=== PATIENT | female | born 1940 | race Caucasian/White ===

== ENCOUNTER → 2022-08-03 | Outpatient (CLI) | payer MEDICARE ==
[2022-08-03 18:12] LABS: HCT 35.2 % (37.2-46.3); HGB 10.8 g/dL (12.0-15.0); MCH 31.5 pg (27.0-32.0); MCHC 30.7 g/dL (32.0-37.0); MCV 102.6 fL (80.0-97.0); Mean Platelet Volume 12.7 fL (9.5-12.2); NRBC Per 100 WBC 0 /100 WBCS (0.0-0.0); Platelet Count 200 X 10*3/uL (140-440); RBC 3.43 X 10*6/uL (4.10-5.20); RDW 14.4 % (11.5-14.5)
== END | disposition home or self-care (01) ==
LOC: LABWHC1 12:29
PROVIDERS: ATTEND Family Medicine
DX: I25.10 Atherosclerotic heart disease of native coronary artery without angina pectoris (principal); N17.9 Acute kidney failure, unspecified
CPT/HCPCS: 36415; 83970; 85027

== ENCOUNTER 2022-12-07 01:06 | Inpatient (IN) | payer MEDICARE ==
--- NOTE | 2022-12-07 01:30 | ED ---
General Adult HPI - General Chief complaint: Shortness of Breath Stated complaint: SOB Time Seen by Provider: 12/07/22 01:10 Source: patient, EMS, RN notes reviewed, old records reviewed Mode of arrival: EMS Limitations: no limitations - History of Present Illness Initial comments: 82-year-old female presenting for evaluation of cough and dyspnea. Patient states she's had a cough for several days but this evening she became more dyspneic. She denies chest pain. Denies fever. Denies lower extremity pain or swelling. Denies history of asthma or COPD but states she does have an inhaler at home. Patient states she had a similar episode several months ago which was related to pneumonia and did require hospitalization and BiPAP - Related Data Allergies Allergy/AdvReac Type Severity Reaction Status Date / Time cephalexin [From Keflex] AdvReac Rash/Hives Verified 12/07/22 01:17 Penicillins AdvReac Rash/Hives Verified 12/07/22 01:17 Sulfa (Sulfonamide AdvReac Itching Verified 12/07/22 01:17 Antibiotics) Review of Systems ROS Statement: Those systems with pertinent positive or pertinent negative responses have been documented in the HPI. ROS Other: All systems not noted in ROS Statement are negative. 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 Absent: tenderness, meningismus Respiratory exam: Present: rhonchi, other (Bronchospastic cough). Absent: respiratory distress Cardiovascular Exam: Present: regular rate, normal rhythm, other GI/Abdominal exam: Present: soft. Absent: distended, tenderness, guarding Extremities exam: Present: normal inspection, normal capillary refill. Absent: pedal edema, calf tenderness Neurological exam: Present: alert, oriented X3, CN II-XII intact. Absent: motor sensory deficit Psychiatric exam: Present: normal affect, normal mood Skin exam: Present: warm, dry, intact Course Vital Signs 12/07/22 12/07/22 12/07/22 01:07 01:13 01:19 Temperature 98.1 F Pulse Rate 90 90 Respiratory 18 22 Rate Blood Pressure 146/94 O2 Sat by Pulse 98 98 Oximetry 12/07/22 12/07/22 12/07/22 01:20 01:30 01:50 Temperature Pulse Rate 90 100 83 Respiratory 11 L 18 20 Rate Blood Pressure 146/94 O2 Sat by Pulse 98 97 97 Oximetry 12/07/22 12/07/22 12/07/22 02:15 02:20 02:30 Temperature Pulse Rate 78 77 75 Respiratory 18 18 22 Rate Blood Pressure 146/94 O2 Sat by Pulse 97 97 97 Oximetry 12/07/22 12/07/22 12/07/22 02:40 02:50 03:00 Temperature Pulse Rate 75 74 77 Respiratory 10 L 20 Rate Blood Pressure 130/72 O2 Sat by Pulse 97 96 97 Oximetry 12/07/22 04:00 Temperature Pulse Rate 75 Respiratory 18 Rate Blood Pressure 138/96 O2 Sat by Pulse 97 Oximetry Medical Decision Making - Medical Decision Making Was pt. sent in by a medical professional or institution (, PA, SHOTG[employer] SHELL ASSEMBLY MACHINE ADJUSTER, urgent care, hospital, or half-way...) When possible be specific @ -No Did you speak to anyone other than the patient for history (EMS, parent, family, police, friend...)? What history was obtained from this source @ -No Did you review nursing and triage notes (agree or disagree)? Why? @ -I reviewed and agree with nursing and triage notes Were old charts reviewed (outside hosp., previous admission, EMS record, old EKG, old radiological studies, urgent care reports/EKG's, half-way records)? Report findings @ -No old charts were reviewed Differential Diagnosis (chest pain, altered mental status, abdominal pain women, abdominal pain men, vaginal bleeding, weakness, fever, dyspnea, syncope, headache, dizziness, GI bleed, back pain, seizure, CVA, palpatations, mental health, musculoskeletal)? @ Differential Dyspnea: Coronary syndrome, arrhythmia, tamponade, asthma, COPD, pulmonary embolism, pneumonia, pneumothorax, pulmonary effusion, anaphylaxis, diabetic ketoacidosis, flailed chest, pulmonary contusion, diaphragmatic rupture, anemia, neuromuscular, this is not meant to be an all-inclusive list. EKG interpreted by me (3pts min.). @ Sinus rhythm, left axis deviation rate of 84, RI interval 157, QRS duration 111, QTC [address] segment elevation X-rays interpreted by me (1pt min.). @ -None done CT interpreted by me (1pt min.). @ -None done U/S interpreted by me (1pt. min.). @ -None done What testing was considered but not performed or refused? (CT, X-rays, U/S, labs)? Why? @ -None What meds were considered but not given or refused? Why? @ -None Did you discuss the management of the patient with other professionals (professionals i.e. , PA, [employer] SHELL ASSEMBLY MACHINE ADJUSTER, lab, RT, psych nurse, high school social studies teacher, wood boat builder supervisor, teacher, supervisor dog license officer, residential case manager)? Give summary @ -[Dr. Archuleta Was smoking cessation discussed for >3mins.? @ -No Was critical care preformed (if so, how long)? @ -No Were there social determinants of health that impacted care today? How? (Homelessness, low income, unemployed, alcoholism, drug addiction, transportation, low edu. Level, literacy, decrease access to med. care, nursing home, rehab)? @ -No Was there de-escalation of care discussed even if they declined (Discuss DNR or withdrawal of care, Hospice)? DNR status @ -No What co-morbidities impacted this encounter? (DM, HTN, Smoking, COPD, CAD, Cancer, CVA, ARF, Chemo, Hep., AIDS, mental health diagnosis, sleep apnea, morbid obesity)? @ -CHF, CAD Was patient admitted / discharged? Hospital course, mention meds given and route, prescriptions, significant lab abnormalities, going to OR and other pertinent info. @ 82-year-old female with cough and dyspnea, symptoms have progressed over several days but significantly worsened tonight. She does not have a formal diagnosis of asthma or COPD but has had some mild lower respiratory issues in the past. She has a bronchospastic cough and bilateral rhonchi. No peripheral edema. Patient's workup reveals chest x-ray which is negative for large focal pneumonia, does show some basilar atelectasis. She has a normal CBC. She has an elevated d-dimer of 0.86. She states that she had previously been admitted and there was request for VQ scan however the patient had an infection at the [facility] and was not able to undergo this test. She states that they have had her on our requests for suspected pulmonary embolism at that time. She is unable to undergo CT angiography for history of kidney disease. She has a negative troponin, negative BMP. She will be treated as acute bronchospasm with steroids, albuterol and oral antibiotics and VQ scan will be ordered for the morning. Undiagnosed new problem with uncertain prognosis? @ -No Drug Therapy requiring intensive monitoring for toxicity (Heparin, Nitro, Insulin, Cardizem)? @ -No Were any procedures done? @ -No Diagnosis/symptom? @ Dyspnea, bronchospasm Acute, or Chronic, or Acute on Chronic? @ Acute Uncomplicated (without systemic symptoms) or Complicated (systemic symptoms)? @ -Complicated Side effects of treatment? @ -No Exacerbation, Progression, or Severe Exacerbation? @ -No Poses a threat to life or bodily function? How? (Chest pain, USA, CT, pneumonia, PE, COPD, DKA, ARF, appy, cholecystitis, CVA, Diverticulitis, Homicidal, Suicidal, threat to staff... and all critical care pts) @ Moderate risk, , bronchospasm, dyspnea and hypoxia - Lab Data Result diagrams: 12/07/22 01:26 12/07/22 01:26 Lab Results 12/07/22 12/07/22 12/07/22 Range/Units 01: 01: 01:26 WBC 10.0 (3.8-10.6) k/uL RBC 4.45 (3.80-5.40) m/uL Hgb 13.6 (11.4-16.0) gm/dL Hct 41.2 (34.0-46.0) % MCV 92.6 (80.0-100.0) fL MCH 30.4 (25.0-35.0) pg MCHC 32.9 (31.0-37.0) g/dL RDW 13.9 (11.5-15.5) % Plt Count 327 (150-450) k/uL MPV 8.2 Neutrophils % 62 % Lymphocytes % 21 % Monocytes % 8 % Eosinophils % 4 % Basophils % 1 % Neutrophils # 6.2 (1.3-7.7) k/uL Lymphocytes # 2.1 (1.0-4.8) k/uL Monocytes # 0.8 (0-1.0) k/uL Eosinophils # 0.4 (0-0.7) k/uL Basophils # 0.1 (0-0.2) k/uL PT 9.4 (9.0-12.0) sec INR 0.9 (<1.2) APTT 23.1 (22.0-30.0) sec D-Dimer 0.86 H (<0.60) mg/L FEU Sodium 139 (137-145) mmol/L Potassium 4.2 (3.5-5.1) mmol/L Chloride 110 H (98-107) mmol/L Carbon Dioxide 16 L (22-30) mmol/L Anion Gap 13 mmol/L BUN 28 H (7-17) mg/dL Creatinine 1.31 H (0.52-1.04) mg/dL Est GFR (CKD-EPI)AfAm 44 (>60 ml/min/1.73 sqM) Est GFR (CKD-EPI)NonAf 38 (>60 ml/min/1.73 sqM) Glucose 127 H (74-99) mg/dL Plasma Lactic Acid [place] (0.7-2.0) mmol/L Calcium 8.9 (8.4-10.2) mg/dL Magnesium 1.9 (1.6-2.3) mg/dL Total Bilirubin 0.4 (0.2-1.3) mg/dL AST 21 (14-36) U/L ALT 14 (4-34) U/L Alkaline Phosphatase 117 (38-126) U/L Troponin I (0.000-0.034) ng/mL NT-Pro-B Natriuret Pep pg/mL Total Protein 7.8 (6.3-8.2) g/dL Albumin 4.2 (3.5-5.0) g/dL Influenza Type A (PCR) (Not Detectd) Influenza Type B (PCR) (Not Detectd) RSV (PCR) (Not Detectd) SARS-CoV-2 (PCR) (Not Detectd) 12/07/22 12/07/22 12/07/22 Range/Units 01:26 01:26 01:26 WBC (3.8-10.6) k/uL RBC (3.80-5.40) m/uL Hgb (11.4-16.0) gm/dL Hct (34.0-46.0) % MCV (80.0-100.0) fL MCH (25.0-35.0) pg MCHC (31.0-37.0) g/dL RDW (11.5-15.5) % Plt Count (150-450) k/uL MPV Neutrophils % % Lymphocytes % % Monocytes % % Eosinophils % % Basophils % % Neutrophils # (1.3-7.7) k/uL Lymphocytes # (1.0-4.8) k/uL Monocytes # (0-1.0) k/uL Eosinophils # (0-0.7) k/uL Basophils # (0-0.2) k/uL PT (9.0-12.0) sec INR (<1.2) APTT (22.0-30.0) sec D-Dimer (<0.60) mg/L FEU Sodium (137-145) mmol/L Potassium (3.5-5.1) mmol/L Chloride (98-107) mmol/L Carbon Dioxide (22-30) mmol/L Anion Gap mmol/L BUN (7-17) mg/dL Creatinine (0.52-1.04) mg/dL Est GFR (CKD-EPI)AfAm (>60 ml/min/1.73 sqM) Est GFR (CKD-EPI)NonAf (>60 ml/min/1.73 sqM) Glucose (74-99) mg/dL Plasma Lactic Acid [place] 1.3 (0.7-2.0) mmol/L Calcium (8.4-10.2) mg/dL Magnesium (1.6-2.3) mg/dL Total Bilirubin (0.2-1.3) mg/dL AST (14-36) U/L ALT (4-34) U/L Alkaline Phosphatase (38-126) U/L Troponin I <0.012 (0.000-0.034) ng/mL NT-Pro-B Natriuret Pep 562 pg/mL Total Protein (6.3-8.2) g/dL Albumin (3.5-5.0) g/dL Influenza Type A (PCR) (Not Detectd) Influenza Type B (PCR) (Not Detectd) RSV (PCR) (Not Detectd) SARS-CoV-2 (PCR) (Not Detectd) 12/07/22 Range/Units 01:36 WBC (3.8-10.6) k/uL RBC (3.80-5.40) m/uL Hgb (11.4-16.0) gm/dL Hct (34.0-46.0) % MCV (80.0-100.0) fL MCH (25.0-35.0) pg MCHC (31.0-37.0) g/dL RDW (11.5-15.5) % Plt Count (150-450) k/uL MPV Neutrophils % % Lymphocytes % % Monocytes % % Eosinophils % % Basophils % % Neutrophils # (1.3-7.7) k/uL Lymphocytes # (1.0-4.8) k/uL Monocytes # (0-1.0) k/uL Eosinophils # (0-0.7) k/uL Basophils # (0-0.2) k/uL PT (9.0-12.0) sec INR (<1.2) APTT (22.0-30.0) sec D-Dimer (<0.60) mg/L FEU Sodium (137-145) mmol/L Potassium (3.5-5.1) mmol/L Chloride (98-107) mmol/L Carbon Dioxide (22-30) mmol/L Anion Gap mmol/L BUN (7-17) mg/dL Creatinine (0.52-1.04) mg/dL Est GFR (CKD-EPI)AfAm (>60 ml/min/1.73 sqM) Est GFR (CKD-EPI)NonAf (>60 ml/min/1.73 sqM) Glucose (74-99) mg/dL Plasma Lactic Acid [place] (0.7-2.0) mmol/L Calcium (8.4-10.2) mg/dL Magnesium (1.6-2.3) mg/dL Total Bilirubin (0.2-1.3) mg/dL AST (14-36) U/L ALT (4-34) U/L Alkaline Phosphatase (38-126) U/L Troponin I (0.000-0.034) ng/mL NT-Pro-B Natriuret Pep pg/mL Total Protein (6.3-8.2) g/dL Albumin (3.5-5.0) g/dL Influenza Type A (PCR) Not Detected (Not Detectd) Influenza Type B (PCR) Not Detected (Not Detectd) RSV (PCR) Not Detected (Not Detectd) SARS-CoV-2 (PCR) Not Detected (Not Detectd) Disposition Clinical Impression: Positive D dimer, Bronchospasm, Dyspnea Disposition: ADMITTED IP TO THIS [facility] Condition: Stable Is patient prescribed a controlled substance at d/c from ED?: No Referrals: Grover Escalante MD [Primary Care Provider] - 1-2 days Time of Disposition: 04:09
[2022-12-07 01:35] LABS: Basophils # (A) 0.1 k/uL (0-0.2); Basophils % (A) 1 %; Eosinophils # (A) 0.4 k/uL (0-0.7); Eosinophils % (A) 4 %; HCT 41.2 % (34.0-46.0); HGB 13.6 gm/dL (11.4-16.0); Lymphocytes # (A) 2.1 k/uL (1.0-4.8); Lymphocytes % (A) 21 %; MCH 30.4 pg (25.0-35.0); MCHC 32.9 g/dL (31.0-37.0); MCV 92.6 fL (80.0-100.0); Mean Platelet Volume 8.2; Monocytes # (A) 0.8 k/uL (0-1.0); Monocytes % (A) 8 %; Neutrophils # (A) 6.2 k/uL (1.3-7.7); Neutrophils % (A) 62 %; Platelet Count 327 k/uL (150-450); RBC 4.45 m/uL (3.80-5.40); RDW 13.9 % (11.5-15.5)
[2022-12-07 02:05] LABS: Albumin 4.2 g/dL (3.5-5.0); Calcium 8.9 mg/dL (8.4-10.2); Magnesium 1.9 mg/dL (1.6-2.3); Potassium 4.2 mmol/L (3.5-5.1); Total Bilirubin 0.4 mg/dL (0.2-1.3); Total Protein 7.8 g/dL (6.3-8.2)
[2022-12-07 02:12] LABS: INR 0.9 (<1.2); Partial Thromboplastin Time 23.1 sec (22.0-30.0); Prothrombin Time 9.4 sec (9.0-12.0)
[2022-12-07] MEDS ORDERED: SODIUM CHLORIDE 0.9% 500 ML 500 ML IV ONE (02:41)
--- NOTE | 2022-12-07 03:07 | XR ---
EXAM: XR Chest, 2 Views CLINICAL HISTORY: ITS.REASON XR Reason: difficulty breathing TECHNIQUE: Frontal and lateral views of the chest. COMPARISON: None FINDINGS: Hardware: None. Lungs/pleura: Bibasilar atelectasis. No focal consolidation. No pleural effusion or pneumothorax. Heart/mediastinum: Enlargement of the cardiac silhouette. Large gas- filled hiatal hernia. Soft tissues: Unremarkable. Bones: No acute fracture. Exaggerated thoracic kyphosis. Upper abdomen: Normal. IMPRESSION: 1. No acute disease identified. Basilar atelectasis. 2. Large gas-filled hiatal hernia.
[2022-12-07] MEDS ORDERED: ALBUTEROL NEBULIZED 2.5 MG/3 ML INHALATION STA (03:43)
[2022-12-07] MEDS ORDERED: predniSONE 20 MG TAB PO STA (03:43)
[2022-12-07] MEDS ORDERED: AZITHROMYCIN 500 MG TAB PO STA (04:03)
[2022-12-07] MEDS ORDERED: ALBUTEROL NEBULIZED 2.5 MG/3 ML INHALATION PRN (04:03)
[2022-12-07] MEDS ORDERED: NALOXONE 0.4 MG/ML 1 ML VIAL IV PRN (04:04)
[2022-12-07] MEDS: SODIUM CHLORIDE 0.9% 1,000 ML IV SCH ×3 (04:23→22:49)
--- NOTE | 2022-12-07 05:24 | P.HPIM ---
History of Present Illness H&P Date: 12/07/22 The patient is an 82-year-old female with a PMH of chronic kidney disease, COPD, and CHF who presents to the emergency room with complaints of cough and shortness of breath. The patient reports that her symptoms started earlier today and quickly progressed. She denied experiencing chest discomfort, nausea, vomiting, dizziness, or diaphoresis. The patient reports that she experienced a bout of influenza pneumonia in June, at which time she was also presumed to have a PE and was started on a course of anticoagulants. The course was subsequently discontinued. The patient denies experiencing lower extremity swelling or pain. In the emergency room, chest x-ray revealed bibasilar atelectasis as well as a large gas-filled hiatal hernia. EKG revealed sinus rhythm with left axis deviation at 84 bpm with poor R-wave progression. Laboratory evaluation is remarkable for d-dimer 0.86, BUN 28, creatinine 1.31 (similar to baseline), troponin less than 0.012, and proBNP 562. ED documentation reviewed and case discussed with ED provider. Review of systems: Pertinent positives and negatives as discussed in HPI, a complete review of systems was performed and all other systems are negative. Physical examination: Vital signs reviewed General: non toxic, no distress, appears at stated age, overweight Derm: no unusual rashes/lesions, warm Head: atraumatic, normocephalic, symmetric Eyes: EOMI, no lid lag, anicteric sclera, pupils equal round reactive to light ENT: Nose and ears atraumatic Neck: No cervical lymphadenopathy, trachea midline, supple Mouth: no lip lesion, mucus membranes moist Cardiovascular: S1S2 reg, no murmur, positive dorsalis pedis pulse bilateral, no edema Lungs: CTA bilateral, no rhonchi, no rales, no accessory muscle use Abdominal: soft, nontender to palpation, no guarding Ext: muscle strength 5 out of 5 in all 4 extremities grossly, no gross muscle atrophy, no contractures, Neuro: CN II-XI grossly intact, no gross focal neuro deficits Psych: Alert, oriented, appropriate affect Assessment: Cough and shortness of breath, community-acquired pneumonia versus PE in setting of borderline d-dimer Imaging: chest x-ray revealed bibasilar atelectasis as well as a large gas-filled hiatal hernia. EKG revealed sinus rhythm with left axis deviation at 84 bpm with poor R-wave progression. Data Review: Laboratory evaluation is remarkable for d-dimer 0.86, BUN 28, creatinine 1.31 (similar to baseline), troponin less than 0.012, and proBNP 562. 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, enlarged thyroid History of Any Multi-Drug Resistant Organisms: None Reported Smoking Status: Never smoker Medications and Allergies Allergies Allergy/AdvReac Type Severity Reaction Status Date / Time cephalexin [From Keflex] AdvReac Rash/Hives Verified 12/07/22 01:17 Penicillins AdvReac Rash/Hives Verified 12/07/22 01:17 Sulfa (Sulfonamide AdvReac Itching Verified 12/07/22 01:17 Antibiotics) Physical Exam Vitals: Vital Signs Temp Pulse Resp BP Pulse Ox 12/07/22 04:33 97 12/07/22 04:30 77 8 L 138/96 96 12/07/22 04:28 75 12/07/22 04:20 74 20 138/96 97 12/07/22 04:10 74 22 138/96 97 12/07/22 04:00 74 20 129/79 96 12/07/22 03:00 77 130/72 97 12/07/22 02:50 74 20 96 12/07/22 02:40 75 10 L 97 12/07/22 02:30 75 22 97 12/07/22 02:20 77 18 146/94 97 12/07/22 02:15 78 18 97 12/07/22 01:50 83 20 97 12/07/22 01:30 100 18 97 12/07/22 01:20 90 11 L 146/94 98 12/07/22 01:19 22 12/07/22 01:13 90 98 12/07/22 01:07 98.1 F 90 18 146/94 98 Intake and Output 12/06/22 12/06/22 12/07/22 14:59 22:59 06:59 Other: Weight 72.575 kg Results CBC & Chem 7: 12/07/22 01:26 12/07/22 01:26 Labs: Abnormal Lab Results - Last 24 Hours (Table) 12/07/22 12/07/22 Range/Units 01:26 01:26 D-Dimer 0.86 H (<0.60) mg/L FEU Chloride 110 H (98-107) mmol/L Carbon Dioxide 16 L (22-30) mmol/L BUN 28 H (7-17) mg/dL Creatinine 1.31 H (0.52-1.04) mg/dL Glucose 127 H (74-99) mg/dL
[2022-12-07] MEDS: IPRATROPIUM-ALBUTEROL 3 ML NEB INHALATION SCH ×4 (08:34→20:32)
[2022-12-07] MEDS: HEPARIN SODIUM,PORCINE/PF 5,000 UNIT/0.5 ML SYRINGE SQ SCH ×3 (08:44→23:24)
--- NOTE | 2022-12-07 12:46 | NM ---
EXAMINATION TYPE: NM pul vent and perfuse DATE OF EXAM: 12/07/2022 CLINICAL INDICATION: Female, 82 years old with shortness of breath, history of jatin; Comparison: Radiograph same day TECHNIQUE: Utilizing inhalation of 68.4 mCi Tc 99m DTPA aerosol and intravenous injection of 4.8 mCi of Tc 99m MAA, ventilation and perfusion images are acquired post injection in multiple projections. FINDINGS: Normal radiotracer distribution is noted in the lungs. There is no evidence of mismatched defects. IMPRESSION: Very low probability for pulmonary embolus. Correlate as to how much of the patient's large hiatal he rnia could be contributing to her shortness of breath.
--- NOTE | 2022-12-07 18:31 | P.PN ---
Subjective Progress Note Date: 12/07/22 Hospital course: Patient is a very pleasant 82-year-old female with a past medical history of CKD stage II, COPD, hypertension, hyperlipidemia, hypothyroidism, and CHF. Patient presented to the emergency department with a chief complaint of shortness of breath.patient underwent full evaluation in the emergency department. CBC unremarkable. Coagulation profile normal findings. D-dimer slightly elevated at 0.86 but normal with age adjustment. BMP revealing hyperchloremia with ch loride of 110 and hypocarbia with bicarbonate 16 along with slightly elevated renal function and a BUN was 28, creatinine 1.31, and GFR of 38 with baseline creatinine of 1.5. Troponin less than 0.012. ProBNP 562. Pro-calcitonin 0.04. Influenza A, influenza B, RSV, and Covid PCR negative.Chest x-ray negative for acute cardiopulmonary process revealing large gas-filled hiatal hernia. patient admitted under our services and consult was placed to general surgery. Physical exam: Vital signs reviewed and stable. General: Nontoxic, no distress and appears stated age. Derm: Skin warm and dry, normal coloration for ethnicity. Head: Atraumatic, normocephalic and symmetric. Eyes: EOMs intact, no lid lag, and anicteric sclera Mouth: no lip lesions, mucus membranes moist Cardiovascular: regular rate and rhythm with normal S1S2, no murmur, positive posterior tibial pulses bilaterally, and cap refill < 2 seconds. Lungs: Respirations even, regular, and unlabored on room air. Lungs slightly diminished otherwise no rhonchi, no rales, no wheezing, and no accessory muscle usage. Abdominal: soft, nontender to palpation, no guarding, no appreciable organomegaly Ext: ROM intact. No gross muscle atrophy, no edema, no contractures Neuro: Speech clear, face symmetrical and CN II-XII grossly intact with no noted focal neuro deficits Psych: Alert and oriented to person, place, time, and situation. Appropriate and pleasant affect. Assessment and Plan of Care: Shortness of breath secondary to large hiatal hernia chronic kidney disease stage II COPD Hypothyroidism hypertension Hyperlipidemia -CBC unremarkable. Coagulation profile normal findings. D-dimer slightly elevated at 0.86 but normal with age adjustment. BMP revealing hyperchloremia with chloride of 110 and hypocarbia with bicarbonate 16 along with slightly elevated renal function and a BUN was 28, creatinine 1.31, and GFR of 38 with baseline creatinine of 1.5. Troponin less than 0.012. ProBNP 562. Pro- calcitonin 0.04. Influenza A, influenza B, RSV, and Covid PCR negative. -Chest x-ray negative for acute cardiopulmonary process revealing large gas- filled hiatal hernia. -Consult placed to general surgery. Discussed plan of care with general surgeon stating patient will require surgical intervention for hernia repair. -Symptomatic care and pain management. -Continue gentle IV fluid hydration with 0.9% normal saline at 75 mL's per hour. -Home medications reviewed and reordered. Patient to continue amlodipine 5 mg daily, atorvastatin 20 mg daily, ferrous sulfate 325 mg daily, levothyroxine 50 g daily metoprolol 50 mg twice daily, and valsartan 320 mg daily. CODE STATUS: FULL CODE DVT prophylaxis: Heparin Discussed with: Patient, RN and General Surgeon Anticipated discharge date: Clinical Course to determine Anticipated discharge place: Home Patient was seen independently by Nurse Pracitioner. This document was prepared using [employer] dictation software. Please allow for errors in wash test checker, while rare they do occur. Pepe Mercado NP rendered care for this patient independently, reviewed the findings and plan as documented in the note above. I did not physically speak with or examine the patient on this date. Objective - Vital Signs Vital signs: Vital Signs Temp 98.4 F 12/07/22 07:17 Pulse 78 12/07/22 07:17 Resp 16 12/07/22 07:17 BP 134/83 12/07/22 07:17 Pulse Ox 96 12/07/22 08:34 FiO2 Intake & Output 12/06/22 12/07/22 12/07/22 18:59 06:59 18:59 Intake Total 200 Balance 200 Weight 72.575 kg Intake: Oral 200 Other: # Voids 1 - Labs CBC & Chem 7: 12/09/22 05:00 12/09/22 05:00 Labs: Abnormal Lab Results - Last 24 Hours (Table) 12/07/22 12/07/22 Range/Units 01:26 01:26 D-Dimer 0.86 H (<0.60) mg/L FEU Chloride 110 H (98-107) mmol/L Carbon Dioxide 16 L (22-30) mmol/L BUN 28 H (7-17) mg/dL Creatinine 1.31 H (0.52-1.04) mg/dL Glucose 127 H (74-99) mg/dL
[2022-12-07] MEDS: METOPROLOL SUCCINATE (ER) 50 MG TAB.ER.24H PO SCH (19:53)
[2022-12-07] MEDS: ATORVASTATIN 20 MG TAB PO SCH (19:53)
[2022-12-08] MEDS: LEVOTHYROXINE 50 MCG TAB PO SCH (05:32)
[2022-12-08] MEDS: PANTOPRAZOLE 40 MG TABLET PO SCH (05:33)
[2022-12-08] MEDS: FERROUS SULFATE 325 MG TAB PO SCH (08:03)
[2022-12-08] MEDS: HEPARIN SODIUM,PORCINE/PF 5,000 UNIT/0.5 ML SYRINGE SQ SCH ×2 (08:03→16:05)
[2022-12-08] MEDS: METOPROLOL SUCCINATE (ER) 50 MG TAB.ER.24H PO SCH ×2 (08:03→21:39)
[2022-12-08] MEDS: VALSARTAN 160 MG TAB PO SCH (08:03)
[2022-12-08] MEDS: allopurinoL 300 MG TAB PO SCH (08:03)
[2022-12-08] MEDS: amLODIPine 5 MG TAB PO SCH (08:03)
[2022-12-08] MEDS: IPRATROPIUM-ALBUTEROL 3 ML NEB INHALATION SCH ×4 (08:07→20:39)
--- NOTE | 2022-12-08 10:02 | P.GSCN ---
History of Present Illness Consult date: 12/08/22 Reason for Consult: Large paraesophageal hernia with intrathoracic stomach History of present illness: This 80-year-old female who is admitted to the hospital with complaints of(dyspnea shortness of breath. GERD and dysphagia. Patient states that she had long-term acid reflux. Her recent chest x-ray shows a large paraesophageal hiatal hernia with prosthetic 50% of her stomach in her chest. Past Medical History Past Medical History: Cancer, Heart Failure, Myocardial Infarction ([place]), Renal Disease Additional Past Medical History / Comment(s): Basil cell cancer, enlarged thyroid Last Myocardial Infarction Date:: unknown History of Any Multi-Drug Resistant Organisms: None Reported Smoking Status: Never smoker Medications and Allergies Home Medications Medication Instructions Recorded Confirmed Type Amlodipine Besylate/Valsartan 1 tab PO DAILY 12/07/22 12/07/22 History [Amlodipine-Valsartan 5-320 mg] Ferrous Sulfate [Feosol] 325 mg PO DAILY 12/07/22 12/07/22 History Levothyroxine Sodium [Synthroid] 50 mcg PO TUTHFRSA 12/07/22 12/07/22 History Metoprolol Succinate (ER) [Toprol 50 mg PO BID 12/07/22 12/07/22 History Xl] Omeprazole [PriLOSEC] 40 mg PO DAILY 12/07/22 12/07/22 History Simvastatin [Zocor] 40 mg PO HS 12/07/22 12/07/22 History allopurinoL [Zyloprim] 150 mg PO DAILY 12/07/22 12/07/22 History Allergies Allergy/AdvReac Type Severity Reaction Status Date / Time cephalexin [From Keflex] AdvReac Rash/Hives Verified 12/07/22 07:01 Penicillins AdvReac Rash/Hives Verified 12/07/22 07:01 Sulfa (Sulfonamide AdvReac Itching/[place] Verified 12/07/22 07:01 Antibiotics) h Surgical - Exam Vital Signs Temp Pulse Resp BP Pulse Ox 98.1 F 90 18 146/94 98 12/07/22 01:07 12/07/22 01:07 12/07/22 01:07 12/07/22 01:07 12/07/22 01:07 - General well developed, well nourished, no distress - Eyes PERRL - ENT normal pinna - Neck no masses - Respiratory normal expansion - Cardiovascular Rhythm: regular - Abdomen Abdomen: soft, non tender Results - Labs 12/07/22 01:26 12/07/22 01:26 Assessment and Plan Assessment: Large paraesophageal hiatal hernia. History of chronic GERD with some mild dysphagia. Shortness of breath. Due to the large hiatal hernia patient should have this repaired. The patient will be medically optimized. She will undergo EGD prior to repair of her hiatal hernia.
[2022-12-08] MEDS: ACETAMINOPHEN TAB 325 MG TAB PO PRN (16:07)
--- NOTE | 2022-12-08 17:54 | P.PN ---
Subjective Progress Note Date: 12/08/22 Hospital course: Patient is a very pleasant 82-year-old female with a past medical history of CKD stage II, COPD, hypertension, hyperlipidemia, hypothyroidism, and CHF. Patient presented to the emergency department with a chief complaint of shortness of breath.patient underwent full evaluation in the emergency department. CBC unremarkable. Coagulation profile normal findings. D-dimer slightly elevated at 0.86 but normal with age adjustment. BMP revealing hyperchloremia with ch loride of 110 and hypocarbia with bicarbonate 16 along with slightly elevated renal function and a BUN was 28, creatinine 1.31, and GFR of 38 with baseline creatinine of 1.5. Troponin less than 0.012. ProBNP 562. Pro-calcitonin 0.04. Influenza A, influenza B, RSV, and Covid PCR negative.Chest x-ray negative for acute cardiopulmonary process revealing large gas-filled hiatal hernia. patient admitted under our services and consult was placed to general surgery. Physical exam: Vital signs reviewed and stable. General: Nontoxic, no distress and appears stated age. Derm: Skin warm and dry, normal coloration for ethnicity. Head: Atraumatic, normocephalic and symmetric. Eyes: EOMs intact, no lid lag, and anicteric sclera Mouth: no lip lesions, mucus membranes moist Cardiovascular: regular rate and rhythm with normal S1S2, no murmur, positive posterior tibial pulses bilaterally, and cap refill < 2 seconds. Lungs: Respirations even, regular, and unlabored on room air. Lungs slightly diminished otherwise no rhonchi, no rales, no wheezing, and no accessory muscle usage. Abdominal: soft, nontender to palpation, no guarding, no appreciable organomegaly Ext: ROM intact. No gross muscle atrophy, no edema, no contractures Neuro: Speech clear, face symmetrical and CN II-XII grossly intact with no noted focal neuro deficits Psych: Alert and oriented to person, place, time, and situation. Appropriate and pleasant affect. Assessment and Plan of Care: Shortness of breath secondary to large hiatal hernia Large paraesophageal hernia with intrathoracic stomach Chronic kidney disease stage II COPD Hypothyroidism hypertension Hyperlipidemia -Gen. surgery following, Discussed plan of care with general surgeon. Dr. Murphy stating patient will require surgical intervention for this hernia repair. -Symptomatic care and pain management. -Continue gentle IV fluid hydration with 0.9% normal saline at 75 mL's per hour. -Home medications reviewed and reordered. Patient to continue amlodipine 5 mg daily, atorvastatin 20 mg daily, ferrous sulfate 325 mg daily, levothyroxine 50 g daily metoprolol 50 mg twice daily, and valsartan 320 mg daily. Elevated d-dimer -D-dimer was slightly elevated at 0.86 but normal with age adjustment. -Patient did undergo a VQ scan which showed very low probability for pulmonary emboli and concerning as to how much of patient's large hiatal hernia could be contributing to her shortness of breath CODE STATUS: FULL CODE DVT prophylaxis: Heparin Discussed with: Patient, RN and General Surgeon Anticipated discharge date: Clinical Course to determine Anticipated discharge place: Home Patient was seen independently by Nurse Pracitioner. This document was prepared using [employer] dictation software. Please allow for errors in office professional, while rare they do occur. I reviewed the documentation as provided by the RICHARD above, who is the original author of this note. I agree with the documented assessment and plan, with the following changes: none Objective - Vital Signs Vital signs: Vital Signs Temp 97.7 F 12/08/22 07:45 Pulse 92 12/08/22 08:18 Resp 18 12/08/22 07:45 BP 152/75 12/08/22 07:45 Pulse Ox 96 12/08/22 08:10 FiO2 Intake & Output 12/07/22 12/08/22 12/08/22 18:59 06:59 18:59 Intake Total 600 Balance 600 Intake: Intake, IV Titration 600 Amount Sodium Chloride 0.9% 1, 600 000 ml @ 75 mls/hr IV . [id number] [facility] Rx#:[id number] Other: # Voids 2 1 - Labs CBC & Chem 7: 12/20/22 04:21 12/20/22 04:21
[2022-12-08] MEDS: ATORVASTATIN 20 MG TAB PO SCH (21:39)
[2022-12-09] MEDS: SODIUM CHLORIDE 0.9% 1,000 ML IV SCH ×2 (00:41→00:44)
[2022-12-09] MEDS: HEPARIN SODIUM,PORCINE/PF 5,000 UNIT/0.5 ML SYRINGE SQ SCH ×3 (00:41→16:09)
[2022-12-09] MEDS: LEVOTHYROXINE 50 MCG TAB PO SCH (06:39)
[2022-12-09] MEDS: PANTOPRAZOLE 40 MG TABLET PO SCH (06:39)
[2022-12-09] MEDS: FERROUS SULFATE 325 MG TAB PO SCH (07:56)
[2022-12-09] MEDS: allopurinoL 300 MG TAB PO SCH (07:56)
[2022-12-09] MEDS: METOPROLOL SUCCINATE (ER) 50 MG TAB.ER.24H PO SCH ×2 (07:56→20:10)
[2022-12-09] MEDS: amLODIPine 5 MG TAB PO SCH (07:56)
[2022-12-09] MEDS: VALSARTAN 160 MG TAB PO SCH (07:56)
[2022-12-09] MEDS: IPRATROPIUM-ALBUTEROL 3 ML NEB INHALATION SCH ×4 (07:58→20:27)
[2022-12-09 09:21] LABS: African American GFR (CKD) 50.3 (60.0-200.0); Albumin 3.5 g/dL (3.8-4.9); Albumin/Globulin Ratio 1.32 (1.60-3.17); Anion Gap 9.6 mmol/L (10.00-18.00); BUN/Creat Ratio 17.78 Ratio (12.00-20.00); Blood Urea Nitrogen 20.8 mg/dL (9.0-27.0); Calcium 9.3 mg/dL (8.7-10.3); Carbon Dioxide 18.8 mmol/L (20.0-27.5); Globulin 2.7 g/dL (1.6-3.3); Magnesium 1.8 mg/dL (1.5-2.4); Non-African American GFR(CKD) 43.4 (60.0-200.0); Potassium 4.3 mmol/L (3.5-5.5); Total Bilirubin 0.3 mg/dL (0.30-1.20); Total Protein 6.2 g/dL (6.2-8.2)
--- NOTE | 2022-12-09 10:41 | P.PN ---
Progress Note - Text Progress Note Date: 12/09/22 Patient reports that she is anxious and hypertensive morning. She has had some shortness of breath. On exam vital signs are stable. Abdomen soft. I discussed the patient and her daughter on the telephone. She has a very large hiatal hernia. We will plan for elective repair when she is stable and has medical clearance. We discussed that this occurring on Saturday or Saturday of next week.
[2022-12-09 11:20] LABS: HCT 33.5 % (37.2-46.3); HGB 10.8 g/dL (12.0-15.0); MCH 29.9 pg (27.0-32.0); MCHC 32.2 g/dL (32.0-37.0); MCV 92.8 fL (80.0-97.0); Mean Platelet Volume 11.7 fL (9.5-12.2); NRBC Per 100 WBC 0 /100 WBCS (0.0-0.0); Platelet Count 262 X 10*3/uL (140-440); RBC 3.61 X 10*6/uL (4.10-5.20); RDW 14.3 % (11.5-14.5); WBC 9.05 X 10*3/uL (4.50-10.00)
[2022-12-09] MEDS: ACETAMINOPHEN TAB 325 MG TAB PO PRN (13:16)
--- NOTE | 2022-12-09 17:59 | P.PN ---
Subjective Progress Note Date: 12/09/22 Hospital course: Patient is a very pleasant 82-year-old female with a past medical history of CKD stage II, COPD, hypertension, hyperlipidemia, hypothyroidism, and CHF. Patient presented to the emergency department with a chief complaint of shortness of breath.patient underwent full evaluation in the emergency department. CBC unremarkable. Coagulation profile normal findings. D-dimer slightly elevated at 0.86 but normal with age adjustment. BMP revealing hyperchloremia with ch loride of 110 and hypocarbia with bicarbonate 16 along with slightly elevated renal function and a BUN was 28, creatinine 1.31, and GFR of 38 with baseline creatinine of 1.5. Troponin less than 0.012. ProBNP 562. Pro-calcitonin 0.04. Influenza A, influenza B, RSV, and Covid PCR negative.Chest x-ray negative for acute cardiopulmonary process revealing large gas-filled hiatal hernia. patient admitted under our services and consult was placed to general surgery. Physical exam: Patient seen and fully evaluated at bedside this morning. Patient anxious regarding her discussion with general surgeon and need to undergo surgery. Patient also slightly hypertensive this morning likely secondary to anxiety. Patient being given her daily medications with valsartan 320 mg daily and metoprolol 50 mg twice daily, discussed plan with general surgeon, patient is medically optimized for surgery. General surgeon and states will plan for elective hernia repair 12/11/22 or 12/12/22. Vital signs reviewed and stable. General: Nontoxic, no distress and appears stated age. Derm: Skin warm and dry, normal coloration for ethnicity. Head: Atraumatic, normocephalic and symmetric. Eyes: EOMs intact, no lid lag, and anicteric sclera Mouth: no lip lesions, mucus membranes moist Cardiovascular: regular rate and rhythm with normal S1S2, no murmur, positive posterior tibial pulses bilaterally, and cap refill < 2 seconds. Lungs: Respirations even, regular, and unlabored on room air. Lungs slightly diminished otherwise no rhonchi, no rales, no wheezing, and no accessory muscle usage. Abdominal: soft, nontender to palpation, no guarding, no appreciable organomegaly Ext: ROM intact. No gross muscle atrophy, no edema, no contractures Neuro: Speech clear, face symmetrical and CN II-XII grossly intact with no noted focal neuro deficits Psych: Alert and oriented to person, place, time, and situation. Appropriate and pleasant affect. Assessment and Plan of Care: Shortness of breath secondary to large paraesophageal hernia with intrathoracic stomach Chronic kidney disease stage II Normocytic anemia COPD Hypothyroidism hypertension Hyperlipidemia -Gen. surgery following, Discussed plan of care with general surgeon. Dr. Murphy stating patient will require surgical intervention for this hernia repair and states will plan for elective hernia repair 12/11/22 or 12/12/22.. -Symptomatic care and pain management. -Morning labs reviewed and stable. CBC revealing normocytic anemia with hem oglobin of 10.8. BMP revealing hyperchloremia with chloride of 111 and slight improvement of hypocarbia with bicarb increasing to 18.8 with an anion gap of 9.60. IV Fluids discontinued at this time. -Patient to continue amlodipine 5 mg daily, atorvastatin 20 mg daily, ferrous sulfate 325 mg daily, levothyroxine 50 g daily metoprolol 50 mg twice daily, and valsartan 320 mg daily. -Order placed for repeat CBC tomorrow morning to follow up on hemoglobin secondary to drop from 13.6 down to 10.8 this morning. Elevated d-dimer, VQ negative for d-dimer -D-dimer was slightly elevated at 0.86 but normal with age adjustment. -Patient did undergo a VQ scan which showed very low probability for pulmonary emboli and concerning as to how much of patient's large hiatal hernia could be contributing to her shortness of breath CODE STATUS: FULL CODE DVT prophylaxis: Heparin Discussed with: Patient, RN and General Surgeon Anticipated discharge date: Clinical Course to determine Anticipated discharge place: Home Patient was seen independently by Nurse Pracitioner. This document was prepared using [employer] dictation software. Please allow for errors in export sales manager, while rare they do occur. Pepe Mercado NP rendered care for this patient independently, reviewed the findings and plan as documented in the note above. I did not physically speak with or examine the patient on this date. Objective - Vital Signs Vital signs: Vital Signs Temp 98.2 F 12/09/22 07:16 Pulse 92 12/09/22 08:13 Resp 16 12/09/22 07:16 BP 170/89 12/09/22 07:16 Pulse Ox 96 12/09/22 08:01 FiO2 Intake & Output 12/08/22 12/09/22 12/09/22 18:59 06:59 18:59 Intake Total 1080 920 Balance 1080 920 Intake: Oral 1080 920 Other: # Voids 3 1 - Labs CBC & Chem 7: 12/09/22 05:00 12/09/22 05:00
[2022-12-09] MEDS: ATORVASTATIN 20 MG TAB PO SCH (20:10)
[2022-12-10] MEDS: HEPARIN SODIUM,PORCINE/PF 5,000 UNIT/0.5 ML SYRINGE SQ SCH ×4 (00:03→23:53)
[2022-12-10] MEDS: ACETAMINOPHEN TAB 325 MG TAB PO PRN ×2 (06:17→21:35)
[2022-12-10] MEDS: PANTOPRAZOLE 40 MG TABLET PO SCH (06:18)
[2022-12-10] MEDS: FERROUS SULFATE 325 MG TAB PO SCH (07:36)
[2022-12-10] MEDS: allopurinoL 300 MG TAB PO SCH (07:36)
[2022-12-10] MEDS: METOPROLOL SUCCINATE (ER) 50 MG TAB.ER.24H PO SCH ×2 (07:37→21:35)
[2022-12-10] MEDS: VALSARTAN 160 MG TAB PO SCH (07:37)
[2022-12-10] MEDS: amLODIPine 5 MG TAB PO SCH (07:37)
[2022-12-10] MEDS: IPRATROPIUM-ALBUTEROL 3 ML NEB INHALATION SCH ×4 (09:22→22:08)
--- NOTE | 2022-12-10 09:45 | P.PN ---
Progress Note - Text Progress Note Date: 12/10/22 Patient still has some complaints of dyspnea related to anxiety. She feels she is hyperventilating. On exam vital signs are stable. Abdomen soft. Large paraesophageal hiatal hernia with approximately 50% stomach in the intrathoracic position. Patient will undergo EGD on Saturday. With tentative plan for surgery on Saturday.
--- NOTE | 2022-12-10 10:29 | P.PN ---
Progress Note - Text Progress Note Date: 12/10/22 Nursing staff relayed that no cardiac clearance is required. Consult cancelled.
--- NOTE | 2022-12-10 18:43 | P.PN ---
Subjective Progress Note Date: 12/10/22 Hospital course: Patient is a very pleasant 82-year-old female with a past medical history of CKD stage II, COPD, hypertension, hyperlipidemia, hypothyroidism, and CHF. Patient presented to the emergency department with a chief complaint of shortness of breath.patient underwent full evaluation in the emergency department. CBC unremarkable. Coagulation profile normal findings. D-dimer slightly elevated at 0.86 but normal with age adjustment. BMP revealing hyperchloremia with ch loride of 110 and hypocarbia with bicarbonate 16 along with slightly elevated renal function and a BUN was 28, creatinine 1.31, and GFR of 38 with baseline creatinine of 1.5. Troponin less than 0.012. ProBNP 562. Pro-calcitonin 0.04. Influenza A, influenza B, RSV, and Covid PCR negative.Chest x-ray negative for acute cardiopulmonary process revealing large gas-filled hiatal hernia. Patient admitted under our services and consult was placed to general surgery. Physical exam: Patient seen and fully evaluated at bedside this morning. Patient reports continued anxiety regarding her need to undergo surgery. Patient denies having any other complaints. She reports she is breathing well at rest but continues to be very short of breath with exertion. Vital signs reviewed and stable. General: Nontoxic, no distress and appears stated age. Derm: Skin warm and dry, normal coloration for ethnicity. Head: Atraumatic, normocephalic and symmetric. Eyes: EOMs intact, no lid lag, and anicteric sclera Mouth: no lip lesions, mucus membranes moist Cardiovascular: regular rate and rhythm with normal S1S2, no murmur, positive posterior tibial pulses bilaterally, and cap refill < 2 seconds. Lungs: Respirations even, regular, and unlabored on room air. Lungs slightly diminished otherwise no rhonchi, no rales, no wheezing, and no accessory muscle usage. Abdominal: soft, nontender to palpation, no guarding, no appreciable organomegaly Ext: ROM intact. No gross muscle atrophy, no edema, no contractures Neuro: Speech clear, face symmetrical and CN II-XII grossly intact with no noted focal neuro deficits Psych: Alert and oriented to person, place, time, and situation. Appropriate and pleasant affect. Assessment and Plan of Care: Shortness of breath secondary to large paraesophageal hernia with intrathoracic stomach Chronic kidney disease stage II Normocytic anemia COPD Hypothyroidism hypertension Hyperlipidemia -Gen. surgery following, Discussed plan of care with general surgeon. Dr. Murphy stating patient will require surgical intervention for this hernia repair and states will plan for endoscopy on 12/11/22 and elective hernia repair on 12/12/22.. -Symptomatic care and pain management. -Order placed for repeat CBC, CMP, and mag to be completed tomorrow prior to endoscopy. -Patient to continue amlodipine 5 mg daily, atorvastatin 20 mg daily, ferrous sulfate 325 mg daily, levothyroxine 50 g daily metoprolol 50 mg twice daily, and valsartan 320 mg daily. Elevated d-dimer, VQ negative for d-dimer -D-dimer was slightly elevated at 0.86 but normal with age adjustment. -Patient did undergo a VQ scan which showed very low probability for pulmonary emboli and concerning as to how much of patient's large hiatal hernia could be contributing to her shortness of breath CODE STATUS: FULL CODE DVT prophylaxis: Heparin Discussed with: Patient, RN and General Surgeon Anticipated discharge date: Clinical Course to determine Anticipated discharge place: Home Patient was seen independently by Nurse Pracitioner. This document was prepared using [employer] dictation software. Please allow for errors in perennial house manager, while rare they do occur. Pepe Mercado NP rendered care for this patient independently, reviewed the findings and plan as documented in the note above. I did not physically speak with or examine the patient on this date. Objective - Vital Signs Vital signs: Vital Signs Temp 97.6 F 12/10/22 07:03 Pulse 78 12/10/22 07:03 Resp 18 12/10/22 07:03 BP 167/92 12/10/22 07:03 Pulse Ox 97 12/10/22 07:03 FiO2 Intake & Output 12/09/22 12/10/22 12/10/22 18:59 06:59 18:59 Intake Total 1080 240 Output Total 3 Balance 1077 240 Intake: Oral 1080 240 Output: Stool 3 Other: # Voids 1 - Labs CBC & Chem 7: 12/09/22 05:00 12/09/22 05:00 Labs: Abnormal Lab Results - Last 24 Hours (Table) 12/09/22 12/09/22 Range/Units 05:00 05:00 RBC 3.61 L (4.10-5.20) X 10*6/uL Hgb 10.8 L (12.0-15.0) g/dL Hct 33.5 L (37.2-46.3) % Chloride 111 H (96-109) mmol/L Carbon Dioxide 18.8 L (20.0-27.5) mmol/L Anion Gap 9.60 L (10.00-18.00) mmol/L Est GFR (CKD-EPI)AfAm 50.3 L (60.0-200.0) Est GFR (CKD-EPI)NonAf 43.4 L (60.0-200.0) Albumin 3.5 L (3.8-4.9) g/dL Albumin/Globulin Ratio 1.32 L (1.60-3.17) g/dL
[2022-12-10] MEDS: ATORVASTATIN 20 MG TAB PO SCH (21:35)
[2022-12-11] MEDS: PANTOPRAZOLE 40 MG TABLET PO SCH (05:01)
[2022-12-11] MEDS: LEVOTHYROXINE 50 MCG TAB PO SCH (05:04)
[2022-12-11] MEDS: ACETAMINOPHEN TAB 325 MG TAB PO PRN ×3 (05:04→21:10)
[2022-12-11] MEDS: IPRATROPIUM-ALBUTEROL 3 ML NEB INHALATION SCH ×4 (08:50→19:31)
--- NOTE | 2022-12-11 08:53 | P.PN ---
Subjective Progress Note Date: 12/11/22 Hospital course: Patient is a very pleasant 82-year-old female with a past medical history of CKD stage II, COPD, hypertension, hyperlipidemia, hypothyroidism, and CHF. Patient presented to the emergency department with a chief complaint of shortness of breath.patient underwent full evaluation in the emergency department. CBC unremarkable. Coagulation profile normal findings. D-dimer slightly elevated at 0.86 but normal with age adjustment. BMP revealing hyperchloremia with chloride of 110 and hypocarbia with bicarbonate 16 along with slightly elevated renal function and a BUN was 28, creatinine 1.31, and GFR of 38 with baseline creatinine of 1.5. Troponin less than 0.012. ProBNP 562. Pro-calcitonin 0.04. Influenza A, influenza B, RSV, and Covid PCR negative.Chest x-ray negative for acute cardiopulmonary process revealing large gas-filled hiatal hernia. Patient admitted under our services and consult was placed to general surgery. Physical exam: Patient seen and fully evaluated at bedside this morning. Discussed Presurgical risk calculator findings with patient in detail. All questions answered at this time. Patient plans to undergo endoscopy later today and scheduled paraesophageal hernia repair tomorrow. Vital signs reviewed and stable. General: Nontoxic, no distress and appears stated age. Derm: Skin warm and dry, normal coloration for ethnicity. Head: Atraumatic, normocephalic and symmetric. Eyes: EOMs intact, no lid lag, and anicteric sclera Mouth: no lip lesions, mucus membranes moist Cardiovascular: regular rate and rhythm with normal S1S2, no murmur, positive posterior tibial pulses bilaterally, and cap refill < 2 seconds. Lungs: Respirations even, regular, and unlabored on room air. Lungs slightly diminished otherwise no rhonchi, no rales, no wheezing, and no accessory muscle usage. Abdominal: soft, nontender to palpation, no guarding, no appreciable organo megaly Ext: ROM intact. No gross muscle atrophy, no edema, no contractures Neuro: Speech clear, face symmetrical and CN II-XII grossly intact with no noted focal neuro deficits Psych: Alert and oriented to person, place, time, and situation. Appropriate and pleasant affect. Assessment and Plan of Care: Presurgical clearance for paraesophageal hernia repair -METS score is > 4 as patient reports she is able to perform her activities of daily living and ambulate the distance of 1-2 blocks without difficulties prior to recent condition in which she is currently preparing to undergo surgical repair. -NSQIP score completed with surgical risk calculator. Secondary to patient's age and her underlying comorbidities, she is at an above average risk of serious complication at 7.8% when compared to average risk of serious complications being 4.9% for same procedure. Patient is also at an above average risk of cardiac complications at 1.1% when compared to average risk of 0.3%.. Lastly patient also is at an above average risk of at 0.8% when compared to average risk of being 0.2% for same procedure. -As stated above, undergoing paraesophageal hernia repair places her at an above average risk for serious complications, cardiac complications, and due to her age and underlying comorbidities. However. from a medical standpoint there are no absolute contraindications for patient to undergo this planned paraesophageal hernia repair and no further testing recommended that would change the course of perioperative management.. Shortness of breath secondary to large paraesophageal hernia with intrathoracic stomach Chronic kidney disease stage II Normocytic anemia COPD Hypothyroidism Hypertension Hyperlipidemia -Gen. surgery following, Discussed plan of care with general surgeon. Dr. Murphy and Gen. surgery PA, patient to undergo endoscopy later today and elective hernia repair tomorrow.. -Symptomatic care and pain management. -Morning labs reviewed and stable. CBC and BMP were unremarkable. AST elevated slightly at 40. -Patient to continue amlodipine 5 mg daily, atorvastatin 20 mg daily, ferrous sulfate 325 mg daily, levothyroxine 50 g daily metoprolol 50 mg twice daily, and valsartan 320 mg daily. Elevated d-dimer, VQ negative for d-dimer -D-dimer was slightly elevated at 0.86 but normal with age adjustment. -Patient did undergo a VQ scan which showed very low probability for pulmonary emboli and concerning as to how much of patient's large hiatal hernia could be contributing to her shortness of breath CODE STATUS: FULL CODE DVT prophylaxis: Heparin Discussed with: Patient, RN, general surgery PA and General Surgeon Anticipated discharge date: Clinical Course to determine Anticipated discharge place: Home Patient was seen independently by Nurse Pracitioner. This document was prepared using [employer] dictation software. Please allow for errors in bracelet and brooch maker, while rare they do occur. I reviewed the documentation as provided by the RICHARD above, who is the original author of this note. I agree with the documented assessment and plan, with the following changes: none Objective - Vital Signs Vital signs: Vital Signs Temp 97.9 F 12/11/22 07:32 Pulse 79 12/11/22 07:32 Resp 18 12/11/22 07:32 BP 121/75 12/11/22 07:32 Pulse Ox 97 12/11/22 07:32 FiO2 Intake & Output 12/10/22 12/11/22 12/11/22 18:59 06:59 18:59 Other: # Voids 3 3 - Labs CBC & Chem 7: 12/11/22 05:36 12/11/22 05:36
[2022-12-11] MEDS: FERROUS SULFATE 325 MG TAB PO SCH (10:00)
[2022-12-11] MEDS: amLODIPine 5 MG TAB PO SCH (10:00)
[2022-12-11] MEDS: allopurinoL 300 MG TAB PO SCH (10:00)
[2022-12-11] MEDS: METOPROLOL SUCCINATE (ER) 50 MG TAB.ER.24H PO SCH ×2 (10:00→21:10)
[2022-12-11] MEDS: HEPARIN SODIUM,PORCINE/PF 5,000 UNIT/0.5 ML SYRINGE SQ SCH ×4 (10:01→23:46)
[2022-12-11] MEDS: VALSARTAN 160 MG TAB PO SCH (10:05)
[2022-12-11 10:48] LABS: HCT 36.4 % (37.2-46.3); HGB 12.1 g/dL (12.0-15.0); MCH 30.4 pg (27.0-32.0); MCHC 33.2 g/dL (32.0-37.0); MCV 91.5 fL (80.0-97.0); Mean Platelet Volume 11.5 fL (9.5-12.2); NRBC Per 100 WBC 0 /100 WBCS (0.0-0.0); Platelet Count 262 X 10*3/uL (140-440); RBC 3.98 X 10*6/uL (4.10-5.20); RDW 14.4 % (11.5-14.5); WBC 8.34 X 10*3/uL (4.50-10.00)
[2022-12-11] MEDS ORDERED: PROPOFOL 10 MG/ML 20 ML VIAL IV ONE (11:02)
[2022-12-11] MEDS ORDERED: LIDOCAINE 2% INJ 20 MG/ML (2 ML VIAL) ONE (11:02)
[2022-12-11] MEDS ORDERED: SODIUM CHLORIDE 0.9% 1,000 ML IV ONE (11:08)
--- NOTE | 2022-12-11 11:18 | P.OP ---
Date of Procedure: 12/11/22 Preoperative Diagnosis: paraesophageal hiatal hernia Postoperative Diagnosis: paraesophageal hiatal hernia Procedure(s) Performed: EGD Anesthesia: MAC Surgeon: Carlo Murphy Pathology: other (antrum) Condition: stable Disposition: PACU Description of Procedure: the patient's placed on the endoscopy table in the lateral position. She received IV sedation. The gastroscope placed oropharynx passed in the esophagus and stomach. The patient had a large paraesophageal hernia. The GE junction was appeared to be a 33 cm. Scope was advanced into the stomach and through the pylorus. The first second portion duodenum appeared normal. Scope was then brought back and a random antral biopsy was performed. The scope was retroflexed the hiatal hernia. Visualized. Approximate 50% stomach appeared to be in the chest. Scope withdrawn. The GE junction was at 33 cm per the distal esophagus. Normal. The proximal esophagus appeared normal. Scope withdrawn for patient.
[2022-12-11 11:20] LABS: Magnesium 1.9 mg/dL (1.5-2.4)
[2022-12-11 11:39] LABS: African American GFR (CKD) 48.7 (60.0-200.0); Albumin 3.9 g/dL (3.8-4.9); Albumin/Globulin Ratio 1.34 (1.60-3.17); Blood Urea Nitrogen 22.8 mg/dL (9.0-27.0); Calcium 9.7 mg/dL (8.7-10.3); Globulin 2.9 g/dL (1.6-3.3); Non-African American GFR(CKD) 42.1 (60.0-200.0); Potassium 4.2 mmol/L (3.5-5.5); Total Bilirubin 0.5 mg/dL (0.30-1.20); Total Protein 6.8 g/dL (6.2-8.2)
[2022-12-11] MEDS: ATORVASTATIN 20 MG TAB PO SCH (21:09)
[2022-12-12] MEDS: PANTOPRAZOLE 40 MG TABLET PO SCH (06:15)
[2022-12-12] MEDS: IPRATROPIUM-ALBUTEROL 3 ML NEB INHALATION SCH ×4 (09:38→20:42)
[2022-12-12] MEDS: METOPROLOL SUCCINATE (ER) 50 MG TAB.ER.24H PO SCH ×2 (09:54→22:49)
[2022-12-12] MEDS: HEPARIN SODIUM,PORCINE/PF 5,000 UNIT/0.5 ML SYRINGE SQ SCH ×3 (09:57→22:49)
[2022-12-12] MEDS ORDERED: IV FLUID CONTINUATION 1,000 ML IV ONE (13:33)
[2022-12-12] MEDS ORDERED: DEXAMETHASONE SOD PHOSPHATE 4 MG/ML 1 ML VIAL IVP ONE (13:40)
[2022-12-12] MEDS ORDERED: ONDANSETRON 4 MG/2 ML VIAL ONE (13:40)
[2022-12-12] MEDS ORDERED: ONDANSETRON 4 MG/2 ML VIAL IVP ONE (13:40)
[2022-12-12] MEDS ORDERED: MIDAZOLAM 2 MG/2 ML VIAL IVP ONE (13:47)
[2022-12-12] MEDS ORDERED: fentaNYL (PF) 50 MCG/ML 2 ML AMP IVP ONE (13:47)
[2022-12-12] MEDS ORDERED: MIDAZOLAM 2 MG/2 ML VIAL ONE (14:12)
[2022-12-12] MEDS ORDERED: PHENYLEPHRINE-0.9% NACL SYG 1,000 MCG/10 ML SYRINGE ONE (14:12)
[2022-12-12] MEDS ORDERED: PROPOFOL 10 MG/ML 20 ML VIAL IV ONE (14:12)
[2022-12-12] MEDS ORDERED: SODIUM CHLORIDE 0.9% (PF) 10 ML VIAL ONE (14:12)
[2022-12-12] MEDS ORDERED: LIDOCAINE 2% INJ 20 MG/ML (2 ML VIAL) ONE (14:12)
[2022-12-12] MEDS ORDERED: ROCURONIUM 10 MG/ML (5 ML VIAL) IV ONE (14:12)
[2022-12-12] MEDS ORDERED: fentaNYL (PF) 50 MCG/ML 2 ML AMP ONE (14:12)
[2022-12-12] MEDS ORDERED: SUCCINYLCHOLINE CHLORIDE 200 MG/10 ML VIAL IV ONE (14:12)
[2022-12-12] MEDS ORDERED: ROPIVACAINE 5 MG/ML 30 ML VIAL ONE (14:12)
[2022-12-12] MEDS ORDERED: ceFAZolin 1,000 MG VIAL ONE (14:12)
[2022-12-12] MEDS ORDERED: GLYCOPYRROLATE 0.2 MG/ML 2 ML VIAL ONE (14:12)
[2022-12-12] MEDS ORDERED: NEOSTIGMINE 1 MG/ML 10 ML VIAL ONE (14:12)
[2022-12-12] MEDS ORDERED: SODIUM CHLORIDE 0.9% 100 ML BAG ONE (14:12)
[2022-12-12] MEDS ORDERED: BUPIVACAINE (PF) 0.25% 30 ML VIAL SQ ONE ×2 (14:22→14:44)
--- NOTE | 2022-12-12 14:37 | P.ANPRN ---
Procedure Note - Anesthesia - Nerve Block Performed Bilateral Erector Spinae Single Time Out Performed: Yes ([id number]) Date of Procedure: 12/12/22 Procedure Start Time: 13:47 Procedure Stop Time: 13:52 Location of Patient: PreOp Indication: Acute Post-Operative Pain, Requested by Surgeon Specifically requested for management of pain by DrLety: Carlo Murphy Sedation Type: Sedate with meaningful contact maintained Preparation: Sterile Prep Position: Sitting Catheter: None Needle Types: Pajunk Needle Gauge: 21 Ultrasound used to visualize needle placement: Yes Ultrasound used to observe medication spread: Yes Injectate: 0.5% Ropivacaine (see comment for volume) (15cc + 10cc nacl pf each side) Blood Aspirated: No Pain Paresthesia on Injection Noted: No Resistance on Injection: Normal Image Stored and Saved: Yes Events: Uneventful and Well Tolerated
[2022-12-12] MEDS ORDERED: SODIUM CHLORIDE 0.9% 50 ML with ceFAZolin 2,000 MG IV ONE ×2 (14:48)
[2022-12-12] MEDS ORDERED: ONDANSETRON 4 MG/2 ML VIAL IVP PRN (15:28)
--- NOTE | 2022-12-12 15:28 | P.OP ---
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 With mesh Anesthesia: ANDREAS Surgeon: Carlo Murphy Estimated Blood Loss (ml): 5 Pathology: none sent Condition: stable Disposition: PACU Description of Procedure: The patient was placed on the operating table in the supine position. She received general anesthesia. She was then placed in dorsal lithotomy position. Her abdomen was prepped and draped in the usual sterile fashion. The skin incision sites were anesthetized with 1% local Xylocaine. The skin was incised in the left periumbilical area with an 11 scalpel. Using a 5 mm blade was trocar under direct visitation the peritoneal cavity was entered. And then insufflated. After adequate insufflation the laparoscope was placed back into the peritoneal cavity. Next a 5 mm trocar was placed in the right epigastric and then the right lateral position. Another 5 mm trochars placed in the left lateral position. Another 5 mm trocar placed in the left epigastric position. And the original left periumbilical trocar was exchanged for a 10 mm trocar. The left lateral lobe liver was retracted. The patient had a large paraesophageal hiatal hernia. Using the Harmonic scissors the crural defect was dissected in the Harmonic scissors were used to dissect the hiatal hernia sac. The fundus of the stomach was completely mobilized by using the Harmonic scissors to divide short gastric vessels. The stomach was reduced into the peritoneal cavity. The crura was dissected with the Harmonic scissors. And then the crural repair was performed using 2-0 Ethibond suture. The Valdez bio A mesh was then placed over top of the repair and secured with 2-0 Ethibond suture. . The stomach and esophagus were inspected there is no ty injury to the stomach or esophagus. The abdomen was irrigated there is no bleeding seen. The trochars are withdrawn. Skin was closed interrupted 3-0 Monocryl suture. Dermabond was applied. Patient tolerated procedure well and was sent to recovery in stable condition.
[2022-12-12] MEDS ORDERED: LACTATED RINGERS 1,000 ML IV ONE (15:38)
[2022-12-12] MEDS ORDERED: HYDROmorphone 0.5 MG/0.5 ML SYRINGE IVP ONE ×2 (16:13→16:39)
--- NOTE | 2022-12-12 17:24 | P.PN ---
Subjective Progress Note Date: 12/12/22 Patient seen and examined at bedside. Patient denies chest pain, shortness breath, nausea, vomiting, fever or chills. Patient is scheduled for surgery later today. Objective - Vital Signs Vital signs: Vital Signs Temp 97.2 F L 12/12/22 15:46 Pulse 78 12/12/22 17:03 Resp 16 12/12/22 17:03 BP 155/70 12/12/22 17:03 Pulse Ox 97 12/12/22 17:03 FiO2 21 12/11/22 08:52 Intake & Output 12/11/22 12/12/22 12/12/22 18:59 06:59 18:59 Intake Total 200 1050 Output Total 5 Balance 200 1045 Weight 72.72 kg Intake: IV 200 1050 Output: Estimated Blood Loss 5 Other: Voiding Method Toilet Toilet Toilet # Voids 6 2 # Bowel Movements 1 - Exam General: [non toxic], [no distress], [appears at stated age] Derm: [warm], [dry] Head: [atraumatic], [normocephalic], [symmetric] Eyes: [EOMI], [no lid lag], [anicteric sclera] Mouth: [no lip lesion], [mucus membranes moist] Cardiovascular: [S1S2 reg], [no murmur], [positive posterior tibial pulse bilateral], Lungs: [CTA bilateral], [no rhonchi, no rales] , [no accessory muscle use] Abdominal: [soft], [ nontender to palpation], [no guarding], [no appreciable organomegaly] Ext: [no gross muscle atrophy], [no edema], [no contractures] Neuro: [ CN II-XI grossly intact], [no focal neuro deficits] Psych: [Alert], [oriented], [appropriate affect] - Labs CBC & Chem 7: 12/11/22 05:36 12/11/22 05:36 Assessment and Plan Assessment: Shortness of breath secondary to large paraesophageal hernia with intrathoracic stomach Chronic kidney disease stage II Normocytic anemia COPD Hypothyroidism Hypertension Hyperlipidemia -Gen. surgery following. General surgeon. Dr. Murphy to take patient for elective hernia repair today. -Symptomatic care and pain management. -Patient to continue amlodipine 5 mg daily, atorvastatin 20 mg daily, ferrous sulfate 325 mg daily, levothyroxine 50 g daily metoprolol 50 mg twice daily, and valsartan 320 mg daily. Elevated d-dimer, VQ negative for d-dimer -D-dimer was slightly elevated at 0.86 but normal with age adjustment. -Patient did undergo a VQ scan which showed very low probability for pulmonary emboli and concerning as to how much of patient's large hiatal hernia could be contributing to her shortness of breath CODE STATUS: FULL CODE DVT prophylaxis: Heparin Discussed with: Patient, RN, general surgery PA and General Surgeon Anticipated discharge date: Clinical Course to determine Anticipated discharge place: Home This document was prepared using [employer] dictation software. Please allow for errors in pipeline superintendent division, while rare they do occur.
[2022-12-12] MEDS: D5-0.45% NACL WITH KCL 20MEQ/L 1,000 ML IV SCH (17:36)
[2022-12-12] MEDS: HYDROmorphone 1 MG/ML 1 ML SYRINGE IVP PRN ×2 (17:52→22:57)
[2022-12-12] MEDS: FERROUS SULFATE 325 MG TAB PO SCH (17:55)
[2022-12-12] MEDS: allopurinoL 300 MG TAB PO SCH (17:55)
[2022-12-12] MEDS: VALSARTAN 160 MG TAB PO SCH (17:56)
[2022-12-12] MEDS: amLODIPine 5 MG TAB PO SCH (17:56)
[2022-12-12] MEDS: ATORVASTATIN 20 MG TAB PO SCH (22:49)
[2022-12-13] MEDS: D5-0.45% NACL WITH KCL 20MEQ/L 1,000 ML IV SCH ×4 (01:49→23:57)
[2022-12-13] MEDS: PANTOPRAZOLE 40 MG TABLET PO SCH (06:01)
[2022-12-13] MEDS: LEVOTHYROXINE 50 MCG TAB PO SCH (06:06)
[2022-12-13] MEDS: amLODIPine 5 MG TAB PO SCH (07:19)
[2022-12-13] MEDS: METOPROLOL SUCCINATE (ER) 50 MG TAB.ER.24H PO SCH ×2 (07:20→21:44)
[2022-12-13] MEDS: allopurinoL 300 MG TAB PO SCH (07:20)
[2022-12-13] MEDS: HEPARIN SODIUM,PORCINE/PF 5,000 UNIT/0.5 ML SYRINGE SQ SCH ×3 (07:20→23:58)
[2022-12-13] MEDS: VALSARTAN 160 MG TAB PO SCH (07:20)
[2022-12-13] MEDS: FERROUS SULFATE 325 MG TAB PO SCH (07:20)
[2022-12-13] MEDS: IPRATROPIUM-ALBUTEROL 3 ML NEB INHALATION SCH ×4 (07:51→20:28)
[2022-12-13 10:56] LABS: Basophils # (A) 0.02 X 10*3/uL (0.00-0.10); Basophils % (A) 0.1 %; Eosinophils # (A) 0.01 X 10*3/uL (0.04-0.35); Eosinophils % (A) 0.1 %; HCT 39.6 % (37.2-46.3); HGB 12.6 g/dL (12.0-15.0); Immature Grans, Automated 0.3 %; Lymphocytes # (A) 1.31 X 10*3/uL (0.90-5.00); Lymphocytes % (A) 8.7 %; MCH 29.8 pg (27.0-32.0); MCHC 31.8 g/dL (32.0-37.0); MCV 93.6 fL (80.0-97.0); Mean Platelet Volume 11.6 fL (9.5-12.2); Monocytes # (A) 1.25 X 10*3/uL (0.20-1.00); Monocytes % (A) 8.3 %; NRBC Per 100 WBC 0 /100 WBCS (0.0-0.0); Neutrophils # (A) 12.39 X 10*3/uL (1.80-7.70); Neutrophils % (A) 82.5 %; Platelet Count 289 X 10*3/uL (140-440); RBC 4.23 X 10*6/uL (4.10-5.20); RDW 14.2 % (11.5-14.5); WBC 15.02 X 10*3/uL (4.50-10.00)
[2022-12-13 11:22] LABS: African American GFR (CKD) 54.1 (60.0-200.0); Albumin 4.1 g/dL (3.8-4.9); Albumin/Globulin Ratio 1.41 (1.60-3.17); Anion Gap 14.2 mmol/L (10.00-18.00); BUN/Creat Ratio 15.09 Ratio (12.00-20.00); Blood Urea Nitrogen 16.6 mg/dL (9.0-27.0); Calcium 9.5 mg/dL (8.7-10.3); Carbon Dioxide 20.8 mmol/L (20.0-27.5); Globulin 2.9 g/dL (1.6-3.3); Non-African American GFR(CKD) 46.7 (60.0-200.0); Potassium 4.8 mmol/L (3.5-5.5); Total Bilirubin 0.3 mg/dL (0.30-1.20)
[2022-12-13] MEDS: HYDROmorphone 1 MG/ML 1 ML SYRINGE IVP PRN (12:08)
[2022-12-13 13:02] VITALS: BMI 26.6
[2022-12-13] MEDS ORDERED: ALPRAZolam 0.5 MG TAB PO STA (13:55)
--- NOTE | 2022-12-13 15:43 | P.PN ---
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 She does complain of mild abdominal pain but mostly back pain. Denies any nausea or vomiting. Denies any flatus. She has been having urinary retention Broderick catheter is to be placed. She is tolerating the niece included liquids. Afebrile. WBC is 15 Hgb 12.6 platelets 289 PHYSICAL EXAM: VITAL SIGNS: Reviewed. GENERAL: Well-developed in no acute distress. HEENT: No sclera icterus. Extraocular movements grossly intact. Moist buccal mucosa. Head is atraumatic, normocephalic. ABDOMEN: Soft. Nondistended. Nontender. NEUROLOGIC: Alert and oriented. Cranial nerves II through XII grossly intact. ASSESSMENT: 1. 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 Leukocytosis PLAN: -Advance diet to full liquids -Repeat CBC in a.m. -Continue pain management -Continue supportive care -Encouraged patient to ambulate -DVT prophylaxis subcu heparin Physician Qa Architect note has been reviewed by physician. Signing provider agrees with the documented findings, assessment, and plan of care. Objective - Vital Signs Vital signs: Vital Signs Temp 98.1 F 12/13/22 07:35 Pulse 81 12/13/22 11:43 Resp 19 12/13/22 07:50 BP 168/93 12/13/22 07:35 Pulse Ox 98 12/13/22 07:53 FiO2 21 12/11/22 08:52 Intake & Output 12/12/22 12/13/22 12/13/22 18:59 06:59 18:59 Intake Total 1050 Output Total 5 800 Balance 1045 -800 Weight 72.72 kg 72.72 kg Intake: IV 1050 Output: Urine 800 Straight 800 Estimated Blood Loss 5 Other: Voiding Method Toilet Toilet Toilet # Voids 2 - Labs CBC & Chem 7: 12/13/22 07:20 12/13/22 07:20 Labs: Abnormal Lab Results - Last 24 Hours (Table) 12/13/22 12/13/22 Range/Units 07:20 07:20 WBC 15.02 H (4.50-10.00) X 10*3/uL MCHC 31.8 L (32.0-37.0) g/dL Neutrophils # 12.39 H (1.80-7.70) X 10*3/uL Monocytes # 1.25 H (0.20-1.00) X 10*3/uL Eosinophils # 0.01 L (0.04-0.35) X 10*3/uL Est GFR (CKD-EPI)AfAm 54.1 L (60.0-200.0) Est GFR (CKD-EPI)NonAf 46.7 L (60.0-200.0) Glucose 161 H (70-110) mg/dL AST 51 H (13-35) U/L ALT 48 H (8-44) U/L Albumin/Globulin Ratio 1.41 L (1.60-3.17) g/dL
[2022-12-13] MEDS: IPRATROPIUM-ALBUTEROL 3 ML NEB INHALATION PRN (18:37)
[2022-12-13] MEDS ORDERED: LORazepam 2 MG/ML INJ IV STA (18:49)
[2022-12-13] MEDS: ATORVASTATIN 20 MG TAB PO SCH (21:44)
[2022-12-14] MEDS: LORazepam 2 MG/ML INJ IV PRN ×2 (01:02→13:48)
[2022-12-14] MEDS: IPRATROPIUM-ALBUTEROL 3 ML NEB INHALATION PRN (01:23)
[2022-12-14] MEDS: PANTOPRAZOLE 40 MG TABLET PO SCH (06:23)
[2022-12-14] MEDS: LEVOTHYROXINE 50 MCG TAB PO SCH (06:23)
[2022-12-14] MEDS: IPRATROPIUM-ALBUTEROL 3 ML NEB INHALATION SCH ×4 (07:28→21:02)
--- NOTE | 2022-12-14 08:06 | XR ---
EXAMINATION TYPE: XR chest 1V portable DATE OF EXAM: 12/14/2022 HISTORY: Shortness of breath. COMPARISON: 12/07/22 TECHNIQUE: Single view of the chest is submitted. FINDINGS: Demonstrated are scattered senescent parenchymal change. Basilar atelectasis or developing is noted. Correlate clinically. The heart is stable. Hilar and mediastinal structures are within normal limits. Degenerative changes are seen of the dorsal spine. IMPRESSION: 1. Basilar atelectasis or developing is noted. Correlate clinically.
[2022-12-14] MEDS ORDERED: BARIUM SULFATE 450 ML ORAL.SUSP BOTTLE PO PRN (08:25)
--- NOTE | 2022-12-14 08:27 | P.PN ---
Subjective Progress Note Date: 12/13/22 Hospital course: Patient is a very pleasant 82-year-old female with a past medical history of CKD stage II, COPD, hypertension, hyperlipidemia, hypothyroidism, and CHF. Patient presented to the emergency department with a chief complaint of shortness of breath.patient underwent full evaluation in the emergency department. CBC unremarkable. Coagulation profile normal findings. D-dimer slightly elevated at 0.86 but normal with age adjustment. BMP revealing hyperchloremia with chloride of 110 and hypocarbia with bicarbonate 16 along with slightly elevated renal function and a BUN was 28, creatinine 1.31, and GFR of 38 with baseline creatinine of 1.5. Troponin less than 0.012. ProBNP 562. Pro-calcitonin 0.04. Influenza A, influenza B, RSV, and Covid PCR negative.Chest x-ray negative for acute cardiopulmonary process revealing large gas-filled hiatal hernia. Patient admitted under our services and consult was placed to general surgery. Physical exam: Patient seen and fully evaluated at bedside this morning. She appears to be doing well, slightly anxious this morning regarding pain with movement and coughing. Patient educated on importance of using incentive spirometry and splinting when coughing. Vital signs reviewed and stable. General: Nontoxic, no distress and appears stated age. Derm: Skin warm and dry, normal coloration for ethnicity. Head: Atraumatic, normocephalic and symmetric. Eyes: EOMs intact, no lid lag, and anicteric sclera Mouth: no lip lesions, mucus membranes moist Cardiovascular: regular rate and rhythm with normal S1S2, no murmur, positive posterior tibial pulses bilaterally, and cap refill < 2 seconds. Lungs: Respirations even, regular, and unlabored on room air. Lungs slightly diminished otherwise no rhonchi, no rales, no wheezing, and no accessory muscle usage. Abdominal: soft, nontender to palpation, no guarding, no appreciable organomegaly. Laparoscopic incisions clean, dry, and intact. Ext: ROM intact. No gross muscle atrophy, no edema, no contractures Neuro: Speech clear, face symmetrical and CN II-XII grossly intact with no noted focal neuro deficits Psych: Alert and oriented to person, place, time, and situation. Appropriate and pleasant affect. Assessment and Plan of Care: Shortness of breath secondary to large paraesophageal hernia with intrathoracic stomach, Chronic kidney disease stage II Normocytic anemia COPD Hypothyroidism Hypertension Hyperlipidemia -Gen. surgery following and took patient for laparoscopic repair of large paraesophageal hiatal hernia with intrathoracic stomach on 12/12/22. -Symptomatic care and pain management. -Morning labs reviewed and stable. CBC revealing acute leukocytosis with WBC count of 15.02 believed to be reactive. BMP unremarkable. Liver enzymes slightly elevated with AST of 51 and ALT of 48. -Patient does report cough and pain with taking deep breath. Patient encouraged to use incentive spirometry and instructed on splinting when coughing. -Order placed for repeat morning CBC, CMP, and chest x-ray. -Patient to continue amlodipine 5 mg daily, atorvastatin 20 mg daily, ferrous sulfate 325 mg daily, levothyroxine 50 g daily metoprolol 50 mg twice daily, and valsartan 320 mg daily. -Encourage use of incentive spirometry 10-15 times hourly while awake. -DVT prophylaxis with heparin. Elevated d-dimer, VQ negative for d-dimer -D-dimer was slightly elevated at 0.86 but normal with age adjustment. -Patient did undergo a VQ scan which showed very low probability for pulmonary emboli and concerning as to how much of patient's large hiatal hernia could be contributing to her shortness of breath CODE STATUS: FULL CODE DVT prophylaxis: Heparin Discussed with: Patient, RN, and general surgery PA Anticipated discharge date: Clinical Course to determine Anticipated discharge place: Home Patient was seen independently by Nurse Pracitioner. This document was prepared using [employer] dictation software. Please allow for errors in flatcar whacker, while rare they do occur. I was called the patient bedside today as patient was tachypneic, tachycardic, placed on a nonrebreather, and general surgery had concerns the patient would warrant intensive care. Patient was 156/90, heart rate 130, 100% on nonrebreather, breathing at a rate of 30. She indicated that she felt uncomfortable and significant pain in her epigastric region. Upon review of her medications, patient had not received pain medication in the last 24 hours. During bedside evaluation, patient was taken off of nonrebreather and allowed to breathe on room air, after 10 minutes was saturating 93-94%. Patient's lungs sounds were present bilaterally with mildly diminished sounds at the bases, no evidence of wheezing or crackles. She did have some accessory muscle use. No evidence of edema in her lower extremities. Patient underwent evaluation with a repeat chest x-ray, ABG at bedside, chest x-ray had no evidence of pneumothorax, new infiltrates or opacities although is a poor study with significant rotation and poor inspiration; ABG showed a pH of 7.4, pCO2 of 35, pO2 of 60 on room air. Patient was given a dose of 1 mg of IV Dilaudid, her breathing pattern improved to no accessory muscle use, breathing at a rate of 18, her blood pressure improved to 130/80, heart rate improved to 108. Remaining workup includes: EKG CBC, basic metabolic panel, magnesium, lactic acid, BNP, troponin Computed tomography scan of the chest/abdomen/pelvis I recommended that the patient can remain on the floor at this time given improvement in her vital signs following pain control measures. We reviewed appropriate pain control with nursing staff going forward. There was approximately 35 minutes of critical care time spent in the care of this patient given the possibility of acute decompensation from acute hypoxemic respiratory failure as evidenced from tachypnea, nonrebreather requirement, accessory muscle use, and tachycardia. Objective - Vital Signs Vital signs: Vital Signs Temp 98.1 F 12/13/22 07:35 Pulse 83 12/13/22 08:03 Resp 19 12/13/22 07:35 BP 168/93 12/13/22 07:35 Pulse Ox 98 12/13/22 07:53 FiO2 21 12/11/22 08:52 Intake & Output 12/12/22 12/13/22 12/13/22 18:59 06:59 18:59 Intake Total 1050 Output Total 5 800 Balance 1045 -800 Weight 72.72 kg Intake: IV 1050 Output: Urine 800 Straight 800 Estimated Blood Loss 5 Other: Voiding Method Toilet Toilet # Voids 2 - Labs CBC & Chem 7: 12/14/22 09:14 12/13/22 07:20
[2022-12-14 08:59] LABS: ABG Base Excess -2.7 mmol/L; ABG HCO3 22 mmol/L (21-25); ABG Oxygen Saturation 93.1 % (94-97); ABG PCO2 35 mmHg (35-45); ABG PO2 60 mmHg (83-108); ABG TCO2 23 mmol/L (19-24); Allen Test Performed? Yes
[2022-12-14] MEDS: allopurinoL 300 MG TAB PO SCH (09:03)
[2022-12-14] MEDS: VALSARTAN 160 MG TAB PO SCH ×2 (09:03→09:04)
[2022-12-14] MEDS: HEPARIN SODIUM,PORCINE/PF 5,000 UNIT/0.5 ML SYRINGE SQ SCH ×2 (09:03→16:41)
[2022-12-14] MEDS: HYDROmorphone 1 MG/ML 1 ML SYRINGE IVP PRN ×3 (09:03→21:51)
[2022-12-14] MEDS: amLODIPine 5 MG TAB PO SCH (09:04)
[2022-12-14] MEDS: FERROUS SULFATE 325 MG TAB PO SCH (09:04)
[2022-12-14] MEDS: METOPROLOL SUCCINATE (ER) 50 MG TAB.ER.24H PO SCH ×2 (09:04→21:51)
--- NOTE | 2022-12-14 09:18 | P.PN ---
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 Patient complaining of shortness of breath. She is currently on a nonrebreather and is tachycardic heart rate in the 120s. White count yesterday had been up to 15. Patient is not complaining of much abdominal pain. Denies any nausea or vomiting. Has Broderick catheter in place for urinary retention. Urine output has been adequate. Afebrile. Labs for today pending chest x-ray when reviewed with Dr. iverson shows possible effusion or consolidation in the right lower lobe. Patient seen and examined with Dr. iverson PHYSICAL EXAM: VITAL SIGNS: Reviewed. GENERAL: Well-developed in no acute distress. HEENT: No sclera icterus. Extraocular movements grossly intact. Moist buccal mucosa. Head is atraumatic, normocephalic. ABDOMEN: Soft. Nondistended. mild tenderness at incision sites NEUROLOGIC: Alert and oriented. Cranial nerves II through XII grossly intact. ASSESSMENT: 1. 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 Leukocytosis 3. Shortness of breath and tachycardia PLAN: -Dr. Iverson recommends to transfer patient to ICU for nursing care -Patient made nothing by mouth -EKG ordered -Computed tomography scan chest abdomen and pelvis for further evaluation of shortness of breath and tachycardia -Add Levaquin -Continue to monitor patient closely -Continue pain management -Continue supportive care -Case was discussed with medicine service and critical care service -Encouraged patient to ambulate -DVT prophylaxis subcu heparin Physician Site Manager note has been reviewed by physician. Signing provider agrees with the documented findings, assessment, and plan of care. Objective - Vital Signs Vital signs: Vital Signs Temp 98.9 F 12/14/22 02:06 Pulse 93 12/14/22 07:44 Resp 19 12/14/22 07:24 BP 159/94 12/14/22 07:24 Pulse Ox 99 12/14/22 07:24 FiO2 21 12/11/22 08:52 Intake & Output 12/13/22 12/14/22 12/14/22 18:59 06:59 18:59 Intake Total 1005 Output Total 1100 Balance 1005 -1100 Weight 72.72 kg Intake: Intake, IV Titration 525 Amount D5-0.45% NaCl with KCl 525 20Meq/l 1,000 ml @ 125 mls/hr IV .Q8H [facility] [place] Rx#: [id number] Oral 480 Output: Urine 1100 Other: Voiding Method Toilet Indwelling Catheter - Labs CBC & Chem 7: 12/13/22 07:20 12/13/22 07:20 Labs: Abnormal Lab Results - Last 24 Hours (Table) 12/13/22 12/13/22 Range/Units 07:20 07:20 WBC 15.02 H (4.50-10.00) X 10*3/uL MCHC 31.8 L (32.0-37.0) g/dL Neutrophils # 12.39 H (1.80-7.70) X 10*3/uL Monocytes # 1.25 H (0.20-1.00) X 10*3/uL Eosinophils # 0.01 L (0.04-0.35) X 10*3/uL Est GFR (CKD-EPI)AfAm 54.1 L (60.0-200.0) Est GFR (CKD-EPI)NonAf 46.7 L (60.0-200.0) Glucose 161 H (70-110) mg/dL AST 51 H (13-35) U/L ALT 48 H (8-44) U/L Albumin/Globulin Ratio 1.41 L (1.60-3.17) g/dL
[2022-12-14] MEDS: LEVOFLOXACIN 500MG-D5W PMX 500 MG in DEXTROSE/WATER 1 100ML.BAG IVPB SCH (09:21)
--- NOTE | 2022-12-14 09:22 | P.PN ---
Subjective Progress Note Date: 12/14/22 Hospital course: Patient is a very pleasant 82-year-old female with a past medical history of CKD stage II, COPD, hypertension, hyperlipidemia, hypothyroidism, and CHF. Patient presented to the emergency department with a chief complaint of shortness of breath.patient underwent full evaluation in the emergency department. CBC unremarkable. Coagulation profile normal findings. D-dimer slightly elevated at 0.86 but normal with age adjustment. BMP revealing hyperchloremia with chloride of 110 and hypocarbia with bicarbonate 16 along with slightly elevated renal function and a BUN was 28, creatinine 1.31, and GFR of 38 with baseline creatinine of 1.5. Troponin less than 0.012. ProBNP 562. Pro-calcitonin 0.04. Influenza A, influenza B, RSV, and Covid PCR negative.Chest x-ray negative for acute cardiopulmonary process revealing large gas-filled hiatal hernia. Patient admitted under our services and consult was placed to general surgery. 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 Physical exam: Patient seen and fully evaluated at bedside this morning. Vital signs reviewed and stable. General: Nontoxic, no distress and appears stated age. Derm: Skin warm and dry, normal coloration for ethnicity. Head: Atraumatic, normocephalic and symmetric. Eyes: EOMs intact, no lid lag, and anicteric sclera Mouth: no lip lesions, mucus membranes moist Cardiovascular: regular rate and rhythm with normal S1S2, no murmur, positive posterior tibial pulses bilaterally, and cap refill < 2 seconds. Lungs: Respirations even, regular, and unlabored on room air. Lungs slightly diminished otherwise no rhonchi, no rales, no wheezing, and no accessory muscle usage. Abdominal: soft, nontender to palpation, no guarding, no appreciable organomegaly. Laparoscopic incisions clean, dry, and intact. Ext: ROM intact. No gross muscle atrophy, no edema, no contractures Neuro: Speech clear, face symmetrical and CN II-XII grossly intact with no noted focal neuro deficits Psych: Alert and oriented to person, place, time, and situation. Appropriate and pleasant affect. Assessment and Plan of Care: Overnight patient reportedly with reports that it was hard to breathe and RN placed patient on a nonrebreather mask at 15 L O2. We were notified that patient was placed on nonrebreather mask at 15 L O2 around 8:40 AM and immediately to bedside. Upon removing nonrebreather mask patient's SpO2 on room air 94-95%. Patient reports "it hurts to breathe". Order placed for repeat CXR, ABG, EKG, troponin, BNP, CBC, and BMP to be completed STAT. Upon reviewing her chart, it was noted that patient was only medicated once for pain in the last 36 hours of postoperative period. Discussed with RN and he is medicating patient at this time. Once Medicated pt much more relaxed and states "Thank you, I can breathe much better." Shortness of breath secondary to large paraesophageal hernia with intrathoracic stomach Chronic kidney disease stage II Normocytic anemia COPD Hypothyroidism Hypertension Hyperlipidemia -Gen. surgery following and took patient for laparoscopic repair of large paraesophageal hiatal hernia with intrathoracic stomach on 12/12/22. -Symptomatic care and pain management. -Morning labs reviewed and stable. CBC revealing acute leukocytosis with WBC count of 15.02 believed to be reactive. BMP unremarkable. Liver enzymes slightly elevated with AST of 51 and ALT of 48. -Patient does report cough and pain with taking deep breath. Patient encouraged to use incentive spirometry and instructed on splinting when coughing. -Order placed for repeat morning CBC, CMP, and chest x-ray. -Patient to continue amlodipine 5 mg daily, atorvastatin 20 mg daily, ferrous sulfate 325 mg daily, levothyroxine 50 g daily metoprolol 50 mg twice daily, an d valsartan 320 mg daily. -Encourage use of incentive spirometry 10-15 times hourly while awake. -DVT prophylaxis with heparin. Elevated d-dimer, VQ negative for d-dimer -D-dimer was slightly elevated at 0.86 but normal with age adjustment. -Patient did undergo a VQ scan which showed very low probability for pulmonary emboli and concerning as to how much of patient's large hiatal hernia could be contributing to her shortness of breath CODE STATUS: FULL CODE DVT prophylaxis: Heparin Discussed with: Patient, RN, and general surgery PA Anticipated discharge date: Clinical Course to determine Anticipated discharge place: Home Patient was seen independently by Nurse Pracitioner. This document was prepared using [employer] dictation software. Please allow for errors in angio technologist, while rare they do occur. Attending attestation: I was called the patient bedside today as patient was tachypneic, tachycardic, placed on a nonrebreather, and general surgery had concerns the patient would warrant intensive care. Patient was 156/90, heart rate 130, 100% on nonrebreather, breathing at a rate of 30. She indicated that she felt uncomfort able and significant pain in her epigastric region. Upon review of her medications, patient had not received pain medication in the last 24 hours. During bedside evaluation, patient was taken off of nonrebreather and allowed to breathe on room air, after 10 minutes was saturating 93-94%. Patient's lungs sounds were present bilaterally with mildly diminished sounds at the bases, no evidence of wheezing or crackles. She did have some accessory muscle use. No evidence of edema in her lower extremities. Patient underwent evaluation with a repeat chest x-ray, ABG at bedside, chest x-ray had no evidence of pneumothorax, new infiltrates or opacities although is a poor study with significant rotation and poor inspiration; ABG showed a pH of 7.4, pCO2 of 35, pO2 of 60 on room air. Patient was given a dose of 1 mg of IV Dilaudid, her breathing pattern improved to no accessory muscle use, breathing at a rate of 18, her blood pressure improved to 130/80, heart rate improved to 108. Remaining workup includes: EKG CBC, basic metabolic panel, magnesium, lactic acid, BNP, troponin Computed tomography scan of the chest/abdomen/pelvis I recommended that the patient can remain on the floor at this time given improvement in her vital signs following pain control measures. We reviewed ap propriate pain control with nursing staff going forward. There was approximately 35 minutes of critical care time spent in the care of this patient given the possibility of acute decompensation from acute hypoxemic respiratory failure as evidenced from tachypnea, nonrebreather requirement, accessory muscle use, and tachycardia. Objective - Vital Signs Vital signs: Vital Signs Temp 98.9 F 12/14/22 02:06 Pulse 93 12/14/22 07:44 Resp 19 12/14/22 07:24 BP 159/94 12/14/22 07:24 Pulse Ox 99 12/14/22 07:24 FiO2 21 12/11/22 08:52 Intake & Output 12/13/22 12/14/22 12/14/22 18:59 06:59 18:59 Intake Total 1005 Output Total 1100 Balance 1005 -1100 Weight 72.72 kg Intake: Intake, IV Titration 525 Amount D5-0.45% NaCl with KCl 525 20Meq/l 1,000 ml @ 125 mls/hr IV .Q8H [facility] Rx#: [id number] Oral 480 Output: Urine 1100 Other: Voiding Method Toilet Indwelling Catheter - Labs CBC & Chem 7: 12/14/22 09:14 12/13/22 07:20 Labs: Abnormal Lab Results - Last 24 Hours (Table) 12/13/22 12/13/22 Range/Units 07:20 07:20 WBC 15.02 H (4.50-10.00) X 10*3/uL MCHC 31.8 L (32.0-37.0) g/dL Neutrophils # 12.39 H (1.80-7.70) X 10*3/uL Monocytes # 1.25 H (0.20-1.00) X 10*3/uL Eosinophils # 0.01 L (0.04-0.35) X 10*3/uL Est GFR (CKD-EPI)AfAm 54.1 L (60.0-200.0) Est GFR (CKD-EPI)NonAf 46.7 L (60.0-200.0) Glucose 161 H (70-110) mg/dL AST 51 H (13-35) U/L ALT 48 H (8-44) U/L Albumin/Globulin Ratio 1.41 L (1.60-3.17) g/dL
--- NOTE | 2022-12-14 09:34 | XR ---
EXAMINATION TYPE: XR chest 1V DATE OF EXAM: 12/14/2022 HISTORY: Shortness of breath. COMPARISON: Earlier in the day TECHNIQUE: Single view of the chest is submitted. FINDINGS: Demonstrated are scattered senescent parenchymal change. Increasing right perihilar and basilar density may reflect atelectasis or developing infiltrate. Skyla elate clinically and progress studies are recommended. The heart is stable. Hilar and mediastinal structures are within normal limits. Degenerative changes are seen of the dorsal spine. IMPRESSION: 1. Increasing right perihilar and basilar density may reflect atelectasis or developing infiltrate. Correlate clinically and progress studies are recommended.
[2022-12-14 09:51] LABS: Basophils % (A) 0 %; Eosinophils # (A) 0.1 k/uL (0-0.7); Eosinophils % (A) 1 %; HGB 12.8 gm/dL (11.4-16.0); Lymphocytes # (A) 1.3 k/uL (1.0-4.8); Lymphocytes % (A) 9 %; MCHC 32.8 g/dL (31.0-37.0); MCV 94.3 fL (80.0-100.0); Mean Platelet Volume 10.1; Monocytes # (A) 1.2 k/uL (0-1.0); Monocytes % (A) 9 %; Neutrophils # (A) 11.4 k/uL (1.3-7.7); Neutrophils % (A) 80 %; Platelet Count 252 k/uL (150-450); RBC 4.14 m/uL (3.80-5.40); RDW 14.3 % (11.5-15.5); WBC 14.3 k/uL (3.8-10.6)
[2022-12-14 10:19] LABS: African American GFR (CKD) 57 (>60 ml/min/1.73 sqM); Anion Gap 10 mmol/L; Blood Urea Nitrogen 12 mg/dL (7-17); Calcium 8.8 mg/dL (8.4-10.2); Carbon Dioxide 20 mmol/L (22-30); Chloride 101 mmol/L (98-107); Glucose 139 mg/dL (74-99); Non-African American GFR(CKD) 50 (>60 ml/min/1.73 sqM); Potassium 4.5 mmol/L (3.5-5.1); Sodium 131 mmol/L (137-145)
[2022-12-14 11:13] LABS: HCT 39.6 % (37.2-46.3); HGB 12.9 g/dL (12.0-15.0); MCH 30.7 pg (27.0-32.0); MCHC 32.6 g/dL (32.0-37.0); MCV 94.3 fL (80.0-97.0); Mean Platelet Volume 11.7 fL (9.5-12.2); NRBC Per 100 WBC 0 /100 WBCS (0.0-0.0); Platelet Count 255 X 10*3/uL (140-440); RDW 14.3 % (11.5-14.5); WBC 16.97 X 10*3/uL (4.50-10.00)
[2022-12-14 11:37] LABS: African American GFR (CKD) 55.4 (60.0-200.0); Albumin 3.9 g/dL (3.8-4.9); Albumin/Globulin Ratio 1.33 (1.60-3.17); Anion Gap 13.7 mmol/L (10.00-18.00); BUN/Creat Ratio 11.57 Ratio (12.00-20.00); Blood Urea Nitrogen 12.5 mg/dL (9.0-27.0); Calcium 9.2 mg/dL (8.7-10.3); Globulin 2.9 g/dL (1.6-3.3); Magnesium 1.6 mg/dL (1.5-2.4); Non-African American GFR(CKD) 47.8 (60.0-200.0); Total Bilirubin 0.5 mg/dL (0.30-1.20); Total Protein 6.8 g/dL (6.2-8.2)
[2022-12-14] MEDS ORDERED: FUROSEMIDE 10 MG/ML 4 ML VIAL IV STA ×2 (11:37→21:35)
[2022-12-14 12:24] LABS: Basophils # (A) 0.06 X 10*3/uL (0.00-0.10); Basophils % (A) 0.4 %; Eosinophils # (A) 0.06 X 10*3/uL (0.04-0.35); Eosinophils % (A) 0.4 %; Immature Grans, Automated 0.5 %; Lymphocytes # (A) 1.44 X 10*3/uL (0.90-5.00); Lymphocytes % (A) 8.5 %; Monocytes # (A) 2.07 X 10*3/uL (0.20-1.00); Monocytes % (A) 12.2 %; Neutrophils # (A) 13.25 X 10*3/uL (1.80-7.70)
--- NOTE | 2022-12-14 14:28 | P.CNPUL ---
History of Present Illness Consult date: 12/14/22 Reason for consult: dyspnea, hypoxemia History of present illness: I was consulted to evaluate the patient has the patient developed some shortness of breath and hypoxemia following her surgery. The patient is currently on 6 L of oxygen by nasal cannula. 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 The patient underwent laparoscopic repair of the paraesophageal hernia and she had a mesh placed. Surgery was done on 12/12/2022. The patient is a lifetime nonsmoker and she is not requiring any oxygen therapy. There was consideration of a pneumonia and based on the patient's multiple ALLERGIES, the patient was started on Levaquin as an empiric antibiotic coverage. The patient is still having some soreness and abdominal wall especially with coughing. Abdomen generally soft. She is passing flatness.. No altered mentation. No reported aspiration. Surgery was done under anesthesia. The patient provided incentive spirometer. The white cell count today's of 14.3 with a hemoglobin of 12.8 and a platelet count of 252. Blood gas this was done today showed a pH of 7.4 with a pCO2 of 35 and a pO2 of 60 and this was done on room air oxygen. BUN is at 12 with a creatinine of 1.05 and sodium levels of 131. The patient has lactic acid level of 1.9. Troponins are negative. ProBNP level is 3430. Chest x-ray shows atelectasis and a small effusion the right lung base. However, compared to admission, there is an increasing right perihilar and right basilar density which is most likely a combination of atelectasis/effusion. Pneumonia cannot be completely excluded. Left lung remained essentially clear. No pleurisy. No hemoptysis. No angina. No hemodynamic instability. Review of Systems Constitutional: Reports as per HPI Eyes: denies as per HPI, denies blurred vision, denies bulging eye, denies decreased vision, denies diplopia, denies discharge, denies dry eye, denies irritation, denies itching, denies pain, denies photophobia, denies loss of peripheral vision, denies loss of vision, denies tunnel vision/blind spots Ears: deny: decreased hearing, ear discharge, earache, tinnitus Ears, nose, mouth and throat: Reports as per HPI Breasts: absent: as per HPI, change in shape, gynecomastia, masses, nipple discharge, pain, skin changes, swelling Cardiovascular: Reports as per HPI, Reports dyspnea on exertion Respiratory: Reports cough, Reports dyspnea Gastrointestinal: Reports abdominal pain Genitourinary: Reports as per HPI Menstruation: Reports as per HPI Musculoskeletal: Reports as per HPI Musculoskeletal: absent: ankle pain, ankle stiffness, ankle swelling Integumentary: Reports as per HPI Neurological: Reports as per HPI Psychiatric: Reports as per HPI Endocrine: Reports as per HPI Hematologic/Lymphatic: Reports as per HPI (Immediate scheduled today) Allergic/Immunologic: Reports as per HPI Past Medical History Past Medical History: Cancer, Heart Failure, Myocardial Infarction ([place]), Renal Disease Additional Past Medical History / Comment(s): Basal cell cancer, goiter, hiatal hernia Last Myocardial Infarction Date:: unknown History of Any Multi-Drug Resistant Organisms: None Reported Smoking Status: Never smoker Medications and Allergies Home Medications Medication Instructions Recorded Confirmed Type Amlodipine Besylate/Valsartan 1 tab PO DAILY 12/07/22 12/07/22 History [Amlodipine-Valsartan 5-320 mg] Ferrous Sulfate [Feosol] 325 mg PO DAILY 12/07/22 12/07/22 History Levothyroxine Sodium [Synthroid] 50 mcg PO TUTHFRSA 12/07/22 12/07/22 History Metoprolol Succinate (ER) [Toprol 50 mg PO BID 12/07/22 12/07/22 History Xl] Omeprazole [PriLOSEC] 40 mg PO DAILY 12/07/22 12/07/22 History Simvastatin [Zocor] 40 mg PO HS 12/07/22 12/07/22 History allopurinoL [Zyloprim] 150 mg PO DAILY 12/07/22 12/07/22 History Allergies Allergy/AdvReac Type Severity Reaction Status Date / Time cephalexin [From Keflex] AdvReac Rash/Hives Verified 12/07/22 07:01 iodine AdvReac Unknown Verified 12/11/22 15:58 Penicillins AdvReac Rash/Hives Verified 12/07/22 07:01 Sulfa (Sulfonamide AdvReac Itching/[place] Verified 12/07/22 07:01 Antibiotics) h Physical Exam Vitals: Vital Signs Temp Pulse Pulse Resp BP Pulse Ox 12/14/22 11:54 112 H 12/14/22 11:46 110 H 12/14/22 09:15 108 H 18 130/72 98 12/14/22 07:44 93 12/14/22 07:30 92 12/14/22 07:24 96 19 159/94 99 12/14/22 07:20 96 19 12/14/22 02:06 98.9 F 113 H 22 169/85 97 12/14/22 01:27 126 H 12/14/22 01:15 112 H 12/13/22 20:41 111 H 12/13/22 20:30 126 H 12/13/22 20:29 101 H 12/13/22 20:03 98.7 F 102 H 18 131/81 98 12/13/22 18:55 129 H 12/13/22 18:39 111 H 12/13/22 15:57 95 12/13/22 15:45 97 Intake and Output 12/13/22 12/14/22 12/14/22 22:59 06:59 14:59 Intake Total 1005 Output Total 1100 Balance 1005 -1100 Intake: Intake, IV Titration 525 Amount D5-0.45% NaCl with KCl 525 20Meq/l 1,000 ml @ 125 mls/hr IV .Q8H [facility] Rx#: [id number] Oral 480 Output: Urine 1100 Other: Voiding Method Indwelling Catheter Indwelling Catheter Vital signs reviewed and stable. The patient is currently on 6 L of oxygen by nasal cannula General: Nontoxic, no distress and appears stated age. Derm: Skin warm and dry, normal coloration for ethnicity. Head: Atraumatic, normocephalic and symmetric. Eyes: EOMs intact, no lid lag, and anicteric sclera Mouth: no lip lesions, mucus membranes moist Cardiovascular: regular rate and rhythm with normal S1S2, no murmur, positive posterior tibial pulses bilaterally, and cap refill < 2 seconds. Lungs: Respirations even, regular, and unlabored on room air. Lungs slightly diminished otherwise no rhonchi, no rales, no wheezing, and no accessory muscle usage. Breath sounds are diminished in the right lung base, overall air entry is adequate bilaterally. Abdominal: soft, nontender to palpation, no guarding, no appreciable organomegaly. Laparoscopic incisions clean, dry, and intact. The patient does have some abdominal wall pain especially with coughing. No direct tenderness. No rebound tenderness. Ext: ROM intact. No gross muscle atrophy, no edema, no contractures Neuro: Speech clear, face symmetrical and CN II-XII grossly intact with no noted focal neuro deficits Psych: Alert and oriented to person, place, time, and situation. Appropriate and pleasant affect. Results - Laboratory Findings CBC and BMP: 12/14/22 09:14 12/14/22 09:14 ABG ABG pH 7.40 (7.35-7.45) 12/14/22 08:55 ABG pCO2 35 mmHg (35-45) 12/14/22 08:55 ABG pO2 60 mmHg (83-108) L 12/14/22 08:55 ABG O2 Saturation 93.1 % (94-97) L 12/14/22 08:55 PT/INR, D-dimer PT 9.4 sec (9.0-12.0) 12/07/22 01:26 INR 0.9 (<1.2) 12/07/22 01:26 D-Dimer 0.86 mg/L FEU (<0.60) H 12/07/22 01:26 Abnormal lab findings: Abnormal Labs 12/07/22 12/07/22 12/09/22 01:26 01:26 05:00 WBC RBC 3.61 L Hgb 10.8 L Hct 33.5 L MCHC Immature Gran # Neutrophils # Monocytes # Eosinophils # D-Dimer 0.86 H ABG pO2 ABG O2 Saturation Sodium Chloride 110 H Carbon Dioxide 16 L Anion Gap BUN 28 H Creatinine 1.31 H Est GFR (CKD-EPI)AfAm Est GFR (CKD-EPI)NonAf BUN/Creatinine Ratio Glucose 127 H AST ALT Albumin Albumin/Globulin Ratio 12/09/22 12/11/22 12/11/22 05:00 05:36 05:36 WBC RBC 3.98 L Hgb Hct 36.4 L MCHC Immature Gran # Neutrophils # Monocytes # Eosinophils # D-Dimer ABG pO2 ABG O2 Saturation Sodium Chloride 111 H Carbon Dioxide 18.8 L Anion Gap 9.60 L BUN Creatinine Est GFR (CKD-EPI)AfAm 50.3 L 48.7 L Est GFR (CKD-EPI)NonAf 43.4 L 42.1 L BUN/Creatinine Ratio Glucose AST 40 H ALT Albumin 3.5 L Albumin/Globulin Ratio 1.32 L 1.34 L 0612/13/22 12/14/22 07:20 07:20 05:48 WBC 15.02 H 16.97 H RBC Hgb Hct MCHC 31.8 L Immature Gran # 0.09 H Neutrophils # 12.39 H 13.25 H Monocytes # 1.25 H 2.07 H Eosinophils # 0.01 L D-Dimer ABG pO2 ABG O2 Saturation Sodium Chloride Carbon Dioxide Anion Gap BUN Creatinine Est GFR (CKD-EPI)AfAm 54.1 L Est GFR (CKD-EPI)NonAf 46.7 L BUN/Creatinine Ratio Glucose 161 H AST 51 H ALT 48 H Albumin Albumin/Globulin Ratio 1.41 L 12/14/22 12/14/22 12/14/22 05:48 08:55 09:14 WBC 14.3 H RBC Hgb Hct MCHC Immature Gran # Neutrophils # 11.4 H Monocytes # 1.2 H Eosinophils # D-Dimer ABG pO2 60 L ABG O2 Saturation 93.1 L Sodium 132 L Chloride Carbon Dioxide Anion Gap BUN Creatinine Est GFR (CKD-EPI)AfAm 55.4 L Est GFR (CKD-EPI)NonAf 47.8 L BUN/Creatinine Ratio 11.57 L Glucose 125 H AST 38 H ALT Albumin Albumin/Globulin Ratio 1.33 L 12/14/22 09:14 WBC RBC Hgb Hct MCHC Immature Gran # Neutrophils # Monocytes # Eosinophils # D-Dimer ABG pO2 ABG O2 Saturation Sodium 131 L Chloride Carbon Dioxide 20 L Anion Gap BUN Creatinine 1.05 H Est GFR (CKD-EPI)AfAm Est GFR (CKD-EPI)NonAf BUN/Creatinine Ratio Glucose 139 H AST ALT Albumin Albumin/Globulin Ratio - Diagnostic Findings Chest x-ray: image reviewed Assessment and Plan Plan: Acute hypoxic respiratory failure and the patient is currently on 6 L of oxygen by nasal cannula. Consider atelectasis/effusion the right lung base. P ossibility of a pneumonia cannot be completely excluded especially possibility of an aspiration pneumonia and recurrent perioperatively along with a large hiatal hernia. Laparoscopic paraesophageal hernia repair, the patient had the surgery on 12/12/2022 Mild leukocytosis Chronic normocytic anemia Hypothyroidism Hypertension Hyperlipidemia History of basal cell carcinoma of the skin Plan Suspect postsurgical atelectasis/effusion the lung bases and the patient would benefit from aggressive use of incentive spirometer Provide adequate pain control Titrate oxygen flow to maintain saturation above 90% Cover this patient for aspiration pneumonia and I would suggest keeping a combination of Levaquin and clindamycin and the choice of antibiotics was made based on the underlying ALLERGIES. Aspiration precautions Gradual advancement of diet as tolerated Monitor the white cell count CAT scan of the chest abdomen and pelvis was ordered by the medical group and this will be reviewed was completed.
--- NOTE | 2022-12-14 14:30 | CT ---
EXAMINATION TYPE: CT ChestAbdPelvis wo con DATE OF EXAM: 12/14/2022 COMPARISON: none HISTORY: cough, weakness, SOB CT DLP: 822mGycm Unenhanced CT of the Chest, Abdomen and Pelvis Unenhanced CT of the chest ,abdomen and pelvis is performed. The lack of intravenous contrast limits evaluation of the solid and hollow viscera. Oral contrast: yes CT Chest: LUNGS: There are small bilateral pleural effusions with associated compressive atelectasis or infiltr ate. 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 Thoracic aorta is of nor mal caliber. The heart is enlarged. No evidence for mediastinal mass or adenopathy. There is dilata tion of the esophagus with contrast seen within its lumen which may be related to gastroesophageal re flux. Epigastric clips are in place. HILAR STRUCTURES: No evidence for mass. No hilar adenopathy is appreciated. OTHER: No significant abnormality. CONTRAST CT ABDOMEN AND PELVIS: LIVER/GB: No calcified gallstones. No space occupying hepatic lesion. Biliary tree is of normal ca liber. PANCREAS: No inflammation. No distinct mass. SPLEEN: No splenic enlargement. No lesion seen. ADRENALS: No nodule. No thickening. KIDNEYS/BLADDER: No hydronephrosis. No nephrolithiasis. No distinct renal mass. Broderick balloon cath eter seen within decompressed urinary bladder. BOWEL: Normal appendix. There is at least moderate gastric distention as well as distention of the de scending duodenum with collapse of the transverse duodenum. Small and large bowel appear to be of nor mal caliber at this time. GENITAL ORGANS: No gross abnormality. LYMPH NODES: No greater than 1cm abdominal or pelvic lymph nodes are appreciated. AORTA: No significant abnormality. OSSEOUS STRUCTURES: No significant abnormality is seen. OTHER: There is a small focus of free air seen adjacent to the left hepatic lobe seen best on axial i mage 49 sequence 201. In addition there is subcutaneous air noted as well as areas of air within the anterior abdominal wall. This does suggest the possibility of recent laparoscopic procedure. Is there such a history? IMPRESSION: 1. There is a small focus of free air seen adjacent to the left hepatic lobe seen best on axial image 49 sequence 201. In addition there is subcutaneous air noted as well as areas of air within the ante rior abdominal wall. This does suggest the possibility of recent laparoscopic procedure. Is there suc h a history? 2. Small bilateral pleural effusions and compressive atelectasis. 3. Gastric dilatation as well as distention of the esophagus and descending duodenum with collapse of the transverse duodenum. Findings may reflect gastric ileus. 4. Substernal extension of thyroid mass.
[2022-12-14] MEDS: D5-0.45% NACL WITH KCL 20MEQ/L 1,000 ML IV SCH (15:00)
[2022-12-14] MEDS: CLINDAMYCIN 600 MG in DEXTROSE 5% IN WATER 50 ML IVPB SCH ×2 (16:16)
--- NOTE | 2022-12-14 17:41 | CA ---
Transthoracic Echo Report Name: Macey Mathew Age: 82 Gender: F : 1940 Exam Date: 12/14/2022 13:05 Exam Location: [facility] Ht (in): 65 Wt (lb): 160 Ordering Physician: Karen Kitchen MD Attending/Referring Phys: Clocksmith Andres Chand Procedure CPT: Indications: BNP Cardiac Hx: Technical Quality: Fair Contrast 1: Total Dose (mL): Contrast 2: Total Dose (mL): MEASUREMENTS (Male / Female) Normal Values 2D ECHO LV Diastolic Diameter PLAX 2.8 cm 4.2 - 5.9 / 3.9 - 5.3 cm LV Systolic Diameter PLAX 2.3 cm IVS Diastolic Thickness 1.5 cm 0.6 - 1.0 / 0.6 - 0.9 cm LVPW Diastolic Thickness 2.7 cm 0.6 - 1.0 / 0.6 - 0.9 cm LV Relative Wall Thickness 1.5 RV Internal Dim ED PLAX 2.7 cm LVOT Diameter 1.9 cm Aortic Root Diameter 2.8 cm LA Systolic Diameter LX 3.0 cm 3.0 - 4.0 / 2.7 - 3.8 cm LV Diastolic Volume MOD BP 31.7 cm??? 67 - 155 / 56 - 104 cm??? LV Systolic Volume MOD BP 11.0 cm??? 22 - 58 / 19 - 49 cm??? LV Ejection Fraction MOD BP 65.2 % >= 55 % LV Diastolic Volume MOD 4C 31.3 cm??? LV Systolic Volume MOD 4C 14.1 cm??? LV Ejection Fraction MOD 4C 54.9 % LV Diastolic Length 4C 5.8 cm LV Systolic Length 4C 4.7 cm LV Diastolic Volume MOD 2C 28.3 cm??? LV Systolic Volume MOD 2C 8.5 cm??? LV Ejection Fraction MOD 2C 69.9 % LV Diastolic Length 2C 5.2 cm LV Systolic Length 2C 4.8 cm LA Volume 55.0 cm??? 18 - 58 / 22 - 52 cm??? DOPPLER AV Peak Velocity 198.9 cm/s AV Peak Gradient 15.8 mmHg AV Mean Velocity 133.4 cm/s AV Mean Gradient 8.4 mmHg AV Velocity Time Integral 36.9 cm LVOT Peak Velocity 104.0 cm/s LVOT Peak Gradient 4.3 mmHg LVOT Velocity Time Integral 18.5 cm LVOT Stroke Volume 54.5 cm??? LVOT Stroke Volume Index 30.3 ml/m??? AV Area Cont Eq vti 1.5 cm??? AV Area Cont Eq pk 1.5 cm??? MV Peak Velocity 128.5 cm/s MV Peak Gradient 6.6 mmHg MV Mean Velocity 60.2 cm/s MV Mean Gradient 2.0 mmHg MV Velocity Time Integral 23.3 cm Mitral E Point Velocity 70.2 cm/s Mitral A Point Velocity 106.3 cm/s Mitral E to A Ratio 0.7 MV Deceleration Time 109.4 ms MV E' Velocity 6.4 cm/s Mitral E to MV E' Ratio 11.1 TR Peak Velocity 294.8 cm/s TR Peak Gradient 34.8 mmHg Right Ventricular Systolic Press 44.9 mmHg FINDINGS Left Ventricle Left ventricular ejection fraction is estimated at 50-55 %. Mild Concentric LVH. Right Ventricle Normal right ventricular size. Right Atrium Normal right atrial size. Left Atrium LA Volume Index= 30.5ml/m2 Mitral Valve Structurally normal mitral valve. Mild to moderate MR. Aortic Valve Moderate AV calcification. No definite evidence of AI. Tricuspid Valve Tricuspid valve not well visualized. Moderate TR. RVSP= 49mmhg Pulmonic Valve Pulmonic valve not well visualized. No pulmonic regurgitation. Pericardium Not well visualized. Aorta Normal size aortic root and proximal ascending aorta. CONCLUSIONS Normal LV systolic function Mild to moderate mitral regurgitation Aortic sclerosis with mild aortic stenosis Previewed by: Dr. Oli Abad MD (Electronically Signed) Final Date: 14 December 2022 17:40
--- NOTE | 2022-12-14 21:57 | XR ---
EXAMINATION TYPE: XR chest 1V portable DATE OF EXAM: 12/14/2022 9:51 PM COMPARISON: CT chest abdomen pelvis 12/14/2022, chest radiograph 12/14/2022 TECHNIQUE: XR chest 1V portable Portable AP radiograph of the chest. CLINICAL INDICATION:Female, 82 years old with history of Resp distress; FINDINGS: Patient is rotated which limits evaluation. Lungs/Pleura: Blunting of both costophrenic angles with associated atelectasis. No pneumothorax. Pulmonary vascularity: Unremarkable. Heart/mediastinum: Cardiomediastinal silhouette is enlarged and stable. Musculoskeletal: No acute osseous pathology. Other findings: Gaseous distention of the stomach. IMPRESSION: 1. Cardiomegaly with small bilateral pleural effusions and associated atelectasis. No pulmonary vascu lar congestion. 2. Gastric distention redemonstrated from earlier CT.
[2022-12-14] MEDS ORDERED: SODIUM CHLORIDE 0.9% 1,000 ML IV ONE (22:48)
[2022-12-15] MEDS: ATORVASTATIN 20 MG TAB PO SCH ×2 (00:02→19:43)
[2022-12-15] MEDS: HEPARIN SODIUM,PORCINE/PF 5,000 UNIT/0.5 ML SYRINGE SQ SCH ×4 (00:07→23:53)
[2022-12-15 01:24] LABS: Glucose,Whole Blood 116 mg/dL (70-110)
[2022-12-15] MEDS ORDERED: FAMOTIDINE 20 MG/2 ML VIAL IV ONE (01:37)
[2022-12-15] MEDS ORDERED: diphenhydrAMINE 50 MG/ML 1 ML VIAL IVP ONE (01:37)
[2022-12-15] MEDS ORDERED: methylPREDNISolone SOD SUCCI 125 MG/2 ML VIAL IV ONE (01:37)
[2022-12-15] MEDS ORDERED: FUROSEMIDE 10 MG/ML 4 ML VIAL IV STA (01:40)
[2022-12-15] MEDS: LORazepam 2 MG/ML INJ IV PRN (01:43)
[2022-12-15 01:55] LABS: Glucose,Whole Blood 123 mg/dL (70-110)
[2022-12-15] MEDS: CLINDAMYCIN 600 MG in DEXTROSE 5% IN WATER 50 ML IVPB SCH ×8 (02:08→23:53)
[2022-12-15 02:48] LABS: ABG Base Excess -2.9 mmol/L; ABG HCO3 22 mmol/L (21-25); ABG Oxygen Saturation 99.4 % (94-97); ABG PCO2 37 mmHg (35-45); ABG PH 7.38 (7.35-7.45); ABG PO2 136 mmHg (83-108); ABG TCO2 23 mmol/L (19-24); Allen Test Performed? Yes
--- NOTE | 2022-12-15 03:02 | XR ---
EXAM: XR Chest, 1 View CLINICAL HISTORY: ITS.REASON XR Reason: sob TECHNIQUE: Frontal view of the chest. COMPARISON: XR Chest dated 12/14/22 at 2137 FINDINGS: See Impression. IMPRESSION: 1. No significant interval change. 2. Mild left basilar atelectasis or airspace disease and small left pleural effusion. 3. Mild right basilar atelectasis.
[2022-12-15 04:05] LABS: Basophils # (A) 0.1 k/uL (0-0.2); Basophils % (A) 0 %; Eosinophils # (A) 0.1 k/uL (0-0.7); Eosinophils % (A) 1 %; HCT 36.8 % (34.0-46.0); Lymphocytes # (A) 0.9 k/uL (1.0-4.8); Lymphocytes % (A) 6 %; MCHC 32.6 g/dL (31.0-37.0); Mean Platelet Volume 9.6; Monocytes # (A) 1.5 k/uL (0-1.0); Monocytes % (A) 10 %; Neutrophils # (A) 11.6 k/uL (1.3-7.7); Neutrophils % (A) 80 %; Platelet Count 234 k/uL (150-450); RBC 3.88 m/uL (3.80-5.40); RDW 14.3 % (11.5-15.5); WBC 14.6 k/uL (3.8-10.6)
[2022-12-15 04:41] LABS: Calcium 8.3 mg/dL (8.4-10.2); Magnesium 1.4 mg/dL (1.6-2.3); Potassium 4.8 mmol/L (3.5-5.1)
[2022-12-15] MEDS ORDERED: Magnesium Replacement Protocol 1 EACH MISC MISCELLANE PRN (05:15)
[2022-12-15] MEDS: MAGNESIUM SULFATE-D5W PMX 1 GM in DEXTROSE/WATER 1 100ML.BAG IVPB SCH ×4 (05:35→13:05)
--- NOTE | 2022-12-15 07:19 | XR ---
EXAMINATION TYPE: XR chest 1V DATE OF EXAM: 12/15/2022 HISTORY: Shortness of breath. COMPARISON: 12/15/2022 TECHNIQUE: Single view of the chest is submitted. FINDINGS: Demonstrated are scattered senescent parenchymal change. Stable left lower lobe atelectasis and/or infiltrate with small effusion. Tiny right-sided effusion. Pulmonary venous congestion has improved slightly in the interval. The heart is stable. Hilar and mediastinal structures are within normal limits. Degenerative changes are seen of the dorsal spine. IMPRESSION: 1. Stable left lower lobe atelectasis and/or infiltrate with small effusion. Tiny right-sided effusi on. Pulmonary venous congestion has improved slightly in the interval.
[2022-12-15] MEDS: PANTOPRAZOLE 40 MG TABLET PO SCH (07:35)
[2022-12-15] MEDS: IPRATROPIUM-ALBUTEROL 3 ML NEB INHALATION SCH ×4 (07:43→19:49)
[2022-12-15] MEDS: LEVOFLOXACIN 500MG-D5W PMX 500 MG in DEXTROSE/WATER 1 100ML.BAG IVPB SCH (08:42)
[2022-12-15] MEDS ORDERED: DEXAMETHASONE SOD PHOSPHATE 10 MG/ML 1 ML VIAL IVP STA (08:54)
[2022-12-15] MEDS ORDERED: RACEPINEPHRINE 2.25% NEB 0.5 ML NEBU INHALATION STA (08:56)
--- NOTE | 2022-12-15 08:58 | P.PN ---
Subjective Progress Note Date: 12/15/22 I was consulted to evaluate the patient has the patient developed some shortness of breath and hypoxemia following her surgery. The patient is currently on 6 L of oxygen by nasal cannula. 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 The patient underwent laparoscopic repair of the paraesophageal hernia and she had a mesh placed. Surgery was done on 12/12/2022. The patient is a lifetime nonsmoker and she is not requiring any oxygen therapy. There was consideration of a pneumonia and based on the patient's multiple ALLERGIES, the patient was started on Levaquin as an empiric antibiotic coverage. The patient is still having some soreness and abdominal wall especially with coughing. Abdomen generally soft. She is passing flatness.. No altered mentation. No reported aspiration. Surgery was done under anesthesia. The patient provided incentive spirometer. The white cell count today's of 14.3 with a hemoglobin of 12.8 and a platelet count of 252. Blood gas this was done today showed a pH of 7.4 with a pCO2 of 35 and a pO2 of 60 and this was done on room air oxygen. BUN is at 12 with a creatinine of 1.05 and sodium levels of 131. The patient has lactic acid level of 1.9. Troponins are negative. ProBNP level is 3430. Chest x-ray shows atelectasis and a small effusion the right lung base. However, compared to admission, there is an increasing right perihilar and right basilar density which is most likely a combination of atelectasis/effusion. Pneumonia cannot be completely excluded. Left lung remained essentially clear. No pleurisy. No hemoptysis. No angina. No hemodynamic instability. On 12/15/2022, the patient is being seen in intensive care unit. Overnight, the patient became progressively more short of breath hypoxic. The patient got transferred to the intensive care unit and she was started on a BiPAP pressure of 12/6 cm of water with an FiO2 of 50%. Her current generator tidal volume of 650 with a respiratory rate of 28 and a minute ventilation of 18.3. She is tolerating the BiPAP without any major difficulties. A follow-up chest x-ray was done this morning and the chest x-ray showed stable left lower lobe atelectasis with tiny effusion. The gastric is in the stomach and is quite. Nevertheless, the patient denies having any nausea abdominal pain. No emesis. Blood work from today shows a white cell count of 14.6 with a hemoglobin of 12 and a platelet count of 234. Blood. While in the BiPAP showed pH 7.38 with a pCO2 of 37 and pO2 of 136 sodium is at 129, BUN is at 20 with a creatinine of 5 with a level of 4.8. CAT scan of the chest and abdomen and pelvis was done yesterday and the patient should to have a goiter measuring 5.6 cm in size in largest dimension causing some shift in the trachea without clear evidence of any anatomic obstruction. The goiter is extending to the substernal area. At the same time, there is atelectatic change pleural effusion the lung bases bilaterally. The stomach is dilated and had think that there is also esophageal dilation and there is a note made of a relapse in the transverse duodenum, and the patient may have potentially a gastric ileus he had she is hemodynamically stable. She is on IV fluids which is currently running at the rate of 20 mL an hour of normal saline. She is covered with a combination of Levaquin and clindamycin. I took her off the BiPAP this morning and placed on oxygen at 5 L nasal cannula and a multivitamin the patient continues 92-93%. She is awake, weak, somewhat lethargic. He Objective - Vital Signs Vital signs: Vital Signs Temp 99.4 F 12/15/22 04:00 Pulse 92 12/15/22 07:52 Resp 27 H 12/15/22 07:00 BP 99/55 12/15/22 07:00 Pulse Ox 95 12/15/22 07:00 FiO2 50 12/15/22 07:39 Intake & Output 12/14/22 12/15/22 12/15/22 18:59 06:59 18:59 Intake Total 130 110 Output Total 500 55 10 Balance -500 75 100 Intake: IV 130 110 KVO 30 10 Magnesium Sulfate-D5w Pmx 100 100 1 gm In Dextrose/Water 1 100ml.bag @ 100 mls/hr IVPB Q1H [facility] Rx#: [id number] Output: Urine 500 55 10 Other: Voiding Method Indwelling Catheter Indwelling Catheter - Exam Vital signs reviewed and stable. The patient is currently on 5 L of oxygen by nasal cannula, the patient was taken off the BiPAP and immediately following that, there was some respiratory stridor that was appreciated which is quite soft at this point in time. No signs of any acute respiratory distress and she is not using excessive muscle breathing. General: Nontoxic, no distress and appears stated age. Derm: Skin warm and dry, normal coloration for ethnicity. Head: Atraumatic, normocephalic and symmetric. Eyes: EOMs intact, no lid lag, and anicteric sclera Mouth: no lip lesions, mucus membranes moist Cardiovascular: regular rate and rhythm with normal S1S2, no murmur, positive posterior tibial pulses bilaterally, and cap refill < 2 seconds. Lungs: Respirations even, regular, and unlabored on room air. Lungs slightly diminished otherwise no rhonchi, no rales, no wheezing, and no accessory muscle usage. Breath sounds are diminished in the right lung base, overall air entry is adequate bilaterally. Abdominal: soft, nontender to palpation, no guarding, no appreciable organomegaly. Laparoscopic incisions clean, dry, and intact. The patient does have some abdominal wall pain especially with coughing. No direct tenderness. No rebound tenderness. Ext: ROM intact. No gross muscle atrophy, no edema, no contractures Neuro: Speech clear, face symmetrical and CN II-XII grossly intact with no noted focal neuro deficits Psych: Alert and oriented to person, place, time, and situation. Appropriate and pleasant affect. - Labs CBC & Chem 7: 12/15/22 03:48 12/15/22 03:48 Labs: Abnormal Lab Results - Last 24 Hours (Table) 12/14/22 12/14/22 12/14/22 Range/Units 05:48 05:48 08:55 WBC 16.97 H (4.50-10.00) X 10*3/uL Immature Gran # 0.09 H (0.00-0.04) X 10*3/uL Neutrophils # 13.25 H (1.80-7.70) X 10*3/uL Lymphocytes # (1.0-4.8) k/uL Monocytes # 2.07 H (0.20-1.00) X 10*3/uL ABG pO2 60 L (83-108) mmHg ABG O2 Saturation 93.1 L (94-97) % Sodium 132 L (135-145) mmol/L Carbon Dioxide (22-30) mmol/L BUN (7-17) mg/dL Creatinine (0.52-1.04) mg/dL Est GFR (CKD-EPI)AfAm 55.4 L (60.0-200.0) Est GFR (CKD-EPI)NonAf 47.8 L (60.0-200.0) BUN/Creatinine Ratio 11.57 L (12.00-20.00) Ratio Glucose 125 H (70-110) mg/dL POC Glucose (mg/dL) (70-110) mg/dL Calcium (8.4-10.2) mg/dL Magnesium (1.6-2.3) mg/dL AST 38 H (13-35) U/L Albumin/Globulin Ratio 1.33 L (1.60-3.17) g/dL 12/14/22 12/14/22 12/15/22 Range/Units 09:14 09:14 01:22 WBC 14.3 H (4.50-10.00) X 10*3/uL Immature Gran # (0.00-0.04) X 10*3/uL Neutrophils # 11.4 H (1.80-7.70) X 10*3/uL Lymphocytes # (1.0-4.8) k/uL Monocytes # 1.2 H (0.20-1.00) X 10*3/uL ABG pO2 (83-108) mmHg ABG O2 Saturation (94-97) % Sodium 131 L (135-145) mmol/L Carbon Dioxide 20 L (22-30) mmol/L BUN (7-17) mg/dL Creatinine 1.05 H (0.52-1.04) mg/dL Est GFR (CKD-EPI)AfAm (60.0-200.0) Est GFR (CKD-EPI)NonAf (60.0-200.0) BUN/Creatinine Ratio (12.00-20.00) Ratio Glucose 139 H (70-110) mg/dL POC Glucose (mg/dL) 116 H (70-110) mg/dL Calcium (8.4-10.2) mg/dL Magnesium (1.6-2.3) mg/dL AST (13-35) U/L Albumin/Globulin Ratio (1.60-3.17) g/dL 12/15/22 12/15/22 12/15/22 Range/Units 01:53 02:46 03:48 WBC 14.6 H (4.50-10.00) X 10*3/uL Immature Gran # (0.00-0.04) X 10*3/uL Neutrophils # 11.6 H (1.80-7.70) X 10*3/uL Lymphocytes # 0.9 L (1.0-4.8) k/uL Monocytes # 1.5 H (0.20-1.00) X 10*3/uL ABG pO2 136 H (83-108) mmHg ABG O2 Saturation 99.4 H (94-97) % Sodium (135-145) mmol/L Carbon Dioxide (22-30) mmol/L BUN (7-17) mg/dL Creatinine (0.52-1.04) mg/dL Est GFR (CKD-EPI)AfAm (60.0-200.0) Est GFR (CKD-EPI)NonAf (60.0-200.0) BUN/Creatinine Ratio (12.00-20.00) Ratio Glucose (70-110) mg/dL POC Glucose (mg/dL) 123 H (70-110) mg/dL Calcium (8.4-10.2) mg/dL Magnesium (1.6-2.3) mg/dL AST (13-35) U/L Albumin/Globulin Ratio (1.60-3.17) g/dL 12/15/22 Range/Units 03:48 WBC (4.50-10.00) X 10*3/uL Immature Gran # (0.00-0.04) X 10*3/uL Neutrophils # (1.80-7.70) X 10*3/uL Lymphocytes # (1.0-4.8) k/uL Monocytes # (0.20-1.00) X 10*3/uL ABG pO2 (83-108) mmHg ABG O2 Saturation (94-97) % Sodium 129 L (135-145) mmol/L Carbon Dioxide 20 L (22-30) mmol/L BUN 20 H (7-17) mg/dL Creatinine 1.59 H (0.52-1.04) mg/dL Est GFR (CKD-EPI)AfAm (60.0-200.0) Est GFR (CKD-EPI)NonAf (60.0-200.0) BUN/Creatinine Ratio (12.00-20.00) Ratio Glucose 126 H (70-110) mg/dL POC Glucose (mg/dL) (70-110) mg/dL Calcium 8.3 L (8.4-10.2) mg/dL Magnesium 1.4 L (1.6-2.3) mg/dL AST (13-35) U/L Albumin/Globulin Ratio (1.60-3.17) g/dL Assessment and Plan Plan: Acute hypoxic respiratory failure and the patient is currently on 5 L of oxygen by nasal cannula. Consider atelectasis/effusion the right lung base. Possibility of a pneumonia cannot be completely excluded especially possibility of an aspiration pneumonia and recurrent perioperatively along with a large hiatal hernia. Overnight, the patient got transferred to the intensive care unit where she was placed on a BiPAP. CAT scan of the chest was noted and there is a 5.6 cm goiter causing deviation of the trachea and anatomic in the trachea is open. Nevertheless, once the patient was taken off the BiPAP, she was appreciated to have some inspiratory stridor. Rule out anatomic obstruction of her upper airway from a substernal goiter. This may complicate her respiratory progress along with some atelectatic change in lung bases. The patient has small effusions. The patient also has gastric ileus postop was Paraesophageal hernia appear. 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, could be related to anatomic narrowing created by the substernal goiter on the upper trachea Laparoscopic paraesophageal hernia repair, the patient had the surgery on Mild leukocytosis Chronic normocytic anemia Hypothyroidism Hypertension Hyperlipidemia History of basal cell carcinoma of the skin Plan Monitor the stridor or respiratory status in the intensive care unit Use BiPAP if needed Decadron 6 mg IV every 6 hours, given a bolus of 10 mg IV right now Give the patient vaponepinephrine 1 and following that started on DuoNeb nebulized treatments [id number] postsurgical atelectasis/effusion the lung bases and the patient would benefit from aggressive use of incentive spirometer Provide adequate pain control Titrate oxygen flow to maintain saturation above 90% Cover this patient for aspiration pneumonia and I would suggest keeping a combination of Levaquin and clindamycin and the choice of antibiotics was made based on the underlying ALLERGIES. Aspiration precautions She is IV fluids to 75 mL's an hour and hold feedings for the next few hours Monitor the patient intensive care unit We'll continue to follow
[2022-12-15] MEDS: SODIUM CHLORIDE 0.9% 1,000 ML IV SCH ×2 (09:00→23:57)
--- NOTE | 2022-12-15 10:10 | P.PN ---
Subjective Progress Note Date: 12/15/22 Patient was transferred to ICU yesterday for hypoxia, tachycardia, and was placed on a BIPAP, repeat CXRs completed which show new pleural effusions, increased vascular congestion Gen: awake, alert HEENT: normocephalic, atraumatic, good hearing acuity, moist mucous membranes Resp: good air exchange, breathing comfortably with no accessory muscle use CVS: good distal perfusion x 4, GI: soft, NTTP, ND : no SPT, no CVAT, meléndez catheter is present MSK: no pitting edema, no clubbing Neuro: non-focal, moving all extremities Psych: cooperative, euthymic mood Hospital course: Patient is a very pleasant 82-year-old female with a past medical history of CKD stage II, COPD, hypertension, hyperlipidemia, hypothyroidism, and CHF. Patient presented to the emergency department with a chief complaint of shortness of breath.patient underwent full evaluation in the emergency department. CBC unremarkable. Coagulation profile normal findings. D-dimer slightly elevated at 0.86 but normal with age adjustment. BMP revealing hyperchloremia with chloride of 110 and hypocarbia with bicarbonate 16 along with slightly elevated renal function and a BUN was 28, creatinine 1.31, and GFR of 38 with baseline c reatinine of 1.5. Troponin less than 0.012. ProBNP 562. Pro-calcitonin 0.04. Influenza A, influenza B, RSV, and Covid PCR negative.Chest x-ray negative for acute cardiopulmonary process revealing large gas-filled hiatal hernia. Patient admitted under our services and consult was placed to general surgery. Patient underwent laparoscopic repair of large parous esophageal hiatal hernia with intr athoracic stomach on 12/12/22. Assessment and Plan of Care: Shortness of breath secondary to large paraesophageal hernia with intrathoracic stomach Acute Hypoxemic Respiratory Failure Elevated BNP Large Goiter Chronic kidney disease stage III Normocytic anemia COPD Hypothyroidism Hypertension Hyperlipidemia Plan: Patient is afebrile, 130/63, heart rate 112, 95% on 5 L nasal cannula White blood cell count is 14.6 Sodium is 129, bicarb is 20, BUN is 20, creatinine is 1.6, magnesium is 1.4 Echocardiogram was reviewed, preserved ejection fraction, no evidence of diastolic dysfunction, RVSP is 49 See the subjective portion above from independent interpretation of chest x-ray Patient will obtain racemic epinephrine today Continue levofloxacin 500 mg every 24 hours Continue clindamycin 600 mg every 8 hours Start dexamethasone 6 mg every 6 hours Pain control with Dilaudid 1 mg every 4 hours when necessary Continue standing nebulizers every 6 hours Patient is full code Objective - Vital Signs Vital signs: Vital Signs Temp 99.4 F 12/15/22 04:00 Pulse 108 H 12/15/22 09:30 Resp 22 12/15/22 09:00 BP 138/63 12/15/22 09:00 Pulse Ox 96 12/15/22 09:21 FiO2 50 12/15/22 08:00 Intake & Output 12/14/22 12/15/22 12/15/22 18:59 06:59 18:59 Intake Total 130 270 Output Total 500 55 160 Balance -500 75 110 Intake: IV 130 270 Clindamycin 600 mg In 50 Dextrose 5% in Water 50 ml @ 50 mls/hr IVPB Q8HR [facility] Rx#:[id number] KVO 30 20 Levofloxacin 500Mg-D5w 100 Pmx 500 mg In Dextrose/ Water 1 100ml.bag @ 100 mls/hr IVPB Q24H [facility] Rx#: [id number] Magnesium Sulfate-D5w Pmx 100 100 1 gm In Dextrose/Water 1 100ml.bag @ 100 mls/hr IVPB Q1H [facility] Rx#: [id number] Output: Urine 500 55 160 Other: Voiding Method Indwelling Catheter Indwelling Catheter - Labs CBC & Chem 7: 12/15/22 03:48 12/15/22 03:48 Labs: Abnormal Lab Results - Last 24 Hours (Table) 12/14/22 12/14/22 12/14/22 Range/Units 05:48 05:48 09:14 WBC 16.97 H (4.50-10.00) X 10*3/uL Immature Gran # 0.09 H (0.00-0.04) X 10*3/uL Neutrophils # 13.25 H (1.80-7.70) X 10*3/uL Lymphocytes # (1.0-4.8) k/uL Monocytes # 2.07 H (0.20-1.00) X 10*3/uL ABG pO2 (83-108) mmHg ABG O2 Saturation (94-97) % Sodium 132 L 131 L (135-145) mmol/L Carbon Dioxide 20 L (22-30) mmol/L BUN (7-17) mg/dL Creatinine 1.05 H (0.52-1.04) mg/dL Est GFR (CKD-EPI)AfAm 55.4 L (60.0-200.0) Est GFR (CKD-EPI)NonAf 47.8 L (60.0-200.0) BUN/Creatinine Ratio 11.57 L (12.00-20.00) Ratio Glucose 125 H 139 H (70-110) mg/dL POC Glucose (mg/dL) (70-110) mg/dL Calcium (8.4-10.2) mg/dL Magnesium (1.6-2.3) mg/dL AST 38 H (13-35) U/L Albumin/Globulin Ratio 1.33 L (1.60-3.17) g/dL 12/15/22 12/15/22 12/15/22 Range/Units 01:22 01:53 02:46 WBC (4.50-10.00) X 10*3/uL Immature Gran # (0.00-0.04) X 10*3/uL Neutrophils # (1.80-7.70) X 10*3/uL Lymphocytes # (1.0-4.8) k/uL Monocytes # (0.20-1.00) X 10*3/uL ABG pO2 136 H (83-108) mmHg ABG O2 Saturation 99.4 H (94-97) % Sodium (135-145) mmol/L Carbon Dioxide (22-30) mmol/L BUN (7-17) mg/dL Creatinine (0.52-1.04) mg/dL Est GFR (CKD-EPI)AfAm (60.0-200.0) Est GFR (CKD-EPI)NonAf (60.0-200.0) BUN/Creatinine Ratio (12.00-20.00) Ratio Glucose (70-110) mg/dL POC Glucose (mg/dL) 116 H 123 H (70-110) mg/dL Calcium (8.4-10.2) mg/dL Magnesium (1.6-2.3) mg/dL AST (13-35) U/L Albumin/Globulin Ratio (1.60-3.17) g/dL 12/15/22 12/15/22 Range/Units 03:48 03:48 WBC 14.6 H (4.50-10.00) X 10*3/uL Immature Gran # (0.00-0.04) X 10*3/uL Neutrophils # 11.6 H (1.80-7.70) X 10*3/uL Lymphocytes # 0.9 L (1.0-4.8) k/uL Monocytes # 1.5 H (0.20-1.00) X 10*3/uL ABG pO2 (83-108) mmHg ABG O2 Saturation (94-97) % Sodium 129 L (135-145) mmol/L Carbon Dioxide 20 L (22-30) mmol/L BUN 20 H (7-17) mg/dL Creatinine 1.59 H (0.52-1.04) mg/dL Est GFR (CKD-EPI)AfAm (60.0-200.0) Est GFR (CKD-EPI)NonAf (60.0-200.0) BUN/Creatinine Ratio (12.00-20.00) Ratio Glucose 126 H (70-110) mg/dL POC Glucose (mg/dL) (70-110) mg/dL Calcium 8.3 L (8.4-10.2) mg/dL Magnesium 1.4 L (1.6-2.3) mg/dL AST (13-35) U/L Albumin/Globulin Ratio (1.60-3.17) g/dL
[2022-12-15] MEDS: FERROUS SULFATE 325 MG TAB PO SCH (11:03)
[2022-12-15] MEDS: amLODIPine 5 MG TAB PO SCH (11:03)
[2022-12-15] MEDS: METOPROLOL SUCCINATE (ER) 50 MG TAB.ER.24H PO SCH ×2 (11:03→19:43)
[2022-12-15] MEDS: allopurinoL 300 MG TAB PO SCH (11:03)
[2022-12-15] MEDS: DEXAMETHASONE SOD PHOSPHATE 10 MG/ML 1 ML VIAL IVP SCH ×2 (16:18→20:03)
--- NOTE | 2022-12-15 17:33 | P.PN ---
Subjective Progress Note Date: 12/15/22 CHIEF COMPLAINT: Hiatal hernia HISTORY OF PRESENT ILLNESS: The patient is a 82-year-old female status post repair of large paraesophageal hiatal hernia. She reports incisional pain only with coughing. She is in the ICU with all vital signs stable. She was transferred from med/surg to ICU due to HR over 180s and hypertensive crisis SBP over 180s per discussion with nursing this morning. She was on clear liquid diet. She is now NPO. She denies flatus today. No bowel movements. ROS: No reports of nausea and vomiting. No bowel movements. No fevers or chills. No new chest pain. No productive sputum PHYSICAL EXAM: VITAL SIGNS: Reviewed CONSTITUTIONAL: Well developed and in no acute distress. EYES: Conjuctivae without sclera icterus. Extraocular movements grossly intact. HEAD, EARS, NOSE, THROAT: Moist buccal mucosa. Head is atraumatic, normocephalic. Hears conversational speech. No nasal drainage. RESPIRATORY: Non-labored respirations and equal bilateral excursions. CARDIOVASCULAR: Palpable 2+ radial pulses. ABDOMEN: Incisions clean dry intact. No moderate distention. MUSCULOSKELETAL: No gross deformity of the lower extremities noted. No clubbing. No cyanosis. SKIN: Good skin turgor. Well perfused. NEUROLOGIC: Cranial nerves II through XII grossly intact. No focal or lateralizing signs. PSYCH: Appropriate affect. Alert and oriented to person, place and time. CLINICAL LABS: Reviewed. Sodium is decreased 131 now 129. Hyponatremia. WBC elevated at 14,000. Creatinine elevated STUDIES: CT of the abdomen and pelvis reviewed by me with moderate to severe distention of the stomach. No moderate free air. This is my independent interpretation. ASSESSMENT: 1. Hypertensive crisis 2. Hyponatremia 3. Paraesophageal hiatal hernia status post repair PLAN: 1. Plan for simethicone scheduled. 2. Abdominal xray ordered. 3. Restart diet and meds pending daily AXR films. 4. Otherwise moderate clinic improvement over the last 12 to 15 hrs. Objective - Vital Signs Vital signs: Vital Signs Temp 98.9 F 12/15/22 16:00 Pulse 96 12/15/22 17:00 Resp 24 12/15/22 17:00 BP 119/66 12/15/22 17:00 Pulse Ox 92 L 12/15/22 17:00 FiO2 50 12/15/22 08:00 Intake & Output 12/14/22 12/15/22 12/15/22 18:59 06:59 18:59 Intake Total 130 620 Output Total 500 55 355 Balance -500 75 265 Intake: IV 130 620 Clindamycin 600 mg In 50 Dextrose 5% in Water 50 ml @ 50 mls/hr IVPB Q8HR [facility] Rx#:[id number] KVO 30 170 Levofloxacin 500Mg-D5w 100 Pmx 500 mg In Dextrose/ Water 1 100ml.bag @ 100 mls/hr IVPB Q24H [facility] Rx#: [id number] Magnesium Sulfate-D5w Pmx 100 300 1 gm In Dextrose/Water 1 100ml.bag @ 100 mls/hr IVPB Q1H [facility] Rx#: [id number] Output: Urine 500 55 355 Other: Voiding Method Indwelling Catheter Indwelling Catheter Indwelling Catheter - Labs CBC & Chem 7: 12/15/22 03:48 12/15/22 03:48 Labs: Abnormal Lab Results - Last 24 Hours (Table) 12/15/22 12/15/22 12/15/22 Range/Units 01:22 01:53 02:46 WBC (3.8-10.6) k/uL Neutrophils # (1.3-7.7) k/uL Lymphocytes # (1.0-4.8) k/uL Monocytes # (0-1.0) k/uL ABG pO2 136 H (83-108) mmHg ABG O2 Saturation 99.4 H (94-97) % Sodium (137-145) mmol/L Carbon Dioxide (22-30) mmol/L BUN (7-17) mg/dL Creatinine (0.52-1.04) mg/dL Glucose (74-99) mg/dL POC Glucose (mg/dL) 116 H 123 H (70-110) mg/dL Calcium (8.4-10.2) mg/dL Magnesium (1.6-2.3) mg/dL 12/15/22 12/15/22 Range/Units 03:48 03:48 WBC 14.6 H (3.8-10.6) k/uL Neutrophils # 11.6 H (1.3-7.7) k/uL Lymphocytes # 0.9 L (1.0-4.8) k/uL Monocytes # 1.5 H (0-1.0) k/uL ABG pO2 (83-108) mmHg ABG O2 Saturation (94-97) % Sodium 129 L (137-145) mmol/L Carbon Dioxide 20 L (22-30) mmol/L BUN 20 H (7-17) mg/dL Creatinine 1.59 H (0.52-1.04) mg/dL Glucose 126 H (74-99) mg/dL POC Glucose (mg/dL) (70-110) mg/dL Calcium 8.3 L (8.4-10.2) mg/dL Magnesium 1.4 L (1.6-2.3) mg/dL
[2022-12-15] MEDS: SIMETHICONE 80 MG CHEWABLE PO SCH ×2 (18:47→21:48)
--- NOTE | 2022-12-15 18:51 | XR ---
EXAMINATION TYPE: XR abdomen 1V DATE OF EXAM: 12/15/2022 6:35 PM INDICATION: Patient age:Female; 82 years old; Reason for study: abdominal distention; COMPARISON: 12/15/2022, CT one day prior TECHNIQUE: One radiographic view of the abdomen was obtained. FINDINGS: There is gaseous distention of the stomach and loops of bowel. High density stool seen with in the colon. These are findings are similar to CT from one day prior. IMPRESSION: Gaseous distention of the stomach and loops of bowel correlate for aerophagia. Consider nasogastric t ube. Findings similar to 12/14/2022. The jejunum may be compressed upon the gaseous dilated stomach arc h when correlating with prior CT. Compromise the passing of structures through the jejunum over the s pine such as in setting of SMA syndrome.
[2022-12-15] MEDS ORDERED: ACETAMINOPHEN IV (For NPO) 1,000 MG in EMPTY BAG 1 BAG IVPB ONE (21:30)
[2022-12-15] MEDS: BENZOCAINE SPRAY 1 CAN MUCOUS MEM PRN (21:45)
--- NOTE | 2022-12-15 21:59 | XR ---
EXAMINATION TYPE: XR chest 1V portable DATE OF EXAM: 12/15/2022 9:49 PM COMPARISON: 12/14/2022 CT TECHNIQUE: XR chest 1V portable Frontal view of the chest. CLINICAL INDICATION:Female, 82 years old with history of confirm NGT placement; FINDINGS: Lungs/Pleura: There is no evidence of pleural effusion, focal consolidation, or pneumothorax. Pulmonary vascularity: Unremarkable. Heart/mediastinum: Cardiomediastinal silhouette is enlarged and stable. Musculoskeletal: No acute osseous pathology. Other findings: None Lines/Tubes: Nasogastric tube with distal tip and side-port projecting out of the [id number]. These are within the gastric lumen when comparing to CT. IMPRESSION: Nasogastric tube distal tip extends out of the [id number] and in the expected location of the dayana toni lumen seen on prior CT.
[2022-12-16] MEDS: DEXAMETHASONE SOD PHOSPHATE 10 MG/ML 1 ML VIAL IVP SCH ×4 (03:35→20:01)
[2022-12-16 04:34] LABS: Basophils % (A) 0 %; Eosinophils % (A) 0 %; HGB 11.5 gm/dL (11.4-16.0); Lymphocytes # (A) 0.7 k/uL (1.0-4.8); Lymphocytes % (A) 7 %; MCH 31.1 pg (25.0-35.0); MCHC 32.8 g/dL (31.0-37.0); MCV 94.8 fL (80.0-100.0); Mean Platelet Volume 8.8; Monocytes # (A) 0.4 k/uL (0-1.0); Monocytes % (A) 4 %; Neutrophils # (A) 9.2 k/uL (1.3-7.7); Neutrophils % (A) 89 %; Platelet Count 221 k/uL (150-450); RBC 3.69 m/uL (3.80-5.40); RDW 14.1 % (11.5-15.5); WBC 10.3 k/uL (3.8-10.6)
[2022-12-16 04:43] LABS: Calcium 8.6 mg/dL (8.4-10.2); Magnesium 2.4 mg/dL (1.6-2.3); Potassium 4.5 mmol/L (3.5-5.1)
[2022-12-16] MEDS ORDERED: ACETAMINOPHEN IV (For NPO) 1,000 MG in EMPTY BAG 1 BAG IVPB ONE (04:47)
[2022-12-16] MEDS: LORazepam 2 MG/ML INJ IV PRN (07:12)
--- NOTE | 2022-12-16 07:14 | XR ---
EXAMINATION TYPE: XR chest 1V portable DATE OF EXAM: 12/16/2022 HISTORY: Shortness of breath. COMPARISON: 12/15/2022 TECHNIQUE: Single view of the chest is submitted. FINDINGS: Demonstrated are scattered senescent parenchymal change. NG tube is seen coursing into the stomach. Small basilar infiltrates and/or atelectasis with small effusions noted. The heart is stable. Hilar and mediastinal structures are within normal limits. Degenerative changes are seen of the dorsal spine. IMPRESSION: 1. Small basilar infiltrates and/or atelectasis with small effusions noted.
[2022-12-16] MEDS: IPRATROPIUM-ALBUTEROL 3 ML NEB INHALATION SCH ×4 (07:26→20:02)
--- NOTE | 2022-12-16 07:41 | XR ---
EXAMINATION TYPE: XR abdomen 2V DATE OF EXAM: 12/16/2022 COMPARISON: 12/15/2022 HISTORY: Pain TECHNIQUE: Single supine KUB image of the abdomen is obtained FINDINGS: Small bowel demonstrates no evidence for dilatation or air fluid levels. Gas and fecal material is seen in non-distended colon. Contrast material within the right hemicolon from prior CT. NG tube is seen within the stomach. No convincing evidence for pneumoperitoneum. No unusual calcifications. The lung bases are clear. The osseous structures are intact. IMPRESSION: 1. Overall improvement in the appearance of small and large bowel without evidence for dilated bowel at this time. NG tube is in place.
[2022-12-16] MEDS: PANTOPRAZOLE 40 MG TABLET PO SCH (07:55)
[2022-12-16] MEDS: SIMETHICONE 80 MG CHEWABLE PO SCH ×4 (08:30→23:00)
[2022-12-16] MEDS: LEVOFLOXACIN 500MG-D5W PMX 500 MG in DEXTROSE/WATER 1 100ML.BAG IVPB SCH (09:08)
[2022-12-16] MEDS: HEPARIN SODIUM,PORCINE/PF 5,000 UNIT/0.5 ML SYRINGE SQ SCH ×3 (09:08→23:03)
[2022-12-16] MEDS: allopurinoL 300 MG TAB PO SCH (09:15)
[2022-12-16] MEDS: METOPROLOL SUCCINATE (ER) 50 MG TAB.ER.24H PO SCH ×2 (09:15→20:01)
[2022-12-16] MEDS: amLODIPine 5 MG TAB PO SCH (09:15)
[2022-12-16] MEDS: FERROUS SULFATE 325 MG TAB PO SCH (09:15)
[2022-12-16] MEDS: VALSARTAN 160 MG TAB PO SCH (09:16)
[2022-12-16 09:24] LABS: Bordedella pertussis Not detected (Not detected); Bordetella holmesII Not detected (Not detected); Bordetella parapertussis Not detected (Not detected)
--- NOTE | 2022-12-16 09:26 | P.PN ---
Subjective Progress Note Date: 12/16/22 I was consulted to evaluate the patient has the patient developed some shortness of breath and hypoxemia following her surgery. The patient is currently on 6 L of oxygen by nasal cannula. 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 The patient underwent laparoscopic repair of the paraesophageal hernia and she had a mesh placed. Surgery was done on 12/12/2022. The patient is a lifetime nonsmoker and she is not requiring any oxygen therapy. There was consideration of a pneumonia and based on the patient's multiple ALLERGIES, the patient was started on Levaquin as an empiric antibiotic coverage. The patient is still having some soreness and abdominal wall especially with coughing. Abdomen generally soft. She is passing flatness.. No altered mentation. No reported aspiration. Surgery was done under anesthesia. The patient provided incentive spirometer. The white cell count today's of 14.3 with a hemoglobin of 12.8 and a platelet count of 252. Blood gas this was done today showed a pH of 7.4 with a pCO2 of 35 and a pO2 of 60 and this was done on room air oxygen. BUN is at 12 with a creatinine of 1.05 and sodium levels of 131. The patient has lactic acid level of 1.9. Troponins are negative. ProBNP level is 3430. Chest x-ray shows atelectasis and a small effusion the right lung base. However, compared to admission, there is an increasing right perihilar and right basilar density which is most likely a combination of atelectasis/effusion. Pneumonia cannot be completely excluded. Left lung remained essentially clear. No pleurisy. No hemoptysis. No angina. No hemodynamic instability. On 12/15/2022, the patient is being seen in intensive care unit. Overnight, the patient became progressively more short of breath hypoxic. The patient got transferred to the intensive care unit and she was started on a BiPAP pressure of 12/6 cm of water with an FiO2 of 50%. Her current generator tidal volume of 650 with a respiratory rate of 28 and a minute ventilation of 18.3. She is tolerating the BiPAP without any major difficulties. A follow-up chest x-ray was done this morning and the chest x-ray showed stable left lower lobe atelectasis with tiny effusion. The gastric is in the stomach and is quite. Nevertheless, the patient denies having any nausea abdominal pain. No emesis. Blood work from today shows a white cell count of 14.6 with a hemoglobin of 12 and a platelet count of 234. Blood. While in the BiPAP showed pH 7.38 with a pCO2 of 37 and pO2 of 136 sodium is at 129, BUN is at 20 with a creatinine of 5 with a level of 4.8. CAT scan of the chest and abdomen and pelvis was done yesterday and the patient should to have a goiter measuring 5.6 cm in size in largest dimension causing some shift in the trachea without clear evidence of any anatomic obstruction. The goiter is extending to the substernal area. At the same time, there is atelectatic change pleural effusion the lung bases bilaterally. The stomach is dilated and had think that there is also esophageal dilation and there is a note made of a relapse in the transverse duodenum, and the patient may have potentially a gastric ileus he had she is hemodynamically stable. She is on IV fluids which is currently running at the rate of 20 mL an hour of normal saline. She is covered with a combination of Levaquin and clindamycin. I took her off the BiPAP this morning and placed on oxygen at 5 L nasal cannula and a multivitamin the patient continues 92-93%. She is awake, weak, somewhat lethargic. On 12/16/2022, the patient remains in intensive care unit. She continues to have episodes of shortness of breath. Note that yesterday, I was suspicious about the stridor and I started the patient on Decadron. The patient was also given less racemic epinephrine. She is currently on bronchodilators and combination with Decadron 6 mg IV every 6 hours. She was taken off the BiPAP throughout the day yesterday. Later on the evening, general surgery evaluated the patient and they felt that the abdomen was distended and a flat film of the abdomen was done and following that the patient was placed in an NG tube. On my examination, the abdomen is soft and nondistended. Edge output is minimal at this point in time. As of 4 AM, the patient was placed back on a BiPAP and currently she is on a pressure of 12/6 cm of water with FiO2 of 50%. She generating excellent tidal volume. Her pulse ox is in order of 97%. Her chest x-ray from today shows no major interval change. There is some small bibasilar infiltrates/atelectasis with small effusions. A repeat x-ray of the abdomen was also done that showed improvement in the small and large bowel distention without evidence of any significant elevation. The white cell cause of 10.3 with a hemoglobin 11.5 and a platelet count of 221. BUN is at 34 with a creatinine of 1.6 and his sodium levels of 132. The patient remains on a combination of Levaquin and clindamycin. The patient is on Decadron. The patient on bronchodilators. IV fluids are in the form of normal saline at the rate of 75 mL's an hour. Objective - Vital Signs Vital signs: Vital Signs Temp 97.8 F 12/16/22 08:00 Pulse 79 12/16/22 09:00 Resp 17 12/16/22 09:00 BP 94/48 12/16/22 09:00 Pulse Ox 94 L 12/16/22 09:00 FiO2 50 12/16/22 08:00 Intake & Output 12/15/22 12/16/22 12/16/22 18:59 06:59 18:59 Intake Total 740 585 140 Output Total 720 645 75 Balance 20 -60 65 Weight 77.4 kg Intake: IV 740 585 140 Clindamycin 600 mg In 50 Dextrose 5% in Water 50 ml @ 50 mls/hr IVPB Q8HR [facility] Rx#:[id number] KVO 290 585 40 Levofloxacin 500Mg-D5w 100 100 Pmx 500 mg In Dextrose/ Water 1 100ml.bag @ 100 mls/hr IVPB Q24H [facility] Rx#: [id number] Magnesium Sulfate-D5w Pmx 300 1 gm In Dextrose/Water 1 100ml.bag @ 100 mls/hr IVPB Q1H [facility] Rx#: [id number] Output: Urine 720 645 75 Other: Voiding Method Indwelling Catheter Indwelling Catheter - Exam Vital signs reviewed and stable. The patient is currently on 12/6 cm of water, and the patient also has an NG tube in place.. General: Nontoxic, no distress and appears stated age. Derm: Skin warm and dry, normal coloration for ethnicity. Head: Atraumatic, normocephalic and symmetric. Eyes: EOMs intact, no lid lag, and anicteric sclera Mouth: no lip lesions, mucus membranes moist Cardiovascular: regular rate and rhythm with normal S1S2, no murmur, positive posterior tibial pulses bilaterally, and cap refill < 2 seconds. Lungs: Respirations even, regular, and unlabored on room air. Lungs slightly diminished otherwise no rhonchi, no rales, no wheezing, and no accessory muscle usage. Breath sounds are diminished in the right lung base, overall air entry is adequate bilaterally. Abdominal: soft, nontender to palpation, no guarding, no appreciable organomegaly. Laparoscopic incisions clean, dry, and intact. The patient does have some abdominal wall pain especially with coughing. No direct tenderness. No rebound tenderness. Ext: ROM intact. No gross muscle atrophy, no edema, no contractures Neuro: Speech clear, face symmetrical and CN II-XII grossly intact with no noted focal neuro deficits Psych: Alert and oriented to person, place, time, and situation. Appropriate and pleasant affect. - Labs CBC & Chem 7: 12/16/22 04:04 12/16/22 04:04 Labs: Abnormal Lab Results - Last 24 Hours (Table) 12/16/22 12/16/22 Range/Units 04:04 04:04 RBC 3.69 L (3.80-5.40) m/uL Neutrophils # 9.2 H (1.3-7.7) k/uL Lymphocytes # 0.7 L (1.0-4.8) k/uL Sodium 132 L (137-145) mmol/L Carbon Dioxide 20 L (22-30) mmol/L BUN 34 H (7-17) mg/dL Creatinine 1.69 H (0.52-1.04) mg/dL Glucose 148 H (74-99) mg/dL Magnesium 2.4 H (1.6-2.3) mg/dL Assessment and Plan Plan: Acute hypoxic respiratory failure with the presence of bilateral atelectasis/effusion the right lung base. Possibility of a pneumonia cannot be completely excluded especially possibility of an aspiration pneumonia and recurrent perioperatively along with a large hiatal hernia. CAT scan of the chest was noted and there is a 5.6 cm goiter causing deviation of the trachea and anatomic in the trachea is open. Nevertheless, once the patient was taken off the BiPAP, she was appreciated to have some inspiratory stridor. Rule out anatomic obstruction of her upper airway from a substernal goiter. This may complicate her respiratory progress along with some atelectatic change in lung bases. Note that the overall, the patient's condition is stable. Nevertheless, on and off the patient is still requiring BiPAP. She is on bronchodilators and Decadron and antibiotics. NG tube was also inserted yesterday to eliminate gastric distention. There was also dilatation of the small and a large bowel which improved on today's blood from the abdomen. 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, could be related to anatomic narrowing created by the substernal goiter on the upper trachea Laparoscopic paraesophageal hernia repair, the patient had the surgery on 12/12/2022 Acute kidney injury, creatinine is stable for now Mild leukocytosis Chronic normocytic anemia Hypothyroidism Hypertension Hyperlipidemia History of basal cell carcinoma of the skin Plan Monitor the stridor or respiratory status in the intensive care unit Keep the patient on BiPAP and try to get off the BiPAP again later on during the day We'll give H2 for 24 hours and likely remove as the patient doesn't have any significant abdominal distention or output Continue Decadron 6 mg IV every 6 hours, IV fluids to be increased up to 100 mL an hour Continue bronchodilators postsurgical atelectasis/effusion the lung bases and the patient would benefit from aggressive use of incentive spirometer once the patient is off the BiPAP. Provide adequate pain control Titrate oxygen flow to maintain saturation above 90% Cover this patient for aspiration pneumonia and I would suggest keeping a combination of Levaquin and clindamycin and the choice of antibiotics was made based on the underlying ALLERGIES. Aspiration precautions Monitor the patient intensive care unit We'll continue to follow
[2022-12-16] MEDS: CLINDAMYCIN 600 MG in DEXTROSE 5% IN WATER 50 ML IVPB SCH ×6 (10:16→23:03)
--- NOTE | 2022-12-16 10:54 | P.PN ---
Subjective Progress Note Date: 12/16/22 Patient was replaced on BiPAP overnight, had an NG tube placed for gastric decompression. Gen: awake, alert HEENT: normocephalic, atraumatic, good hearing acuity, moist mucous membranes Resp: good air exchange, breathing comfortably with no accessory muscle use CVS: good distal perfusion x 4, GI: soft, NTTP, ND : no SPT, no CVAT, meléndez catheter is present MSK: no pitting edema, no clubbing Neuro: non-focal, moving all extremities Psych: cooperative, euthymic mood Hospital course: Patient is a very pleasant 82-year-old female with a past medical history of CKD stage II, COPD, hypertension, hyperlipidemia, hypothyroidism, and CHF. Patient presented to the emergency department with a chief complaint of shortness of breath.patient underwent full evaluation in the emergency department. CBC unr emarkable. Coagulation profile normal findings. D-dimer slightly elevated at 0.86 but normal with age adjustment. BMP revealing hyperchloremia with chloride of 110 and hypocarbia with bicarbonate 16 along with slightly elevated renal function and a BUN was 28, creatinine 1.31, and GFR of 38 with baseline creatinine of 1.5. Troponin less than 0.012. ProBNP 562. Pro-calcitonin 0.04. Influenza A, influenza B, RSV, and Covid PCR negative.Chest x-ray negative for acute cardiopulmonary process revealing large gas-filled hiatal hernia. Patient admitted under our services and consult was placed to general surgery. 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 Assessment and Plan of Care: Shortness of breath secondary to large paraesophageal hernia with intrathoracic stomach Acute Hypoxemic Respiratory Failure Elevated BNP Large Goiter Chronic kidney disease stage III Normocytic anemia COPD Hypothyroidism Hypertension Hyperlipidemia Plan: Patient is afebrile, 94/48, heart rate 79, 94% on BiPAP with an FiO2 of 50% White blood cell count is 10.3 Sodium is 132, bicarb is 20, BUN is 34, creatinine is 1.7, magnesium is 2.4 Chest x-ray today continues to show bilateral pleural effusions, but no overt signs of heart failure Continue levofloxacin 500 mg every 24 hours Continue clindamycin 600 mg every 8 hours Continue dexamethasone 6 mg every 6 hours Pain control with Dilaudid 1 mg every 4 hours when necessary Continue NG tube Continue standing nebulizers every 6 hours Patient is full code Objective - Vital Signs Vital signs: Vital Signs Temp 97.8 F 12/16/22 08:00 Pulse 79 12/16/22 09:00 Resp 17 12/16/22 09:00 BP 94/48 12/16/22 09:00 Pulse Ox 94 L 12/16/22 09:00 FiO2 50 12/16/22 08:00 Intake & Output 12/15/22 12/16/22 12/16/22 18:59 06:59 18:59 Intake Total 740 585 140 Output Total 720 645 75 Balance 20 -60 65 Weight 77.4 kg Intake: IV 740 585 140 Clindamycin 600 mg In 50 Dextrose 5% in Water 50 ml @ 50 mls/hr IVPB Q8HR [facility] Rx#:[id number] KVO 290 585 40 Levofloxacin 500Mg-D5w 100 100 Pmx 500 mg In Dextrose/ Water 1 100ml.bag @ 100 mls/hr IVPB Q24H [facility] Rx#: [id number] Magnesium Sulfate-D5w Pmx 300 1 gm In Dextrose/Water 1 100ml.bag @ 100 mls/hr IVPB Q1H [facility] Rx#: [id number] Output: Urine 720 645 75 Other: Voiding Method Indwelling Catheter Indwelling Catheter - Labs CBC & Chem 7: 12/16/22 04:04 12/16/22 04:04 Labs: Abnormal Lab Results - Last 24 Hours (Table) 12/16/22 12/16/22 Range/Units 04:04 04:04 RBC 3.69 L (3.80-5.40) m/uL Neutrophils # 9.2 H (1.3-7.7) k/uL Lymphocytes # 0.7 L (1.0-4.8) k/uL Sodium 132 L (137-145) mmol/L Carbon Dioxide 20 L (22-30) mmol/L BUN 34 H (7-17) mg/dL Creatinine 1.69 H (0.52-1.04) mg/dL Glucose 148 H (74-99) mg/dL Magnesium 2.4 H (1.6-2.3) mg/dL
[2022-12-16] MEDS: SODIUM CHLORIDE 0.9% 1,000 ML IV SCH ×2 (11:25→22:05)
--- NOTE | 2022-12-16 13:30 | P.PN ---
Subjective Progress Note Date: 12/16/22 Principal diagnosis: Patient had acute gastric distention yesterday. NG tube placed. Repeat abdominal films today demonstrate resolved abdominal distention. Gas within the rectum. May discontinue NG tube. Start some clear liquid diet. Clinically improving. Objective - Vital Signs Vital signs: Vital Signs Temp 97.6 F 12/16/22 12:00 Pulse 94 12/16/22 12:05 Resp 17 12/16/22 12:00 BP 135/71 12/16/22 12:00 Pulse Ox 98 12/16/22 12:00 FiO2 50 12/16/22 08:00 Intake & Output 12/15/22 12/16/22 12/16/22 18:59 06:59 18:59 Intake Total 740 585 240 Output Total 720 645 150 Balance 20 -60 90 Weight 77.4 kg Intake: IV 740 585 240 Clindamycin 600 mg In 50 50 Dextrose 5% in Water 50 ml @ 50 mls/hr IVPB Q8HR [facility] Rx#:[id number] KVO 290 585 90 Levofloxacin 500Mg-D5w 100 100 Pmx 500 mg In Dextrose/ Water 1 100ml.bag @ 100 mls/hr IVPB Q24H [facility] Rx#: [id number] Magnesium Sulfate-D5w Pmx 300 1 gm In Dextrose/Water 1 100ml.bag @ 100 mls/hr IVPB Q1H [facility] Rx#: [id number] Output: Urine 720 645 150 Other: Voiding Method Indwelling Catheter Indwelling Catheter Indwelling Catheter - Labs CBC & Chem 7: 12/16/22 04:04 12/16/22 04:04 Labs: Abnormal Lab Results - Last 24 Hours (Table) 12/16/22 12/16/22 Range/Units 04:04 04:04 RBC 3.69 L (3.80-5.40) m/uL Neutrophils # 9.2 H (1.3-7.7) k/uL Lymphocytes # 0.7 L (1.0-4.8) k/uL Sodium 132 L (137-145) mmol/L Carbon Dioxide 20 L (22-30) mmol/L BUN 34 H (7-17) mg/dL Creatinine 1.69 H (0.52-1.04) mg/dL Glucose 148 H (74-99) mg/dL Magnesium 2.4 H (1.6-2.3) mg/dL
[2022-12-16] MEDS: ACETAMINOPHEN TAB 325 MG TAB PO PRN (19:49)
[2022-12-16] MEDS: ATORVASTATIN 20 MG TAB PO SCH (20:01)
[2022-12-16] MEDS ORDERED: guaiFENesin SYRUP 100MG/5ML 200 MG/10 ML CUP PO PRN (20:48)
[2022-12-16] MEDS: BENZOCAINE SPRAY 1 CAN MUCOUS MEM PRN (21:12)
[2022-12-16] MEDS ORDERED: BENZONATATE 100 MG CAP PO PRN (23:35)
[2022-12-17] MEDS: ACETAMINOPHEN TAB 325 MG TAB PO PRN (02:47)
[2022-12-17] MEDS: DEXAMETHASONE SOD PHOSPHATE 10 MG/ML 1 ML VIAL IVP SCH ×4 (02:50→20:11)
[2022-12-17 04:44] LABS: Basophils % (A) 0 %; Eosinophils % (A) 0 %; HCT 34.2 % (34.0-46.0); HGB 10.9 gm/dL (11.4-16.0); Lymphocytes # (A) 0.6 k/uL (1.0-4.8); Lymphocytes % (A) 5 %; MCH 30.6 pg (25.0-35.0); MCV 95.5 fL (80.0-100.0); Mean Platelet Volume 9.3; Monocytes # (A) 0.5 k/uL (0-1.0); Monocytes % (A) 4 %; Neutrophils # (A) 10.5 k/uL (1.3-7.7); Neutrophils % (A) 89 %; Platelet Count 288 k/uL (150-450); RBC 3.58 m/uL (3.80-5.40); RDW 14.3 % (11.5-15.5); WBC 11.8 k/uL (3.8-10.6)
[2022-12-17 04:49] LABS: African American GFR (CKD) 36 (>60 ml/min/1.73 sqM); Anion Gap 14 mmol/L; Blood Urea Nitrogen 40 mg/dL (7-17); Calcium 8.9 mg/dL (8.4-10.2); Carbon Dioxide 17 mmol/L (22-30); Chloride 102 mmol/L (98-107); Glucose 139 mg/dL (74-99); Non-African American GFR(CKD) 31 (>60 ml/min/1.73 sqM); Potassium 4.5 mmol/L (3.5-5.1); Sodium 133 mmol/L (137-145)
--- NOTE | 2022-12-17 06:03 | XR ---
EXAMINATION TYPE: XR chest 1V portable DATE OF EXAM: 12/17/2022 CLINICAL HISTORY: Difficulty breathing progress study. TECHNIQUE: Single AP portable upright view of the chest is obtained. COMPARISON: Chest x-ray from one day earlier and older studies. FINDINGS: Persistent cardiomegaly with small bilateral pleural effusions and mild central vascular c ongestion. Persistent left basilar opacity favoring atelectasis. Interval removal of nasogastric tube . Osseous structures are intact. IMPRESSION: Cardiomegaly with small bilateral pleural effusions remain present. No significant change from one day earlier.
[2022-12-17] MEDS: PANTOPRAZOLE 40 MG TABLET PO SCH (06:45)
[2022-12-17] MEDS: SODIUM CHLORIDE 0.9% 1,000 ML IV SCH ×2 (06:45→17:03)
[2022-12-17] MEDS: IPRATROPIUM-ALBUTEROL 3 ML NEB INHALATION SCH ×4 (09:01→19:42)
[2022-12-17] MEDS: HEPARIN SODIUM,PORCINE/PF 5,000 UNIT/0.5 ML SYRINGE SQ SCH ×3 (09:10→23:01)
[2022-12-17] MEDS: FERROUS SULFATE 325 MG TAB PO SCH ×2 (09:11→09:28)
[2022-12-17] MEDS: CLINDAMYCIN 600 MG in DEXTROSE 5% IN WATER 50 ML IVPB SCH ×6 (09:11→23:01)
[2022-12-17] MEDS: LEVOFLOXACIN 500MG-D5W PMX 500 MG in DEXTROSE/WATER 1 100ML.BAG IVPB SCH (09:11)
[2022-12-17] MEDS: amLODIPine 5 MG TAB PO SCH ×2 (09:11→09:28)
[2022-12-17] MEDS: allopurinoL 300 MG TAB PO SCH ×2 (09:13→09:28)
[2022-12-17] MEDS: VALSARTAN 160 MG TAB PO SCH ×2 (09:13→09:28)
[2022-12-17] MEDS: METOPROLOL SUCCINATE (ER) 50 MG TAB.ER.24H PO SCH ×3 (09:13→20:11)
[2022-12-17] MEDS: SIMETHICONE 80 MG CHEWABLE PO SCH ×5 (09:13→21:22)
--- NOTE | 2022-12-17 09:24 | P.PN ---
Subjective Progress Note Date: 12/17/22 Patient is saturating well on 6 L, mentation is good today Gen: awake, alert HEENT: normocephalic, atraumatic, good hearing acuity, moist mucous membranes Resp: good air exchange, breathing comfortably with no accessory muscle use CVS: good distal perfusion x 4, GI: soft, NTTP, ND : no SPT, no CVAT, meléndez catheter is present MSK: no pitting edema, no clubbing Neuro: non-focal, moving all extremities Psych: cooperative, euthymic mood Hospital course: Patient is a very pleasant 82-year-old female with a past medical history of CKD stage II, COPD, hypertension, hyperlipidemia, hypothyroidism, and CHF. Patient presented to the emergency department with a chief complaint of shortness of breath.patient underwent full evaluation in the emergency department. CBC unremarkable. Coagulation profile normal findings. D-dimer slightly elevated at 0.86 but normal with age adjustment. BMP revealing hyperchloremia with chloride of 110 and hypocarbia with bicarbonate 16 along with slightly elevated renal function and a BUN was 28, creatinine 1.31, and GFR of 38 with baseline creatinine of 1.5. Troponin less than 0.012. ProBNP 562. Pro-calcitonin 0.04. Influenza A, influenza B, RSV, and Covid PCR negative.Chest x-ray negative for acute cardiopulmonary process revealing large gas-filled hiatal hernia. Patient admitted under our services and consult was placed to general surgery. 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 Patient developed hypoxic respiratory failure and was transitioned to the ICU on BiPAP. Patient had evidence of large goiter as well as stridor on exam and was treated with racemic epinephrine, steroids. She also has significant issues with anxiety causing sensation of significant shortness of breath, required pushes of Ativan. Patient briefly had an NG tube replaced on 12/16 due to gastric distention and ileus, had not had a bowel movement since 12/11. Assessment and Plan of Care: Shortness of breath secondary to large paraesophageal hernia with intrathoracic stomach Acute Hypoxemic Respiratory Failure Elevated BNP Large Goiter Chronic kidney disease stage III Normocytic anemia COPD Hypothyroidism Hypertension Hyperlipidemia Plan: Patient is afebrile, 131/67, heart rate 92, 96% on 6 L of nasal cannula White blood cell count is 11.8 Sodium is 133, bicarb is 17, BUN is 40, creatinine is 1.56, magnesium is 2.4 Chest x-ray today shows improvement in pleural effusions, cardiomegaly without signs of overt heart failure Continue levofloxacin 500 mg every 24 hours Continue clindamycin 600 mg every 8 hours Continue dexamethasone 6 mg every 6 hours Pain control with Dilaudid 1 mg every 4 hours when necessary Requested CT surgery to review images of goiter to see about tracheal compression Continue standing nebulizers every 6 hours Patient is full code Objective - Vital Signs Vital signs: Vital Signs Temp 98.5 F 12/17/22 08:00 Pulse 92 12/17/22 09:01 Resp 22 12/17/22 09:00 BP 131/67 12/17/22 09:00 Pulse Ox 96 12/17/22 09:00 FiO2 50 12/16/22 16:00 Intake & Output 12/16/22 12/17/22 12/17/22 18:59 06:59 18:59 Intake Total 990 1250 700 Output Total 490 695 325 Balance 500 555 375 Weight 78 kg Intake: IV 990 1250 300 Clindamycin 600 mg In 100 50 Dextrose 5% in Water 50 ml @ 50 mls/hr IVPB Q8HR [facility] Rx#:[id number] KVO 90 Levofloxacin 500Mg-D5w 100 Pmx 500 mg In Dextrose/ Water 1 100ml.bag @ 100 mls/hr IVPB Q24H [facility] Rx#: [id number] Sodium Chloride 0.9% 1, 700 1200 300 000 ml @ 100 mls/hr IV . Q10H [facility] Rx#:[id number] Oral 400 Output: Urine 490 695 325 Other: Voiding Method Indwelling Catheter Indwelling Catheter - Labs CBC & Chem 7: 12/17/22 03:23 12/17/22 03:23 Labs: Abnormal Lab Results - Last 24 Hours (Table) 12/17/22 12/17/22 12/17/22 Range/Units 03:23 03:23 04:33 WBC 11.8 H (3.8-10.6) k/uL RBC 3.58 L (3.80-5.40) m/uL Hgb 10.9 L (11.4-16.0) gm/dL Neutrophils # 10.5 H (1.3-7.7) k/uL Lymphocytes # 0.6 L (1.0-4.8) k/uL Sodium 133 L (137-145) mmol/L Carbon Dioxide 17 L (22-30) mmol/L BUN 40 H (7-17) mg/dL Creatinine 1.56 H (0.52-1.04) mg/dL Glucose 139 H (74-99) mg/dL Magnesium 2.4 H (1.6-2.3) mg/dL
[2022-12-17] MEDS: HYDROmorphone 1 MG/ML 1 ML SYRINGE IVP PRN (10:07)
--- NOTE | 2022-12-17 12:27 | P.PN ---
Subjective Progress Note Date: 12/17/22 Principal diagnosis: Acute hypoxic respiratory failure secondary to pneumonia, most likely aspiration pneumonia. I was consulted to evaluate the patient has the patient developed some shortness of breath and hypoxemia following her surgery. The patient is currently on 6 L of oxygen by nasal cannula. 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 The patient underwent laparoscopic repair of the paraesophageal hernia and she had a mesh placed. Surgery was done on 12/12/2022. The patient is a lifetime nonsmoker and she is not requiring any oxygen therapy. There was consideration of a pneumonia and based on the patient's multiple ALLERGIES, the patient was started on Levaquin as an empiric antibiotic coverage. The patient is still having some soreness and abdominal wall especially with coughing. Abdomen generally soft. She is passing flatness.. No altered mentation. No reported aspiration. Surgery was done under anesthesia. The patient provided incentive spirometer. The white cell count today's of 14.3 with a hemoglobin of 12.8 and a platelet count of 252. Blood gas this was done today showed a pH of 7.4 with a pCO2 of 35 and a pO2 of 60 and this was done on room air oxygen. BUN is at 12 with a creatinine of 1.05 and sodium levels of 131. The patient has lactic acid level of 1.9. Troponins are negative. ProBNP level is 3430. Chest x-ray shows atelectasis and a small effusion the right lung base. However, compared to admission, there is an increasing right perihilar and right basilar density which is most likely a combination of atelectasis/effusion. Pneumonia cannot be completely excluded. Left lung remained essentially clear. No pleurisy. No hemoptysis. No angina. No hemodynamic instability. On 12/15/2022, the patient is being seen in intensive care unit. Overnight, the patient became progressively more short of breath hypoxic. The patient got transferred to the intensive care unit and she was started on a BiPAP pressure of 12/6 cm of water with an FiO2 of 50%. Her current generator tidal volume of 650 with a respiratory rate of 28 and a minute ventilation of 18.3. She is tolerating the BiPAP without any major difficulties. A follow-up chest x-ray was done this morning and the chest x-ray showed stable left lower lobe atelectasis with tiny effusion. The gastric is in the stomach and is quite. Nevertheless, the patient denies having any nausea abdominal pain. No emesis. Blood work from today shows a white cell count of 14.6 with a hemoglobin of 12 and a platelet count of 234. Blood. While in the BiPAP showed pH 7.38 with a pCO2 of 37 and pO2 of 136 sodium is at 129, BUN is at 20 with a creatinine of 5 with a level of 4.8. CAT scan of the chest and abdomen and pelvis was done yesterday and the patient should to have a goiter measuring 5.6 cm in size in largest dimension causing some shift in the trachea without clear evidence of any anatomic obstruction. The goiter is extending to the substernal area. At the same time, there is atelectatic change pleural effusion the lung bases bilaterally. The stomach is dilated and had think that there is also esophageal dilation and there is a note made of a relapse in the transverse duodenum, and the patient may have potentially a gastric ileus he had she is hemodynamically stable. She is on IV fluids which is currently running at the rate of 20 mL an hour of normal saline. She is covered with a combination of Levaquin and clindamycin. I took her off the BiPAP this morning and placed on oxygen at 5 L nasal cannula and a multivitamin the patient continues 92-93%. She is awake, weak, somewhat lethargic. On 12/16/2022, the patient remains in intensive care unit. She continues to have episodes of shortness of breath. Note that yesterday, I was suspicious about the stridor and I started the patient on Decadron. The patient was also given less racemic epinephrine. She is currently on bronchodilators and combination with Decadron 6 mg IV every 6 hours. She was taken off the BiPAP th out the day yesterday. Later on the evening, general surgery evaluated the patient and they felt that the abdomen was distended and a flat film of the abdomen was done and following that the patient was placed in an NG tube. On my examination, the abdomen is soft and nondistended. Edge output is minimal at this point in time. As of 4 AM, the patient was placed back on a BiPAP and currently she is on a pressure of 12/6 cm of water with FiO2 of 50%. She generating excellent tidal volume. Her pulse ox is in order of 97%. Her chest x-ray from today shows no major interval change. There is some small bibasilar infiltrates/atelectasis with small effusions. A repeat x-ray of the abdomen was also done that showed improvement in the small and large bowel distention without evidence of any significant elevation. The white cell cause of 10.3 with a hemoglobin 11.5 and a platelet count of 221. BUN is at 34 with a creatinine of 1.6 and his sodium levels of 132. The patient remains on a combination of Levaquin and clindamycin. The patient is on Decadron. The patient on bronchodilators. IV fluids are in the form of normal saline at the rate of 75 mL's an hour. Reevaluated today on 12/17/22, patient remains in the ICU, patient continues to show: Anything she swallows or take by mouth, hence I'm recommending a speech therapy evaluation and also recommending a modified barium swallow. I have a strong feeling that the patient is having episodes of aspiration, I reviewed her CT of the chest, she does have a large goiter, and I'm also concerned about the possibility of fistula from esophagus to trachea. Patient continues to have questionable ileus, remains on antibiotics in the form of Levaquin and clindamycin. She is on 6 L high flow nasal cannula, patient was a bit reluctant about a modified barium swallow but I was able to convince her to have one. WBC count is 11.8 hemoglobin is 10.9 electrodes are normal bicarb remains low at 17, BUN is 40 creatinine 1.56 chest x-ray continues to show cardiomegaly and small bilateral pleural effusions with left basilar opacity questioning atelectasis or pneumonia Objective - Vital Signs Vital signs: Vital Signs Temp 98.5 F 12/17/22 08:00 Pulse 101 H 12/17/22 11:00 Resp 27 H 12/17/22 11:00 BP 128/71 12/17/22 11:00 Pulse Ox 96 12/17/22 11:00 FiO2 50 12/16/22 16:00 Intake & Output 12/16/22 12/17/22 12/17/22 18:59 06:59 18:59 Intake Total 990 1250 900 Output Total 490 695 550 Balance 500 555 350 Weight 78 kg Intake: IV 990 1250 500 Clindamycin 600 mg In 100 50 Dextrose 5% in Water 50 ml @ 50 mls/hr IVPB Q8HR [facility] Rx#:[id number] KVO 90 Levofloxacin 500Mg-D5w 100 Pmx 500 mg In Dextrose/ Water 1 100ml.bag @ 100 mls/hr IVPB Q24H [facility] Rx#: [id number] Sodium Chloride 0.9% 1, 700 1200 500 000 ml @ 100 mls/hr IV . Q10H [facility] Rx#:[id number] Oral 400 Output: Urine 490 695 550 Other: Voiding Method Indwelling Catheter Indwelling Catheter - Exam Physical Exam: Revealed an 82-year-old female in no distress HEENT:[Neck is supple.] [No neck masses.] Positive thyromegaly. Chest: [Crackles and rhonchi noted bilaterally more so on forced expiratory maneuver. Cardiac Exam: [Normal S1 and S2, no S3 gallop, no murmur.] Abdomen: [Soft, nontender, no megaly, no rebound, no guarding, normal bowel sounds.] Extremities: [No clubbing, no edema, no cyanosis.] Neurological Exam: [No focal neurologic deficit.] Alert oriented 3. Psychiatric: Normal mood, affect and normal status examination. Skin: No rashes. - Labs CBC & Chem 7: 12/17/22 03:23 12/17/22 03:23 Labs: Abnormal Lab Results - Last 24 Hours (Table) 12/17/22 12/17/22 12/17/22 Range/Units 03:23 03:23 04:33 WBC 11.8 H (3.8-10.6) k/uL RBC 3.58 L (3.80-5.40) m/uL Hgb 10.9 L (11.4-16.0) gm/dL Neutrophils # 10.5 H (1.3-7.7) k/uL Lymphocytes # 0.6 L (1.0-4.8) k/uL Sodium 133 L (137-145) mmol/L Carbon Dioxide 17 L (22-30) mmol/L BUN 40 H (7-17) mg/dL Creatinine 1.56 H (0.52-1.04) mg/dL Glucose 139 H (74-99) mg/dL Magnesium 2.4 H (1.6-2.3) mg/dL Assessment and Plan Assessment: Impression: Acute hypoxic respiratory failure, strongly suspect acute aspiration pneumonia 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 Continue bronchodilators Continue incentive spirometry Titrate oxygen accordingly patient is now on 6 L high flow nasal cannula Continue aspiration precautions Continue to monitor in the ICU for now. Continue antibiotics for aspiration pneumonia patient is presently on Levaquin and clindamycin. We will continue to follow Time with Patient: Less than 30
--- NOTE | 2022-12-17 14:04 | P.PN ---
Subjective Progress Note Date: 12/17/22 CHIEF COMPLAINT: Large paraesophageal hiatal hernia with intrathoracic stomach HISTORY OF PRESENT ILLNESS: Patient is postop day #5, status post Laparoscopic repair of large paraesophageal hiatal hernia with intrathoracic stomach with mesh. Patient required transfer to the ICU over the weekend due to shortness of breath, tachycardia and hypertension. Patient has shortness of breath and difficulty with swallowing. She is scheduled for a barium swallow eval today with speech therapy eval. Critical care service concern for possible fistula from the esophagus to trach. She had evidence of acute hypoxic respiratory failure with possible aspiration pneumonia. She did have NG tube in place over the weekend for a gastric distention. NG tube has been removed. She was started on Ken clears. The patient has been having difficulty with swallowing. Afebrile. Heart rate is improved blood pressure improved. WBC is 11.8 Hgb 10.9 patient denies any abdominal pain. She is having flatus. No bowel movement. Abdominal x-ray overall improvement in the appearance of small and large bowel without evidence for dilated about this time. Patient seen and examined with Dr. iverson PHYSICAL EXAM: VITAL SIGNS: Reviewed. GENERAL: Well-developed in no acute distress. ABDOMEN: Soft. Nondistended. Nontender. Incision sites clean dry and intact. NEUROLOGIC: Alert and oriented. Cranial nerves II through XII grossly intact. ASSESSMENT: 1. 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 Gastric ileus and distention decompressed with NG tube. NG tube has been removed 3. Possible aspiration pneumonia 4. Goiter PLAN: -Follow up on modified barium swallow and speech therapy eval -Continue ICU management -Continue supportive care -Continue antibiotics -DVT prophylaxis subcu heparin and GI prophylaxis Protonix Physician Frequency Checker note has been reviewed by physician. Signing provider agrees with the documented findings, assessment, and plan of care. Objective - Vital Signs Vital signs: Vital Signs Temp 98.5 F 12/17/22 08:00 Pulse 90 12/17/22 12:47 Resp 15 12/17/22 12:00 BP 133/68 12/17/22 12:00 Pulse Ox 94 L 12/17/22 12:00 FiO2 50 12/16/22 16:00 Intake & Output 12/16/22 12/17/22 12/17/22 18:59 06:59 18:59 Intake Total 990 1250 1000 Output Total 490 695 650 Balance 500 555 350 Weight 78 kg Intake: IV 990 1250 600 Clindamycin 600 mg In 100 50 Dextrose 5% in Water 50 ml @ 50 mls/hr IVPB Q8HR [facility] Rx#:[id number] KVO 90 Levofloxacin 500Mg-D5w 100 Pmx 500 mg In Dextrose/ Water 1 100ml.bag @ 100 mls/hr IVPB Q24H [facility] Rx#: [id number] Sodium Chloride 0.9% 1, 700 1200 600 000 ml @ 100 mls/hr IV . Q10H [facility] Rx#:[id number] Oral 400 Output: Urine 490 695 650 Other: Voiding Method Indwelling Catheter Indwelling Catheter - Labs CBC & Chem 7: 12/17/22 03:23 12/17/22 03:23 Labs: Abnormal Lab Results - Last 24 Hours (Table) 12/17/22 12/17/22 12/17/22 Range/Units 03:23 03:23 04:33 WBC 11.8 H (3.8-10.6) k/uL RBC 3.58 L (3.80-5.40) m/uL Hgb 10.9 L (11.4-16.0) gm/dL Neutrophils # 10.5 H (1.3-7.7) k/uL Lymphocytes # 0.6 L (1.0-4.8) k/uL Sodium 133 L (137-145) mmol/L Carbon Dioxide 17 L (22-30) mmol/L BUN 40 H (7-17) mg/dL Creatinine 1.56 H (0.52-1.04) mg/dL Glucose 139 H (74-99) mg/dL Magnesium 2.4 H (1.6-2.3) mg/dL
--- NOTE | 2022-12-17 14:38 | FL ---
INDICATION: Patient age:Female; 82 years old; Reason for study: Dysphagia; PHH. COMPARISON: None TECHNIQUE: Utilizing real-time video recording fluoroscopy, multiple images were obtained after admin istration of various consistencies of barium contrast. A speech pathologist was present throughout the exam. Fluoroscopic time: 47 seconds Fluoroscopic images: None saved Total DAP: 72.53, no other radiation index obtained secondary to technical difficulty. FINDINGS: Consistencies administered: Thin, pudding, nectar thick and honey. During the oral phase there is no rmal formation of food bolus with normal initiation of swallow with all consistencies. Premature spill: None identified. Laryngeal penetration: Transient silent laryngeal penetration with thin and nectar consistencies. Piriform Retention:None identified Vallecular retention: None identified. Nasopharyngeal reflux: None identified. Tracheal aspiration: None identified. No fistula identified within the visualized hypopharynx/upper esophagus. IMPRESSION: 1. No evidence of tracheal aspiration. 2. Transient silent laryngeal penetration with thin and nectar consistencies. Please see dedicated speech pathology report for additional information.
[2022-12-17] MEDS: ATORVASTATIN 20 MG TAB PO SCH (20:11)
[2022-12-18] MEDS: BENZOCAINE SPRAY 1 CAN MUCOUS MEM PRN (02:19)
[2022-12-18] MEDS: SODIUM CHLORIDE 0.9% 1,000 ML IV SCH ×3 (03:26→21:49)
[2022-12-18] MEDS: DEXAMETHASONE SOD PHOSPHATE 10 MG/ML 1 ML VIAL IVP SCH ×2 (03:26→08:10)
[2022-12-18] MEDS: ACETAMINOPHEN TAB 325 MG TAB PO PRN ×3 (05:43→23:11)
[2022-12-18 06:13] LABS: African American GFR (CKD) 45 (>60 ml/min/1.73 sqM); Anion Gap 10 mmol/L; Blood Urea Nitrogen 34 mg/dL (7-17); Calcium 9.1 mg/dL (8.4-10.2); Carbon Dioxide 20 mmol/L (22-30); Chloride 107 mmol/L (98-107); Glucose 153 mg/dL (74-99); Magnesium 2.2 mg/dL (1.6-2.3); Non-African American GFR(CKD) 39 (>60 ml/min/1.73 sqM); Potassium 4.5 mmol/L (3.5-5.1); Sodium 137 mmol/L (137-145)
[2022-12-18 06:39] LABS: Basophils % (A) 0 %; Eosinophils % (A) 0 %; HCT 33.4 % (34.0-46.0); HGB 10.7 gm/dL (11.4-16.0); Lymphocytes # (A) 0.5 k/uL (1.0-4.8); Lymphocytes % (A) 6 %; MCH 30.8 pg (25.0-35.0); MCHC 31.9 g/dL (31.0-37.0); MCV 96.3 fL (80.0-100.0); Mean Platelet Volume 8.8; Monocytes # (A) 0.4 k/uL (0-1.0); Monocytes % (A) 5 %; Neutrophils # (A) 7.4 k/uL (1.3-7.7); Neutrophils % (A) 88 %; Platelet Count 294 k/uL (150-450); RBC 3.47 m/uL (3.80-5.40); RDW 14.4 % (11.5-15.5); WBC 8.5 k/uL (3.8-10.6)
[2022-12-18] MEDS: PANTOPRAZOLE 40 MG TABLET PO SCH (06:42)
[2022-12-18] MEDS: LEVOTHYROXINE 50 MCG TAB PO SCH (06:42)
[2022-12-18] MEDS: HEPARIN SODIUM,PORCINE/PF 5,000 UNIT/0.5 ML SYRINGE SQ SCH ×2 (08:09→15:39)
[2022-12-18] MEDS: LEVOFLOXACIN 500MG-D5W PMX 500 MG in DEXTROSE/WATER 1 100ML.BAG IVPB SCH (08:09)
[2022-12-18] MEDS: FERROUS SULFATE 325 MG TAB PO SCH (08:10)
[2022-12-18] MEDS: allopurinoL 300 MG TAB PO SCH (08:11)
[2022-12-18] MEDS: SIMETHICONE 80 MG CHEWABLE PO SCH ×4 (08:12→21:48)
[2022-12-18] MEDS: amLODIPine 5 MG TAB PO SCH (08:12)
[2022-12-18] MEDS: METOPROLOL SUCCINATE (ER) 50 MG TAB.ER.24H PO SCH ×2 (08:12→20:02)
[2022-12-18] MEDS: VALSARTAN 160 MG TAB PO SCH (08:13)
[2022-12-18] MEDS: CLINDAMYCIN 600 MG in DEXTROSE 5% IN WATER 50 ML IVPB SCH ×4 (08:37→15:39)
[2022-12-18] MEDS: IPRATROPIUM-ALBUTEROL 3 ML NEB INHALATION SCH ×4 (09:04→20:26)
--- NOTE | 2022-12-18 12:05 | P.PN ---
Subjective Progress Note Date: 12/18/22 Hospital Course: Patient is a very pleasant 82-year-old female with a past medical history of CKD stage II, COPD, hypertension, hyperlipidemia, hypothyroidism, and CHF. Patient presented to the emergency department with a chief complaint of shortness of breath.patient underwent full evaluation in the emergency department. CBC unremarkable. Coagulation profile normal findings. D-dimer slightly elevated at 0.86 but normal with age adjustment. BMP revealing hyperchloremia with chlor cayetano of 110 and hypocarbia with bicarbonate 16 along with slightly elevated renal function and a BUN was 28, creatinine 1.31, and GFR of 38 with baseline creatinine of 1.5. Troponin less than 0.012. ProBNP 562. Pro-calcitonin 0.04. Influenza A, influenza B, RSV, and Covid PCR negative.Chest x-ray negative for acute cardiopulmonary process revealing large gas-filled hiatal hernia. Patient admitted under our services and consult was placed to general surgery. 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 Patient developed hypoxic respiratory failure and was transitioned to the ICU on BiPAP. Patient had evidence of large goiter as well as stridor on exam and was treated with racemic epinephrine, steroids. She also has significant issues with anxiety causing sensation of significant shortness of breath, required pushes of Ativan. Patient briefly had an NG tube replaced on 12/16 due to gastric distention and ileus, had not had a bowel movement since 12/11. Subjective: Patient seen and examined at bedside. No acute events overnight. He claims that her shortness of breath is improved. Still has not had a bowel movement, but passing gas and burping. Pertinent positives and negatives as discussed above, a complete review of systems was performed and all other systems are negative. Vitals Signs Reviewed. General: nontoxic, no distress, appears at stated age Derm: warm, dry, abdominal incision sites clean, dry, intact Head: atraumatic, normocephalic, symmetric Eyes: EOMI, no lid lag, anicteric sclera Mouth: no lip lesion, mucus membranes moist Cardiovascular: S1S2 reg, no murmur Lungs: CTA bilateral, no rhonchi, no rales , no accessory muscle use, supplemental oxygen Abdominal: soft, nontender to palpation, no guarding, no appreciable organomegaly Ext: no gross muscle atrophy, no edema, no contractures Neuro: CN II-XI grossly intact, no focal neuro deficits Psych: Alert, oriented, appropriate affect Data Reviewed Today: Pertinent Labs: WBC 8.5, hemoglobin 10.7, sodium 137, potassium 4.5, creatinine 1.28, magnesium 2.2 Imaging: Barium swallow showed no evidence of tracheal aspiration, silent laryngeal penetration with thin and nectar consistencies. Assessment and Plan: Patient is critically ill in medical ICU, possibly transferred to Floors today. Active: Shortness of breath secondary to large paraesophageal hernia with intrathoracic stomach Status post paraesophageal hernia repair Postoperative ileus, expected outcome Acute Hypoxemic Respiratory Failure, possibly secondary to aspiration pneumonia Elevated BNP, echocardiogram normal LV systolic function Large Goiter -Swallow eval shows transient laryngeal penetration with thin and nectar consistencies, no significant tracheal aspiration -Continue to wean down oxygen -Continue levofloxacin and and clindamycin -On dexamethasone 6 mg IV every 6 hours due to prior concerns of stridor possibly in the setting of large goiter -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 -Senokot daily -IV Dilaudid as needed for breakthrough pain -Remains on IV fluids normal saline 100 mL an hour Chronic: COPD Hypothyroidism Hypertension Hyperlipidemia Chronic kidney disease stage III Normocytic anemia Gout DVT ppx: Subcu heparin Code status: Full code Anticipated discharge place: Pending clinical course Anticipated discharge time: Pending clinical course Objective - Vital Signs Vital signs: Vital Signs Temp 97.9 F 12/18/22 08:00 Pulse 89 12/18/22 11:00 Resp 19 12/18/22 11:00 BP 158/79 12/18/22 11:00 Pulse Ox 97 12/18/22 11:00 FiO2 50 12/17/22 16:00 Intake & Output 12/17/22 12/18/22 12/18/22 18:59 06:59 18:59 Intake Total 1600 1250 950 Output Total 1306 1070 0 Balance 294 180 950 Weight 79 kg Intake: IV 1200 1250 600 Clindamycin 600 mg In 50 Dextrose 5% in Water 50 ml @ 50 mls/hr IVPB Q8HR [facility] Rx#:[id number] Levofloxacin 500Mg-D5w 100 Pmx 500 mg In Dextrose/ Water 1 100ml.bag @ 100 mls/hr IVPB Q24H [facility] Rx#: [id number] Sodium Chloride 0.9% 1, 1200 1200 500 000 ml @ 100 mls/hr IV . Q10H [facility] Rx#:[id number] Oral 400 350 Output: Urine 1300 1070 0 Stool 6 0 Other: Voiding Method Indwelling Catheter Indwelling Catheter - Labs CBC & Chem 7: 12/18/22 05:24 12/18/22 05:24 Labs: Abnormal Lab Results - Last 24 Hours (Table) 12/18/22 12/18/22 Range/Units 05:24 05:24 RBC 3.47 L (3.80-5.40) m/uL Hgb 10.7 L (11.4-16.0) gm/dL Hct 33.4 L (34.0-46.0) % Lymphocytes # 0.5 L (1.0-4.8) k/uL Carbon Dioxide 20 L (22-30) mmol/L BUN 34 H (7-17) mg/dL Creatinine 1.28 H (0.52-1.04) mg/dL Glucose 153 H (74-99) mg/dL
--- NOTE | 2022-12-18 12:56 | P.PN ---
Subjective Progress Note Date: 12/18/22 Principal diagnosis: Acute hypoxic respiratory failure secondary to pneumonia, most likely aspiration pneumonia. I was consulted to evaluate the patient has the patient developed some shortness of breath and hypoxemia following her surgery. The patient is currently on 6 L of oxygen by nasal cannula. 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 The patient underwent laparoscopic repair of the paraesophageal hernia and she had a mesh placed. Surgery was done on 12/12/2022. The patient is a lifetime nonsmoker and she is not requiring any oxygen therapy. There was consideration of a pneumonia and based on the patient's multiple ALLERGIES, the patient was started on Levaquin as an empiric antibiotic coverage. The patient is still having some soreness and abdominal wall especially with coughing. Abdomen generally soft. She is passing flatness.. No altered mentation. No reported aspiration. Surgery was done under anesthesia. The patient provided incentive spirometer. The white cell count today's of 14.3 with a hemoglobin of 12.8 and a platelet count of 252. Blood gas this was done today showed a pH of 7.4 with a pCO2 of 35 and a pO2 of 60 and this was done on room air oxygen. BUN is at 12 with a creatinine of 1.05 and sodium levels of 131. The patient has lactic acid level of 1.9. Troponins are negative. ProBNP level is 3430. Chest x-ray shows atelectasis and a small effusion the right lung base. However, compared to admission, there is an increasing right perihilar and right basilar density which is most likely a combination of atelectasis/effusion. Pneumonia cannot be completely excluded. Left lung remained essentially clear. No pleurisy. No hemoptysis. No angina. No hemodynamic instability. On 12/15/2022, the patient is being seen in intensive care unit. Overnight, the patient became progressively more short of breath hypoxic. The patient got transferred to the intensive care unit and she was started on a BiPAP pressure of 12/6 cm of water with an FiO2 of 50%. Her current generator tidal volume of 650 with a respiratory rate of 28 and a minute ventilation of 18.3. She is tolerating the BiPAP without any major difficulties. A follow-up chest x-ray was done this morning and the chest x-ray showed stable left lower lobe atelectasis with tiny effusion. The gastric is in the stomach and is quite. Nevertheless, the patient denies having any nausea abdominal pain. No emesis. Blood work from today shows a white cell count of 14.6 with a hemoglobin of 12 and a platelet count of 234. Blood. While in the BiPAP showed pH 7.38 with a pCO2 of 37 and pO2 of 136 sodium is at 129, BUN is at 20 with a creatinine of 5 with a level of 4.8. CAT scan of the chest and abdomen and pelvis was done yesterday and the patient should to have a goiter measuring 5.6 cm in size in largest dimension causing some shift in the trachea without clear evidence of any anatomic obstruction. The goiter is extending to the substernal area. At the same time, there is atelectatic change pleural effusion the lung bases bilaterally. The stomach is dilated and had think that there is also esophageal dilation and there is a note made of a relapse in the transverse duodenum, and the patient may have potentially a gastric ileus he had she is hemodynamically stable. She is on IV fluids which is currently running at the rate of 20 mL an hour of normal saline. She is covered with a combination of Levaquin and clindamycin. I took her off the BiPAP this morning and placed on oxygen at 5 L nasal cannula and a multivitamin the patient continues 92-93%. She is awake, weak, somewhat lethargic. On 12/16/2022, the patient remains in intensive care unit. She continues to have episodes of shortness of breath. Note that yesterday, I was suspicious about the stridor and I started the patient on Decadron. The patient was also given less racemic epinephrine. She is currently on bronchodilators and combination with Decadron 6 mg IV every 6 hours. She was taken off the BiPAP th out the day yesterday. Later on the evening, general surgery evaluated the patient and they felt that the abdomen was distended and a flat film of the abdomen was done and following that the patient was placed in an NG tube. On my examination, the abdomen is soft and nondistended. Edge output is minimal at this point in time. As of 4 AM, the patient was placed back on a BiPAP and currently she is on a pressure of 12/6 cm of water with FiO2 of 50%. She generating excellent tidal volume. Her pulse ox is in order of 97%. Her chest x-ray from today shows no major interval change. There is some small bibasilar infiltrates/atelectasis with small effusions. A repeat x-ray of the abdomen was also done that showed improvement in the small and large bowel distention without evidence of any significant elevation. The white cell cause of 10.3 with a hemoglobin 11.5 and a platelet count of 221. BUN is at 34 with a creatinine of 1.6 and his sodium levels of 132. The patient remains on a combination of Levaquin and clindamycin. The patient is on Decadron. The patient on bronchodilators. IV fluids are in the form of normal saline at the rate of 75 mL's an hour. Reevaluated today on 12/17/22, patient remains in the ICU, patient continues to show: Anything she swallows or take by mouth, hence I'm recommending a speech therapy evaluation and also recommending a modified barium swallow. I have a strong feeling that the patient is having episodes of aspiration, I reviewed her CT of the chest, she does have a large goiter, and I'm also concerned about the possibility of fistula from esophagus to trachea. Patient continues to have questionable ileus, remains on antibiotics in the form of Levaquin and clindamycin. She is on 6 L high flow nasal cannula, patient was a bit reluctant about a modified barium swallow but I was able to convince her to have one. WBC count is 11.8 hemoglobin is 10.9 electrodes are normal bicarb remains low at 17, BUN is 40 creatinine 1.56 chest x-ray continues to show cardiomegaly and small bilateral pleural effusions with left basilar opacity questioning atelectasis or pneumonia Patient was reevaluated today on 12/18/2022, remains in the ICU, being treated for presumptive aspiration pneumonia, her modified barium swallow showed intermit tent aspiration to thin liquids. Patient is on 5 L nasal cannula does not seem to be in any distress. She is on proper antibiotics for presumptive aspiration. Doing fairly well overall, and I plan to transfer the patient out of the ICU to medical floor, as far as feedings, we'll follow the recommendations of the speech therapist. WBC count is 8.5 hemoglobin 10.7 electrodes are normal creatinine is improving down to 1.28 from 1.56 yesterday and 1.692 days ago Objective - Vital Signs Vital signs: Vital Signs Temp 97.9 F 12/18/22 08:00 Pulse 89 12/18/22 11:00 Resp 19 12/18/22 11:00 BP 158/79 12/18/22 11:00 Pulse Ox 97 12/18/22 11:00 FiO2 50 12/17/22 16:00 Intake & Output 12/17/22 12/18/22 12/18/22 18:59 06:59 18:59 Intake Total 1600 1250 950 Output Total 1306 1070 0 Balance 294 180 950 Weight 79 kg Intake: IV 1200 1250 600 Clindamycin 600 mg In 50 Dextrose 5% in Water 50 ml @ 50 mls/hr IVPB Q8HR [facility] Rx#:[id number] Levofloxacin 500Mg-D5w 100 Pmx 500 mg In Dextrose/ Water 1 100ml.bag @ 100 mls/hr IVPB Q24H [facility] Rx#: [id number] Sodium Chloride 0.9% 1, 1200 1200 500 000 ml @ 100 mls/hr IV . Q10H [facility] Rx#:[id number] Oral 400 350 Output: Urine 1300 1070 0 Stool 6 0 Other: Voiding Method Indwelling Catheter Indwelling Catheter - Exam Physical Exam: Revealed an 82-year-old female in no distress, on 5 L nasal c annula. HEENT:[Neck is supple.] [No neck masses.] Positive thyromegaly. Chest: [Crackles and rhonchi noted bilaterally more so on forced expiratory maneuver. Cardiac Exam: [Normal S1 and S2, no S3 gallop, no murmur.] Abdomen: [Soft, nontender, no megaly, no rebound, no guarding, normal bowel sounds.] Extremities: [No clubbing, no edema, no cyanosis.] Neurological Exam: [No focal neurologic deficit.] Alert oriented 3. Psychiatric: Normal mood, affect and normal status examination. Skin: No rashes. 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 Continue bronchodilators Continue incentive spirometry Titrate oxygen accordingly Continue aspiration precautions Transfer patient out of the ICU to a regular medical floor Continue antibiotics for aspiration pneumonia patient is presently on Levaquin and clindamycin. We will continue to follow Time with Patient: Less than 30
--- NOTE | 2022-12-18 14:31 | P.PN ---
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 Patient currently in the ICU. She'll likely be transferred out to a [facility] floor later today. She reports no abdominal pain. She is having flatus. Denies any bowel movement. Modified barium swallow completed showing no evidence of tracheal aspiration. This showed transient silent laryngeal penetration with thin and nectar consistencies. Speech therapist noted a normal oropharyngeal swallow. Afebrile. WBC is 8.5 Hgb 10.7 creatinine 1.28 Patient seen and examined with Dr. iverson PHYSICAL EXAM: VITAL SIGNS: Reviewed. GENERAL: Well-developed in no acute distress. ABDOMEN: Soft. Nondistended. Nontender. Incision sites clean dry and intact. NEUROLOGIC: Alert and oriented. Cranial nerves II through XII grossly intact. ASSESSMENT: 1. 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 Gastric ileus and distention decompressed with NG tube. NG tube has been removed 3. Possible aspiration pneumonia 4. 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 Patient will need surgical intervention eventually for the goiter when stable. -Continue full liquid diet with thickened liquids and aspiration precautions -Continue ICU management -Continue supportive care -Continue antibiotics -DVT prophylaxis subcu heparin and GI prophylaxis Protonix Physician Site Administrator note has been reviewed by physician. Signing provider agrees with the documented findings, assessment, and plan of care. Objective - Vital Signs Vital signs: Vital Signs Temp 97.9 F 12/18/22 08:00 Pulse 114 H 12/18/22 10:00 Resp 27 H 12/18/22 10:00 BP 157/79 12/18/22 10:00 Pulse Ox 93 L 12/18/22 10:00 FiO2 50 12/17/22 16:00 Intake & Output 12/17/22 12/18/22 12/18/22 18:59 06:59 18:59 Intake Total 1600 1250 850 Output Total 1306 1070 0 Balance 294 180 850 Weight 79 kg Intake: IV 1200 1250 500 Clindamycin 600 mg In 50 Dextrose 5% in Water 50 ml @ 50 mls/hr IVPB Q8HR [facility] Rx#:[id number] Levofloxacin 500Mg-D5w 100 Pmx 500 mg In Dextrose/ Water 1 100ml.bag @ 100 mls/hr IVPB Q24H [facility] Rx#: [id number] Sodium Chloride 0.9% 1, 1200 1200 400 000 ml @ 100 mls/hr IV . Q10H [facility] Rx#:[id number] Oral 400 350 Output: Urine 1300 1070 0 Stool 6 0 Other: Voiding Method Indwelling Catheter Indwelling Catheter - Labs CBC & Chem 7: 12/18/22 05:24 12/18/22 05:24 Labs: Abnormal Lab Results - Last 24 Hours (Table) 12/18/22 12/18/22 Range/Units 05:24 05:24 RBC 3.47 L (3.80-5.40) m/uL Hgb 10.7 L (11.4-16.0) gm/dL Hct 33.4 L (34.0-46.0) % Lymphocytes # 0.5 L (1.0-4.8) k/uL Carbon Dioxide 20 L (22-30) mmol/L BUN 34 H (7-17) mg/dL Creatinine 1.28 H (0.52-1.04) mg/dL Glucose 153 H (74-99) mg/dL
[2022-12-18] MEDS: ATORVASTATIN 20 MG TAB PO SCH (20:02)
[2022-12-19] MEDS: CLINDAMYCIN 600 MG in DEXTROSE 5% IN WATER 50 ML IVPB SCH ×8 (00:01→23:41)
[2022-12-19] MEDS: HEPARIN SODIUM,PORCINE/PF 5,000 UNIT/0.5 ML SYRINGE SQ SCH ×4 (00:01→23:41)
[2022-12-19] MEDS: BENZOCAINE/MENTHOL LOZENG 1 EACH LOZENGE MUCOUS MEM PRN (04:15)
[2022-12-19 05:09] LABS: Basophils % (A) 0 %; Eosinophils % (A) 0 %; HCT 34.6 % (34.0-46.0); HGB 11.3 gm/dL (11.4-16.0); Lymphocytes # (A) 1.6 k/uL (1.0-4.8); Lymphocytes % (A) 15 %; MCH 31.2 pg (25.0-35.0); MCHC 32.7 g/dL (31.0-37.0); MCV 95.5 fL (80.0-100.0); Mean Platelet Volume 8.2; Monocytes % (A) 10 %; Neutrophils # (A) 7.5 k/uL (1.3-7.7); Neutrophils % (A) 71 %; Platelet Count 303 k/uL (150-450); RBC 3.63 m/uL (3.80-5.40); RDW 14.5 % (11.5-15.5); WBC 10.7 k/uL (3.8-10.6)
[2022-12-19 05:27] LABS: African American GFR (CKD) 51 (>60 ml/min/1.73 sqM); Anion Gap 9 mmol/L; Blood Urea Nitrogen 28 mg/dL (7-17); Carbon Dioxide 22 mmol/L (22-30); Chloride 108 mmol/L (98-107); Glucose 102 mg/dL (74-99); Non-African American GFR(CKD) 44 (>60 ml/min/1.73 sqM); Potassium 4.2 mmol/L (3.5-5.1); Sodium 139 mmol/L (137-145)
[2022-12-19 05:28] LABS: Calcium 9.3 mg/dL (8.4-10.2)
--- NOTE | 2022-12-19 06:25 | XR ---
EXAMINATION TYPE: XR chest 1V portable DATE OF EXAM: 12/19/2022 CLINICAL HISTORY: Difficulty breathing progress study. TECHNIQUE: Single AP portable upright view of the chest is obtained. COMPARISON: Chest x-ray from 2 days earlier and older studies FINDINGS: Persistent cardiomegaly with small bilateral pleural effusions and mild central vascular c ongestion. Underlying scoliosis is noted. IMPRESSION: Cardiomegaly with small bilateral pleural effusions remain present. No significant change from most recent x-ray.
[2022-12-19] MEDS: PANTOPRAZOLE 40 MG TABLET PO SCH (06:49)
[2022-12-19] MEDS: IPRATROPIUM-ALBUTEROL 3 ML NEB INHALATION SCH ×4 (08:13→20:02)
[2022-12-19] MEDS: FERROUS SULFATE 325 MG TAB PO SCH (08:53)
[2022-12-19] MEDS: amLODIPine 5 MG TAB PO SCH (08:53)
[2022-12-19] MEDS: LEVOFLOXACIN 500MG-D5W PMX 500 MG in DEXTROSE/WATER 1 100ML.BAG IVPB SCH (08:53)
[2022-12-19] MEDS: METOPROLOL SUCCINATE (ER) 50 MG TAB.ER.24H PO SCH ×2 (08:54→22:26)
[2022-12-19] MEDS: SIMETHICONE 80 MG CHEWABLE PO SCH ×4 (08:54→22:26)
[2022-12-19] MEDS: allopurinoL 300 MG TAB PO SCH (08:54)
[2022-12-19] MEDS: SODIUM CHLORIDE 0.9% 1,000 ML IV SCH ×3 (08:55→22:27)
[2022-12-19] MEDS: VALSARTAN 160 MG TAB PO SCH (08:55)
[2022-12-19] MEDS ORDERED: DEXAMETHASONE SOD PHOSPHATE 4 MG/ML 1 ML VIAL IVP SCH (09:00)
[2022-12-19] MEDS: ACETAMINOPHEN TAB 325 MG TAB PO PRN (09:01)
[2022-12-19] MEDS: SENNOSIDES 8.6 MG TAB PO PRN (09:23)
[2022-12-19] MEDS: LIDOCAINE 5% PATCH TOPICAL SCH (11:21)
--- NOTE | 2022-12-19 11:26 | P.PN ---
Subjective Progress Note Date: 12/19/22 Hospital Course: Patient is a very pleasant 82-year-old female with a past medical history of CKD stage II, COPD, hypertension, hyperlipidemia, hypothyroidism, and CHF. Patient presented to the emergency department with a chief complaint of shortness of breath.patient underwent full evaluation in the emergency department. CBC unremarkable. Coagulation profile normal findings. D-dimer slightly elevated at 0.86 but normal with age adjustment. BMP revealing hyperchloremia with chloride of 110 and hypocarbia with bicarbonate 16 along with slightly elevated renal function and a BUN was 28, creatinine 1.31, and GFR of 38 with baseline creatinine of 1.5. Troponin less than 0.012. ProBNP 562. Pro-calcitonin 0.04. Influenza A, influenza B, RSV, and Covid PCR negative.Chest x-ray negative for acute cardiopulmonary process revealing large gas-filled hiatal hernia. Patient admitted under our services and consult was placed to general surgery. 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 Patient developed hypoxic respiratory failure and was transitioned to the ICU on BiPAP. Patient had evidence of large goiter as well as stridor on exam and was treated with racemic epinephrine, steroids. She also has significant issues with anxiety causing sensation of significant shortness of breath, required pushes of Ativan. Patient briefly had an NG tube replaced on 12/16 due to gastric distention and ileus, had 1 BM on 12/18. Subjective: Patient seen and examined at bedside. No acute events overnight. He claims that her shortness of breath is improved. Cough is still persistent. Had 1 BM yesterday. Had urinary retention, meléndez placed overnight. Pertinent positives and negatives as discussed above, a complete review of systems was performed and all other systems are negative. Vitals Signs Reviewed. General: nontoxic, no distress, appears at stated age Derm: warm, dry, abdominal incision sites clean, dry, intact Head: atraumatic, normocephalic, symmetric Eyes: EOMI, no lid lag, anicteric sclera Mouth: no lip lesion, mucus membranes moist Cardiovascular: S1S2 reg, no murmur Lungs: CTA bilateral, no rhonchi, no rales , no accessory muscle use, supplemental oxygen Abdominal: soft, nontender to palpation, no guarding, no appreciable organomegaly Ext: no gross muscle atrophy, no edema, no contractures Neuro: CN II-XI grossly intact, no focal neuro deficits Psych: Alert, oriented, appropriate affect Data Reviewed Today: Pertinent Labs: WBC 10.7, hgb 11.3, sodium 139, potassium 4.2, creatinine 1.16 Chest x-ray independently interpreted no significant changes compared to yesterday Assessment and Plan: Patient is critically ill in medical ICU, possibly transferred to Floors today. Active: Shortness of breath secondary to large paraesophageal hernia with intrathoracic stomach Status post paraesophageal hernia repair Postoperative ileus, expected outcome Acute Hypoxemic Respiratory Failure, possibly secondary to aspiration pneumonia Elevated BNP, echocardiogram normal LV systolic function Large Goiter Urinary retention -Swallow eval shows transient laryngeal penetration with thin and nectar consistencies, no significant tracheal aspiration -On thickened liquids diet -Continue to wean down oxygen -Continue levofloxacin and and clindamycin -Weaned dexamethasone 4 mg IV daily due to prior concerns of stridor possibly in the setting of large goiter -Surgery and senior db2 systems programmer following -Senokot daily -IV Dilaudid as needed for breakthrough pain -Remains on IV fluids normal saline 100 mL an hour -Consider discontinuing Meléndez catheter after voiding trial Chronic: COPD Hypothyroidism Hypertension Hyperlipidemia Chronic kidney disease stage III Normocytic anemia Gout DVT ppx: Subcu heparin Code status: Full code Anticipated discharge place: Pending clinical course Anticipated discharge time: Pending clinical course Objective - Vital Signs Vital signs: Vital Signs Temp 98.4 F 12/19/22 08:00 Pulse 85 12/19/22 10:00 Resp 23 12/19/22 10:00 BP 139/69 12/19/22 10:00 Pulse Ox 94 L 12/19/22 10:00 FiO2 50 12/17/22 16:00 Intake & Output 12/18/22 12/19/22 12/19/22 18:59 06:59 18:59 Intake Total 1200 1200 Output Total 650 5700 Balance 550 -4500 Intake: IV 700 1200 Levofloxacin 500Mg-D5w 100 Pmx 500 mg In Dextrose/ Water 1 100ml.bag @ 100 mls/hr IVPB Q24H [facility] Rx#: [id number] Sodium Chloride 0.9% 1, 600 1200 000 ml @ 100 mls/hr IV . Q10H [facility] Rx#:[id number] Oral 350 Tube Feeding 150 Output: Urine 650 5700 Straight 2500 Stool 0 Other: Voiding Method Bedside Commode Bedpan Indwelling Catheter - Labs CBC & Chem 7: 12/19/22 04:33 12/19/22 04:33 Labs: Abnormal Lab Results - Last 24 Hours (Table) 12/19/22 12/19/22 Range/Units 04:33 04:33 WBC 10.7 H (3.8-10.6) k/uL RBC 3.63 L (3.80-5.40) m/uL Hgb 11.3 L (11.4-16.0) gm/dL Chloride 108 H (98-107) mmol/L BUN 28 H (7-17) mg/dL Creatinine 1.16 H (0.52-1.04) mg/dL Glucose 102 H (74-99) mg/dL
[2022-12-19] MEDS: HYDROmorphone 1 MG/ML 1 ML SYRINGE IVP PRN (12:41)
--- NOTE | 2022-12-19 13:39 | P.PN ---
Subjective Progress Note Date: 12/19/22 Principal diagnosis: Acute hypoxic respiratory failure secondary to pneumonia, most likely aspiration pneumonia. I was consulted to evaluate the patient has the patient developed some shortness of breath and hypoxemia following her surgery. The patient is currently on 6 L of oxygen by nasal cannula. 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 The patient underwent laparoscopic repair of the paraesophageal hernia and she had a mesh placed. Surgery was done on 12/12/2022. The patient is a lifetime nonsmoker and she is not requiring any oxygen therapy. There was consideration of a pneumonia and based on the patient's multiple ALLERGIES, the patient was started on Levaquin as an empiric antibiotic coverage. The patient is still having some soreness and abdominal wall especially with coughing. Abdomen generally soft. She is passing flatness.. No altered mentation. No reported aspiration. Surgery was done under anesthesia. The patient provided incentive spirometer. The white cell count today's of 14.3 with a hemoglobin of 12.8 and a platelet count of 252. Blood gas this was done today showed a pH of 7.4 with a pCO2 of 35 and a pO2 of 60 and this was done on room air oxygen. BUN is at 12 with a creatinine of 1.05 and sodium levels of 131. The patient has lactic acid level of 1.9. Troponins are negative. ProBNP level is 3430. Chest x-ray shows atelectasis and a small effusion the right lung base. However, compared to admission, there is an increasing right perihilar and right basilar density which is most likely a combination of atelectasis/effusion. Pneumonia cannot be completely excluded. Left lung remained essentially clear. No pleurisy. No hemoptysis. No angina. No hemodynamic instability. On 12/15/2022, the patient is being seen in intensive care unit. Overnight, the patient became progressively more short of breath hypoxic. The patient got transferred to the intensive care unit and she was started on a BiPAP pressure of 12/6 cm of water with an FiO2 of 50%. Her current generator tidal volume of 650 with a respiratory rate of 28 and a minute ventilation of 18.3. She is tolerating the BiPAP without any major difficulties. A follow-up chest x-ray was done this morning and the chest x-ray showed stable left lower lobe atelectasis with tiny effusion. The gastric is in the stomach and is quite. Nevertheless, the patient denies having any nausea abdominal pain. No emesis. Blood work from today shows a white cell count of 14.6 with a hemoglobin of 12 and a platelet count of 234. Blood. While in the BiPAP showed pH 7.38 with a pCO2 of 37 and pO2 of 136 sodium is at 129, BUN is at 20 with a creatinine of 5 with a level of 4.8. CAT scan of the chest and abdomen and pelvis was done yesterday and the patient should to have a goiter measuring 5.6 cm in size in largest dimension causing some shift in the trachea without clear evidence of any anatomic obstruction. The goiter is extending to the substernal area. At the same time, there is atelectatic change pleural effusion the lung bases bilaterally. The stomach is dilated and had think that there is also esophageal dilation and there is a note made of a relapse in the transverse duodenum, and the patient may have potentially a gastric ileus he had she is hemodynamically stable. She is on IV fluids which is currently running at the rate of 20 mL an hour of normal saline. She is covered with a combination of Levaquin and clindamycin. I took her off the BiPAP this morning and placed on oxygen at 5 L nasal cannula and a multivitamin the patient continues 92-93%. She is awake, weak, somewhat lethargic. On 12/16/2022, the patient remains in intensive care unit. She continues to have episodes of shortness of breath. Note that yesterday, I was suspicious about the stridor and I started the patient on Decadron. The patient was also given less racemic epinephrine. She is currently on bronchodilators and combination with Decadron 6 mg IV every 6 hours. She was taken off the BiPAP th out the day yesterday. Later on the evening, general surgery evaluated the patient and they felt that the abdomen was distended and a flat film of the abdomen was done and following that the patient was placed in an NG tube. On my examination, the abdomen is soft and nondistended. Edge output is minimal at this point in time. As of 4 AM, the patient was placed back on a BiPAP and currently she is on a pressure of 12/6 cm of water with FiO2 of 50%. She generating excellent tidal volume. Her pulse ox is in order of 97%. Her chest x-ray from today shows no major interval change. There is some small bibasilar infiltrates/atelectasis with small effusions. A repeat x-ray of the abdomen was also done that showed improvement in the small and large bowel distention without evidence of any significant elevation. The white cell cause of 10.3 with a hemoglobin 11.5 and a platelet count of 221. BUN is at 34 with a creatinine of 1.6 and his sodium levels of 132. The patient remains on a combination of Levaquin and clindamycin. The patient is on Decadron. The patient on bronchodilators. IV fluids are in the form of normal saline at the rate of 75 mL's an hour. Reevaluated today on 12/17/22, patient remains in the ICU, patient continues to show: Anything she swallows or take by mouth, hence I'm recommending a speech therapy evaluation and also recommending a modified barium swallow. I have a strong feeling that the patient is having episodes of aspiration, I reviewed her CT of the chest, she does have a large goiter, and I'm also concerned about the possibility of fistula from esophagus to trachea. Patient continues to have questionable ileus, remains on antibiotics in the form of Levaquin and clindamycin. She is on 6 L high flow nasal cannula, patient was a bit reluctant about a modified barium swallow but I was able to convince her to have one. WBC count is 11.8 hemoglobin is 10.9 electrodes are normal bicarb remains low at 17, BUN is 40 creatinine 1.56 chest x-ray continues to show cardiomegaly and small bilateral pleural effusions with left basilar opacity questioning atelectasis or pneumonia Patient was reevaluated today on 12/18/2022, remains in the ICU, being treated for presumptive aspiration pneumonia, her modified barium swallow showed intermit tent aspiration to thin liquids. Patient is on 5 L nasal cannula does not seem to be in any distress. She is on proper antibiotics for presumptive aspiration. Doing fairly well overall, and I plan to transfer the patient out of the ICU to medical floor, as far as feedings, we'll follow the recommendations of the speech therapist. WBC count is 8.5 hemoglobin 10.7 electrodes are normal creatinine is improving down to 1.28 from 1.56 yesterday and 1.692 days ago Reevaluated today on 12/19/2022, patient remains in the ICU as an overflow. Patient is doing fairly well, complaining of back pain, remains on antibiotics for presumptive aspiration pneumonia, remains on aspiration precautions. Christina ent is doing fairly well, and I plan to transfer the patient was at bed is available. Renal profile is improving creatinine is down to 1.16, chest x-ray showed small tiny pleural effusions. Patient remains on Levaquin and clindamycin. Objective - Vital Signs Vital signs: Vital Signs Temp 98.4 F 12/19/22 08:00 Pulse 74 12/19/22 12:06 Resp 23 12/19/22 10:00 BP 139/69 12/19/22 12:00 Pulse Ox 97 12/19/22 12:00 FiO2 50 12/17/22 16:00 Intake & Output 12/18/22 12/19/22 12/19/22 18:59 06:59 18:59 Intake Total 1200 1200 Output Total 650 5700 Balance 550 -4500 Intake: IV 700 1200 Levofloxacin 500Mg-D5w 100 Pmx 500 mg In Dextrose/ Water 1 100ml.bag @ 100 mls/hr IVPB Q24H [facility] Rx#: [id number] Sodium Chloride 0.9% 1, 600 1200 000 ml @ 100 mls/hr IV . Q10H [facility] Rx#:[id number] Oral 350 Tube Feeding 150 Output: Urine 650 5700 Straight 2500 Stool 0 Other: Voiding Method Bedside Commode Bedpan Indwelling Catheter - Exam Physical Exam: Revealed an 82-year-old female in no distress, on nasal cannula. O2 saturations 97% HEENT:[Neck is supple.] [No neck masses.] Positive thyromegaly. Chest: [Minimal crackles at the bases, rhonchi on forced expiratory maneuver only Cardiac Exam: [Normal S1 and S2, no S3 gallop, no murmur.] Abdomen: [Soft, nontender, no megaly, no rebound, no guarding, normal bowel sounds.] Extremities: [No clubbing, no edema, no cyanosis.] Neurological Exam: [No focal neurologic deficit.] Alert oriented 3. Psychiatric: Normal mood, affect and normal status examination. Skin: No rashes. 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 Intermittent stridor, resolved. Recent laparoscopic paraesophageal hernia repair 12/12/2022 Acute kidney injury, improving. Chronic normocytic anemia Hypothyroidism Benign essential hypertension Dyslipidemia History of basal cell carcinoma of the skin Recommendation: Change Decadron to Medrol Dosepak. Continue bronchodilators Continue incentive spirometry Titrate oxygen accordingly Continue aspiration precautions Patient remains as an overflow in the ICU for now, she will go to a regular medical floor. Continue antibiotics for aspiration pneumonia patient is presently on Levaquin and clindamycin. For the next few days We will continue to follow Time with Patient: Less than 30
[2022-12-19] MEDS: methylPREDNISolone 4 MG TAB TAPER PO SCH (15:17)
[2022-12-19] MEDS: hydrALAZINE HCL 20 MG/ML 1 ML VIAL IVP PRN (15:28)
--- NOTE | 2022-12-19 16:17 | P.GSCN ---
History of Present Illness Consult date: 12/19/22 Reason for Consult: Urinary retention History of present illness: This is an 82-year-old female status post repair of paraesophageal hernia on december 12. Patient admitted to the ICU secondary to respiratory distress. Urology is consulted for urinary retention. Patient failed her trial of void and a Broderick catheter was placed for urinary retention, her postvoid residuals unknown. Denies any previous history of urinary retention She does have bothersome bladder symptoms at baseline and complains of frequency urgency and hesitancy at baseline. No history of recurrent UTIs or kidney stones. She only has a Broderick catheter with clear yellow urine Past Medical History Past Medical History: Cancer, Heart Failure, Myocardial Infarction (ND), Renal Disease Additional Past Medical History / Comment(s): Basal cell cancer, goiter, hiatal hernia Last Myocardial Infarction Date:: unknown History of Any Multi-Drug Resistant Organisms: None Reported Smoking Status: Never smoker Medications and Allergies Home Medications Medication Instructions Recorded Confirmed Type Amlodipine Besylate/Valsartan 1 tab PO DAILY 12/07/22 12/07/22 History [Amlodipine-Valsartan 5-320 mg] Ferrous Sulfate [Feosol] 325 mg PO DAILY 12/07/22 12/07/22 History Levothyroxine Sodium [Synthroid] 50 mcg PO TUTHFRSA 12/07/22 12/07/22 History Metoprolol Succinate (ER) [Toprol 50 mg PO BID 12/07/22 12/07/22 History Xl] Omeprazole [PriLOSEC] 40 mg PO DAILY 12/07/22 12/07/22 History Simvastatin [Zocor] 40 mg PO HS 12/07/22 12/07/22 History allopurinoL [Zyloprim] 150 mg PO DAILY 12/07/22 12/07/22 History Allergies Allergy/AdvReac Type Severity Reaction Status Date / Time cephalexin [From Keflex] AdvReac Rash/Hives Verified 12/07/22 07:01 iodine AdvReac Unknown Verified 12/11/22 15:58 Penicillins AdvReac Rash/Hives Verified 12/07/22 07:01 Sulfa (Sulfonamide AdvReac Itching/[place] Verified 12/07/22 07:01 Antibiotics) h Surgical - Exam Vital Signs Temp Pulse Resp BP Pulse Ox 98.1 F 90 18 146/94 98 12/07/22 01:07 12/07/22 01:07 12/07/22 01:07 12/07/22 01:07 12/07/22 01:07 - General no distress, no pain - Eyes normal ocular movement, no pale - ENT normal nares, normal mucosa - Respiratory normal expansion, normal respiratory effort - Abdomen Abdomen: soft, non tender - Psychiatric oriented to time, oriented to person, oriented to place Results - Labs 12/19/22 04:33 12/19/22 04:33 Abnormal Lab Results - Last 24 Hours (Table) 12/19/22 12/19/22 Range/Units 04:33 04:33 WBC 10.7 H (3.8-10.6) k/uL RBC 3.63 L (3.80-5.40) m/uL Hgb 11.3 L (11.4-16.0) gm/dL Chloride 108 H (98-107) mmol/L BUN 28 H (7-17) mg/dL Creatinine 1.16 H (0.52-1.04) mg/dL Glucose 102 H (74-99) mg/dL Diabetes panel 12/19/22 Range/Units 04:33 Sodium 139 (137-145) mmol/L Potassium 4.2 (3.5-5.1) mmol/L Chloride 108 H (98-107) mmol/L Carbon Dioxide 22 (22-30) mmol/L BUN 28 H (7-17) mg/dL Creatinine 1.16 H (0.52-1.04) mg/dL Glucose 102 H (74-99) mg/dL Calcium 9.3 (8.4-10.2) mg/dL Calcium panel 12/19/22 Range/Units 04:33 Calcium 9.3 (8.4-10.2) mg/dL Pituitary panel 12/19/22 Range/Units 04:33 Sodium 139 (137-145) mmol/L Potassium 4.2 (3.5-5.1) mmol/L Chloride 108 H (98-107) mmol/L Carbon Dioxide 22 (22-30) mmol/L BUN 28 H (7-17) mg/dL Creatinine 1.16 H (0.52-1.04) mg/dL Glucose 102 H (74-99) mg/dL Calcium 9.3 (8.4-10.2) mg/dL Adrenal panel 12/19/22 Range/Units 04:33 Sodium 139 (137-145) mmol/L Potassium 4.2 (3.5-5.1) mmol/L Chloride 108 H (98-107) mmol/L Carbon Dioxide 22 (22-30) mmol/L BUN 28 H (7-17) mg/dL Creatinine 1.16 H (0.52-1.04) mg/dL Glucose 102 H (74-99) mg/dL Calcium 9.3 (8.4-10.2) mg/dL Assessment and Plan Assessment: 82-year-old female in the ICU with respiratory distress. Urology is consulted for urinary retention. Patient does appear to have bladder dysfunction at baseline, most likely has incomplete bladder emptying at baseline, this has worsened due to her deconditioning. -Recommend keeping the Broderick catheter until the patient is ambulatory and close to discharge, recommend a trial of void prior to discharge -Given her bladder symptoms at baseline advised her to follow-up as an outpatient with us.
--- NOTE | 2022-12-19 16:40 | P.PN ---
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 Patient currently in the ICU. Patient denies any abdominal pain. She is tolerating the thickened liquids. Patient having urinary retention she had to be straight cathed and then now Broderick catheter in place. Urology is on consult. She does report a small bowel movement yesterday. She points mostly of her back pain and scoliosis. Afebrile. WBC is 10.7 hgb 11.3 platelets 303 creatinine 1.16 patient is on 5 L nasal cannula. Patient reports that she is no t interested in any surgery on her goiter at this time. She reports that she's had this goiter for over 30 years. Patient seen and examined with Dr. iverson PHYSICAL EXAM: VITAL SIGNS: Reviewed. GENERAL: Well-developed in no acute distress. ABDOMEN: Soft. Nondistended. Nontender. Incision sites clean dry and intact. NEUROLOGIC: Alert and oriented. Cranial nerves II through XII grossly intact. ASSESSMENT: 1. Large paraesophageal hiatal hernia with intrathoracic stomach status post r epair 2. Gastric ileus and distention decompressed with NG tube. NG tube has been removed 3. Possible aspiration pneumonia 4. 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 Patient reporting she is not interested in any surgery on her goiter. -Continue full liquid diet with thickened liquids and aspiration precautions -Continue ICU management -Continue supportive care -Continue antibiotics -DVT prophylaxis subcu heparin and GI prophylaxis Protonix Physician Manager Drug Safety note has been reviewed by physician. Signing provider agrees with the documented findings, assessment, and plan of care. Objective - Vital Signs Vital signs: Vital Signs Temp 98.4 F 12/19/22 08:00 Pulse 82 12/19/22 15:55 Resp 23 12/19/22 10:00 BP 139/69 12/19/22 12:00 Pulse Ox 97 12/19/22 12:00 FiO2 50 12/17/22 16:00 Intake & Output 12/18/22 12/19/22 12/19/22 18:59 06:59 18:59 Intake Total 1200 1200 Output Total 650 5700 Balance 550 -4500 Intake: IV 700 1200 Levofloxacin 500Mg-D5w 100 Pmx 500 mg In Dextrose/ Water 1 100ml.bag @ 100 mls/hr IVPB Q24H [facility] Rx#: [id number] Sodium Chloride 0.9% 1, 600 1200 000 ml @ 100 mls/hr IV . Q10H [facility] Rx#:[id number] Oral 350 Tube Feeding 150 Output: Urine 650 5700 Straight 2500 Stool 0 Other: Voiding Method Bedside Commode Bedpan Indwelling Catheter - Labs CBC & Chem 7: 12/19/22 04:33 12/19/22 04:33 Labs: Abnormal Lab Results - Last 24 Hours (Table) 12/19/22 12/19/22 Range/Units 04:33 04:33 WBC 10.7 H (3.8-10.6) k/uL RBC 3.63 L (3.80-5.40) m/uL Hgb 11.3 L (11.4-16.0) gm/dL Chloride 108 H (98-107) mmol/L BUN 28 H (7-17) mg/dL Creatinine 1.16 H (0.52-1.04) mg/dL Glucose 102 H (74-99) mg/dL
[2022-12-19] MEDS: ALPRAZolam 0.5 MG TAB PO PRN (16:52)
[2022-12-19] MEDS: LORazepam 2 MG/ML INJ IV PRN (17:48)
[2022-12-19] MEDS: ATORVASTATIN 20 MG TAB PO SCH (22:26)
[2022-12-20 04:45] LABS: Basophils % (A) 0 %; Eosinophils % (A) 0 %; HCT 34.6 % (34.0-46.0); HGB 11.3 gm/dL (11.4-16.0); Lymphocytes # (A) 0.8 k/uL (1.0-4.8); Lymphocytes % (A) 9 %; MCH 30.5 pg (25.0-35.0); MCHC 32.6 g/dL (31.0-37.0); MCV 93.4 fL (80.0-100.0); Mean Platelet Volume 8.3; Monocytes # (A) 0.5 k/uL (0-1.0); Monocytes % (A) 6 %; Neutrophils # (A) 6.9 k/uL (1.3-7.7); Neutrophils % (A) 83 %; Platelet Count 264 k/uL (150-450); RDW 14.6 % (11.5-15.5); WBC 8.4 k/uL (3.8-10.6)
[2022-12-20 05:00] LABS: African American GFR (CKD) 56 (>60 ml/min/1.73 sqM); Anion Gap 8 mmol/L; Blood Urea Nitrogen 26 mg/dL (7-17); Calcium 8.7 mg/dL (8.4-10.2); Carbon Dioxide 23 mmol/L (22-30); Chloride 103 mmol/L (98-107); Glucose 129 mg/dL (74-99); Non-African American GFR(CKD) 49 (>60 ml/min/1.73 sqM); Potassium 4.5 mmol/L (3.5-5.1); Sodium 134 mmol/L (137-145)
[2022-12-20] MEDS: PANTOPRAZOLE 40 MG TABLET PO SCH (07:13)
[2022-12-20] MEDS: LEVOTHYROXINE 50 MCG TAB PO SCH (07:13)
[2022-12-20] MEDS: HEPARIN SODIUM,PORCINE/PF 5,000 UNIT/0.5 ML SYRINGE SQ SCH ×3 (07:13→23:00)
[2022-12-20] MEDS: CLINDAMYCIN 600 MG in DEXTROSE 5% IN WATER 50 ML IVPB SCH ×6 (07:13→23:00)
--- NOTE | 2022-12-20 07:59 | XR ---
EXAMINATION TYPE: XR chest 1V portable DATE OF EXAM: 12/20/2022 6:40 AM COMPARISON: Chest radiographs from 12/19/2022 TECHNIQUE: XR chest 1V portable Portable AP radiograph of the chest. CLINICAL INDICATION:Female, 82 years old with history of Stidor; FINDINGS: Patient is rotated which limits evaluation. Lungs/Pleura: Blunting of both costophrenic angles. No focal consolidation or pneumothorax. Pulmonary vascularity: Mild pulmonary vascular congestion. Heart/mediastinum: Cardiomediastinal silhouette is enlarged and stable. Musculoskeletal: No acute osseous pathology. IMPRESSION: No significant change with persistent cardiomegaly with small bilateral pleural effusions.
[2022-12-20] MEDS: SIMETHICONE 80 MG CHEWABLE PO SCH ×4 (08:35→19:53)
[2022-12-20] MEDS: allopurinoL 300 MG TAB PO SCH (08:35)
[2022-12-20] MEDS: ACETAMINOPHEN TAB 325 MG TAB PO PRN ×2 (08:35→16:37)
[2022-12-20] MEDS: SENNOSIDES 8.6 MG TAB PO PRN (08:35)
[2022-12-20] MEDS: FERROUS SULFATE 325 MG TAB PO SCH (08:35)
[2022-12-20] MEDS: amLODIPine 5 MG TAB PO SCH (08:35)
[2022-12-20] MEDS: LEVOFLOXACIN 500MG-D5W PMX 500 MG in DEXTROSE/WATER 1 100ML.BAG IVPB SCH (08:36)
[2022-12-20] MEDS: LIDOCAINE 5% PATCH TOPICAL SCH (08:36)
[2022-12-20] MEDS: methylPREDNISolone 4 MG TAB TAPER PO SCH (08:37)
[2022-12-20] MEDS: METOPROLOL SUCCINATE (ER) 50 MG TAB.ER.24H PO SCH ×2 (08:37→19:53)
[2022-12-20] MEDS: VALSARTAN 160 MG TAB PO SCH (08:37)
[2022-12-20] MEDS: IPRATROPIUM-ALBUTEROL 3 ML NEB INHALATION SCH ×4 (08:54→20:35)
--- NOTE | 2022-12-20 10:56 | P.PN ---
Subjective Progress Note Date: 12/20/22 Hospital Course: Patient is a very pleasant 82-year-old female with a past medical history of CKD stage II, COPD, hypertension, hyperlipidemia, hypothyroidism, and CHF. Patient presented to the emergency department with a chief complaint of shortness of breath.patient underwent full evaluation in the emergency department. CBC unremarkable. Coagulation profile normal findings. D-dimer slightly elevated at 0.86 but normal with age adjustment. BMP revealing hyperchloremia with chloride of 110 and hypocarbia with bicarbonate 16 along with slightly elevated renal function and a BUN was 28, creatinine 1.31, and GFR of 38 with baseline creatinine of 1.5. Troponin less than 0.012. ProBNP 562. Pro-calcitonin 0.04. Influenza A, influenza B, RSV, and Covid PCR negative.Chest x-ray negative for acute cardiopulmonary process revealing large gas-filled hiatal hernia. Patient admitted under our services and consult was placed to general surgery. 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 Patient developed hypoxic respiratory failure and was transitioned to the ICU on BiPAP. Patient had evidence of large goiter as well as stridor on exam and was treated with racemic epinephrine, steroids. She also has significant issues with anxiety causing sensation of significant shortness of breath, required pushes of Ativan. Patient briefly had an NG tube replaced on 12/16 due to gastric distention and ileus, had 1 BM on 12/18. Now on NC. Likely has aspiration. Currently on thin and nectar consistency diet. Subjective: Patient seen and examined at bedside. Overnight, had significant shortness of breath, now improved. Cough is getting better as well. Denies any difficulty with eating. Pertinent positives and negatives as discussed above, a complete review of systems was performed and all other systems are negative. Vitals Signs Reviewed. General: nontoxic, no distress, appears at stated age Derm: warm, dry, abdominal incision sites clean, dry, intact Head: atraumatic, normocephalic, symmetric Eyes: EOMI, no lid lag, anicteric sclera Mouth: no lip lesion, mucus membranes moist Cardiovascular: S1S2 reg, no murmur Lungs: CTA bilateral, no rhonchi, no rales , no accessory muscle use, supplemental oxygen Abdominal: soft, nontender to palpation, no guarding, no appreciable organomegaly Ext: no gross muscle atrophy, no edema, no contractures Neuro: CN II-XI grossly intact, no focal neuro deficits Psych: Alert, oriented, appropriate affect Data Reviewed Today: Pertinent Labs: WBC 8.4, hemoglobin 11.3, sodium 134, potassium 4.5, creatinine 1.07 Chest x-ray independently interpreted, appears to have a new right lower lobe opacity Assessment and Plan: Patient is critically ill in medical ICU, possibly transfer to Floors today. Active: Acute Hypoxemic Respiratory Failure, likely secondary to aspiration pneumonia Large paraesophageal hernia with intrathoracic stomach status post repair Postoperative ileus, expected outcome, resolving Elevated BNP, echocardiogram normal LV systolic function Large Goiter Acute Urinary retention -On thickened liquids diet -Continue to wean down oxygen -Continue levofloxacin and and clindamycin -Currently on a Medrol Dosepak per pulmonary -Surgery and gun stock checker following -Senokot daily -IV Dilaudid as needed for breakthrough pain -Remains on IV fluids normal saline 100 mL an hour -Urology note reviewed, recommended keeping Broderick catheter until patient is ambulatory and close to discharge Chronic: COPD Hypothyroidism Hypertension Hyperlipidemia Chronic kidney disease stage III Normocytic anemia Gout DVT ppx: Subcu heparin Code status: Full code Anticipated discharge place: Pending clinical course Anticipated discharge time: Pending clinical course Objective - Vital Signs Vital signs: Vital Signs Temp 98.6 F 12/20/22 08:00 Pulse 80 12/20/22 09:03 Resp 25 H 12/20/22 09:00 BP 159/82 12/20/22 09:00 Pulse Ox 99 12/20/22 09:00 FiO2 40 12/19/22 17:00 Intake & Output 12/19/22 12/20/22 12/20/22 18:59 06:59 18:59 Intake Total 1350 1400 Output Total 2500 1750 Balance -1150 -350 Intake: IV 1200 1200 Sodium Chloride 0.9% 1, 1200 1200 000 ml @ 100 mls/hr IV . Q10H [facility] Rx#:[id number] Oral 200 Tube Feeding 150 Output: Urine 2500 1750 Other: Voiding Method Indwelling Catheter Indwelling Catheter Indwelling Catheter - Labs CBC & Chem 7: 12/20/22 04:21 12/20/22 04:21 Labs: Abnormal Lab Results - Last 24 Hours (Table) 06/08/23 06/08/23 Range/Units 04:21 04:21 RBC 3.70 L (3.80-5.40) m/uL Hgb 11.3 L (11.4-16.0) gm/dL Lymphocytes # 0.8 L (1.0-4.8) k/uL Sodium 134 L (137-145) mmol/L BUN 26 H (7-17) mg/dL Creatinine 1.07 H (0.52-1.04) mg/dL Glucose 129 H (74-99) mg/dL
--- NOTE | 2022-12-20 12:11 | P.PN ---
Subjective Progress Note Date: 12/20/22 Principal diagnosis: Acute hypoxic respiratory failure secondary to pneumonia, most likely aspiration pneumonia. I was consulted to evaluate the patient has the patient developed some shortness of breath and hypoxemia following her surgery. The patient is currently on 6 L of oxygen by nasal cannula. 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 The patient underwent laparoscopic repair of the paraesophageal hernia and she had a mesh placed. Surgery was done on 12/12/2022. The patient is a lifetime nonsmoker and she is not requiring any oxygen therapy. There was consideration of a pneumonia and based on the patient's multiple ALLERGIES, the patient was started on Levaquin as an empiric antibiotic coverage. The patient is still having some soreness and abdominal wall especially with coughing. Abdomen generally soft. She is passing flatness.. No altered mentation. No reported aspiration. Surgery was done under anesthesia. The patient provided incentive spirometer. The white cell count today's of 14.3 with a hemoglobin of 12.8 and a platelet count of 252. Blood gas this was done today showed a pH of 7.4 with a pCO2 of 35 and a pO2 of 60 and this was done on room air oxygen. BUN is at 12 with a creatinine of 1.05 and sodium levels of 131. The patient has lactic acid level of 1.9. Troponins are negative. ProBNP level is 3430. Chest x-ray shows atelectasis and a small effusion the right lung base. However, compared to admission, there is an increasing right perihilar and right basilar density which is most likely a combination of atelectasis/effusion. Pneumonia cannot be completely excluded. Left lung remained essentially clear. No pleurisy. No hemoptysis. No angina. No hemodynamic instability. On 12/15/2022, the patient is being seen in intensive care unit. Overnight, the patient became progressively more short of breath hypoxic. The patient got transferred to the intensive care unit and she was started on a BiPAP pressure of 12/6 cm of water with an FiO2 of 50%. Her current generator tidal volume of 650 with a respiratory rate of 28 and a minute ventilation of 18.3. She is tolerating the BiPAP without any major difficulties. A follow-up chest x-ray was done this morning and the chest x-ray showed stable left lower lobe atelectasis with tiny effusion. The gastric is in the stomach and is quite. Nevertheless, the patient denies having any nausea abdominal pain. No emesis. Blood work from today shows a white cell count of 14.6 with a hemoglobin of 12 and a platelet count of 234. Blood. While in the BiPAP showed pH 7.38 with a pCO2 of 37 and pO2 of 136 sodium is at 129, BUN is at 20 with a creatinine of 5 with a level of 4.8. CAT scan of the chest and abdomen and pelvis was done yesterday and the patient should to have a goiter measuring 5.6 cm in size in largest dimension causing some shift in the trachea without clear evidence of any anatomic obstruction. The goiter is extending to the substernal area. At the same time, there is atelectatic change pleural effusion the lung bases bilaterally. The stomach is dilated and had think that there is also esophageal dilation and there is a note made of a relapse in the transverse duodenum, and the patient may have potentially a gastric ileus he had she is hemodynamically stable. She is on IV fluids which is currently running at the rate of 20 mL an hour of normal saline. She is covered with a combination of Levaquin and clindamycin. I took her off the BiPAP this morning and placed on oxygen at 5 L nasal cannula and a multivitamin the patient continues 92-93%. She is awake, weak, somewhat lethargic. On 12/16/2022, the patient remains in intensive care unit. She continues to have episodes of shortness of breath. Note that yesterday, I was suspicious about the stridor and I started the patient on Decadron. The patient was also given less racemic epinephrine. She is currently on bronchodilators and combination with Decadron 6 mg IV every 6 hours. She was taken off the BiPAP th out the day yesterday. Later on the evening, general surgery evaluated the patient and they felt that the abdomen was distended and a flat film of the abdomen was done and following that the patient was placed in an NG tube. On my examination, the abdomen is soft and nondistended. Edge output is minimal at this point in time. As of 4 AM, the patient was placed back on a BiPAP and currently she is on a pressure of 12/6 cm of water with FiO2 of 50%. She generating excellent tidal volume. Her pulse ox is in order of 97%. Her chest x-ray from today shows no major interval change. There is some small bibasilar infiltrates/atelectasis with small effusions. A repeat x-ray of the abdomen was also done that showed improvement in the small and large bowel distention without evidence of any significant elevation. The white cell cause of 10.3 with a hemoglobin 11.5 and a platelet count of 221. BUN is at 34 with a creatinine of 1.6 and his sodium levels of 132. The patient remains on a combination of Levaquin and clindamycin. The patient is on Decadron. The patient on bronchodilators. IV fluids are in the form of normal saline at the rate of 75 mL's an hour. Reevaluated today on 12/17/22, patient remains in the ICU, patient continues to show: Anything she swallows or take by mouth, hence I'm recommending a speech therapy evaluation and also recommending a modified barium swallow. I have a strong feeling that the patient is having episodes of aspiration, I reviewed her CT of the chest, she does have a large goiter, and I'm also concerned about the possibility of fistula from esophagus to trachea. Patient continues to have questionable ileus, remains on antibiotics in the form of Levaquin and clindamycin. She is on 6 L high flow nasal cannula, patient was a bit reluctant about a modified barium swallow but I was able to convince her to have one. WBC count is 11.8 hemoglobin is 10.9 electrodes are normal bicarb remains low at 17, BUN is 40 creatinine 1.56 chest x-ray continues to show cardiomegaly and small bilateral pleural effusions with left basilar opacity questioning atelectasis or pneumonia Patient was reevaluated today on 12/18/2022, remains in the ICU, being treated for presumptive aspiration pneumonia, her modified barium swallow showed intermit tent aspiration to thin liquids. Patient is on 5 L nasal cannula does not seem to be in any distress. She is on proper antibiotics for presumptive aspiration. Doing fairly well overall, and I plan to transfer the patient out of the ICU to medical floor, as far as feedings, we'll follow the recommendations of the speech therapist. WBC count is 8.5 hemoglobin 10.7 electrodes are normal creatinine is improving down to 1.28 from 1.56 yesterday and 1.692 days ago Reevaluated today on 12/19/2022, patient remains in the ICU as an overflow. Patient is doing fairly well, complaining of back pain, remains on antibiotics for presumptive aspiration pneumonia, remains on aspiration precautions. Christina ent is doing fairly well, and I plan to transfer the patient was at bed is available. Renal profile is improving creatinine is down to 1.16, chest x-ray showed small tiny pleural effusions. Patient remains on Levaquin and clindamycin. Reevaluated today on 12/20/2022, patient remains in the ICU as an overflow. Patient continues to steadily improve, continues to have intermittent cough, this morning she seems to be relatively asymptomatic, able to swallow fine, does not seem to be choking on her food. Chest x-ray showed cardiomegaly and small bilateral pleural effusions. With blunting of the costophrenic angles. WT count is 8.4 hemoglobin 11.3 electrolytes are normal renal profile is normal Objective - Vital Signs Vital signs: Vital Signs Temp 98.6 F 12/20/22 08:00 Pulse 80 12/20/22 09:03 Resp 25 H 12/20/22 09:00 BP 159/82 12/20/22 09:00 Pulse Ox 99 12/20/22 09:00 FiO2 40 12/19/22 17:00 Intake & Output 12/19/22 12/20/22 12/20/22 18:59 06:59 18:59 Intake Total 1350 1400 Output Total 2500 1750 Balance -1150 -350 Intake: IV 1200 1200 Sodium Chloride 0.9% 1, 1200 1200 000 ml @ 100 mls/hr IV . Q10H [facility] Rx#:[id number] Oral 200 Tube Feeding 150 Output: Urine 2500 1750 Other: Voiding Method Indwelling Catheter Indwelling Catheter Indwelling Catheter - Exam Physical Exam: Revealed an 82-year-old female in no distress, on 4 L nasal cannula O2 sat 99% HEENT:[Neck is supple.] [No neck masses.] Positive thyromegaly. Chest: [Minimal crackles at the bases, scattered rhonchi noted Cardiac Exam: [Normal S1 and S2, no S3 gallop, no murmur.] Abdomen: [Soft, nontender, no megaly, no rebound, no guarding, normal bowel sounds.] Extremities: [No clubbing, no edema, no cyanosis.] Neurological Exam: [No focal neurologic deficit.] Alert oriented 3. Psychiatric: Normal mood, affect and normal status examination. Skin: No rashes. 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 Intermittent stridor, resolved. Recent laparoscopic paraesophageal hernia repair 12/12/2022 Acute kidney injury, improving. Chronic normocytic anemia Hypothyroidism Benign essential hypertension Dyslipidemia History of basal cell carcinoma of the skin Recommendation: Continue Medrol Dosepak Continue bronchodilators Continue incentive spirometry Titrate oxygen accordingly Continue aspiration precautions Transfer out of the ICU once a bed is available Continue antibiotics , on clindamycin and Levaquin Possible discharge planning in the next 24-48 hours We will continue to follow Time with Patient: Less than 30
[2022-12-20] MEDS: hydrALAZINE HCL 20 MG/ML 1 ML VIAL IVP PRN (16:37)
[2022-12-20] MEDS: ATORVASTATIN 20 MG TAB PO SCH (19:53)
[2022-12-21] MEDS: LORazepam 2 MG/ML INJ IV PRN (00:22)
--- NOTE | 2022-12-21 06:41 | P.PN ---
Progress Note - Text Progress Note Date: 12/20/22 Patient continues to improve. She denies any significant choking or dysphagia. She appears to be less short of breath. On exam vital signs are stable. 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 Patient appears to the doing better on thickened liquids. She does not appear to be aspirating. Patient has a chronic thyroid goiter which is displacing the tracheal however there is no tracheal compressive symptoms due to the goiter. The patient's goiter will be reevaluated as an outpatient after she recovers from her hiatal hernia surgery. There is no immediate surgical intervention planned for her goiter.
[2022-12-21] MEDS: PANTOPRAZOLE 40 MG TABLET PO SCH (06:44)
[2022-12-21] MEDS: LEVOTHYROXINE 50 MCG TAB PO SCH (06:44)
[2022-12-21] MEDS: VALSARTAN 160 MG TAB PO SCH (08:21)
[2022-12-21] MEDS: SIMETHICONE 80 MG CHEWABLE PO SCH ×4 (08:21→21:22)
[2022-12-21] MEDS: allopurinoL 300 MG TAB PO SCH (08:22)
[2022-12-21] MEDS: amLODIPine 5 MG TAB PO SCH (08:22)
[2022-12-21] MEDS: FERROUS SULFATE 325 MG TAB PO SCH (08:22)
[2022-12-21] MEDS: METOPROLOL SUCCINATE (ER) 50 MG TAB.ER.24H PO SCH ×2 (08:22→20:44)
[2022-12-21] MEDS: HEPARIN SODIUM,PORCINE/PF 5,000 UNIT/0.5 ML SYRINGE SQ SCH ×3 (08:22→23:25)
[2022-12-21] MEDS: LIDOCAINE 5% PATCH TOPICAL SCH (08:23)
[2022-12-21] MEDS: IPRATROPIUM-ALBUTEROL 3 ML NEB INHALATION SCH ×4 (08:44→20:08)
--- NOTE | 2022-12-21 09:02 | P.PN ---
Progress Note - Text Progress Note Date: 12/21/22 Patient remains stable. She is tolerating her diet. She is no points of pain. She has not ambulate. On exam vital signs are stable. Abdomen soft. Patient is stable for discharge to rehab. She will follow-up the office in one week.
[2022-12-21] MEDS: CLINDAMYCIN 600 MG in DEXTROSE 5% IN WATER 50 ML IVPB SCH ×2 (09:12)
[2022-12-21] MEDS: methylPREDNISolone 4 MG TAB TAPER PO SCH (10:00)
[2022-12-21] MEDS: LEVOFLOXACIN 500MG-D5W PMX 500 MG in DEXTROSE/WATER 1 100ML.BAG IVPB SCH (10:26)
[2022-12-21] MEDS: CALCIUM CARBONATE 500 MG CHEWABLE PO PRN (10:35)
--- NOTE | 2022-12-21 11:43 | P.PN ---
Subjective Progress Note Date: 12/21/22 Hospital Course: Patient is a very pleasant 82-year-old female with a past medical history of CKD stage II, COPD, hypertension, hyperlipidemia, hypothyroidism, and CHF. Patient presented to the emergency department with a chief complaint of shortness of breath.patient underwent full evaluation in the emergency department. CBC unremarkable. Coagulation profile normal findings. D-dimer slightly elevated at 0.86 but normal with age adjustment. BMP revealing hyperchloremia with chloride of 110 and hypocarbia with bicarbonate 16 along with slightly elevated renal function and a BUN was 28, creatinine 1.31, and GFR of 38 with baseline creatinine of 1.5. Troponin less than 0.012. ProBNP 562. Pro-calcitonin 0.04. Influenza A, influenza B, RSV, and Covid PCR negative.Chest x-ray negative for acute cardiopulmonary process revealing large gas-filled hiatal hernia. Patient admitted under our services and consult was placed to general surgery. 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 Patient developed hypoxic respiratory failure and was transitioned to the ICU on BiPAP. Patient had evidence of large goiter as well as stridor on exam and was treated with racemic epinephrine, steroids. She also has significant issues with anxiety causing sensation of significant shortness of breath, required pushes of Ativan. Patient briefly had an NG tube replaced on 12/16 due to gastric distention and ileus, having BM now. Now on NC. Likely has aspiration. Currently on thin and nectar consistency diet. Subjective: Patient seen and examined at bedside. No acute events overnight. Cough is getting better as well. Denies any difficulty with eating. Pertinent positives and negatives as discussed above, a complete review of systems was performed and all other systems are negative. Vitals Signs Reviewed. General: nontoxic, no distress, appears at stated age Derm: warm, dry, abdominal incision sites clean, dry, intact Head: atraumatic, normocephalic, symmetric Eyes: EOMI, no lid lag, anicteric sclera Mouth: no lip lesion, mucus membranes moist Cardiovascular: S1S2 reg, no murmur Lungs: CTA bilateral, no rhonchi, no rales , no accessory muscle use, supplemental oxygen Abdominal: soft, nontender to palpation, no guarding, no appreciable organomegaly Ext: no gross muscle atrophy, no edema, no contractures Neuro: CN II-XI grossly intact, no focal neuro deficits Psych: Alert, oriented, appropriate affect Data Reviewed Today: Pertinent Labs: No new labs today Assessment and Plan: Active: Acute Hypoxemic Respiratory Failure, likely secondary to aspiration pneumonia Large paraesophageal hernia with intrathoracic stomach status post repair Postoperative ileus, expected outcome, resolving Elevated BNP, echocardiogram normal LV systolic function Large Goiter Acute Urinary retention -On thickened liquids diet -Continue to wean down oxygen -Complete a course of levofloxacin and clindamycin -Currently on a Medrol Dosepak per pulmonary -Surgery reviewed, stable for discharge -Software Test Specialist following -Senokot daily -IV Dilaudid as needed for breakthrough pain -Urology following, recommended keeping Broderick catheter until patient is ambulatory and close to discharge Chronic: COPD Hypothyroidism Hypertension Hyperlipidemia Chronic kidney disease stage III Normocytic anemia Gout DVT ppx: Subcu heparin Code status: Full code Anticipated discharge place: Patient wants to go home, has [facility] Anticipated discharge time: 1-2 days Objective - Vital Signs Vital signs: Vital Signs Temp 98.0 F 12/21/22 08:00 Pulse 78 12/21/22 11:39 Resp 18 12/21/22 08:00 BP 174/85 12/21/22 08:00 Pulse Ox 94 L 12/21/22 08:00 FiO2 40 12/19/22 17:00 Intake & Output 12/20/22 12/21/22 12/21/22 18:59 06:59 18:59 Intake Total 1050 50 Output Total 1700 900 Balance -650 -850 Intake: IV 800 50 Clindamycin 600 mg In 200 50 Dextrose 5% in Water 50 ml @ 50 mls/hr IVPB Q8HR [facility] Rx#:[id number] Levofloxacin 500Mg-D5w 100 Pmx 500 mg In Dextrose/ Water 1 100ml.bag @ 100 mls/hr IVPB Q24H [facility] Rx#: [id number] Sodium Chloride 0.9% 1, 500 000 ml @ 100 mls/hr IV . Q10H [facility] Rx#:[id number] Oral 250 Output: Urine 1700 900 Other: Voiding Method Indwelling Catheter Indwelling Catheter Indwelling Catheter - Labs CBC & Chem 7: 12/20/22 04:21 12/20/22 04:21
--- NOTE | 2022-12-21 13:58 | P.PN ---
Subjective Progress Note Date: 12/21/22 Principal diagnosis: Acute hypoxic respiratory failure secondary to pneumonia, most likely aspiration pneumonia. I was consulted to evaluate the patient has the patient developed some shortness of breath and hypoxemia following her surgery. The patient is currently on 6 L of oxygen by nasal cannula. 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 The patient underwent laparoscopic repair of the paraesophageal hernia and she had a mesh placed. Surgery was done on 12/12/2022. The patient is a lifetime nonsmoker and she is not requiring any oxygen therapy. There was consideration of a pneumonia and based on the patient's multiple ALLERGIES, the patient was started on Levaquin as an empiric antibiotic coverage. The patient is still having some soreness and abdominal wall especially with coughing. Abdomen generally soft. She is passing flatness.. No altered mentation. No reported aspiration. Surgery was done under anesthesia. The patient provided incentive spirometer. The white cell count today's of 14.3 with a hemoglobin of 12.8 and a platelet count of 252. Blood gas this was done today showed a pH of 7.4 with a pCO2 of 35 and a pO2 of 60 and this was done on room air oxygen. BUN is at 12 with a creatinine of 1.05 and sodium levels of 131. The patient has lactic acid level of 1.9. Troponins are negative. ProBNP level is 3430. Chest x-ray shows atelectasis and a small effusion the right lung base. However, compared to admission, there is an increasing right perihilar and right basilar density which is most likely a combination of atelectasis/effusion. Pneumonia cannot be completely excluded. Left lung remained essentially clear. No pleurisy. No hemoptysis. No angina. No hemodynamic instability. On 12/15/2022, the patient is being seen in intensive care unit. Overnight, the patient became progressively more short of breath hypoxic. The patient got transferred to the intensive care unit and she was started on a BiPAP pressure of 12/6 cm of water with an FiO2 of 50%. Her current generator tidal volume of 650 with a respiratory rate of 28 and a minute ventilation of 18.3. She is tolerating the BiPAP without any major difficulties. A follow-up chest x-ray was done this morning and the chest x-ray showed stable left lower lobe atelectasis with tiny effusion. The gastric is in the stomach and is quite. Nevertheless, the patient denies having any nausea abdominal pain. No emesis. Blood work from today shows a white cell count of 14.6 with a hemoglobin of 12 and a platelet count of 234. Blood. While in the BiPAP showed pH 7.38 with a pCO2 of 37 and pO2 of 136 sodium is at 129, BUN is at 20 with a creatinine of 5 with a level of 4.8. CAT scan of the chest and abdomen and pelvis was done yesterday and the patient should to have a goiter measuring 5.6 cm in size in largest dimension causing some shift in the trachea without clear evidence of any anatomic obstruction. The goiter is extending to the substernal area. At the same time, there is atelectatic change pleural effusion the lung bases bilaterally. The stomach is dilated and had think that there is also esophageal dilation and there is a note made of a relapse in the transverse duodenum, and the patient may have potentially a gastric ileus he had she is hemodynamically stable. She is on IV fluids which is currently running at the rate of 20 mL an hour of normal saline. She is covered with a combination of Levaquin and clindamycin. I took her off the BiPAP this morning and placed on oxygen at 5 L nasal cannula and a multivitamin the patient continues 92-93%. She is awake, weak, somewhat lethargic. On 12/16/2022, the patient remains in intensive care unit. She continues to have episodes of shortness of breath. Note that yesterday, I was suspicious about the stridor and I started the patient on Decadron. The patient was also given less racemic epinephrine. She is currently on bronchodilators and combination with Decadron 6 mg IV every 6 hours. She was taken off the BiPAP th out the day yesterday. Later on the evening, general surgery evaluated the patient and they felt that the abdomen was distended and a flat film of the abdomen was done and following that the patient was placed in an NG tube. On my examination, the abdomen is soft and nondistended. Edge output is minimal at this point in time. As of 4 AM, the patient was placed back on a BiPAP and currently she is on a pressure of 12/6 cm of water with FiO2 of 50%. She generating excellent tidal volume. Her pulse ox is in order of 97%. Her chest x-ray from today shows no major interval change. There is some small bibasilar infiltrates/atelectasis with small effusions. A repeat x-ray of the abdomen was also done that showed improvement in the small and large bowel distention without evidence of any significant elevation. The white cell cause of 10.3 with a hemoglobin 11.5 and a platelet count of 221. BUN is at 34 with a creatinine of 1.6 and his sodium levels of 132. The patient remains on a combination of Levaquin and clindamycin. The patient is on Decadron. The patient on bronchodilators. IV fluids are in the form of normal saline at the rate of 75 mL's an hour. Reevaluated today on 12/17/22, patient remains in the ICU, patient continues to show: Anything she swallows or take by mouth, hence I'm recommending a speech therapy evaluation and also recommending a modified barium swallow. I have a strong feeling that the patient is having episodes of aspiration, I reviewed her CT of the chest, she does have a large goiter, and I'm also concerned about the possibility of fistula from esophagus to trachea. Patient continues to have questionable ileus, remains on antibiotics in the form of Levaquin and clindamycin. She is on 6 L high flow nasal cannula, patient was a bit reluctant about a modified barium swallow but I was able to convince her to have one. WBC count is 11.8 hemoglobin is 10.9 electrodes are normal bicarb remains low at 17, BUN is 40 creatinine 1.56 chest x-ray continues to show cardiomegaly and small bilateral pleural effusions with left basilar opacity questioning atelectasis or pneumonia Patient was reevaluated today on 12/18/2022, remains in the ICU, being treated for presumptive aspiration pneumonia, her modified barium swallow showed intermit tent aspiration to thin liquids. Patient is on 5 L nasal cannula does not seem to be in any distress. She is on proper antibiotics for presumptive aspiration. Doing fairly well overall, and I plan to transfer the patient out of the ICU to medical floor, as far as feedings, we'll follow the recommendations of the speech therapist. WBC count is 8.5 hemoglobin 10.7 electrodes are normal creatinine is improving down to 1.28 from 1.56 yesterday and 1.692 days ago Reevaluated today on 12/19/2022, patient remains in the ICU as an overflow. Patient is doing fairly well, complaining of back pain, remains on antibiotics for presumptive aspiration pneumonia, remains on aspiration precautions. Christina ent is doing fairly well, and I plan to transfer the patient was at bed is available. Renal profile is improving creatinine is down to 1.16, chest x-ray showed small tiny pleural effusions. Patient remains on Levaquin and clindamycin. Reevaluated today on 12/20/2022, patient remains in the ICU as an overflow. Patient continues to steadily improve, continues to have intermittent cough, this morning she seems to be relatively asymptomatic, able to swallow fine, does not seem to be choking on her food. Chest x-ray showed cardiomegaly and small bilateral pleural effusions. With blunting of the costophrenic angles. WT count is 8.4 hemoglobin 11.3 electrolytes are normal renal profile is normal Reevaluated today on , remains in the ICU, doing relatively well, she has mostly back pain, no active symptoms, she does have occasional cough, no wheezing, no fever no chills no hemoptysis and no chest pain. She does have significant back pain, continues to be on lidocaine patch. And his CVP medication. Labs today were basically unremarkable including CBC and basic metabolic profile as well as renal profile. Objective - Vital Signs Vital signs: Vital Signs Temp 98.0 F 12/21/22 08:00 Pulse 82 12/21/22 12:00 Resp 22 12/21/22 12:00 BP 163/85 12/21/22 12:00 Pulse Ox 97 12/21/22 11:00 FiO2 40 12/19/22 17:00 Intake & Output 12/20/22 12/21/22 12/21/22 18:59 06:59 18:59 Intake Total 1050 50 Output Total 1700 900 Balance -650 -850 Intake: IV 800 50 Clindamycin 600 mg In 200 50 Dextrose 5% in Water 50 ml @ 50 mls/hr IVPB Q8HR [facility] Rx#:[id number] Levofloxacin 500Mg-D5w 100 Pmx 500 mg In Dextrose/ Water 1 100ml.bag @ 100 mls/hr IVPB Q24H [facility] Rx#: [id number] Sodium Chloride 0.9% 1, 500 000 ml @ 100 mls/hr IV . Q10H [facility] Rx#:[id number] Oral 250 Output: Urine 1700 900 Other: Voiding Method Indwelling Catheter Indwelling Catheter Indwelling Catheter - Exam Physical Exam: Revealed an 82-year-old female in no distress, on few liters nasal cannula. HEENT: neck masses.] Positive thyromegaly. Chest:Symmetrical chest expansion no crackles or rhonchi or wheezes today cardiac Exam: [Normal S1 and S2, no S3 gallop, no murmur.] Abdomen: [Soft, nontender, no megaly, no rebound, no guarding, normal bowel sounds.] Extremities: [No clubbing, no edema, no cyanosis.] Neurological Exam: [No focal neurologic deficit.] Alert oriented 3. Psychiatric: Normal mood, affect and normal status examination. Skin: No rashes. 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 Intermittent stridor, resolved. Recent laparoscopic paraesophageal hernia repair 12/12/2022 Acute kidney injury, improving. Chronic normocytic anemia Hypothyroidism Benign essential hypertension Dyslipidemia History of basal cell carcinoma of the skin Recommendation: Patient should be considered for discharge planning or most likely I would recommend placement in a rehab facility. Patient cannot even ambulate on her own, she had a very prolonged hospital stay. Physical therapy to evaluate. Continue Medrol Dosepak Continue bronchodilators Continue incentive spirometry Titrate oxygen accordingly Continue aspiration precautions Continue antibiotics We will clear the patient for discharge if cleared by other consultants and again strongly recommend discharge to rehab We will continue to follow Time with Patient: Less than 30
[2022-12-21] MEDS: ATORVASTATIN 20 MG TAB PO SCH (20:44)
[2022-12-22] MEDS: LEVOTHYROXINE 50 MCG TAB PO SCH (05:57)
--- NOTE | 2022-12-22 07:08 | P.PN ---
Progress Note - Text Progress Note Date: 12/22/22 Patient's resting comfortably in her bed. She has complaints of some knee pain. She states that her nose is stopped. And could not breathe through her nose however she is able to breathe through mouth easily. On exam vital signs are stable. 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 Patient is improving. She'll be discharged home per the medical service when stable.
[2022-12-22] MEDS: HEPARIN SODIUM,PORCINE/PF 5,000 UNIT/0.5 ML SYRINGE SQ SCH ×3 (08:24→23:16)
[2022-12-22] MEDS: SIMETHICONE 80 MG CHEWABLE PO SCH ×4 (08:24→20:47)
[2022-12-22] MEDS: PANTOPRAZOLE 40 MG TABLET PO SCH (08:24)
[2022-12-22] MEDS: amLODIPine 5 MG TAB PO SCH (08:25)
[2022-12-22] MEDS: allopurinoL 300 MG TAB PO SCH (08:25)
[2022-12-22] MEDS: FERROUS SULFATE 325 MG TAB PO SCH (08:25)
[2022-12-22] MEDS: LIDOCAINE 5% PATCH TOPICAL SCH (08:26)
[2022-12-22] MEDS: METOPROLOL SUCCINATE (ER) 50 MG TAB.ER.24H PO SCH ×2 (08:27→19:52)
[2022-12-22] MEDS: methylPREDNISolone 4 MG TAB TAPER PO SCH (08:27)
[2022-12-22] MEDS: VALSARTAN 160 MG TAB PO SCH (08:28)
[2022-12-22] MEDS: IPRATROPIUM-ALBUTEROL 3 ML NEB INHALATION SCH ×4 (09:26→20:23)
--- NOTE | 2022-12-22 13:06 | P.PN ---
Subjective Progress Note Date: 12/22/22 I was consulted to evaluate the patient has the patient developed some shortness of breath and hypoxemia following her surgery. The patient is currently on 6 L of oxygen by nasal cannula. 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 The patient underwent laparoscopic repair of the paraesophageal hernia and she had a mesh placed. Surgery was done on 12/12/2022. The patient is a lifetime nonsmoker and she is not requiring any oxygen therapy. There was consideration of a pneumonia and based on the patient's multiple ALLERGIES, the patient was started on Levaquin as an empiric antibiotic coverage. The patient is still having some soreness and abdominal wall especially with coughing. Abdomen generally soft. She is passing flatness.. No altered mentation. No reported aspiration. Surgery was done under anesthesia. The patient provided incentive spirometer. The white cell count today's of 14.3 with a hemoglobin of 12.8 and a platelet count of 252. Blood gas this was done today showed a pH of 7.4 with a pCO2 of 35 and a pO2 of 60 and this was done on room air oxygen. BUN is at 12 with a creatinine of 1.05 and sodium levels of 131. The patient has lactic acid level of 1.9. Troponins are negative. ProBNP level is 3430. Chest x-ray shows atelectasis and a small effusion the right lung base. However, compared to admission, there is an increasing right perihilar and right basilar density which is most likely a combination of atelectasis/effusion. Pneumonia cannot be completely excluded. Left lung remained essentially clear. No pleurisy. No hemoptysis. No angina. No hemodynamic instability. On 12/15/2022, the patient is being seen in intensive care unit. Overnight, the patient became progressively more short of breath hypoxic. The patient got transferred to the intensive care unit and she was started on a BiPAP pressure of 12/6 cm of water with an FiO2 of 50%. Her current generator tidal volume of 650 with a respiratory rate of 28 and a minute ventilation of 18.3. She is tolerating the BiPAP without any major difficulties. A follow-up chest x-ray was done this morning and the chest x-ray showed stable left lower lobe atelectasis with tiny effusion. The gastric is in the stomach and is quite. Nevertheless, the patient denies having any nausea abdominal pain. No emesis. Blood work from today shows a white cell count of 14.6 with a hemoglobin of 12 and a platelet count of 234. Blood. While in the BiPAP showed pH 7.38 with a pCO2 of 37 and pO2 of 136 sodium is at 129, BUN is at 20 with a creatinine of 5 with a level of 4.8. CAT scan of the chest and abdomen and pelvis was done yesterday and the patient should to have a goiter measuring 5.6 cm in size in largest dimension causing some shift in the trachea without clear evidence of any anatomic obstruction. The goiter is extending to the substernal area. At the same time, there is atelectatic change pleural effusion the lung bases bilaterally. The stomach is dilated and had think that there is also esophageal dilation and there is a note made of a relapse in the transverse duodenum, and the patient may have potentially a gastric ileus he had she is hemodynamically stable. She is on IV fluids which is currently running at the rate of 20 mL an hour of normal saline. She is covered with a combination of Levaquin and clindamycin. I took her off the BiPAP this morning and placed on oxygen at 5 L nasal cannula and a multivitamin the patient continues 92-93%. She is awake, weak, somewhat lethargic. On 12/16/2022, the patient remains in intensive care unit. She continues to have episodes of shortness of breath. Note that yesterday, I was suspicious about the stridor and I started the patient on Decadron. The patient was also given less racemic epinephrine. She is currently on bronchodilators and combination with Decadron 6 mg IV every 6 hours. She was taken off the BiPAP throughout the day yesterday. Later on the evening, general surgery evaluated the patient and they felt that the abdomen was distended and a flat film of the abdomen was done and following that the patient was placed in an NG tube. On my examination, the abdomen is soft and nondistended. Edge output is minimal at this point in time. As of 4 AM, the patient was placed back on a BiPAP and currently she is on a pressure of 12/6 cm of water with FiO2 of 50%. She generating excellent tidal volume. Her pulse ox is in order of 97%. Her chest x-ray from today shows no major interval change. There is some small bibasilar infiltrates/atelectasis with small effusions. A repeat x-ray of the abdomen was also done that showed improvement in the small and large bowel distention without evidence of any significant elevation. The white cell cause of 10.3 with a hemoglobin 11.5 and a platelet count of 221. BUN is at 34 with a creatinine of 1.6 and his sodium levels of 132. The patient remains on a combination of Levaquin and clindamycin. The patient is on Decadron. The patient on bronchodilators. IV fluids are in the form of normal saline at the rate of 75 mL's an hour. Reevaluated today on 12/17/22, patient remains in the ICU, patient continues to show: Anything she swallows or take by mouth, hence I'm recommending a speech therapy evaluation and also recommending a modified barium swallow. I have a strong feeling that the patient is having episodes of aspiration, I reviewed her CT of the chest, she does have a large goiter, and I'm also concerned about the possibility of fistula from esophagus to trachea. Patient continues to have questionable ileus, remains on antibiotics in the form of Levaquin and clindamycin. She is on 6 L high flow nasal cannula, patient was a bit reluctant about a modified barium swallow but I was able to convince her to have one. WBC count is 11.8 hemoglobin is 10.9 electrodes are normal bicarb remains low at 17, BUN is 40 creatinine 1.56 chest x-ray continues to show cardiomegaly and small bilateral pleural effusions with left basilar opacity questioning atelectasis or pneumonia Patient was reevaluated today on 12/18/2022, remains in the ICU, being treated for presumptive aspiration pneumonia, her modified barium swallow showed intermittent aspiration to thin liquids. Patient is on 5 L nasal cannula does not seem to be in any distress. She is on proper antibiotics for presumptive aspiration. Doing fairly well overall, and I plan to transfer the patient out of the ICU to medical floor, as far as feedings, we'll follow the recommendations of the speech therapist. WBC count is 8.5 hemoglobin 10.7 electrodes are normal creatinine is improving down to 1.28 from 1.56 yesterday and 1.692 days ago Reevaluated today on 12/19/2022, patient remains in the ICU as an overflow. Patient is doing fairly well, complaining of back pain, remains on antibiotics for presumptive aspiration pneumonia, remains on aspiration precautions. Patient is doing fairly well, and I plan to transfer the patient was at bed is available. Renal profile is improving creatinine is down to 1.16, chest x-ray showed small tiny pleural effusions. Patient remains on Levaquin and clindamycin. Reevaluated today on 12/20/2022, patient remains in the ICU as an overflow. Patient continues to steadily improve, continues to have intermittent cough, this morning she seems to be relatively asymptomatic, able to swallow fine, does not seem to be choking on her food. Chest x-ray showed cardiomegaly and small bilateral pleural effusions. With blunting of the costophrenic angles. WT count is 8.4 hemoglobin 11.3 electrolytes are normal renal profile is normal Reevaluated today on , remains in the ICU, doing relatively well, she has mostly back pain, no active symptoms, she does have occasional cough, no wheezing, no fever no chills no hemoptysis and no chest pain. She does have significant back pain, continues to be on lidocaine patch. And his CVP medication. Labs today were basically unremarkable including CBC and basic metabolic profile as well as renal profile. The patient is seen today 12/22/2022 in follow-up on the regular medical floor. She is currently sitting up in bed. Awake and alert in no acute distress. She is currently maintaining O2 saturations in the 90s on 5 L high flow nasal cannula. She's been afebrile. Hemodynamically stable. No new labs today. She is continued on bronchodilators. Heparin for DVT prophylaxis. Medrol Dosepak. Objective - Vital Signs Vital signs: Vital Signs Temp 98.8 F 12/22/22 11:25 Pulse 84 12/22/22 12:30 Resp 18 12/22/22 11:25 BP 158/51 12/22/22 11:25 Pulse Ox 92 L 12/22/22 11:25 FiO2 40 12/19/22 17:00 Intake & Output 12/21/22 12/22/22 12/22/22 18:59 06:59 18:59 Intake Total 750 Output Total 1000 1000 0 Balance -250 -1000 0 Intake: IV 750 Clindamycin 600 mg In 50 Dextrose 5% in Water 50 ml @ 50 mls/hr IVPB Q8HR [facility] Rx#:[id number] KVO 600 Levofloxacin 500Mg-D5w 100 Pmx 500 mg In Dextrose/ Water 1 100ml.bag @ 100 mls/hr IVPB Q24H [facility] Rx#: [id number] Output: Urine 1000 1000 Stool 0 Other: Voiding Method Indwelling Catheter Indwelling Catheter Indwelling Catheter # Voids 2 - Exam GENERAL EXAM: Alert, active, 82-year-old female, on 5 L nasal cannula, comfortable in no apparent distress. HEAD: Normocephalic. EYES: Normal reaction of pupils, equal size. NOSE: Clear with pink turbinates. THROAT: No erythema or exudates. Positive thyromegaly NECK: No masses, no JVD. CHEST: No chest wall deformity. LUNGS: Equal air entry with no crackles, wheeze, rhonchi or dullness. CVS: S1 and S2 normal with no audible murmur, regular rhythm. ABDOMEN: No hepatosplenomegaly, normal bowel sounds, no guarding or rigidity. SPINE: No scoliosis or deformity SKIN: No rashes CENTRAL NERVOUS SYSTEM: No focal deficits, tone is normal in all 4 extremities. EXTREMITIES: There is no peripheral edema. No clubbing, no cyanosis. Peripheral pulses are intact. 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 Intermittent stridor, resolved. Recent laparoscopic paraesophageal hernia repair 12/12/2022 Acute kidney injury, improving. Chronic normocytic anemia Hypothyroidism Benign essential hypertension Dyslipidemia History of basal cell carcinoma of the skin Plan: The patient was seen and evaluated Medications are reviewed Titrate down the FiO2 as tolerated Follow-up chest x-ray in the a.m. We will continue to follow I have personally seen and examined the patient, performed the documentation and the assessment and plan as written. Number of minutes spent on the visit: 10.
--- NOTE | 2022-12-22 13:24 | P.PN ---
Subjective Progress Note Date: 12/22/22 Hospital Course: Patient is a very pleasant 82-year-old female with a past medical history of CKD stage II, COPD, hypertension, hyperlipidemia, hypothyroidism, and CHF. Patient presented to the emergency department with a chief complaint of shortness of breath.patient underwent full evaluation in the emergency department. CBC unremarkable. Coagulation profile normal findings. D-dimer slightly elevated at 0.86 but normal with age adjustment. BMP revealing hyperchloremia with chlor cayetano of 110 and hypocarbia with bicarbonate 16 along with slightly elevated renal function and a BUN was 28, creatinine 1.31, and GFR of 38 with baseline creatinine of 1.5. Troponin less than 0.012. ProBNP 562. Pro-calcitonin 0.04. Influenza A, influenza B, RSV, and Covid PCR negative.Chest x-ray negative for acute cardiopulmonary process revealing large gas-filled hiatal hernia. Patient admitted under our services and consult was placed to general surgery. 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 Patient developed hypoxic respiratory failure and was transitioned to the ICU on BiPAP. Patient had evidence of large goiter as well as stridor on exam and was treated with racemic epinephrine, steroids. She also has significant issues with anxiety causing sensation of significant shortness of breath, required pushes of Ativan. Patient briefly had an NG tube replaced on 12/16 due to gastric distention and ileus, having BM now. Now on NC. Likely has aspiration. Currently on thin and nectar consistency diet. pending dc to rehab. Subjective: Patient seen and examined at bedside. No acute events overnight. Cough is getting better as well. Denies any difficulty with eating. Pertinent positives and negatives as discussed above, a complete review of systems was performed and all other systems are negative. Vitals Signs Reviewed. General: nontoxic, no distress, appears at stated age Derm: warm, dry, abdominal incision sites clean, dry, intact Head: atraumatic, normocephalic, symmetric Eyes: EOMI, no lid lag, anicteric sclera Mouth: no lip lesion, mucus membranes moist Cardiovascular: S1S2 reg, no murmur Lungs: CTA bilateral, no rhonchi, no rales , no accessory muscle use, supplemental oxygen Abdominal: soft, nontender to palpation, no guarding, no appreciable organomegaly Ext: no gross muscle atrophy, no edema, no contractures Neuro: CN II-XI grossly intact, no focal neuro deficits Psych: Alert, oriented, appropriate affect Data Reviewed Today: Pertinent Labs: No new labs today Assessment and Plan: Active: Acute Hypoxemic Respiratory Failure, likely secondary to aspiration pneumonia Large paraesophageal hernia with intrathoracic stomach status post repair Postoperative ileus, expected outcome, resolving Elevated BNP, echocardiogram normal LV systolic function Large Goiter Acute Urinary retention -On thickened liquids diet -Continue to wean down oxygen -Complete a course of levofloxacin and clindamycin -Currently on a Medrol Dosepak per pulmonary -Surgery note reviewed, stable for discharge -Code Clerk note reviewed, cxr in the morning -Senokot daily -IV Dilaudid as needed for breakthrough pain -Urology following, recommended keeping Broderick catheter until patient is ambulatory and close to discharge Chronic: COPD Hypothyroidism Hypertension Hyperlipidemia Chronic kidney disease stage III Normocytic anemia Gout DVT ppx: Subcu heparin Code status: Full code Anticipated discharge place: Patient wants to go home, has [address] [place] [id number] Anticipated discharge time: 1-2 days Objective - Vital Signs Vital signs: Vital Signs Temp 98.8 F 12/22/22 11:25 Pulse 84 12/22/22 12:30 Resp 18 12/22/22 11:25 BP 158/51 12/22/22 11:25 Pulse Ox 92 L 12/22/22 11:25 FiO2 40 12/19/22 17:00 Intake & Output 12/21/22 12/22/22 12/22/22 18:59 06:59 18:59 Intake Total 750 Output Total 1000 1000 0 Balance -250 -1000 0 Intake: IV 750 Clindamycin 600 mg In 50 Dextrose 5% in Water 50 ml @ 50 mls/hr IVPB Q8HR A[facility] Rx#:[id number] KVO 600 Levofloxacin 500Mg-D5w 100 Pmx 500 mg In Dextrose/ Water 1 100ml.bag @ 100 mls/hr IVPB Q24H [facility] Rx#: [id number] Output: Urine 1000 1000 Stool 0 Other: Voiding Method Indwelling Catheter Indwelling Catheter Indwelling Catheter # Voids 2 - Labs CBC & Chem 7: 12/20/22 04:21 12/20/22 04:21
[2022-12-22] MEDS: ATORVASTATIN 20 MG TAB PO SCH (19:52)
[2022-12-22] MEDS: CALCIUM CARBONATE 500 MG CHEWABLE PO PRN (19:52)
[2022-12-22] MEDS: ACETAMINOPHEN TAB 325 MG TAB PO PRN (20:47)
[2022-12-23] MEDS: methylPREDNISolone 4 MG TAB TAPER PO SCH (08:07)
[2022-12-23] MEDS: VALSARTAN 160 MG TAB PO SCH (08:07)
[2022-12-23] MEDS: ACETAMINOPHEN TAB 325 MG TAB PO PRN (08:07)
[2022-12-23] MEDS: amLODIPine 5 MG TAB PO SCH (08:07)
[2022-12-23] MEDS: HEPARIN SODIUM,PORCINE/PF 5,000 UNIT/0.5 ML SYRINGE SQ SCH ×2 (08:08→16:41)
[2022-12-23] MEDS: FERROUS SULFATE 325 MG TAB PO SCH (08:08)
[2022-12-23] MEDS: allopurinoL 300 MG TAB PO SCH (08:08)
[2022-12-23] MEDS: PANTOPRAZOLE 40 MG TABLET PO SCH (08:09)
[2022-12-23] MEDS: LIDOCAINE 5% PATCH TOPICAL SCH (08:09)
[2022-12-23] MEDS: SIMETHICONE 80 MG CHEWABLE PO SCH ×4 (08:09→20:14)
[2022-12-23] MEDS ORDERED: FUROSEMIDE 10 MG/ML 2 ML VIAL IV ONE (08:25)
[2022-12-23] MEDS: FUROSEMIDE 20 MG TAB PO SCH ×2 (08:47→16:42)
[2022-12-23] MEDS: METOPROLOL SUCCINATE (ER) 50 MG TAB.ER.24H PO SCH ×2 (09:10→20:14)
[2022-12-23] MEDS: IPRATROPIUM-ALBUTEROL 3 ML NEB INHALATION SCH ×4 (09:20→20:39)
--- NOTE | 2022-12-23 09:41 | P.PN ---
Progress Note - Text Progress Note Date: 12/23/22 The patient states she feels short of breath. She has a new right-sided pleural effusion. She is also receiving IV Lasix for the fusion. On exam vital signs appear stable. Abdomen soft nontender Status post repair of large paraesophageal hiatal hernia with intrathoracic stomach. Patient's effusion will be managed by the pulmonary service. She may undergo thoracentesis tomorrow.
--- NOTE | 2022-12-23 09:53 | XR ---
EXAMINATION TYPE: XR chest 1V portable DATE OF EXAM: 12/23/2022 Comparison: 12/20/2022 Clinical History: 82-year-old female Pneumonia Findings: Prominent rightward patient rotation. Heart is enlarged. [id number] right and small left pleur al effusions persist. Impression: Limited by prominent rightward patient rotation. There is cardiomegaly and persistent [id number] te right and small left pleural effusions. Adjacent atelectasis and/or consolidation.
--- NOTE | 2022-12-23 11:30 | P.PN ---
Subjective Progress Note Date: 12/23/22 Hospital Course: Patient is a very pleasant 82-year-old female with a past medical history of CKD stage II, COPD, hypertension, hyperlipidemia, hypothyroidism, and CHF. Patient presented to the emergency department with a chief complaint of shortness of breath.patient underwent full evaluation in the emergency department. CBC unremarkable. Coagulation profile normal findings. D-dimer slightly elevated at 0.86 but normal with age adjustment. BMP revealing hyperchloremia with chlor cayetano of 110 and hypocarbia with bicarbonate 16 along with slightly elevated renal function and a BUN was 28, creatinine 1.31, and GFR of 38 with baseline creatinine of 1.5. Troponin less than 0.012. ProBNP 562. Pro-calcitonin 0.04. Influenza A, influenza B, RSV, and Covid PCR negative.Chest x-ray negative for acute cardiopulmonary process revealing large gas-filled hiatal hernia. Patient admitted under our services and consult was placed to general surgery. 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 Patient developed hypoxic respiratory failure and was transfered to the ICU on BiPAP. Patient had evidence of large goiter as well as stridor on exam and was treated with racemic epinephrine, steroids. She also has significant issues with anxiety causing sensation of significant shortness of breath, required pushes of Ativan. Patient briefly had an NG tube replaced on 12/16 due to gastric distention and ileus, having BM now. Now on NC. Likely has aspiration as well, was treated with antibiotics. Currently on thin and nectar consistency diet. Has worsening pleural effusions, started on oral Lasix per pulmonology. Subjective: Patient seen and examined at bedside. No acute events overnight. Cough is get ting better as well. Denies any difficulty with eating. Pertinent positives and negatives as discussed above, a complete review of systems was performed and all other systems are negative. Vitals Signs Reviewed. General: nontoxic, no distress, appears at stated age Derm: warm, dry, abdominal incision sites clean, dry, intact Head: atraumatic, normocephalic, symmetric Eyes: EOMI, no lid lag, anicteric sclera Mouth: no lip lesion, mucus membranes moist Cardiovascular: S1S2 reg, no murmur Lungs: Bibasilar rales, no accessory muscle use, supplemental oxygen Abdominal: soft, nontender to palpation, no guarding, no appreciable organomegaly Ext: no gross muscle atrophy, no edema, no contractures Neuro: CN II-XI grossly intact, no focal neuro deficits Psych: Alert, oriented, appropriate affect Data Reviewed Today: Pertinent Labs: No new labs today Chest x-ray independently interpreted, bilateral pleural effusions Assessment and Plan: Active: Acute Hypoxemic Respiratory Failure, likely secondary to aspiration pneumonia, resolving Bilateral pleural effusions, echocardiogram showed normal LV systolic function Large paraesophageal hernia with intrathoracic stomach status post repair Postoperative ileus, resolved Large Goiter Acute Urinary retention Hypertension, uncontrolled -On thickened liquids diet -Continue to wean down oxygen -Complete a course of levofloxacin and clindamycin -Currently on a Medrol Dosepak per pulmonary -Surgery note reviewed, no further interventions from GI standpoint -[employer] following, started on Lasix 20 twice a day -Lasix will also help with hypertension, amlodipine increased to 10 mg -Senokot daily -IV Dilaudid as needed for breakthrough pain -Urology following, recommended keeping Broderick catheter until patient is ambulatory and close to discharge Chronic: COPD Hypothyroidism Hypertension Hyperlipidemia Chronic kidney disease stage III Normocytic anemia Gout DVT ppx: Subcu heparin Code status: Full code Anticipated discharge place: [facility] Rehab Anticipated discharge time: 1-2 days Objective - Vital Signs Vital signs: Vital Signs Temp 98.8 F 12/23/22 06:55 Pulse 84 12/23/22 09:34 Resp 18 12/23/22 08:40 BP 185/81 12/23/22 06:55 Pulse Ox 93 L 12/23/22 06:55 FiO2 40 12/19/22 17:00 Intake & Output 12/22/22 12/23/22 12/23/22 18:59 06:59 18:59 Output Total 1000 950 0 Balance -1000 -950 0 Output: Urine 1000 950 Stool 0 0 Other: Voiding Method Indwelling Catheter Indwelling Catheter Indwelling Catheter # Bowel Movements 1 - Labs CBC & Chem 7: 12/20/22 04:21 12/20/22 04:21
--- NOTE | 2022-12-23 11:45 | P.PN ---
Subjective Progress Note Date: 12/23/22 I was consulted to evaluate the patient has the patient developed some shortness of breath and hypoxemia following her surgery. The patient is currently on 6 L of oxygen by nasal cannula. 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 The patient underwent laparoscopic repair of the paraesophageal hernia and she had a mesh placed. Surgery was done on 12/12/2022. The patient is a lifetime nonsmoker and she is not requiring any oxygen therapy. There was consideration of a pneumonia and based on the patient's multiple ALLERGIES, the patient was started on Levaquin as an empiric antibiotic coverage. The patient is still having some soreness and abdominal wall especially with coughing. Abdomen generally soft. She is passing flatness.. No altered mentation. No reported aspiration. Surgery was done under anesthesia. The patient provided incentive spirometer. The white cell count today's of 14.3 with a hemoglobin of 12.8 and a platelet count of 252. Blood gas this was done today showed a pH of 7.4 with a pCO2 of 35 and a pO2 of 60 and this was done on room air oxygen. BUN is at 12 with a creatinine of 1.05 and sodium levels of 131. The patient has lactic acid level of 1.9. Troponins are negative. ProBNP level is 3430. Chest x-ray shows atelectasis and a small effusion the right lung base. However, compared to admission, there is an increasing right perihilar and right basilar density which is most likely a combination of atelectasis/effusion. Pneumonia cannot be completely excluded. Left lung remained essentially clear. No pleurisy. No hemoptysis. No angina. No hemodynamic instability. On 12/15/2022, the patient is being seen in intensive care unit. Overnight, the patient became progressively more short of breath hypoxic. The patient got transferred to the intensive care unit and she was started on a BiPAP pressure of 12/6 cm of water with an FiO2 of 50%. Her current generator tidal volume of 650 with a respiratory rate of 28 and a minute ventilation of 18.3. She is tolerating the BiPAP without any major difficulties. A follow-up chest x-ray was done this morning and the chest x-ray showed stable left lower lobe atelectasis with tiny effusion. The gastric is in the stomach and is quite. Nevertheless, the patient denies having any nausea abdominal pain. No emesis. Blood work from today shows a white cell count of 14.6 with a hemoglobin of 12 and a platelet count of 234. Blood. While in the BiPAP showed pH 7.38 with a pCO2 of 37 and pO2 of 136 sodium is at 129, BUN is at 20 with a creatinine of 5 with a level of 4.8. CAT scan of the chest and abdomen and pelvis was done yesterday and the patient should to have a goiter measuring 5.6 cm in size in largest dimension causing some shift in the trachea without clear evidence of any anatomic obstruction. The goiter is extending to the substernal area. At the same time, there is atelectatic change pleural effusion the lung bases bilaterally. The stomach is dilated and had think that there is also esophageal dilation and there is a note made of a relapse in the transverse duodenum, and the patient may have potentially a gastric ileus he had she is hemodynamically stable. She is on IV fluids which is currently running at the rate of 20 mL an hour of normal saline. She is covered with a combination of Levaquin and clindamycin. I took her off the BiPAP this morning and placed on oxygen at 5 L nasal cannula and a multivitamin the patient continues 92-93%. She is awake, weak, somewhat lethargic. On 12/16/2022, the patient remains in intensive care unit. She continues to have episodes of shortness of breath. Note that yesterday, I was suspicious about the stridor and I started the patient on Decadron. The patient was also given less racemic epinephrine. She is currently on bronchodilators and combination with Decadron 6 mg IV every 6 hours. She was taken off the BiPAP throughout the day yesterday. Later on the evening, general surgery evaluated the patient and they felt that the abdomen was distended and a flat film of the abdomen was done and following that the patient was placed in an NG tube. On my examination, the abdomen is soft and nondistended. Edge output is minimal at this point in time. As of 4 AM, the patient was placed back on a BiPAP and currently she is on a pressure of 12/6 cm of water with FiO2 of 50%. She generating excellent tidal volume. Her pulse ox is in order of 97%. Her chest x-ray from today shows no major interval change. There is some small bibasilar infiltrates/atelectasis with small effusions. A repeat x-ray of the abdomen was also done that showed improvement in the small and large bowel distention without evidence of any significant elevation. The white cell cause of 10.3 with a hemoglobin 11.5 and a platelet count of 221. BUN is at 34 with a creatinine of 1.6 and his sodium levels of 132. The patient remains on a combination of Levaquin and clindamycin. The patient is on Decadron. The patient on bronchodilators. IV fluids are in the form of normal saline at the rate of 75 mL's an hour. Reevaluated today on 12/17/22, patient remains in the ICU, patient continues to show: Anything she swallows or take by mouth, hence I'm recommending a speech therapy evaluation and also recommending a modified barium swallow. I have a strong feeling that the patient is having episodes of aspiration, I reviewed her CT of the chest, she does have a large goiter, and I'm also concerned about the possibility of fistula from esophagus to trachea. Patient continues to have questionable ileus, remains on antibiotics in the form of Levaquin and clindamycin. She is on 6 L high flow nasal cannula, patient was a bit reluctant about a modified barium swallow but I was able to convince her to have one. WBC count is 11.8 hemoglobin is 10.9 electrodes are normal bicarb remains low at 17, BUN is 40 creatinine 1.56 chest x-ray continues to show cardiomegaly and small bilateral pleural effusions with left basilar opacity questioning atelectasis or pneumonia Patient was reevaluated today on 12/18/2022, remains in the ICU, being treated for presumptive aspiration pneumonia, her modified barium swallow showed intermittent aspiration to thin liquids. Patient is on 5 L nasal cannula does not seem to be in any distress. She is on proper antibiotics for presumptive aspiration. Doing fairly well overall, and I plan to transfer the patient out of the ICU to medical floor, as far as feedings, we'll follow the recommendations of the speech therapist. WBC count is 8.5 hemoglobin 10.7 electrodes are normal creatinine is improving down to 1.28 from 1.56 yesterday and 1.692 days ago Reevaluated today on 12/19/2022, patient remains in the ICU as an overflow. Patient is doing fairly well, complaining of back pain, remains on antibiotics for presumptive aspiration pneumonia, remains on aspiration precautions. Patient is doing fairly well, and I plan to transfer the patient was at bed is available. Renal profile is improving creatinine is down to 1.16, chest x-ray showed small tiny pleural effusions. Patient remains on Levaquin and clindamycin. Reevaluated today on 12/20/2022, patient remains in the ICU as an overflow. Patient continues to steadily improve, continues to have intermittent cough, this morning she seems to be relatively asymptomatic, able to swallow fine, does not seem to be choking on her food. Chest x-ray showed cardiomegaly and small bilateral pleural effusions. With blunting of the costophrenic angles. WT count is 8.4 hemoglobin 11.3 electrolytes are normal renal profile is normal Reevaluated today on , remains in the ICU, doing relatively well, she has mostly back pain, no active symptoms, she does have occasional cough, no wheezing, no fever no chills no hemoptysis and no chest pain. She does have significant back pain, continues to be on lidocaine patch. And his CVP medication. Labs today were basically unremarkable including CBC and basic metabolic profile as well as renal profile. The patient is seen today 12/22/2022 in follow-up on the regular medical floor. She is currently sitting up in bed. Awake and alert in no acute distress. She is currently maintaining O2 saturations in the 90s on 5 L high flow nasal cannula. She's been afebrile. Hemodynamically stable. No new labs today. She is continued on bronchodilators. Heparin for DVT prophylaxis. Medrol Dosepak. The patient is seen today 12/23/2022 in follow-up on the regular medical floor. She is awake and alert in no acute distress. She is having increasing shortness of breath cough and congestion. She is currently requiring 7 L high flow nasal cannula to maintain O2 saturations in the 90s. Chest x-ray shows persistent small to moderate right and small left pleural effusion with adjacent atelectasis. She is continued on DuoNeb inhalations, Medrol Dosepak, diuretics. Heparin for DVT prophylaxis. Objective - Vital Signs Vital signs: Vital Signs Temp 98.8 F 12/23/22 06:55 Pulse 84 12/23/22 09:34 Resp 18 12/23/22 08:40 BP 185/81 12/23/22 06:55 Pulse Ox 93 L 12/23/22 06:55 FiO2 40 12/19/22 17:00 Intake & Output 12/22/22 12/23/22 12/23/22 18:59 06:59 18:59 Output Total 1000 950 0 Balance -1000 -950 0 Output: Urine 1000 950 Stool 0 0 Other: Voiding Method Indwelling Catheter Indwelling Catheter Indwelling Catheter # Bowel Movements 1 - Exam GENERAL EXAM: Alert, frail 82-year-old female, on 7 L nasal cannula, comfortable in no apparent distress. HEAD: Normocephalic. EYES: Normal reaction of pupils, equal size. NOSE: Clear with pink turbinates. THROAT: No erythema or exudates. Positive thyromegaly NECK: No masses, no JVD. CHEST: No chest wall deformity. LUNGS: Equal air entry with crackles in the bilateral bases right greater than left. CVS: S1 and S2 normal with no audible murmur, regular rhythm. ABDOMEN: No hepatosplenomegaly, normal bowel sounds, no guarding or rigidity. SPINE: No scoliosis or deformity SKIN: No rashes CENTRAL NERVOUS SYSTEM: No focal deficits, tone is normal in all 4 extremities. EXTREMITIES: There is trace peripheral edema. No clubbing, no cyanosis. Peripheral pulses are intact. 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 Intermittent stridor, resolved. Recent laparoscopic paraesophageal hernia repair 12/12/2022 Acute kidney injury, improving. Chronic normocytic anemia Hypothyroidism Benign essential hypertension Dyslipidemia History of basal cell carcinoma of the skin Poor functional performance based on the above-mentioned multiple comorbidities Plan: The patient was seen and evaluated Chest x-ray, medications are reviewed Give Lasix 20 mg IVP times one Initiate oral Lasix 20 mg twice a day Titrate down the FiO2 as tolerated Encourage increased use of the incentive spirometer Follow-up labs in a.m. We will continue to follow I have personally seen and examined the patient, performed the documentation and the assessment and plan as written. Number of minutes spent on the visit: 10.
[2022-12-23] MEDS: HYDROmorphone 1 MG/ML 1 ML SYRINGE IVP PRN ×2 (12:38→20:15)
[2022-12-23] MEDS: hydrALAZINE HCL 20 MG/ML 1 ML VIAL IVP PRN (20:14)
[2022-12-23] MEDS: ATORVASTATIN 20 MG TAB PO SCH (20:14)
[2022-12-24] MEDS: HEPARIN SODIUM,PORCINE/PF 5,000 UNIT/0.5 ML SYRINGE SQ SCH ×3 (00:03→17:33)
[2022-12-24] MEDS: ACETAMINOPHEN TAB 325 MG TAB PO PRN (00:09)
[2022-12-24] MEDS: HYDROmorphone 1 MG/ML 1 ML SYRINGE IVP PRN ×4 (00:20→20:27)
[2022-12-24] MEDS: IPRATROPIUM-ALBUTEROL 3 ML NEB INHALATION PRN (01:44)
[2022-12-24] MEDS ORDERED: FUROSEMIDE 10 MG/ML 4 ML VIAL IV STA ×2 (02:27→08:33)
[2022-12-24] MEDS: ALPRAZolam 0.5 MG TAB PO PRN ×2 (03:12→20:12)
[2022-12-24 05:58] LABS: Basophils % (A) 0 %; Eosinophils % (A) 0 %; HCT 40.8 % (34.0-46.0); Lymphocytes # (A) 0.9 k/uL (1.0-4.8); Lymphocytes % (A) 4 %; MCH 30.4 pg (25.0-35.0); MCHC 31.8 g/dL (31.0-37.0); MCV 95.6 fL (80.0-100.0); Mean Platelet Volume 8.8; Monocytes # (A) 1.2 k/uL (0-1.0); Monocytes % (A) 5 %; Neutrophils # (A) 23.4 k/uL (1.3-7.7); Neutrophils % (A) 90 %; Platelet Count 200 k/uL (150-450); RBC 4.27 m/uL (3.80-5.40); RDW 14.4 % (11.5-15.5); WBC 26.1 k/uL (3.8-10.6)
[2022-12-24 06:21] LABS: ALT 13 U/L (4-34); AST 17 U/L (14-36); African American GFR (CKD) 40 (>60 ml/min/1.73 sqM); Albumin 3.2 g/dL (3.5-5.0); Albumin/Globulin Ratio 1.1; Alkaline Phosphatase 71 U/L (38-126); Anion Gap 11 mmol/L; Blood Urea Nitrogen 28 mg/dL (7-17); Calcium 8.9 mg/dL (8.4-10.2); Carbon Dioxide 28 mmol/L (22-30); Chloride 97 mmol/L (98-107); Glucose 136 mg/dL (74-99); Non-African American GFR(CKD) 35 (>60 ml/min/1.73 sqM); Potassium 4.1 mmol/L (3.5-5.1); Sodium 136 mmol/L (137-145); Total Bilirubin 0.9 mg/dL (0.2-1.3); Total Protein 6.2 g/dL (6.3-8.2)
[2022-12-24] MEDS: FERROUS SULFATE 325 MG TAB PO SCH (08:44)
[2022-12-24] MEDS: allopurinoL 300 MG TAB PO SCH (08:44)
[2022-12-24] MEDS: METOPROLOL SUCCINATE (ER) 50 MG TAB.ER.24H PO SCH ×2 (08:44→20:13)
[2022-12-24] MEDS: PANTOPRAZOLE 40 MG TABLET PO SCH (08:44)
[2022-12-24] MEDS: amLODIPine 10 MG TAB PO SCH (08:44)
[2022-12-24] MEDS: VALSARTAN 160 MG TAB PO SCH (08:49)
[2022-12-24] MEDS: SIMETHICONE 80 MG CHEWABLE PO SCH ×4 (08:49→20:13)
--- NOTE | 2022-12-24 08:50 | XR ---
EXAMINATION TYPE: XR chest 1V portable DATE OF EXAM: 12/24/2022 COMPARISON: 12/23/2022 INDICATION: Dyspnea pleural effusion TECHNIQUE: Single frontal view of the chest is obtained. FINDINGS: The heart size is enlarged. The pulmonary vasculature is normal. Small right pleural effusion is present. This appears diminished from comparison. Minimal residual le ft pleural effusion may be present. IMPRESSION: 1. Diminished size of bilateral pleural effusions. 2. Cardiomegaly
[2022-12-24] MEDS: LIDOCAINE 5% PATCH TOPICAL SCH (08:54)
[2022-12-24] MEDS: IPRATROPIUM-ALBUTEROL 3 ML NEB INHALATION SCH ×4 (09:22→18:58)
[2022-12-24] MEDS: methylPREDNISolone 4 MG TAB TAPER PO SCH (09:57)
--- NOTE | 2022-12-24 13:17 | P.PN ---
Subjective Progress Note Date: 12/24/22 Patient is saturating well on 4 L, mentation is good today Gen: awake, alert HEENT: normocephalic, atraumatic, good hearing acuity, moist mucous membranes Resp: good air exchange, breathing comfortably with no accessory muscle use CVS: good distal perfusion x 4, GI: soft, NTTP, ND : no SPT, no CVAT, meléndez catheter is present MSK: no pitting edema, no clubbing Neuro: non-focal, moving all extremities Psych: cooperative, euthymic mood Hospital course: Patient is a very pleasant 82-year-old female with a past medical history of CKD stage II, COPD, hypertension, hyperlipidemia, hypothyroidism, and CHF. Patient presented to the emergency department with a chief complaint of shortness of breath.patient underwent full evaluation in the emergency department. CBC unremarkable. Coagulation profile normal findings. D-dimer slightly elevated at 0.86 but normal with age adjustment. BMP revealing hyperchloremia with chloride of 110 and hypocarbia with bicarbonate 16 along with slightly elevated renal function and a BUN was 28, creatinine 1.31, and GFR of 38 with baseline creatinine of 1.5. Troponin less than 0.012. ProBNP 562. Pro-calcitonin 0.04. Influenza A, influenza B, RSV, and Covid PCR negative.Chest x-ray negative for acute cardiopulmonary process revealing large gas-filled hiatal hernia. Patient admitted under our services and consult was placed to general surgery. 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 Patient developed hypoxic respiratory failure and was transitioned to the ICU on BiPAP. Patient had evidence of large goiter as well as stridor on exam and was treated with racemic epinephrine, steroids. She also has significant issues with anxiety causing sensation of significant shortness of breath, required pushes of Ativan. Patient briefly had an NG tube replaced on 12/16 due to gastric distention and ileus, had not had a bowel movement since 12/11. Assessment and Plan of Care: Shortness of breath secondary to large paraesophageal hernia with intrathoracic stomach Acute Hypoxemic Respiratory Failure Elevated BNP Large Goiter Chronic kidney disease stage III Normocytic anemia COPD Hypothyroidism Hypertension Hyperlipidemia Plan: Patient is afebrile, 104/61, heart rate 89, 90% on 6 L nasal cannula White blood cell count is 26.1 Sodium is 136, bicarb is 28, BUN is 28, creatinine is 1.4 Chest x-ray today shows improvement of pleural effusions, clear parenchyma bilaterally, cardiomegaly Continue Medrol Dosepak Pain control with Dilaudid 1 mg every 4 hours when necessary Continue standing nebulizers every 6 hours Status post 40 mg of IV Lasix x 2 today Patient is full code Objective - Vital Signs Vital signs: Vital Signs Temp 98.2 F 12/24/22 11:27 Pulse 84 12/24/22 13:04 Resp 22 12/24/22 11:27 BP 104/61 12/24/22 11:27 Pulse Ox 90 L 12/24/22 11:27 FiO2 40 12/19/22 17:00 Intake & Output 12/23/22 12/24/22 12/24/22 18:59 06:59 18:59 Output Total 1700 500 0 Balance -1700 -500 0 Output: Urine 1700 500 Stool 0 0 Other: Voiding Method Indwelling Catheter Indwelling Catheter Indwelling Catheter - Labs CBC & Chem 7: 12/24/22 05:34 12/24/22 05:34 Labs: Abnormal Lab Results - Last 24 Hours (Table) 12/24/22 12/24/22 12/24/22 Range/Units 05:34 05:34 05:34 WBC 26.1 H (3.8-10.6) k/uL Neutrophils # 23.4 H (1.3-7.7) k/uL Lymphocytes # 0.9 L (1.0-4.8) k/uL Monocytes # 1.2 H (0-1.0) k/uL Sodium 136 L (137-145) mmol/L Chloride 97 L (98-107) mmol/L BUN 28 H (7-17) mg/dL Creatinine 1.40 H (0.52-1.04) mg/dL Glucose 136 H (74-99) mg/dL Total Protein 6.2 L (6.3-8.2) g/dL Albumin 3.2 L (3.5-5.0) g/dL Procalcitonin 0.41 H (0.02-0.09) ng/mL
--- NOTE | 2022-12-24 13:32 | P.PN ---
Subjective Progress Note Date: 12/24/22 I was consulted to evaluate the patient has the patient developed some shortness of breath and hypoxemia following her surgery. The patient is currently on 6 L of oxygen by nasal cannula. 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 The patient underwent laparoscopic repair of the paraesophageal hernia and she had a mesh placed. Surgery was done on 12/12/2022. The patient is a lifetime nonsmoker and she is not requiring any oxygen therapy. There was consideration of a pneumonia and based on the patient's multiple ALLERGIES, the patient was started on Levaquin as an empiric antibiotic coverage. The patient is still having some soreness and abdominal wall especially with coughing. Abdomen generally soft. She is passing flatness.. No altered mentation. No reported aspiration. Surgery was done under anesthesia. The patient provided incentive spirometer. The white cell count today's of 14.3 with a hemoglobin of 12.8 and a platelet count of 252. Blood gas this was done today showed a pH of 7.4 with a pCO2 of 35 and a pO2 of 60 and this was done on room air oxygen. BUN is at 12 with a creatinine of 1.05 and sodium levels of 131. The patient has lactic acid level of 1.9. Troponins are negative. ProBNP level is 3430. Chest x-ray shows atelectasis and a small effusion the right lung base. However, compared to admission, there is an increasing right perihilar and right basilar density which is most likely a combination of atelectasis/effusion. Pneumonia cannot be completely excluded. Left lung remained essentially clear. No pleurisy. No hemoptysis. No angina. No hemodynamic instability. On 12/15/2022, the patient is being seen in intensive care unit. Overnight, the patient became progressively more short of breath hypoxic. The patient got transferred to the intensive care unit and she was started on a BiPAP pressure of 12/6 cm of water with an FiO2 of 50%. Her current generator tidal volume of 650 with a respiratory rate of 28 and a minute ventilation of 18.3. She is tolerating the BiPAP without any major difficulties. A follow-up chest x-ray was done this morning and the chest x-ray showed stable left lower lobe atelectasis with tiny effusion. The gastric is in the stomach and is quite. Nevertheless, the patient denies having any nausea abdominal pain. No emesis. Blood work from today shows a white cell count of 14.6 with a hemoglobin of 12 and a platelet count of 234. Blood. While in the BiPAP showed pH 7.38 with a pCO2 of 37 and pO2 of 136 sodium is at 129, BUN is at 20 with a creatinine of 5 with a level of 4.8. CAT scan of the chest and abdomen and pelvis was done yesterday and the patient should to have a goiter measuring 5.6 cm in size in largest dimension causing some shift in the trachea without clear evidence of any anatomic obstruction. The goiter is extending to the substernal area. At the same time, there is atelectatic change pleural effusion the lung bases bilaterally. The stomach is dilated and had think that there is also esophageal dilation and there is a note made of a relapse in the transverse duodenum, and the patient may have potentially a gastric ileus he had she is hemodynamically stable. She is on IV fluids which is currently running at the rate of 20 mL an hour of normal saline. She is covered with a combination of Levaquin and clindamycin. I took her off the BiPAP this morning and placed on oxygen at 5 L nasal cannula and a multivitamin the patient continues 92-93%. She is awake, weak, somewhat lethargic. On 12/16/2022, the patient remains in intensive care unit. She continues to have episodes of shortness of breath. Note that yesterday, I was suspicious about the stridor and I started the patient on Decadron. The patient was also given less racemic epinephrine. She is currently on bronchodilators and combination with Decadron 6 mg IV every 6 hours. She was taken off the BiPAP throughout the day yesterday. Later on the evening, general surgery evaluated the patient and they felt that the abdomen was distended and a flat film of the abdomen was done and following that the patient was placed in an NG tube. On my examination, the abdomen is soft and nondistended. Edge output is minimal at this point in time. As of 4 AM, the patient was placed back on a BiPAP and currently she is on a pressure of 12/6 cm of water with FiO2 of 50%. She generating excellent tidal volume. Her pulse ox is in order of 97%. Her chest x-ray from today shows no major interval change. There is some small bibasilar infiltrates/atelectasis with small effusions. A repeat x-ray of the abdomen was also done that showed improvement in the small and large bowel distention without evidence of any significant elevation. The white cell cause of 10.3 with a hemoglobin 11.5 and a platelet count of 221. BUN is at 34 with a creatinine of 1.6 and his sodium levels of 132. The patient remains on a combination of Levaquin and clindamycin. The patient is on Decadron. The patient on bronchodilators. IV fluids are in the form of normal saline at the rate of 75 mL's an hour. Reevaluated today on 12/17/22, patient remains in the ICU, patient continues to show: Anything she swallows or take by mouth, hence I'm recommending a speech therapy evaluation and also recommending a modified barium swallow. I have a strong feeling that the patient is having episodes of aspiration, I reviewed her CT of the chest, she does have a large goiter, and I'm also concerned about the possibility of fistula from esophagus to trachea. Patient continues to have questionable ileus, remains on antibiotics in the form of Levaquin and clindamycin. She is on 6 L high flow nasal cannula, patient was a bit reluctant about a modified barium swallow but I was able to convince her to have one. WBC count is 11.8 hemoglobin is 10.9 electrodes are normal bicarb remains low at 17, BUN is 40 creatinine 1.56 chest x-ray continues to show cardiomegaly and small bilateral pleural effusions with left basilar opacity questioning atelectasis or pneumonia Patient was reevaluated today on 12/18/2022, remains in the ICU, being treated for presumptive aspiration pneumonia, her modified barium swallow showed intermittent aspiration to thin liquids. Patient is on 5 L nasal cannula does not seem to be in any distress. She is on proper antibiotics for presumptive aspiration. Doing fairly well overall, and I plan to transfer the patient out of the ICU to medical floor, as far as feedings, we'll follow the recommendations of the speech therapist. WBC count is 8.5 hemoglobin 10.7 electrodes are normal creatinine is improving down to 1.28 from 1.56 yesterday and 1.692 days ago Reevaluated today on 12/19/2022, patient remains in the ICU as an overflow. Patient is doing fairly well, complaining of back pain, remains on antibiotics for presumptive aspiration pneumonia, remains on aspiration precautions. Patient is doing fairly well, and I plan to transfer the patient was at bed is available. Renal profile is improving creatinine is down to 1.16, chest x-ray showed small tiny pleural effusions. Patient remains on Levaquin and clindamycin. Reevaluated today on 12/20/2022, patient remains in the ICU as an overflow. Patient continues to steadily improve, continues to have intermittent cough, this morning she seems to be relatively asymptomatic, able to swallow fine, does not seem to be choking on her food. Chest x-ray showed cardiomegaly and small bilateral pleural effusions. With blunting of the costophrenic angles. WT count is 8.4 hemoglobin 11.3 electrolytes are normal renal profile is normal Reevaluated today on , remains in the ICU, doing relatively well, she has mostly back pain, no active symptoms, she does have occasional cough, no wheezing, no fever no chills no hemoptysis and no chest pain. She does have significant back pain, continues to be on lidocaine patch. And his CVP medication. Labs today were basically unremarkable including CBC and basic metabolic profile as well as renal profile. The patient is seen today 12/22/2022 in follow-up on the regular medical floor. She is currently sitting up in bed. Awake and alert in no acute distress. She is currently maintaining O2 saturations in the 90s on 5 L high flow nasal cannula. She's been afebrile. Hemodynamically stable. No new labs today. She is continued on bronchodilators. Heparin for DVT prophylaxis. Medrol Dosepak. The patient is seen today 12/23/2022 in follow-up on the regular medical floor. She is awake and alert in no acute distress. She is having increasing shortness of breath cough and congestion. She is currently requiring 7 L high flow nasal cannula to maintain O2 saturations in the 90s. Chest x-ray shows persistent small to moderate right and small left pleural effusion with adjacent atelectasis. She is continued on DuoNeb inhalations, Medrol Dosepak, diuretics. Heparin for DVT prophylaxis. The patient is seen today 12/24/2022 in follow-up on the regular medical floor. She is sitting up in bed. Awake and alert in no acute distress. She has been slow to progress. She continues with some cough and congestion. She'll requiring 6 L high flow nasal cannula to maintain O2 saturations at 90-94%. Afebrile. Hemodynamically stable. All of chest x-ray reveals diminished size of bilateral pleural effusions. Cardiomegaly. White count 26.1. Hemoglobin 13.0. Sodium 136. Potassium 4.1. Bicarb 28. BUN 28. Creatinine 1.40. Glucose 136. Pro-calcitonin 0.41. ProBNP 3630. She was given additional IV diuretics. Currently in a -2.2 L balance. Objective - Vital Signs Vital signs: Vital Signs Temp 98.2 F 12/24/22 11:27 Pulse 88 12/24/22 13:14 Resp 22 12/24/22 11:27 BP 104/61 12/24/22 11:27 Pulse Ox 90 L 12/24/22 11:27 FiO2 40 12/19/22 17:00 Intake & Output 12/23/22 12/24/22 12/24/22 18:59 06:59 18:59 Output Total 1700 500 0 Balance -1700 -500 0 Output: Urine 1700 500 Stool 0 0 Other: Voiding Method Indwelling Catheter Indwelling Catheter Indwelling Catheter - Exam GENERAL EXAM: Alert, oriented, frail 82-year-old female, on 6 L nasal cannula, comfortable in no apparent distress. HEAD: Normocephalic. EYES: Normal reaction of pupils, equal size. NOSE: Clear with pink turbinates. THROAT: No erythema or exudates. Positive thyromegaly NECK: No masses, no JVD. CHEST: No chest wall deformity. LUNGS: Equal air entry with crackles in the bilateral bases right greater than left. CVS: S1 and S2 normal with no audible murmur, regular rhythm. ABDOMEN: No hepatosplenomegaly, normal bowel sounds, no guarding or rigidity. SPINE: No scoliosis or deformity SKIN: No rashes CENTRAL NERVOUS SYSTEM: No focal deficits, tone is normal in all 4 extremities. EXTREMITIES: There is trace peripheral edema. No clubbing, no cyanosis. Per ipheral pulses are intact. - Labs CBC & Chem 7: 12/24/22 05:34 12/24/22 05:34 Labs: Abnormal Lab Results - Last 24 Hours (Table) 12/24/22 12/24/22 12/24/22 Range/Units 05:34 05:34 05:34 WBC 26.1 H (3.8-10.6) k/uL Neutrophils # 23.4 H (1.3-7.7) k/uL Lymphocytes # 0.9 L (1.0-4.8) k/uL Monocytes # 1.2 H (0-1.0) k/uL Sodium 136 L (137-145) mmol/L Chloride 97 L (98-107) mmol/L BUN 28 H (7-17) mg/dL Creatinine 1.40 H (0.52-1.04) mg/dL Glucose 136 H (74-99) mg/dL Total Protein 6.2 L (6.3-8.2) g/dL Albumin 3.2 L (3.5-5.0) g/dL Procalcitonin 0.41 H (0.02-0.09) ng/mL Assessment and Plan Assessment: Acute hypoxic respiratory failure, secondary to aspiration pneumonia, completed antibiotics Acute exacerbation of diastolic congestive heart failure, receiving diuretics 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 Recent laparoscopic paraesophageal hernia repair 12/12/2022 Acute kidney injury Chronic normocytic anemia Hypothyroidism Benign essential hypertension Dyslipidemia History of basal cell carcinoma of the skin Poor functional performance based on the above-mentioned multiple comorbidities Plan: The patient was seen and evaluated Chest x-ray, labs and medications are reviewed Give Lasix 40 mg IVP times one Titrate down the FiO2 as tolerated Encourage increased use of the incentive spirometer Increase her activity as tolerated We will continue to follow I have personally seen and examined the patient, performed the documentation and the assessment and plan as written. Number of minutes spent on the visit: 10.
[2022-12-24 17:39] LABS: ABG Base Excess 3.8 mmol/L; ABG HCO3 27 mmol/L (21-25); ABG Oxygen Saturation 89.1 % (94-97); ABG PCO2 35 mmHg (35-45); ABG TCO2 28 mmol/L (19-24); Allen Test Performed? Yes
[2022-12-24 17:51] LABS: ABG PO2 51 mmHg (83-108)
[2022-12-24] MEDS ORDERED: diphenhydrAMINE 50 MG/ML 1 ML VIAL IVP STA (17:54)
[2022-12-24] MEDS ORDERED: FAMOTIDINE 20 MG/2 ML VIAL IV STA (17:54)
[2022-12-24] MEDS ORDERED: methylPREDNISolone SOD SUCCI 125 MG/2 ML VIAL IV STA (17:54)
[2022-12-24] MEDS: SODIUM CHLORIDE 0.9% 250 ML IV SCH (19:04)
--- NOTE | 2022-12-24 20:00 | US ---
EXAMINATION TYPE: US venous doppler duplex LE BI DATE OF EXAM: 12/24/2022 7:21 PM COMPARISON: NONE CLINICAL INDICATION: Female, 82 years old with history of DVT; Difficulty breathing and left knee harlan n. No hx of DVT. Not on blood thinners SIDE PERFORMED: Bilateral TECHNIQUE: The lower extremity deep venous system is examined utilizing real time linear array sonog magali with graded compression, doppler sonography and color-flow sonography. VESSELS IMAGED: Common Femoral Vein Deep Femoral Vein Greater Saphenous Vein * Femoral Vein Popliteal Vein Small Saphenous Vein * Proximal Calf Veins (* superficial vessels) Right Leg: No evidence for DVT Left Leg: No evidence for DVT IMPRESSION: Grayscale, color doppler, spectral doppler imaging performed of the deep veins of the lo wer extremities. There is normal flow, compressibility, vascular waveforms.
[2022-12-24] MEDS: ATORVASTATIN 20 MG TAB PO SCH (20:13)
[2022-12-25] MEDS: HEPARIN SODIUM,PORCINE/PF 5,000 UNIT/0.5 ML SYRINGE SQ SCH ×3 (00:42→17:15)
[2022-12-25] MEDS: LEVOTHYROXINE 50 MCG TAB PO SCH (04:55)
[2022-12-25] MEDS: HYDROmorphone 1 MG/ML 1 ML SYRINGE IVP PRN ×3 (04:55→14:23)
[2022-12-25] MEDS: BENZOCAINE/MENTHOL LOZENG 1 EACH LOZENGE MUCOUS MEM PRN (06:55)
[2022-12-25] MEDS ORDERED: BUDESONIDE 1 MG/2 ML NEBU INHALATION SCH (08:00)
[2022-12-25] MEDS ORDERED: FORMOTEROL FUMARATE 20 MCG/2 ML NEBU INHALATION SCH (08:00)
[2022-12-25] MEDS: IPRATROPIUM-ALBUTEROL 3 ML NEB INHALATION SCH ×3 (08:04→17:08)
[2022-12-25] MEDS: LIDOCAINE 5% PATCH TOPICAL SCH (08:35)
[2022-12-25] MEDS: METOPROLOL SUCCINATE (ER) 50 MG TAB.ER.24H PO SCH (08:36)
[2022-12-25] MEDS: SIMETHICONE 80 MG CHEWABLE PO SCH ×3 (08:36→18:39)
[2022-12-25] MEDS: FERROUS SULFATE 325 MG TAB PO SCH (08:36)
[2022-12-25] MEDS: amLODIPine 10 MG TAB PO SCH (08:36)
[2022-12-25] MEDS: PANTOPRAZOLE 40 MG TABLET PO SCH (08:37)
[2022-12-25] MEDS: VALSARTAN 160 MG TAB PO SCH (08:37)
[2022-12-25] MEDS: allopurinoL 300 MG TAB PO SCH (08:40)
[2022-12-25] MEDS ORDERED: DOXYCYCLINE 100 MG CAP PO SCH (09:00)
[2022-12-25 10:38] LABS: Glucose,Whole Blood 127 mg/dL (70-110)
--- NOTE | 2022-12-25 11:05 | P.PN ---
Subjective Progress Note Date: 12/25/22 I was consulted to evaluate the patient has the patient developed some shortness of breath and hypoxemia following her surgery. The patient is currently on 6 L of oxygen by nasal cannula. 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 The patient underwent laparoscopic repair of the paraesophageal hernia and she had a mesh placed. Surgery was done on 12/12/2022. The patient is a lifetime nonsmoker and she is not requiring any oxygen therapy. There was consideration of a pneumonia and based on the patient's multiple ALLERGIES, the patient was started on Levaquin as an empiric antibiotic coverage. The patient is still having some soreness and abdominal wall especially with coughing. Abdomen generally soft. She is passing flatness.. No altered mentation. No reported aspiration. Surgery was done under anesthesia. The patient provided incentive spirometer. The white cell count today's of 14.3 with a hemoglobin of 12.8 and a platelet count of 252. Blood gas this was done today showed a pH of 7.4 with a pCO2 of 35 and a pO2 of 60 and this was done on room air oxygen. BUN is at 12 with a creatinine of 1.05 and sodium levels of 131. The patient has lactic acid level of 1.9. Troponins are negative. ProBNP level is 3430. Chest x-ray shows atelectasis and a small effusion the right lung base. However, compared to admission, there is an increasing right perihilar and right basilar density which is most likely a combination of atelectasis/effusion. Pneumonia cannot be completely excluded. Left lung remained essentially clear. No pleurisy. No hemoptysis. No angina. No hemodynamic instability. On 12/15/2022, the patient is being seen in intensive care unit. Overnight, the patient became progressively more short of breath hypoxic. The patient got transferred to the intensive care unit and she was started on a BiPAP pressure of 12/6 cm of water with an FiO2 of 50%. Her current generator tidal volume of 650 with a respiratory rate of 28 and a minute ventilation of 18.3. She is tolerating the BiPAP without any major difficulties. A follow-up chest x-ray was done this morning and the chest x-ray showed stable left lower lobe atelectasis with tiny effusion. The gastric is in the stomach and is quite. Nevertheless, the patient denies having any nausea abdominal pain. No emesis. Blood work from today shows a white cell count of 14.6 with a hemoglobin of 12 and a platelet count of 234. Blood. While in the BiPAP showed pH 7.38 with a pCO2 of 37 and pO2 of 136 sodium is at 129, BUN is at 20 with a creatinine of 5 with a level of 4.8. CAT scan of the chest and abdomen and pelvis was done yesterday and the patient should to have a goiter measuring 5.6 cm in size in largest dimension causing some shift in the trachea without clear evidence of any anatomic obstruction. The goiter is extending to the substernal area. At the same time, there is atelectatic change pleural effusion the lung bases bilaterally. The stomach is dilated and had think that there is also esophageal dilation and there is a note made of a relapse in the transverse duodenum, and the patient may have potentially a gastric ileus he had she is hemodynamically stable. She is on IV fluids which is currently running at the rate of 20 mL an hour of normal saline. She is covered with a combination of Levaquin and clindamycin. I took her off the BiPAP this morning and placed on oxygen at 5 L nasal cannula and a multivitamin the patient continues 92-93%. She is awake, weak, somewhat lethargic. On 12/16/2022, the patient remains in intensive care unit. She continues to have episodes of shortness of breath. Note that yesterday, I was suspicious about the stridor and I started the patient on Decadron. The patient was also given less racemic epinephrine. She is currently on bronchodilators and combination with Decadron 6 mg IV every 6 hours. She was taken off the BiPAP throughout the day yesterday. Later on the evening, general surgery evaluated the patient and they felt that the abdomen was distended and a flat film of the abdomen was done and following that the patient was placed in an NG tube. On my examination, the abdomen is soft and nondistended. Edge output is minimal at this point in time. As of 4 AM, the patient was placed back on a BiPAP and currently she is on a pressure of 12/6 cm of water with FiO2 of 50%. She generating excellent tidal volume. Her pulse ox is in order of 97%. Her chest x-ray from today shows no major interval change. There is some small bibasilar infiltrates/atelectasis with small effusions. A repeat x-ray of the abdomen was also done that showed improvement in the small and large bowel distention without evidence of any significant elevation. The white cell cause of 10.3 with a hemoglobin 11.5 and a platelet count of 221. BUN is at 34 with a creatinine of 1.6 and his sodium levels of 132. The patient remains on a combination of Levaquin and clindamycin. The patient is on Decadron. The patient on bronchodilators. IV fluids are in the form of normal saline at the rate of 75 mL's an hour. Reevaluated today on 12/17/22, patient remains in the ICU, patient continues to show: Anything she swallows or take by mouth, hence I'm recommending a speech therapy evaluation and also recommending a modified barium swallow. I have a strong feeling that the patient is having episodes of aspiration, I reviewed her CT of the chest, she does have a large goiter, and I'm also concerned about the possibility of fistula from esophagus to trachea. Patient continues to have questionable ileus, remains on antibiotics in the form of Levaquin and clindamycin. She is on 6 L high flow nasal cannula, patient was a bit reluctant about a modified barium swallow but I was able to convince her to have one. WBC count is 11.8 hemoglobin is 10.9 electrodes are normal bicarb remains low at 17, BUN is 40 creatinine 1.56 chest x-ray continues to show cardiomegaly and small bilateral pleural effusions with left basilar opacity questioning atelectasis or pneumonia Patient was reevaluated today on 12/18/2022, remains in the ICU, being treated for presumptive aspiration pneumonia, her modified barium swallow showed intermittent aspiration to thin liquids. Patient is on 5 L nasal cannula does not seem to be in any distress. She is on proper antibiotics for presumptive aspiration. Doing fairly well overall, and I plan to transfer the patient out of the ICU to medical floor, as far as feedings, we'll follow the recommendations of the speech therapist. WBC count is 8.5 hemoglobin 10.7 electrodes are normal creatinine is improving down to 1.28 from 1.56 yesterday and 1.692 days ago Reevaluated today on 12/19/2022, patient remains in the ICU as an overflow. Patient is doing fairly well, complaining of back pain, remains on antibiotics for presumptive aspiration pneumonia, remains on aspiration precautions. Patient is doing fairly well, and I plan to transfer the patient was at bed is available. Renal profile is improving creatinine is down to 1.16, chest x-ray showed small tiny pleural effusions. Patient remains on Levaquin and clindamycin. Reevaluated today on 12/20/2022, patient remains in the ICU as an overflow. Patient continues to steadily improve, continues to have intermittent cough, this morning she seems to be relatively asymptomatic, able to swallow fine, does not seem to be choking on her food. Chest x-ray showed cardiomegaly and small bilateral pleural effusions. With blunting of the costophrenic angles. WT count is 8.4 hemoglobin 11.3 electrolytes are normal renal profile is normal Reevaluated today on , remains in the ICU, doing relatively well, she has mostly back pain, no active symptoms, she does have occasional cough, no wheezing, no fever no chills no hemoptysis and no chest pain. She does have significant back pain, continues to be on lidocaine patch. And his CVP medication. Labs today were basically unremarkable including CBC and basic metabolic profile as well as renal profile. The patient is seen today 12/22/2022 in follow-up on the regular medical floor. She is currently sitting up in bed. Awake and alert in no acute distress. She is currently maintaining O2 saturations in the 90s on 5 L high flow nasal cannula. She's been afebrile. Hemodynamically stable. No new labs today. She is continued on bronchodilators. Heparin for DVT prophylaxis. Medrol Dosepak. The patient is seen today 12/23/2022 in follow-up on the regular medical floor. She is awake and alert in no acute distress. She is having increasing shortness of breath cough and congestion. She is currently requiring 7 L high flow nasal cannula to maintain O2 saturations in the 90s. Chest x-ray shows persistent small to moderate right and small left pleural effusion with adjacent atelectasis. She is continued on DuoNeb inhalations, Medrol Dosepak, diuretics. Heparin for DVT prophylaxis. The patient is seen today 12/24/2022 in follow-up on the regular medical floor. She is sitting up in bed. Awake and alert in no acute distress. She has been slow to progress. She continues with some cough and congestion. She'll requiring 6 L high flow nasal cannula to maintain O2 saturations at 90-94%. Afebrile. Hemodynamically stable. All of chest x-ray reveals diminished size of bilateral pleural effusions. Cardiomegaly. White count 26.1. Hemoglobin 13.0. Sodium 136. Potassium 4.1. Bicarb 28. BUN 28. Creatinine 1.40. Glucose 136. Pro-calcitonin 0.41. ProBNP 3630. She was given additional IV diuretics. Currently in a -2.2 L balance. The patient is seen today 12/25/2022 in follow-up on the regular medical floor. She is resting in bed. Awake and alert. She continues with a loose n onproductive cough. Her cough is weak. She is declining the use of the incentive spirometer. Not wanting to sit up in a chair. She is currently on AirVo high flow oxygen at 45 L and 70% FiO2. Doppler of the lower extremities were negative for DVT. Arterial blood gases revealed a pO2 of 51, pCO2 of 35 and a pH is 7.5. The patient was apparently declining to have a CAT scan due to concerns regarding her kidney function. She is on DuoNeb inhalations. We will add Pulmicort and Perforomist inhalations, IV Solu-Medrol, empiric antibiotics in the form of doxycycline. Add flutter valve. She is encouraged regarding the importance of medication compliance and attempting to sit up and clear her secretions. Objective - Vital Signs Vital signs: Vital Signs Temp 98.4 F 12/25/22 08:14 Pulse 95 12/25/22 09:21 Resp 18 12/25/22 09:21 BP 126/76 12/25/22 09:21 Pulse Ox 93 L 12/25/22 09:21 FiO2 70 12/25/22 09:21 Intake & Output 12/24/22 12/25/22 12/25/22 18:59 06:59 18:59 Intake Total 150 Output Total 200 475 Balance -200 -325 Intake: Oral 150 Output: Urine 200 475 Stool 0 0 Other: Voiding Method Indwelling Catheter Indwelling Catheter Indwelling Catheter - Exam GENERAL EXAM: Alert, frail 82-year-old female, on Arava I flexion 45 L 70% FiO2, in mild respiratory distress. HEAD: Normocephalic. EYES: Normal reaction of pupils, equal size. NOSE: Clear with pink turbinates. THROAT: No erythema or exudates. Positive thyromegaly NECK: No masses, no JVD. CHEST: No chest wall deformity. LUNGS: Equal air entry with crackles in the bilateral bases right greater than left. CVS: S1 and S2 normal with no audible murmur, regular rhythm. ABDOMEN: No hepatosplenomegaly, normal bowel sounds, no guarding or rigidity. SPINE: No scoliosis or deformity SKIN: No rashes CENTRAL NERVOUS SYSTEM: No focal deficits, tone is normal in all 4 extremities. EXTREMITIES: There is trace peripheral edema. No clubbing, no cyanosis. Peripheral pulses are intact. 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 Recent laparoscopic paraesophageal hernia repair 12/12/2022 Acute kidney injury Chronic normocytic anemia Hypothyroidism Benign essential hypertension Dyslipidemia History of basal cell carcinoma of the skin Poor functional performance based on the above-mentioned multiple comorbidities Plan: The patient was seen and evaluated ABGs and medications are reviewed Continue with AirVo high flow oxygen Encourage increased use of the incentive spirometer Add a flutter valve Add Pulmicort and Perforomist inhalations Add IV Solu-Medrol Add doxycycline CODE STATUS to be addressed Prognosis is guarded We will continue to follow I have personally seen and examined the patient, performed the documentation and the assessment and plan as written. Number of minutes spent on the visit: 10.
[2022-12-25 11:10] LABS: Glucose,Whole Blood 127 mg/dL (70-110)
[2022-12-25 11:44] LABS: ABG Base Excess 1.7 mmol/L; ABG HCO3 26 mmol/L (21-25); ABG Oxygen Saturation 90.4 % (94-97); ABG PCO2 41 mmHg (35-45); ABG PH 7.41 (7.35-7.45); ABG TCO2 28 mmol/L (19-24); Allen Test Performed? Yes
[2022-12-25 11:47] LABS: ABG PO2 57 mmHg (83-108)
[2022-12-25] MEDS: methylPREDNISolone SOD SUCCI 40 MG/ML 1 ML VIAL IV SCH ×2 (11:56→17:34)
--- NOTE | 2022-12-25 11:58 | CT ---
EXAMINATION TYPE: CT angio chest DATE OF EXAM: 12/25/2022 COMPARISON: 12/14/2022 HISTORY: 82-year-old female hypoxemia, rule out PE, parenchymal evaluation Chest pain, short of breat h TECHNIQUE: Contiguous axial scanning of the chest performed with IV Contrast, patient injected with 8 0 mL of Isovue 300. Coronal/sagittal MIP reconstructions performed. CT DLP: 362.8 mGycm Automated exposure control for dose reduction was used. FINDINGS: The heart is borderline enlarged without pericardial effusion. No reflux of contrast into the hepatic veins. Scattered coronary artery calcifications are present. Aorta normal caliber with mild atherosclerotic arch calcifications and bovine configuration to the ao rtic arch. Marked goitrous enlargement partially visualized. Thyroid gland measures over 10 cm cranio caudal. There is mild flattening of the trachea possibly in part due to the mass effect from the enlarged thy roid and possibly from some tracheomalacia. Scattered nonenlarged mediastinal lymph nodes are noted. Satisfactory opacification of the pulmonary arterial system. Breathing motion artifact. Breathing mot ion limits segmental and more distal arterial branches in the upper lobes. No large central or defini te lobar branch pulmonary embolus. There is abnormal dilatation and air distention of the esophagus. Layering fluid and mottled debris i n the distal aspect of the esophagus. Unusual right lateral extension of mottled debris at and just a lindsay the GE junction. Small focus of air within the adjacent moderate-sized right pleural effusion, a xial image 82. Surgical material at the GE junction with a soft tissue thickening, axial image 107. Annual small left pleural effusion now present. There is cut off of the bronchus intermedius, likely fluid opacification and collapse of both right m iddle and right lower lobes. Some fluid also present within left lower lobe bronchi. There is collapse of some of the basilar segm ents of the left lower lobe. Bones: Accentuated mid to lower thoracic kyphosis. IMPRESSION: 1. REDEMONSTRATED ABNORMAL DILATATION OF THE ESOPHAGUS WITH DISTAL RETAINED FLUID AND MOTTLED DEBRIS. THERE IS SOME TYPE OF POSTSURGICAL CHANGE WITH POOR DELINEATION OF ANATOMY AT THE GE JUNCTION. IN AD DITION, THERE IS ABNORMAL EXTENSION OF FLUID AND MOTTLED DEBRIS RIGHT LATERALLY JUST ABOVE THE GE UMBERTO CTION AND A SMALL FOCUS OF AIR IN THE ADJACENT PLEURAL EFFUSION. FURTHER CLINICAL CORRELATION RECOMME NDED FOR ESOPHAGEAL PERFORATION AND SPILLAGE INTO THE PLEURAL SPACE. ENLARGING [id number] RIGH T PLEURAL EFFUSION AND SMALL LEFT PLEURAL EFFUSION. UNDERLYING NEOPLASM SHOULD BE EXCLUDED. 2. Findings suggest aspiration with fluid filling the bronchus intermedius and right middle lobe/righ t lower lobe bronchi and also fluid within various left lower lobe bronchi. 3. Right middle lobe and right lower lobe collapse/consolidation. Partial basilar segmental left lowe r lobe collapse. 4. Breathing motion artifact. Many of the segmental and more distal arterial branches are nondiagnost ic. No large central or definite lobar branch pulmonary embolus. 5. Large goiter. There may be some underlying tracheomalacia but the large goiter may also contribute to some flattening/narrowing of the trachea.
--- NOTE | 2022-12-25 12:27 | US ---
EXAMINATION TYPE: US chest DATE OF EXAM: 12/25/2022 COMPARISON: CHEST CT 12/25/2022 CLINICAL INDICATION: Female, 82 years old with history of Right pleural effusion; TECHNIQUE: Targeted ultrasound of the posterior lower right hemithorax EXAM MEASUREMENTS: Right Pleural Effusion pocket size: 9.7 cm Right skin surface to fluid distance: 2.1 cm Lung seen at 4.4 cm. Right side marked for possible thoracentesis outside the dept. Pulmonologists are able to review the images in the patient?s EMR. IMPRESSIONS: Moderate size right pleural effusion.
[2022-12-25 13:09] VITALS: TEMP 99.4
--- NOTE | 2022-12-25 13:27 | P.PN ---
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 Patient has had worsening in her respiratory status. Initially she was being transferred from the [address] The respiratory status continued to decline and required transfer to the ICU. Pulmonary service is following the ordered a CTA of the chest. CTA results show redemonstrated abnormal dilatation of the esophagus with distal retain fluid and multiple debris. There is some type of postsurgical change with poor delineation of anatomy at the GE junction. In addition there is abnormal extension of fluid and multiple debris right laterally just above the GE junction and a small focus of air in the adjacent pleural effusion. Further clinical correlation recommended for esophageal perforation and spillage into the pleural space. Enlarging the small to moderate right pleural effusion and small left pleural effusion. Underlying neoplasm should be excluded. Findings chest aspiration with fluid filling in the bronchus intermedius and right middle lobe and right lower lobe bronchus and fluid with the various left lower lobe bronchi. Right middle lobe and right lower lobe collapse/consolidation. Large goiter. There may be some underlying tracheomalacia but the large goiter may also contribute to some flattening/narrowing of the trachea. Patient denies any abdominal pain. She was tolerating breakfast this morning. Afebrile. on AIRVO. WBC 26.1 Patient seen and examined with Dr. iverson PHYSICAL EXAM: VITAL SIGNS: Reviewed. GENERAL: Well-developed in no acute distress. ABDOMEN: Soft. Nondistended. Nontender. Incision sites clean dry and intact. NEUROLOGIC: Alert and oriented. Cranial nerves II through XII grossly intact. ASSESSMENT: 1. Fluid and multiple debris just above the GE junction and a small focus of air in the adjacent pleural effusion. Possibility of esophageal perforation and spillage into the pleural space noted on computed tomography scan of chest 2. Large paraesophageal hiatal hernia with intrathoracic stomach status post repair 3. Gastric ileus and distention decompressed with NG tube. NG tube has been removed 4. Possible aspiration pneumonia 5. Large Thyroid Goiter compressing on the trachea PLAN: -Recommend transfer to higher level care such as [facility] due to possibility of esophageal perforation and possible need of a cardiothoracic service evaluation -Agree with ICU transfer -Keep patient nothing by mouth -Continue supportive care -Continue antibiotics -DVT prophylaxis subcu heparin and GI prophylaxis Protonix Physician Dowel Pointer note has been reviewed by physician. Signing provider agrees with the documented findings, assessment, and plan of care. Objective - Vital Signs Vital signs: Vital Signs Temp 98.4 F 12/25/22 08:14 Pulse 95 12/25/22 09:21 Resp 18 12/25/22 09:21 BP 126/76 12/25/22 09:21 Pulse Ox 93 L 12/25/22 09:21 FiO2 70 12/25/22 09:21 Intake & Output 12/24/22 12/25/22 12/25/22 18:59 06:59 18:59 Intake Total 150 Output Total 200 475 Balance -200 -325 Intake: Oral 150 Output: Urine 200 475 Stool 0 0 Other: Voiding Method Indwelling Catheter Indwelling Catheter Indwelling Catheter - Labs CBC & Chem 7: 12/25/22 12:17 12/25/22 12:17 Labs: Abnormal Lab Results - Last 24 Hours (Table) 12/24/22 12/25/22 12/25/22 Range/Units 17:34 10:25 11:07 ABG pH 7.50 H (7.35-7.45) ABG pO2 51 L* (83-108) mmHg ABG HCO3 27 H (21-25) mmol/L ABG Total CO2 28 H (19-24) mmol/L ABG O2 Saturation 89.1 L (94-97) % POC Glucose (mg/dL) 127 H 127 H (70-110) mg/dL Assessment and Plan Plan: patient's CAT scan was reviewed. Patient more likely has a right lower lobe consolidated pneumonia. This was discussed with Dr. Anglin. Due to the patient 's worsening pulmonary status. I recommended transfer to a tertiary care center. The patient has had 2 esophagrams postoperative which showed no leak. The patient is unlikely to have a leak on the 14 postop. However she should be further evaluated and watch closely. I have discussed these findings with the patient's daughter Jayna.
[2022-12-25 13:45] LABS: Basophils % (A) 0 %; Eosinophils % (A) 0 %; HGB 12.9 gm/dL (11.4-16.0); Lymphocytes # (A) 0.7 k/uL (1.0-4.8); Lymphocytes % (A) 3 %; MCH 30.3 pg (25.0-35.0); MCHC 31.4 g/dL (31.0-37.0); MCV 96.7 fL (80.0-100.0); Monocytes # (A) 1.5 k/uL (0-1.0); Monocytes % (A) 7 %; Neutrophils # (A) 18.6 k/uL (1.3-7.7); Neutrophils % (A) 88 %; Platelet Count 218 k/uL (150-450); RBC 4.24 m/uL (3.80-5.40); RDW 14.2 % (11.5-15.5); WBC 21.2 k/uL (3.8-10.6)
[2022-12-25 13:46] LABS: African American GFR (CKD) 27 (>60 ml/min/1.73 sqM); Anion Gap 11 mmol/L; Blood Urea Nitrogen 46 mg/dL (7-17); Calcium 8.5 mg/dL (8.4-10.2); Carbon Dioxide 24 mmol/L (22-30); Chloride 97 mmol/L (98-107); Glucose 139 mg/dL (74-99); Magnesium 1.8 mg/dL (1.6-2.3); Non-African American GFR(CKD) 23 (>60 ml/min/1.73 sqM); Potassium 4.4 mmol/L (3.5-5.1); Sodium 132 mmol/L (137-145)
--- NOTE | 2022-12-25 14:35 | P.PN ---
Progress Note - Text Progress Note Date: 12/24/22 The patient is resting comfortably in her bed. She denies any significant abdominal pain. She has had some increased shortness of breath. She has had no dysphagia. She is tolerating her diet. On exam vital signs appear stable. Pulse is in the 80 range. Blood pressure is systolic of 110 range. Abdomen is soft. There is no significant tenderness.Abdomen is soft. There is no significant tenderness. White count is increased to 26,000. Patient is presumed to have right lower lobe pneumonia. She is also been on Medrol Dosepak which may raise her white blood cell count. Patient will continue to have supportive care. She will be watched closely.
[2022-12-25] MEDS ORDERED: propofoL 100 ML IV ONE (14:56)
[2022-12-25] MEDS ORDERED: VANCOMYCIN IV PER PHARMACY 1 EACH MISC MISCELLANE PRN (15:16)
[2022-12-25] MEDS ORDERED: SODIUM CHLORIDE 0.9% 1,000 ML IV SCH (15:30)
[2022-12-25] MEDS ORDERED: MIDAZOLAM 1 MG/ML 5 ML VIAL IV STA (15:43)
[2022-12-25] MEDS ORDERED: VANCOMYCIN 1,500 MG in SODIUM CHLORIDE 0.9% 500 ML 500 ML IVPB ONE (16:00)
[2022-12-25] MEDS ORDERED: metroNIDAZOLE-NS PMX 500 MG in SALINE 1 100ML.BAG IVPB SCH (16:00)
[2022-12-25] MEDS ORDERED: PIPERACILLIN-TAZOBACTAM 3.375 GM in SODIUM CHLORIDE 0.9% 100 ML IVPB SCH (16:00)
[2022-12-25] MEDS ORDERED: SODIUM CHLORIDE 0.9% 1,000 ML IV ONE ×2 (16:10→16:40)
[2022-12-25] MEDS ORDERED: NOREPINEPHRINE 4 MG in SODIUM CHLORIDE 0.9% 250 ML IV SCH (16:15)
--- NOTE | 2022-12-25 16:21 | P.PN ---
Progress Note - Text Progress Note Date: 12/25/22 (1500) Called emergently to see patient regarding airway distress at 1500 hrs. Upon examination with HEAD OF ACQUISITIONS at bedside audible stridor visible retractions with accessory muscles. Upon arrival in the patient for cc of 2% lidocaine and a nebulizer. Obtained fiberoptic bronchoscope. After some initial difficulty with the OR bronchoscope went to the disposable bronchoscope supplied by the ICU. After multiple attempts was able to place a 7.0 endotracheal tube at 23 cm with an awake fiberoptic intubation. After intubation propofol was given once color change was noted. Left in the ICU care
[2022-12-25 16:47] LABS: ABG Base Excess -2.2 mmol/L; ABG HCO3 24 mmol/L (21-25); ABG Oxygen Saturation 90.6 % (94-97); ABG PCO2 46 mmHg (35-45); ABG PH 7.32 (7.35-7.45); ABG PO2 64 mmHg (83-108); ABG TCO2 25 mmol/L (19-24)
[2022-12-25 16:51] LABS: Allen Test Performed? yes
[2022-12-25] MEDS ORDERED: AZTREONAM 1 GM in SODIUM CHLORIDE 0.9% 50 ML IVPB SCH (17:00)
--- NOTE | 2022-12-25 17:01 | XR ---
EXAMINATION TYPE: XR chest 1V portable DATE OF EXAM: 12/25/2022 4:48 PM COMPARISON: Chest radiographs from 12/25/2019 TECHNIQUE: XR chest 1V portable Frontal view of the chest. CLINICAL INDICATION:Female, 82 years old with history of Tube placement; FINDINGS: Lungs/Pleura: No evidence of focal consolidation or pneumothorax. Blunting of the costophrenic angles is present. Pulmonary vascularity: Unremarkable. Heart/mediastinum: Cardiomediastinal silhouette is unremarkable. Musculoskeletal: No acute osseous pathology. Endotracheal tube 2.4 cm above the rosa. IMPRESSION: 1. Endotracheal tube in appropriate position. 2. Bilateral pleural effusions, right greater than left.
--- NOTE | 2022-12-25 17:25 | P.DS ---
Providers Date of admission: 12/11/22 12:54 Expected date of discharge: 12/25/22 Attending physician: Daria Archuleta MD Consults: 12/07/22 09:40 Consult Physician Routine Consulting Provider: Carlo Murphy Consult Reason/Comments: large gas filled hiatal hernia Do you want consulting provider notified?: Yes 12/15/22 02:47 Consult Physician Stat Consulting Provider: Nimesh Rivers Consult Reason/Comments: ICU MANAGEMENT Do you want consulting provider notified?: Already Contacted 12/19/22 04:41 Consult Physician Routine Consulting Provider: Miguel Calvo Consult Reason/Comments: urinary retention; possible cystocele Do you want consulting provider notified?: Yes, Notify in am Primary care physician: Grover Escalante Hospital Course: Assessment: Shortness of breath secondary to large paraesophageal hernia with intrathoracic stomach Acute Hypoxemic Respiratory Failure Elevated BNP Large Goiter Chronic kidney disease stage III Normocytic anemia COPD Hypothyroidism Hypertension Hyperlipidemia Hospital course: Patient is a very pleasant 82-year-old female with a past medical history of CKD stage II, COPD, hypertension, hyperlipidemia, hypothyroidism, and CHF. Patient presented to the emergency department with a chief complaint of shortness of breath.patient underwent full evaluation in the emergency department. CBC unremarkable. Coagulation profile normal findings. D-dimer slightly elevated at 0.86 but normal with age adjustment. BMP revealing hyperchloremia with chloride of 110 and hypocarbia with bicarbonate 16 along with slightly elevated renal function and a BUN was 28, creatinine 1.31, and GFR of 38 with baseline creatinine of 1.5. Troponin less than 0.012. ProBNP 562. Pro-calcitonin 0.04. Influenza A, influenza B, RSV, and Covid PCR negative.Chest x-ray negative for acute cardiopulmonary process revealing large gas-filled hiatal hernia. Patient admitted under our services and consult was placed to general surgery. 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 Patient developed hypoxic respiratory failure and was transitioned to the ICU on BiPAP. Patient had evidence of large goiter as well as stridor on exam and was treated with racemic epinephrine, steroids. She also has significant issues with anxiety causing sensation of significant shortness of breath, required pushes of Ativan. Patient briefly had an NG tube replaced on 12/16 due to gastric distention and ileus, had not had a bowel movement since 12/11. Patient shortness of breath did improve after NG tube was placed. She was weaned back down to nasal cannula and transferred back to the floor from the ICU. Unfortunately, she had a repeat episode of significant respiratory distress, hypoxia on 12/24, had an ABG done which showed hypoxemia with a pO2 of 51. CT of the chest with angiography was recommended, however, the patient declined due to fear of iodine contrast causing damage her kidneys. She was counseled again about requirement for the computed tomography scan on 12/25 after having worsening hypoxia, respiratory distress, increased oxygen needs. She agreed to do CT angiography and was transferred to the ICU. The scan demonstrated suspicion for esophageal perforation with loculated right- sided pleural effusion, dilated esophagus with compression of the trachea, re demonstrated large goiter. This case was discussed with watch assembler as well as the general surgeon who did the index procedure, and decision was made that patient should be referred to tertiary care for further management. [facility] was contacted and I spoke with Dr. Pena in the surgical intensive care unit, who accepted this patient is a transfer. Patient was started on broad-spectrum antibiotics with vancomycin, aztreonam, Flagyl, as well as IV fluids. She continued to have a declining respiratory status and had to be emergently intubated by anesthesia which was a challenging intubation due to her anatomy with large goiter, thin trachea, as well as swollen epiglottis and arytenoids. After the procedure, she became hypotensive and required pushes of phenylephrine as well as initiation of Levophed drip. I spent 60 minutes of critical care time with this patient prior to her transfer to [facility] including the decision to escalate her care to intensive care, order CT angiography, start vasopressors, start IV fluids, and start antibiotics. General: intubated, sedated HEENT: normocephalic, atraumatic, no tracheal deviation Respiratory: symmetric chest rise, no cyanosis, ventilator dependent CVS: perfusing all extremities, no distal gangrene, not pitting edema GI: soft, ND : no SPT, no CVAT, meléndez is present Neuro: sedated Patient Condition at Discharge: Good Plan - Discharge Summary New Discharge Prescriptions: No Action Ferrous Sulfate [Feosol] 325 mg PO DAILY Simvastatin [Zocor] 40 mg PO HS allopurinoL [Zyloprim] 150 mg PO DAILY Levothyroxine Sodium [Synthroid] 50 mcg PO TUTH Omeprazole [PriLOSEC] 40 mg PO DAILY Amlodipine Besylate/Valsartan [Amlodipine-Valsartan 5-320 mg] 1 tab PO DAILY Metoprolol Succinate (ER) [Toprol Xl] 50 mg PO BID Discharge Medication List Amlodipine Besylate/Valsartan [Amlodipine-Valsartan 5-320 mg] 1 tab PO DAILY 12/07/22 [History] Ferrous Sulfate [Feosol] 325 mg PO DAILY 12/07/22 [History] Levothyroxine Sodium [Synthroid] 50 mcg PO TUTHFRSA 12/07/22 [History] Metoprolol Succinate (ER) [Toprol Xl] 50 mg PO BID 12/07/22 [History] Omeprazole [PriLOSEC] 40 mg PO DAILY 12/07/22 [History] Simvastatin [Zocor] 40 mg PO HS 12/07/22 [History] allopurinoL [Zyloprim] 150 mg PO DAILY 12/07/22 [History] Follow up Appointment(s)/Referral(s): Grover Escaalnte MD [Primary Care Provider] - 1-2 days [facility], [NON-STAFF] - 1 Week Carlo Murphy MD [STAFF PHYSICIAN] - 1 Week
[2022-12-25 18:29] VITALS: BP 94/53; PULSE 92; RESP 28
[2022-12-26] MEDS ORDERED: VANCOMYCIN 1,500 MG in SODIUM CHLORIDE 0.9% 500 ML 500 ML IVPB ONE (12:00)
== END 2022-12-25 18:40 | disposition short-term general hospital (02) | DRG 326 ==
LOC: EC 01:06 → 6NMEDSUR 04:04 → 4SSUR 04:14 → OBSVTOIN 12-11 12:54 → 2SICU 12-15 01:43 → 5NMEDONC 12-21 17:30 → 3SCARD 12-25 09:21 → 2SICU 12-25 10:52
PROVIDERS: ADMIT Internal Medicine; ATTEND Internal Medicine
PROC: 0DB78ZX Excision of Stomach, Pylorus, Via Natural or Artificial Opening Endoscopic, Diagnostic (ICD-10-PCS; 2022-12-11)
PROC: 0BUT4JZ Supplement Diaphragm with Synthetic Substitute, Percutaneous Endoscopic Approach (ICD-10-PCS; principal; 2022-12-12 14:20)
PROC: 0D9670Z Drainage of Stomach with Drainage Device, Via Natural or Artificial Opening (ICD-10-PCS; 2022-12-15)
PROC: 5A09357 Assistance with Respiratory Ventilation, Less than 24 Consecutive Hours, Continuous Positive Airway Pressure (ICD-10-PCS; 2022-12-15)
PROC: 5A1935Z Respiratory Ventilation, Less than 24 Consecutive Hours (ICD-10-PCS; 2022-12-25)
PROC: 0D9670Z Drainage of Stomach with Drainage Device, Via Natural or Artificial Opening (ICD-10-PCS; 2022-12-25)
PROC: 0CHY8BZ Insertion of Airway into Mouth and Throat, Via Natural or Artificial Opening Endoscopic (ICD-10-PCS; 2022-12-25)
PROC: 3E033XZ Introduction of Vasopressor into Peripheral Vein, Percutaneous Approach (ICD-10-PCS; 2022-12-25)
PROC: 05HD33Z Insertion of Infusion Device into Right Cephalic Vein, Percutaneous Approach (ICD-10-PCS; 2022-12-25)
DX: K44.9 Diaphragmatic hernia without obstruction or gangrene (principal); I50.33 Acute on chronic diastolic (congestive) heart failure; J96.01 Acute respiratory failure with hypoxia; J69.0 Pneumonitis due to inhalation of food and vomit; N17.9 Acute kidney failure, unspecified; I13.0 Hypertensive heart and chronic kidney disease with heart failure and stage 1 through stage 4 chronic kidney disease, or unspecified chronic kidney disease; E87.1 Hypo-osmolality and hyponatremia; K56.7 Ileus, unspecified; I16.9 Hypertensive crisis, unspecified; J98.11 Atelectasis; I95.9 Hypotension, unspecified; J44.9 Chronic obstructive pulmonary disease, unspecified; N18.30 Chronic kidney disease, stage 3 unspecified; Z20.822 Contact with and (suspected) exposure to COVID-19; E87.8 Other disorders of electrolyte and fluid balance, not elsewhere classified; E04.9 Nontoxic goiter, unspecified; R33.9 Retention of urine, unspecified; E03.9 Hypothyroidism, unspecified; E78.5 Hyperlipidemia, unspecified; R13.10 Dysphagia, unspecified; M41.9 Scoliosis, unspecified; M10.9 Gout, unspecified; D64.9 Anemia, unspecified; F41.9 Anxiety disorder, unspecified; K31.89 Other diseases of stomach and duodenum; K21.9 Gastro-esophageal reflux disease without esophagitis; N31.9 Neuromuscular dysfunction of bladder, unspecified; M54.9 Dorsalgia, unspecified; M25.569 Pain in unspecified knee; I25.2 Old myocardial infarction; Z79.890 Hormone replacement therapy; Z79.899 Other long term (current) drug therapy; Z85.828 Personal history of other malignant neoplasm of skin; Z88.1 Allergy status to other antibiotic agents; Z88.0 Allergy status to penicillin; Z88.2 Allergy status to sulfonamides
CPT/HCPCS: 36415; 36600; 43239; 64999; 71045; 71046; 71250; 71275; 74018; 74019; 74176; 74230; 76604; 78582; 80048; 80053; 82805; 83605; 83735; 83880; 84145; 84443; 84484; 85025; 85027; 85379; 85610; 85730; 87070; 87205; 87635; 87636; 87798; 88305; 93005; 93306; 93970; 94002; 94640; 94660; 94760; 96360; 99285

== ENCOUNTER 2023-04-21 20:16 | Inpatient (IN) | payer MEDICARE ==
[2023-04-21] MEDS ORDERED: SODIUM CHLORIDE 0.9% 500 ML 500 ML IV ONE (20:43)
--- NOTE | 2023-04-21 20:54 | ED ---
General Adult HPI - General Chief complaint: Upper Respiratory Infection Stated complaint: Pneumonia Time Seen by Provider: 04/21/23 20:18 Source: patient, EMS, RN notes reviewed, old records reviewed Mode of arrival: EMS Limitations: physical limitation - History of Present Illness Initial comments: 83-year-old female presenting from home with cough and thick secretions through her tracheostomy. Patient has had stented recent medical history with prolonged stay at this institution followed by a prolonged stay, complicated at [facility] resulting in J-tube and tracheostomy. She had been at a [facility] care facility for approximate 6 weeks and has now been home for one week. Her daughter is providing care. She had thick secretions according to para medics, no fever. - Related Data Home Medications Medication Instructions Recorded Confirmed Atorvastatin [Lipitor] 10 mg PO HS 04/21/23 04/21/23 Cholestyramine (with Sugar) 4 gm PO BID 04/21/23 04/21/23 [Questran] Furosemide [Lasix] 40 mg PO DAILY 04/21/23 04/21/23 Glycopyrrolate [Robinul] 1 mg PO DIRECTED 04/21/23 04/21/23 LORazepam [Ativan] 1 mg PO BID PRN 04/21/23 04/21/23 Levothyroxine Sodium [Synthroid] 25 mcg PO DAILY 04/21/23 04/21/23 Multivitamins, Thera [Multivitamin 1 tab PO DAILY 04/21/23 04/21/23 (formulary)] Ondansetron [Zofran] 4 mg PO QID PRN 04/21/23 04/21/23 Pantoprazole [Protonix] 40 mg PO DAILY 04/21/23 04/21/23 Potassium Chloride [Klor-Con 20 20 meq PO DAILY 04/21/23 04/21/23 Packets] Terazosin [Hytrin] 2 mg PO HS 04/21/23 04/21/23 allopurinoL [Zyloprim] 150 mg PO DAILY 04/21/23 04/21/23 amLODIPine [Norvasc] 5 mg PO BID 04/21/23 04/21/23 Previous Rx's Medication Instructions Recorded Levofloxacin [Levaquin] 500 mg PO DAILY 6 Days #6 tab 04/21/23 Allergies Allergy/AdvReac Type Severity Reaction Status Date / Time cephalexin [From Keflex] AdvReac Rash/Hives Verified 04/21/23 21:30 iodine AdvReac Unknown Verified 04/21/23 21:30 Penicillins AdvReac Rash/Hives Verified 04/21/23 21:30 Sulfa (Sulfonamide AdvReac Unknown Verified 04/21/23 21:30 Antibiotics) Review of Systems ROS Statement: Those systems with pertinent positive or pertinent negative responses have been documented in the HPI. ROS Other: All systems not noted in ROS Statement are negative. Past Medical History Past Medical History: Cancer, Heart Failure, Myocardial Infarction (CA), Renal Disease Additional Past Medical History / Comment(s): Basal cell cancer, goiter, hiatal hernia surgery, tracheostomy Last Myocardial Infarction Date:: unknown History of Any Multi-Drug Resistant Organisms: Other MDRO Additional Past Surgical History / Comment(s): Hiatal Hernia surgery, traceosotomy, g tube placement Past Psychological History: No Psychological Hx Reported Smoking Status: Never smoker General Exam Limitations: physical limitation General appearance: alert, in no apparent distress Head exam: Present: atraumatic, normocephalic Eye exam: Present: normal appearance, PERRL Neck exam: Present: normal inspection. Absent: tenderness, meningismus Respiratory exam: Present: rhonchi. Absent: respiratory distress Cardiovascular Exam: Present: normal rhythm, tachycardia GI/Abdominal exam: Present: soft. Absent: distended, tenderness, guarding Neurological exam: Present: alert Psychiatric exam: Present: normal affect, normal mood Skin exam: Present: warm, dry, intact Course Vital Signs 04/21/23 04/21/23 04/21/23 20:23 20:40 20:54 Temperature 98.3 F Pulse Rate 117 H Respiratory 24 24 Rate Blood Pressure 142/70 O2 Sat by Pulse 95 Oximetry Fraction of 28 Inspired Oxygen (FIO2) Medical Decision Making - Medical Decision Making 83-year-old female with increased secretions from the tracheostomy. Was pt. sent in by a medical professional or institution (, PA, [place] [facility], urgent care, hospital, or ch[facility]...) When possible be specific @ -No Did you speak to anyone other than the patient for history (EMS, parent, family, police, friend...)? What history was obtained from this source @ -[Patient's daughter Did you review nursing and triage notes (agree or disagree)? Why? @ -I reviewed and agree with nursing and triage notes Were old charts reviewed (outside hosp., previous admission, EMS record, old EKG, old radiological studies, urgent care reports/EKG's, chcf records)? Report findings @ -No old charts were reviewed Differential Diagnosis (chest pain, altered mental status, abdominal pain women, abdominal pain men, vaginal bleeding, weakness, fever, dyspnea, syncope, headache, dizziness, GI bleed, back pain, seizure, CVA, palpatations, mental health, musculoskeletal)? @ -[Differential Dyspnea: Coronary syndrome, arrhythmia, tamponade, asthma, COPD, pulmonary embolism, pneumonia, pneumothorax, pulmonary effusion, anaphylaxis, diabetic ketoacidosis, flailed chest, pulmonary contusion, diaphragmatic rupture, anemia, neuromuscular, this is not meant to be an all-inclusive list. EKG interpreted by me (3pts min.). @ -As above X-rays interpreted by me (1pt min.). @X-ray, single view chest, negative for focal pneumonia or pneumothorax. CT interpreted by me (1pt min.). @ -None done U/S interpreted by me (1pt. min.). @ -None done What testing was considered but not performed or refused? (CT, X-rays, U/S, labs)? Why? @ -None What meds were considered but not given or refused? Why? @ -None Did you discuss the management of the patient with other professionals (pro fessionals i.e. , PA, [employer] [facility], lab, RT, psych nurse, case management social worker, drier attendant, teacher, state patrol officer, case management social worker)? Give summary @ -Dr. Archultea Was smoking cessation discussed for >3mins.? @ -No Was critical care preformed (if so, how long)? @ -No Were there social determinants of health that impacted care today? How? (Homelessness, low income, unemployed, alcoholism, drug addiction, john sportation, low edu. Level, literacy, decrease access to med. care, halfway, rehab)? @ -No Was there de-escalation of care discussed even if they declined (Discuss DNR or withdrawal of care, Hospice)? DNR status @ -No What co-morbidities impacted this encounter? (DM, HTN, Smoking, COPD, CAD, Cancer, CVA, ARF, Chemo, Hep., AIDS, mental health diagnosis, sleep apnea, morbid obesity)? @ -[Tracheostomy, J-tube Was patient admitted / discharged? Hospital course, mention meds given and rout e, prescriptions, significant lab abnormalities, going to OR and other pertinent info. @ -[83-year-old female with increased secretions through the tracheostomy. No fever. Patient has had a cough which the daughter states his also chronic. The secretions have thickened over the past 5 days. Chest x-ray negative for focal pneumonia. I do suspect that there is a tracheobronchitis, there is a mildly elevated white blood cell count of 15. No lactic acid elevation is 1.2. Normal electrolytes. started Levaquin. Patient admitted for respiratory support, IV antibiotics, pulmonology consult. Undiagnosed new problem with uncertain prognosis? @ -No Drug Therapy requiring intensive monitoring for toxicity (Heparin, Nitro, Insulin, Cardizem)? @ -No Were any procedures done? @ -No Diagnosis/symptom? @ -[Tracheitis Acute, or Chronic, or Acute on Chronic? @ -[Acute Uncomplicated (without systemic symptoms) or Complicated (systemic symptoms)? @ -default Side effects of treatment? @ -No Exacerbation, Progression, or Severe Exacerbation? @ -No Poses a threat to life or bodily function? How? (Chest pain, USA, CA, pneumonia, PE, COPD, DKA, ARF, appy, cholecystitis, CVA, Diverticulitis, Homicidal, Suicidal, threat to staff... and all critical care pts) @ -[Yes, progressive respiratory infection - Lab Data Result diagrams: 04/21/23 20:48 04/21/23 20:48 Lab Results 04/21/23 04/21/23 04/21/23 Range/Units 20:48 20:48 20:48 WBC 15.0 H (3.8-10.6) k/uL RBC 4.29 (3.80-5.40) m/uL Hgb 12.4 (11.4-16.0) gm/dL Hct 37.9 (34.0-46.0) % MCV 88.3 (80.0-100.0) fL MCH 28.9 (25.0-35.0) pg MCHC 32.7 (31.0-37.0) g/dL RDW 15.1 (11.5-15.5) % Plt Count 344 (150-450) k/uL MPV 9.6 Neutrophils % 83 % Lymphocytes % 8 % Monocytes % 6 % Eosinophils % 2 % Basophils % 0 % Neutrophils # 12.5 H (1.3-7.7) k/uL Lymphocytes # 1.2 (1.0-4.8) k/uL Monocytes # 0.9 (0-1.0) k/uL Eosinophils # 0.2 (0-0.7) k/uL Basophils # 0.0 (0-0.2) k/uL PT 9.7 (9.0-12.0) sec INR 0.9 (<1.2) APTT 20.7 L (22.0-30.0) sec Sodium 131 L (137-145) mmol/L Potassium 5.4 H (3.5-5.1) mmol/L Chloride 98 (98-107) mmol/L Carbon Dioxide 19 L (22-30) mmol/L Anion Gap 14 mmol/L BUN 34 H (7-17) mg/dL Creatinine 0.90 (0.52-1.04) mg/dL Est GFR (CKD-EPI)AfAm 69 (>60 ml/min/1.73 sqM) Est GFR (CKD-EPI)NonAf 60 (>60 ml/min/1.73 sqM) Glucose 96 (74-99) mg/dL Plasma Lactic Acid [place] (0.7-2.0) mmol/L Calcium 10.4 H (8.4-10.2) mg/dL Total Bilirubin 0.8 (0.2-1.3) mg/dL AST 43 H (14-36) U/L ALT 35 H (4-34) U/L Alkaline Phosphatase 144 H (38-126) U/L Total Protein 8.1 (6.3-8.2) g/dL Albumin 4.0 (3.5-5.0) g/dL 04/21/23 Range/Units 20:48 WBC (3.8-10.6) k/uL RBC (3.80-5.40) m/uL Hgb (11.4-16.0) gm/dL Hct (34.0-46.0) % MCV (80.0-100.0) fL MCH (25.0-35.0) pg MCHC (31.0-37.0) g/dL RDW (11.5-15.5) % Plt Count (150-450) k/uL MPV Neutrophils % % Lymphocytes % % Monocytes % % Eosinophils % % Basophils % % Neutrophils # (1.3-7.7) k/uL Lymphocytes # (1.0-4.8) k/uL Monocytes # (0-1.0) k/uL Eosinophils # (0-0.7) k/uL Basophils # (0-0.2) k/uL PT (9.0-12.0) sec INR (<1.2) APTT (22.0-30.0) sec Sodium (137-145) mmol/L Potassium (3.5-5.1) mmol/L Chloride (98-107) mmol/L Carbon Dioxide (22-30) mmol/L Anion Gap mmol/L BUN (7-17) mg/dL Creatinine (0.52-1.04) mg/dL Est GFR (CKD-EPI)AfAm (>60 ml/min/1.73 sqM) Est GFR (CKD-EPI)NonAf (>60 ml/min/1.73 sqM) Glucose (74-99) mg/dL Plasma Lactic Acid [place] 1.2 (0.7-2.0) mmol/L Calcium (8.4-10.2) mg/dL Total Bilirubin (0.2-1.3) mg/dL AST (14-36) U/L ALT (4-34) U/L Alkaline Phosphatase (38-126) U/L Total Protein (6.3-8.2) g/dL Albumin (3.5-5.0) g/dL Disposition Clinical Impression: Tracheobronchitis Disposition: ADMITTED IP TO THIS HOSP Condition: Stable Prescriptions: Levofloxacin [Levaquin] 500 mg PO DAILY 6 Days #6 tab Is patient prescribed a controlled substance at d/c from ED?: No Referrals: Grover Escalante MD [Primary Care Provider] - 1-2 days Time of Disposition: 22:57
--- NOTE | 2023-04-21 21:17 | XR ---
EXAMINATION TYPE: XR chest 1V portable DATE OF EXAM: 04/21/2023 COMPARISON: Chest x-ray and CT December 25, 2022 HISTORY: Cough TECHNIQUE: Single frontal view of the chest is obtained. FINDINGS: Tracheostomy tube is now present. There are small right greater than left pleural effusion s on current study with associated bibasilar opacities favoring compressive atelectasis. Stable mild cardiomegaly. Upper lungs are clear without pneumothorax. Osseous structures are intact. Surgical cli ps overlie the right lower thorax. IMPRESSION: Mild cardiomegaly with small right greater than left pleural effusions. Correlate for CH F exacerbation. Associated bibasilar opacity favors compressive atelectasis.
[2023-04-21 21:40] LABS: Basophils % (A) 0 %; Eosinophils # (A) 0.2 k/uL (0-0.7); Eosinophils % (A) 2 %; HCT 37.9 % (34.0-46.0); HGB 12.4 gm/dL (11.4-16.0); Lymphocytes # (A) 1.2 k/uL (1.0-4.8); Lymphocytes % (A) 8 %; MCH 28.9 pg (25.0-35.0); MCHC 32.7 g/dL (31.0-37.0); MCV 88.3 fL (80.0-100.0); Mean Platelet Volume 9.6; Monocytes # (A) 0.9 k/uL (0-1.0); Monocytes % (A) 6 %; Neutrophils # (A) 12.5 k/uL (1.3-7.7); Neutrophils % (A) 83 %; Platelet Count 344 k/uL (150-450); RBC 4.29 m/uL (3.80-5.40); RDW 15.1 % (11.5-15.5)
[2023-04-21 21:49] LABS: ALT 35 U/L (4-34); AST 43 U/L (14-36); African American GFR (CKD) 69 (>60 ml/min/1.73 sqM); Alkaline Phosphatase 144 U/L (38-126); Anion Gap 14 mmol/L; Blood Urea Nitrogen 34 mg/dL (7-17); Calcium 10.4 mg/dL (8.4-10.2); Carbon Dioxide 19 mmol/L (22-30); Chloride 98 mmol/L (98-107); Glucose 96 mg/dL (74-99); Non-African American GFR(CKD) 60 (>60 ml/min/1.73 sqM); Sodium 131 mmol/L (137-145); Total Bilirubin 0.8 mg/dL (0.2-1.3); Total Protein 8.1 g/dL (6.3-8.2)
[2023-04-21 21:59] LABS: Potassium 5.4 mmol/L (3.5-5.1)
[2023-04-21 22:20] LABS: INR 0.9 (<1.2); Partial Thromboplastin Time 20.7 sec (22.0-30.0); Prothrombin Time 9.7 sec (9.0-12.0)
[2023-04-21] MEDS ORDERED: LEVOFLOXACIN 500MG-D5W PMX 500 MG in DEXTROSE/WATER 1 100ML.BAG IVPB STA (22:51)
[2023-04-21] MEDS ORDERED: NALOXONE 0.4 MG/ML 1 ML VIAL IV PRN (23:57)
[2023-04-22] MEDS ORDERED: VANCOMYCIN IV PER PHARMACY 1 EACH MISC MISCELLANE PRN (00:16)
[2023-04-22] MEDS ORDERED: VANCOMYCIN 1,250 MG in SODIUM CHLORIDE 0.9% 250 ML IVPB STA (00:18)
[2023-04-22] MEDS: methylPREDNISolone SOD SUCCI 125 MG/2 ML VIAL IV SCH ×3 (01:15→18:24)
[2023-04-22] MEDS: SODIUM CHLORIDE 0.9% 1,000 ML IV SCH (01:16)
[2023-04-22] MEDS ORDERED: IPRATROPIUM-ALBUTEROL 3 ML NEB INHALATION PRN (03:43)
--- NOTE | 2023-04-22 03:45 | P.HPIM ---
History of Present Illness H&P Date: 04/22/23 Patient is a 83-year-old female with a PMH of recent tracheostomy and PEG tube placement following a prolonged hospitalization with transfer to tertiary care facility for paraesophageal hernia, goiter, and suspected esophageal perforation, hypertension, hyperlipidemia, hypothyroidism, COPD, chronic kidney disease who presents to the emergency room for cough and shortness of breath. The patient had a prolonged hospitalization at [facility] and was subsequently discharged to an LTAC-like facility for roughly 6 weeks or she was reportedly also on a ventilator. The patient was discharged home around a week ago. She gradually developed a persistent cough with thick secretions through her tracheostomy. The patient reports intractable coughing with some shortness of breath. She denied experiencing chest discomfort or pain elsewhere. He denied fever, chills, nausea, vomiting. Chest x-ray in the emergency room revealed bilateral opacities concerning for CHF versus pneumonia. Laboratory evaluation was remarkable for leukocytosis of 15.0, sodium 131, potassium 5.4, AST 43, ALT 45, alk phos 144, lactic acid 1.2. ED documentation reviewed and case discussed with ED provider. Review of systems: Pertinent positives and negatives as discussed in HPI, a complete review of systems was performed and all other systems are negative. Physical examination: Vital signs reviewed General: non toxic, no distress, appears at stated age, normal weight Derm: no unusual rashes/lesions, warm Head: atraumatic, normocephalic, symmetric Eyes: EOMI, no lid lag, anicteric sclera, pupils equal round reactive to light ENT: Nose and ears atraumatic Neck: Tracheostomy in place with small amounts of bloody thick phlegm discharge noted, supple Mouth: no lip lesion, mucus membranes moist Cardiovascular: S1S2 reg, no murmur, positive dorsalis pedis pulse bilateral, no edema Lungs: Coarse breath sounds with rhonchi appreciated bilaterally without wheezing, no accessory muscle use Abdominal: PEG tube in place, soft, nontender to palpation, no guarding Ext: muscle strength 4 out of 5 in all 4 extremities grossly, no gross muscle atrophy, no contractures, Neuro: CN II-XI grossly intact, no gross focal neuro deficits Psych: Alert, oriented, appropriate affect Assessment: Pneumonia, unable to rule out ventilator associated; less likely COPD exacerbation Prerenal azotemia Abnormal LFTs Chronic conditions: HTN, HLD, Hypothyroidism Imaging: Chest x-ray in the emergency room revealed bilateral opacities concerning for CHF versus pneumonia. Data Review: Laboratory evaluation was remarkable for leukocytosis of 15.0, sodium 131, potassium 5.4, AST 43, ALT 45, alk phos 144, lactic acid 1.2. Plan: Continue with broad-spectrum IV antibiotics Levaquin and vancomycin Continue Solu-Medrol for now Check pro-calcitonin levels Pulmonary consulted Cardiac monitoring DuoNeb's C/w IVFs with normal saline at 75 mL an hour C/w home meds DVT prophylaxis: Lovenox Subq The patient is admitted with an anticipated greater than 2 midnight stay for evaluation of pnuemonia CODE STATUS: Full Code Discussed with: Patient Anticipated discharge place: Home Past Medical History Past Medical History: Cancer, Heart Failure, Myocardial Infarction ([place]), Renal Disease Additional Past Medical History / Comment(s): Basal cell cancer, goiter, hiatal hernia surgery, tracheostomy Last Myocardial Infarction Date:: unknown History of Any Multi-Drug Resistant Organisms: Other MDRO Additional Past Surgical History / Comment(s): Hiatal Hernia surgery, tr aceosotomy, g tube placement Past Psychological History: No Psychological Hx Reported Smoking Status: Never smoker Medications and Allergies Home Medications Medication Instructions Recorded Confirmed Type Atorvastatin [Lipitor] 10 mg PO HS 04/21/23 04/21/23 History Cholestyramine (with Sugar) 4 gm PO BID 04/21/23 04/21/23 History [Questran] Furosemide [Lasix] 40 mg PO DAILY 04/21/23 04/21/23 History Glycopyrrolate [Robinul] 1 mg PO DIRECTED 04/21/23 04/21/23 History LORazepam [Ativan] 1 mg PO BID PRN 04/21/23 04/21/23 History Levofloxacin [Levaquin] 500 mg PO DAILY 6 Days #6 tab 04/21/23 Rx Levothyroxine Sodium [Synthroid] 25 mcg PO DAILY 04/21/23 04/21/23 History Multivitamins, Thera [Multivitamin 1 tab PO DAILY 04/21/23 04/21/23 History (formulary)] Ondansetron [Zofran] 4 mg PO QID PRN 04/21/23 04/21/23 History Pantoprazole [Protonix] 40 mg PO DAILY 04/21/23 04/21/23 History Potassium Chloride [Klor-Con 20 20 meq PO DAILY 04/21/23 04/21/23 History Packets] Terazosin [Hytrin] 2 mg PO HS 04/21/23 04/21/23 History allopurinoL [Zyloprim] 150 mg PO DAILY 04/21/23 04/21/23 History amLODIPine [Norvasc] 5 mg PO BID 04/21/23 04/21/23 History Allergies Allergy/AdvReac Type Severity Reaction Status Date / Time cephalexin [From Keflex] AdvReac Rash/Hives Verified 04/21/23 21:30 iodine AdvReac Unknown Verified 04/21/23 21:30 Penicillins AdvReac Rash/Hives Verified 04/21/23 21:30 Sulfa (Sulfonamide AdvReac Unknown Verified 04/21/23 21:30 Antibiotics) Physical Exam Vitals: Vital Signs Temp Pulse Resp BP Pulse Ox FiO2 04/22/23 03:41 28 04/22/23 03:13 97 28 04/22/23 00:05 106 H 20 132/71 100 04/21/23 20:54 28 04/21/23 20:40 24 04/21/23 20:23 98.3 F 117 H 24 142/70 95 Intake and Output 04/21/23 04/21/23 04/22/23 14:59 22:59 06:59 Other: Weight 70.307 kg Results CBC & Chem 7: 04/21/23 20:48 04/21/23 20:48 Labs: Abnormal Lab Results - Last 24 Hours (Table) 04/21/23 04/21/23 04/21/23 Range/Units 20:48 20:48 20:48 WBC 15.0 H (3.8-10.6) k/uL Neutrophils # 12.5 H (1.3-7.7) k/uL APTT 20.7 L (22.0-30.0) sec Sodium 131 L (137-145) mmol/L Potassium 5.4 H (3.5-5.1) mmol/L Carbon Dioxide 19 L (22-30) mmol/L BUN 34 H (7-17) mg/dL Calcium 10.4 H (8.4-10.2) mg/dL AST 43 H (14-36) U/L ALT 35 H (4-34) U/L Alkaline Phosphatase 144 H (38-126) U/L
[2023-04-22] MEDS: IPRATROPIUM-ALBUTEROL 3 ML NEB INHALATION SCH ×4 (07:34→21:54)
[2023-04-22] MEDS: allopurinoL 100 MG TAB PO SCH (08:01)
[2023-04-22] MEDS: amLODIPine 5 MG TAB PO SCH (08:01)
[2023-04-22] MEDS: LEVOTHYROXINE 25 MCG TAB PO SCH (08:01)
[2023-04-22] MEDS: PANTOPRAZOLE 40 MG TABLET PO SCH (08:01)
[2023-04-22 10:32] LABS: HGB 12.1 gm/dL (11.4-16.0); MCH 28.4 pg (25.0-35.0); MCHC 31.9 g/dL (31.0-37.0); MCV 89.2 fL (80.0-100.0); Mean Platelet Volume 8.6; Platelet Count 328 k/uL (150-450); RBC 4.26 m/uL (3.80-5.40); RDW 14.9 % (11.5-15.5); WBC 8.7 k/uL (3.8-10.6)
[2023-04-22 10:42] LABS: INR 0.9 (<1.2); Prothrombin Time 9.9 sec (9.0-12.0)
[2023-04-22 10:50] LABS: African American GFR (CKD) 66 (>60 ml/min/1.73 sqM); Anion Gap 14 mmol/L; Blood Urea Nitrogen 31 mg/dL (7-17); Calcium 10.4 mg/dL (8.4-10.2); Carbon Dioxide 18 mmol/L (22-30); Chloride 101 mmol/L (98-107); Glucose 202 mg/dL (74-99); Magnesium 1.9 mg/dL (1.6-2.3); Non-African American GFR(CKD) 57 (>60 ml/min/1.73 sqM); Phosphorus 4.8 mg/dL (2.5-4.5); Potassium 4.7 mmol/L (3.5-5.1); Sodium 133 mmol/L (137-145)
--- NOTE | 2023-04-22 16:40 | P.CNPUL ---
History of Present Illness Consult date: 04/22/23 Requesting physician: Daria rAchuleta Reason for consult: dyspnea Chief complaint: Shortness of breath, mucous History of present illness: This is an 83-year-old female patient with a history of chronic kidney disease, normocytic anemia, chronic obstructive pulmonary disease, hypothyroidism, hypertension, hyperlipidemia. She also has a history of large paraesophageal hernia with intrathoracic stomach and was subsequently transferred to [facility] for surgery from here back in December 2022. She had a complicated recovery and required tracheostomy and J tube placements. She was 6 weeks in an extended care facility and had been home for 1 week now. She presented here to the emergency room last evening with shortness of breath and thick secretions from her tracheostomy. Chest x-ray showed mild cardiomegaly with a small right greater than left pleural effusion. Correlate for congestive heart failure. There is also basilar atelectasis. White count 8.7. Hemoglobin 12.1. Sodium 133. Potassium 4.7. Bicarb 18. BUN 31. Creatinine 0.93. Glucose 202. ProBNP 2600. Pro-calcitonin 0.20. AST 43. ALT 35. She is seen today in consultation in the emergency department. Currently sitting up on a stretcher. Maintaining O2 saturations in the mid to upper 90s on 28% FiO2 via trach collar. She's been initiated and DuoNeb inhalations, Solu-Medrol. Antibiotics in the form of vancomycin and Levaquin. Sputum culture pending. She will be resumed on tube feedings per dietitian consult. Review of Systems ROS unobtainable: due to endotracheal tube (Tracheostomy in place. No speaking valve.) Past Medical History Past Medical History: Cancer, Heart Failure, Myocardial Infarction ([place]), Renal Disease Additional Past Medical History / Comment(s): Basal cell cancer, goiter, hiatal hernia surgery, tracheostomy Last Myocardial Infarction Date:: unknown History of Any Multi-Drug Resistant Organisms: Other MDRO Additional Past Surgical History / Comment(s): Hiatal Hernia surgery, traceosotomy, g tube placement Past Psychological History: No Psychological Hx Reported Smoking Status: Never smoker Medications and Allergies Home Medications Medication Instructions Recorded Confirmed Type Atorvastatin [Lipitor] 10 mg PO HS 04/21/23 04/21/23 History Cholestyramine (with Sugar) 4 gm PO BID 04/21/23 04/21/23 History [Questran] Furosemide [Lasix] 40 mg PO DAILY 04/21/23 04/21/23 History Glycopyrrolate [Robinul] 1 mg PO TID 04/21/23 04/22/23 History LORazepam [Ativan] 1 mg PO BID PRN 04/21/23 04/21/23 History Levofloxacin [Levaquin] 500 mg PO DAILY 6 Days #6 tab 04/21/23 Rx Levothyroxine Sodium [Synthroid] 25 mcg PO DAILY 04/21/23 04/21/23 History Multivitamins, Thera [Multivitamin 1 tab PO DAILY 04/21/23 04/21/23 History (formulary)] Ondansetron [Zofran] 4 mg PO QID PRN 04/21/23 04/21/23 History Pantoprazole [Protonix] 40 mg PO DAILY 04/21/23 04/21/23 History Potassium Chloride [Klor-Con 20 20 meq PO DAILY 04/21/23 04/21/23 History Packets] Terazosin [Hytrin] 2 mg PO HS 04/21/23 04/21/23 History allopurinoL [Zyloprim] 150 mg PO DAILY 04/21/23 04/21/23 History amLODIPine [Norvasc] 5 mg PO BID 04/21/23 04/21/23 History Allergies Allergy/AdvReac Type Severity Reaction Status Date / Time cephalexin [From Keflex] AdvReac Rash/Hives Verified 04/21/23 21:30 iodine AdvReac Unknown Verified 04/21/23 21:30 Penicillins AdvReac Rash/Hives Verified 04/21/23 21:30 Sulfa (Sulfonamide AdvReac Unknown Verified 04/21/23 21:30 Antibiotics) Physical Exam Vitals: Vital Signs Temp Pulse Resp BP Pulse Ox FiO2 04/22/23 12:00 84 04/22/23 11:50 91 04/22/23 11:00 100 20 146/77 98 04/22/23 10:00 110 H 20 137/60 99 04/22/23 08:00 100 20 136/77 99 04/22/23 07:56 112 H 04/22/23 07:36 106 H 20 122/64 98 04/22/23 07:34 106 H 28 04/22/23 03:48 98 22 140/99 100 04/22/23 03:41 28 04/22/23 03:13 97 28 04/22/23 00:05 106 H 20 132/71 100 04/21/23 20:54 28 04/21/23 20:40 24 04/21/23 20:23 98.3 F 117 H 24 142/70 95 Intake and Output 04/22/23 04/22/23 04/22/23 06:59 14:59 22:59 Other: Weight 70.307 kg GENERAL EXAM: Alert, 83-year-old female, on 28% FiO2 via trach collar, comfortab le in no apparent distress. HEAD: Normocephalic. EYES: Normal reaction of pupils, equal size. NOSE: Clear with pink turbinates. THROAT: Achy ostomy tube secured in place. No erythema or exudates. NECK: No masses, no JVD. CHEST: No chest wall deformity. LUNGS: Equal air entry with faint basilar crackles. CVS: S1 and S2 normal with no audible murmur, regular rhythm. ABDOMEN: J-tube secured in place. No hepatosplenomegaly, normal bowel sounds, no guarding or rigidity. SPINE: No scoliosis or deformity SKIN: No rashes CENTRAL NERVOUS SYSTEM: No focal deficits, tone is normal in all 4 extremities. EXTREMITIES: There is no peripheral edema. No clubbing, no cyanosis. Peripheral pulses are intact. Results - Laboratory Findings CBC and BMP: 04/22/23 09:47 04/22/23 09:47 PT/INR, D-dimer PT 9.9 sec (9.0-12.0) 04/22/23 09:47 INR 0.9 (<1.2) 04/22/23 09:47 Abnormal lab findings: Abnormal Labs 04/21/23 04/21/23 04/21/23 20:48 20:48 20:48 WBC 15.0 H Neutrophils # 12.5 H APTT 20.7 L Sodium 131 L Potassium 5.4 H Carbon Dioxide 19 L BUN 34 H Glucose Calcium 10.4 H Phosphorus AST 43 H ALT 35 H Alkaline Phosphatase 144 H Procalcitonin 04/22/23 04/22/23 05:55 09:47 WBC Neutrophils # APTT Sodium 133 L Potassium Carbon Dioxide 18 L BUN 31 H Glucose 202 H Calcium 10.4 H Phosphorus 4.8 H AST ALT Alkaline Phosphatase Procalcitonin 0.20 H - Diagnostic Findings Chest x-ray: image reviewed Assessment and Plan Assessment: Acute on chronic hypoxemic respiratory to an acute exacerbation of her suspected diastolic congestive heart failure and possibly healthcare acquired pneumonia Recent history of abnormal dilatation and distention of the esophagus with reetained debris in the distal aspect. She was transferred from here to [facility] in December 2022 for surgery. This was complicated by a long recovery requiring tracheostomy tube placement and J-tube placement. She resided in subacute rehabilitation for approximately 6 weeks and has been home for 1 week now Previous history of paraesophageal hernia repair in November 2022 Hypothyroidism Hypertension Hyperlipidemia Plan: The patient was seen and evaluated Chest x-ray, labs and medications reviewed Continue with the vancomycin and Levaquin for now Obtain a sputum culture Continue bronchodilators, steroids Normal saline at 75 ML's per hour We will continue to follow and make further recommendations based on her clinical status I have personally seen and examined the patient, performed the documentation and the assessment and plan as written. Number of minutes spent on the visit: 20.
[2023-04-22] MEDS: VANCOMYCIN 1,250 MG in SODIUM CHLORIDE 0.9% 250 ML IVPB SCH (22:42)
[2023-04-22] MEDS: LEVOFLOXACIN 250MG-D5W PMX 250 MG in DEXTROSE/WATER 1 50ML.BAG IVPB SCH (22:42)
[2023-04-22] MEDS ORDERED: LEVOFLOXACIN 500MG-D5W PMX 500 MG in DEXTROSE/WATER 1 100ML.BAG IVPB SCH (23:00)
[2023-04-23] MEDS: ATORVASTATIN 10 MG TAB PO SCH ×2 (00:11→21:17)
[2023-04-23] MEDS: DOXAZOSIN 2 MG TAB PO SCH ×2 (00:11→21:19)
[2023-04-23] MEDS: amLODIPine 5 MG TAB PO SCH ×3 (00:11→21:17)
[2023-04-23] MEDS: SODIUM CHLORIDE 0.9% 1,000 ML IV SCH ×2 (00:12→05:12)
[2023-04-23] MEDS: methylPREDNISolone SOD SUCCI 125 MG/2 ML VIAL IV SCH ×4 (00:38→23:51)
[2023-04-23 06:26] LABS: Glucose,Whole Blood 176 mg/dL (70-110)
[2023-04-23] MEDS: IPRATROPIUM-ALBUTEROL 3 ML NEB INHALATION SCH ×4 (09:31→20:11)
[2023-04-23 11:45] LABS: Glucose,Whole Blood 193 mg/dL (70-110)
[2023-04-23 12:05] LABS: African American GFR (CKD) 79 (>60 ml/min/1.73 sqM); Non-African American GFR(CKD) 69 (>60 ml/min/1.73 sqM)
--- NOTE | 2023-04-23 14:40 | P.PN ---
Subjective Progress Note Date: 04/23/23 Principal diagnosis: Acute on chronic hypoxic respiratory failure secondary to acute diastolic heart failure and possible acute healthcare acquired pneumonia This is an 83-year-old female patient with a history of chronic kidney disease, normocytic anemia, chronic obstructive pulmonary disease, hypothyroidism, hypertension, hyperlipidemia. She also has a history of large paraesophageal hernia with intrathoracic stomach and was subsequently transferred to [facility] for surgery from here back in December 2022. She had a complicated recovery and required tracheostomy and J tube placements. She was 6 weeks in an extended care facility and had been home for 1 week now. She presented here to the emergency room last evening with shortness of breath and thick secretions from her tracheostomy. Chest x-ray showed mild cardiomegaly with a small right greater than left pleural effusion. Correlate for congestive heart failure. There is also basilar atelectasis. White count 8.7. Hemoglobin 12.1. Sodium 133. Potassium 4.7. Bicarb 18. BUN 31. Creatinine 0.93. Glucose 202. ProBNP 2600. Pro-calcitonin 0.20. AST 43. ALT 35. She is seen today in consultation in the emergency department. Currently sitting up on a stretcher. Maintaining O2 saturations in the mid to upper 90s on 28% FiO2 via trach collar. She's been initiated and DuoNeb inhalations, Solu-Medrol. Antibiotics in the form of vancomycin and Levaquin. Sputum culture pending. She will be resumed on tube feedings per dietitian consult. Patient was reevaluated today on 04/23/2023, continues to have significant amount of tracheal secretions noted via tracheostomy. Patient continues to have some intermittent episodes of shortness of breath and congestion. Patient is on 5 L trach collar O2 sats is 99%. Sputum cultures are preliminary positive for gram-negative bacilli, final culture is pending, patient is presently on Levaquin because she has multiple ALLERGIES. Labs today were reviewed including basic metabolic profile and CBC. Objective - Vital Signs Vital signs: Vital Signs Temp 98.0 F 04/23/23 12:00 Pulse 100 04/23/23 12:16 Resp 18 04/23/23 12:00 BP 166/81 04/23/23 12:00 Pulse Ox 99 04/23/23 12:00 FiO2 28 04/23/23 09:32 Intake & Output 04/22/23 04/23/23 04/23/23 18:59 06:59 18:59 Weight 70.307 kg Other: Voiding Method External Catheter External Catheter # Voids 0 # Bowel Movements 0 - Exam GENERAL EXAM: Alert, 83-year-old female, on trach collar, significant secretions noted. Blood days secretions and purulent secretions HEAD: Normocephalic. EYES: Normal reaction of pupils, equal size. NOSE: Clear with pink turbinates. THROAT: Achy ostomy tube secured in place. No erythema or exudates. NECK: No masses, no JVD. CHEST: No chest wall deformity. LUNGS: Scattered rhonchi noted bilaterally. CVS: S1 and S2 normal with no audible murmur, regular rhythm. ABDOMEN: J-tube secured in place. No hepatosplenomegaly, normal bowel sounds, no guarding or rigidity. SKIN: No rashes CENTRAL NERVOUS SYSTEM: No focal deficits, tone is normal in all 4 extremities. EXTREMITIES: There is no peripheral edema. No clubbing, no cyanosis. Peripheral pulses are intact. - Labs CBC & Chem 7: 04/22/23 09:47 04/23/23 10:24 Labs: Abnormal Lab Results - Last 24 Hours (Table) 04/23/23 04/23/23 Range/Units 06:24 11:43 POC Glucose (mg/dL) 176 H 193 H (70-110) mg/dL Microbiology - Last 24 Hours (Table) 04/22/23 11:00 Gram Stain - Preliminary Sputum Sputum Culture - Preliminary Gram Neg Bacilli Assessment and Plan Assessment: Impression: Acute on chronic hypoxic respiratory failure, multifactorial Suspect acute diastolic congestive heart failure Suspect healthcare acquired pneumonia History of abnormal elevation of the esophagus requiring medication. History of tracheostomy and J-tube placement History of paraesophageal hernia Hypothyroidism Dyslipidemia benign essential hypertension Recommendation: Continue antibiotics/Levaquin and vancomycin for now and adjust based on the final cultures Continue bronchodilators Continue steroids We will continue to follow. Overall prognosis remains relatively guarded Time with Patient: Less than 30
--- NOTE | 2023-04-23 15:13 | P.PN ---
Subjective Progress Note Date: 04/23/23 Patient is a 83-year-old female with a PMH of recent tracheostomy and PEG tube placement following a prolonged hospitalization with transfer to tertiary care facility for paraesophageal hernia, goiter, and suspected esophageal perforation, hypertension, hyperlipidemia, hypothyroidism, COPD, chronic kidney disease who presents to the emergency room for cough and shortness of breath. The patient had a prolonged hospitalization at [facility] and was subsequently discharged to an LTAC-like facility for roughly 6 weeks or she was reportedly also on a ventilator. The patient was discharged home around a week ago. She gradually developed a persistent cough with thick secretions through her tracheostomy. The patient reports intractable coughing with some shortness of breath. Chest x-ray in the emergency room revealed bilateral opacities concerning for CHF versus pneumonia. Laboratory evaluation was remarkable for leukocytosis of 15.0, sodium 131, potassium 5.4, AST 43, ALT 45, alk phos 144, lactic acid 1.2. 04/23 Patient was seen and examined. No acute events overnight. Patient has thick purulent secretions blood tinged through the trach. Nonverbal. Renal function within normal limits. General: non toxic, no distress, appears at stated age, normal weight Derm: no unusual rashes/lesions, warm Head: atraumatic, normocephalic, symmetric Eyes: EOMI, no lid lag, anicteric sclera ENT: Nose and ears atraumatic Neck: Tracheostomy in place with small amounts of bloody thick phlegm discharge noted Mouth: no lip lesion, mucus membranes moist Cardiovascular: S1S2 reg, no murmur, no edema Lungs: Coarse breath sounds with rhonchi appreciated bilaterally without wheezing, no accessory muscle use Abdominal: PEG tube in place, soft, nontender to palpation, no guarding Ext: muscle strength 4 out of 5 in all 4 extremities grossly, no gross muscle atrophy, no contractures, Neuro: no gross focal neuro deficits Psych: Nonverbal Acute on chronic hypoxic respiratory failure Ventilator associated PNA versus diastolic CHF exacerbation Sepsis due to above Prerenal azotemia Abnormal LFTs Chronic conditions: HTN, HLD, Hypothyroidism Based on my assessment of this patient, this patient meets a high complexity level of care. Patient has an acute diagnosis of acute hypoxic respiratory failure secondary to ventilator associated PNA vs diastolic CHF exacerbation that poses a threat to life or bodily function. Acute on chronic hypoxic respiratory failure Ventilator associated PNA versus diastolic CHF exacerbation: Procal slightly elevated at 0.2. Vancomycin IV dosed per pharmacy. Levaquin 250 mg IV QD. DuoNeb Q4H PRN for SOB/wheezing. SoluMedrol 60 mg IV Q8H. Tylenol 650 mg PO Q6H PRN for fever. Await sputum culture to finalize. Telemetry monitoring. Sepsis due to above: Obtain blood culture. Prerenal azotemia: Status post NS 75 cc/hr. Resolved. Abnormal LFTs I have reviewed the following market research consultant notes: Pulmonology note. I have reviewed the results of the following tests: Renal function. I have ordered the following tests: BMP. CXR. Blood culture. I have discussed the care of this patient with the following independent historian: I have independently interpreted the following test below: I have discussed the management of this patient with the following physician: Vancomycin IV - intensive monitoring - renal function. Objective - Vital Signs Vital signs: Vital Signs Temp 98.0 F 04/23/23 12:00 Pulse 100 04/23/23 12:16 Resp 18 04/23/23 12:00 BP 166/81 04/23/23 12:00 Pulse Ox 99 04/23/23 12:00 FiO2 28 04/23/23 09:32 Intake & Output 04/22/23 04/23/23 04/23/23 18:59 06:59 18:59 Weight 70.307 kg Other: Voiding Method External Catheter External Catheter # Voids 0 # Bowel Movements 0 - Labs CBC & Chem 7: 04/22/23 09:47 04/23/23 10:24 Labs: Abnormal Lab Results - Last 24 Hours (Table) 04/23/23 04/23/23 Range/Units 06:24 11:43 POC Glucose (mg/dL) 176 H 193 H (70-110) mg/dL Microbiology - Last 24 Hours (Table) 04/22/23 11:00 Gram Stain - Preliminary Sputum Sputum Culture - Preliminary Gram Neg Bacilli
--- NOTE | 2023-04-23 16:07 | P.GSCN ---
History of Present Illness Consult date: 04/23/23 History of present illness: CHIEF COMPLAINT: Cough and shortness of breath HISTORY OF PRESENT ILLNESS: This is a 83-year-old female who presented with cough and shortness of breath. She has been diagnosed with hypoxic respiratory failure with CHF and possible pneumonia. Patient had laparoscopic repair of a large paraesophageal hiatal hernia with intrathoracic stomach and mesh placed on 12/12/[address] iverson. Patient did require transfer a transfer to [facility] in December due to a possible esophageal perforation. Patient had tracheostomy and GJ tube placed at [facility] and had a prolonged hospitalization. She also apparently had an esophageal stent placed and that has been removed. She just recently discharged from [facility] and was currently at home. Surgical service has been consulted for evaluation of the GJ tube. There has been some leaking noted from the gastric portion of the tubing. Patient is currently receiving tube feeds and tolerating. She denies any abdominal pain. PAST MEDICAL HISTORY: See below PAST SURGICAL HISTORY: See below MEDICATIONS: See below ALLERGIES: See below SOCIAL HISTORY: No illicit drug use. REVIEW OF SYSTEMS: CONSTITUTIONAL: Denies fever or chills. HEENT: Denies blurred vision, vision changes, or eye pain. Denies hemoptysis CARDIOVASCULAR: Denies chest pain or pressure. RESPIRATORY: No shortness of breath. GASTROINTESTINAL: See HPI for pertinent findings HEMATOLOGIC: Denies bleeding disorders. GENITOURINARY: Denies any blood in urine or increased urinary frequency. SKIN: Denies pruitis. Denies rash. PHYSICAL EXAM: VITAL SIGNS: Reviewed GENERAL: Well-developed in no acute distress. HEENT: Has tracheostomy ABDOMEN: Soft. Nondistended. Nontender. GJ tube site clean dry and intact. Tube feedings are entering through the jejunostomy tubing. There is gastric drainage through the gastric tubing. NEUROLOGIC: Awake. Nonverbal. LABORATORY DATA: WBC 8.7 hgb 12.1 platelets 328 Na 133 potassium 4.7 creatinine 0.93 IMAGING: ASSESSMENT: 1. Possible GJ tube malfunction PLAN: -Further recommendations forthcoming per surgeon -Continue tube feedings for now -Continue supportive care Physician Product Tester [employer] note has been reviewed by physician. Signing provider agrees with the documented findings, assessment, and plan of care. I have personally seen and examined the patient, reviewed the [employer] /PAs history, exam and MDM and agree with the assessment and plan as written. Based on total visit time, I have performed more than 50% of the visit. As above: Patient admitted for tracheostomy issues. Apparently there were questions regarding the gastro-jejunostomy feeding tube. Patient currently has bilious drainage dependently from the gastric port and is tolerating tube feeds through the jejunostomy port without difficulties. Denies abdominal pain. Continue tube feeds. May use gastrostomy port for medications if needed. Past Medical History Past Medical History: Cancer, Myocardial Infarction ([place]), Renal Disease Additional Past Medical History / Comment(s): Basal cell cancer, goiter, hiatal hernia surgery, tracheostomy, blood clot right arm Last Myocardial Infarction Date:: unknown History of Any Multi-Drug Resistant Organisms: Other MDRO Additional Past Surgical History / Comment(s): Hiatal Hernia surgery, tr aceosotomy, g tube placement Past Psychological History: No Psychological Hx Reported Smoking Status: Never smoker Past Alcohol Use History: None Reported Past Drug Use History: None Reported Medications and Allergies Home Medications Medication Instructions Recorded Confirmed Type Atorvastatin [Lipitor] 10 mg PO HS 04/21/23 04/21/23 History Cholestyramine (with Sugar) 4 gm PO BID 04/21/23 04/21/23 History [Questran] Furosemide [Lasix] 40 mg PO DAILY 04/21/23 04/21/23 History Glycopyrrolate [Robinul] 1 mg PO TID 04/21/23 04/22/23 History LORazepam [Ativan] 1 mg PO BID PRN 04/21/23 04/21/23 History Levofloxacin [Levaquin] 500 mg PO DAILY 6 Days #6 tab 04/21/23 Rx Levothyroxine Sodium [Synthroid] 25 mcg PO DAILY 04/21/23 04/21/23 History Multivitamins, Thera [Multivitamin 1 tab PO DAILY 04/21/23 04/21/23 History (formulary)] Ondansetron [Zofran] 4 mg PO QID PRN 04/21/23 04/21/23 History Pantoprazole [Protonix] 40 mg PO DAILY 04/21/23 04/21/23 History Potassium Chloride [Klor-Con 20 20 meq PO DAILY 04/21/23 04/21/23 History Packets] Terazosin [Hytrin] 2 mg PO HS 04/21/23 04/21/23 History allopurinoL [Zyloprim] 150 mg PO DAILY 04/21/23 04/21/23 History amLODIPine [Norvasc] 5 mg PO BID 04/21/23 04/21/23 History Allergies Allergy/AdvReac Type Severity Reaction Status Date / Time cephalexin [From Keflex] AdvReac Rash/Hives Verified 04/21/23 21:30 iodine AdvReac Unknown Verified 04/21/23 21:30 Penicillins AdvReac Rash/Hives Verified 04/21/23 21:30 Sulfa (Sulfonamide AdvReac Unknown Verified 04/21/23 21:30 Antibiotics) Surgical - Exam Vital Signs Temp Pulse Resp BP Pulse Ox 98.3 F 117 H 24 142/70 95 04/21/23 20:23 04/21/23 20:23 04/21/23 20:23 04/21/23 20:23 04/21/23 20:23 Results - Labs 04/22/23 09:47 04/23/23 10:24 Abnormal Lab Results - Last 24 Hours (Table) 04/23/23 04/23/23 Range/Units 06:24 11:43 POC Glucose (mg/dL) 176 H 193 H (70-110) mg/dL Microbiology - Last 24 Hours (Table) 04/22/23 11:00 Gram Stain - Preliminary Sputum Sputum Culture - Preliminary Gram Neg Bacilli Diabetes panel 04/23/23 Range/Units 10:24 Creatinine 0.80 (0.52-1.04) mg/dL Pituitary panel 04/23/23 Range/Units 10:24 Creatinine 0.80 (0.52-1.04) mg/dL Adrenal panel 04/23/23 Range/Units 10:24 Creatinine 0.80 (0.52-1.04) mg/dL
[2023-04-23 16:26] LABS: Glucose,Whole Blood 236 mg/dL (70-110)
[2023-04-23] MEDS: LEVOTHYROXINE 25 MCG TAB PO SCH (16:35)
[2023-04-23] MEDS: PANTOPRAZOLE 40 MG TABLET PO SCH (16:35)
[2023-04-23] MEDS ORDERED: DEXTROSE 50% SYRINGE 50 ML IVP PRN ×2 (16:41)
[2023-04-23] MEDS: allopurinoL 100 MG TAB PO SCH (17:41)
[2023-04-23] MEDS: INSULIN ASPART (NovoLOG) 100 UNIT/ML VIAL SQ SCH ×2 (17:41→21:18)
[2023-04-23 21:09] LABS: Glucose,Whole Blood 164 mg/dL (70-110)
[2023-04-23] MEDS: LEVOFLOXACIN 250MG-D5W PMX 250 MG in DEXTROSE/WATER 1 50ML.BAG IVPB SCH (21:17)
[2023-04-23] MEDS: VANCOMYCIN 1,250 MG in SODIUM CHLORIDE 0.9% 250 ML IVPB SCH (21:17)
[2023-04-24 06:28] LABS: Glucose,Whole Blood 195 mg/dL (70-110)
[2023-04-24] MEDS: LEVOTHYROXINE 25 MCG TAB PO SCH (06:39)
[2023-04-24] MEDS: PANTOPRAZOLE 40 MG TABLET PO SCH (06:39)
[2023-04-24] MEDS: INSULIN ASPART (NovoLOG) 100 UNIT/ML VIAL SQ SCH ×4 (06:40→21:35)
[2023-04-24] MEDS ORDERED: LORazepam 2 MG/ML INJ IV PRN (07:43)
[2023-04-24 08:11] LABS: Glucose,Whole Blood 134 mg/dL (70-110)
[2023-04-24] MEDS: IPRATROPIUM-ALBUTEROL 3 ML NEB INHALATION SCH ×4 (08:16→20:36)
[2023-04-24 08:25] LABS: African American GFR (CKD) >90 (>60 ml/min/1.73 sqM); Non-African American GFR(CKD) 82 (>60 ml/min/1.73 sqM)
--- NOTE | 2023-04-24 08:32 | XR ---
EXAMINATION TYPE: XR chest 1V portable DATE OF EXAM: 04/24/2023 Comparison: 04/21/2023 Clinical History: 83-year-old female sob Findings: Tracheostomy cannula. Heart mildly enlarged. Small bilateral pleural effusions and ongoing mild inter stitial density. Surgical clips project at the periphery of the right lower chest. Overlying external artifact suspected at the medial left upper lobe. Impression: Ongoing mild pulmonary vascular congestion along with small pleural effusions and adjacent atelectasi s and/or consolidation.
[2023-04-24 08:39] LABS: HCT 37.9 % (34.0-46.0); HGB 12.3 gm/dL (11.4-16.0); Hypochromasia Slight; MCHC 32.4 g/dL (31.0-37.0); MCV 89.5 fL (80.0-100.0); Mean Platelet Volume 9.4; Platelet Count 371 k/uL (150-450); RBC 4.24 m/uL (3.80-5.40); RDW 14.9 % (11.5-15.5)
[2023-04-24 08:46] LABS: Anion Gap 15 mmol/L; Blood Urea Nitrogen 42 mg/dL (7-17); Calcium 10.5 mg/dL (8.4-10.2); Carbon Dioxide 17 mmol/L (22-30); Chloride 107 mmol/L (98-107); Glucose 162 mg/dL (74-99); Potassium 4.3 mmol/L (3.5-5.1); Sodium 139 mmol/L (137-145)
--- NOTE | 2023-04-24 08:57 | XR ---
EXAMINATION TYPE: XR abdomen 1V DATE OF EXAM: 04/24/2023 Comparison: 12/16/2022 Clinical History: 83-year-old female Evaluate G-tube Findings: PEG tube is noted. The balloon projects at the level of the gastric antrum. Interstitial changes in t he lower lungs along with small effusions. No dilated small bowel loops identified. Limited oblique e xam with multiple overlying leads. No free air is seen below the hemidiaphragms. Impression: Limited exam. PEG tube balloon projects at the level of the gastric antrum and seem satisfactory. Non obstructive bowel gas pattern.
[2023-04-24] MEDS: methylPREDNISolone SOD SUCCI 125 MG/2 ML VIAL IV SCH ×2 (10:07→15:55)
[2023-04-24] MEDS: allopurinoL 100 MG TAB PO SCH (10:08)
[2023-04-24] MEDS: amLODIPine 5 MG TAB PO SCH ×2 (10:08→21:09)
[2023-04-24] MEDS ORDERED: ONDANSETRON 4 MG/2 ML VIAL IVP PRN (10:36)
[2023-04-24 12:32] LABS: Glucose,Whole Blood 164 mg/dL (70-110)
--- NOTE | 2023-04-24 12:41 | P.PN ---
Subjective Progress Note Date: 04/24/23 Principal diagnosis: Acute on chronic hypoxic respiratory failure secondary to acute diastolic heart failure and possible acute healthcare acquired pneumonia This is an 83-year-old female patient with a history of chronic kidney disease, normocytic anemia, chronic obstructive pulmonary disease, hypothyroidism, hypertension, hyperlipidemia. She also has a history of large paraesophageal hernia with intrathoracic stomach and was subsequently transferred to [facility] for surgery from here back in December 2022. She had a complicated recovery and required tracheostomy and J tube placements. She was 6 weeks in an extended care facility and had been home for 1 week now. She presented here to the emergency room last evening with shortness of breath and thick secretions from her tracheostomy. Chest x-ray showed mild cardiomegaly with a small right greater than left pleural effusion. Correlate for congestive heart failure. There is also basilar atelectasis. White count 8.7. Hemoglobin 12.1. Sodium 133. Potassium 4.7. Bicarb 18. BUN 31. Creatinine 0.93. Glucose 202. ProBNP 2600. Pro-calcitonin 0.20. AST 43. ALT 35. She is seen today in consultation in the emergency department. Currently sitting up on a stretcher. Maintaining O2 saturations in the mid to upper 90s on 28% FiO2 via trach collar. She's been initiated and DuoNeb inhalations, Solu-Medrol. Antibiotics in the form of vancomycin and Levaquin. Sputum culture pending. She will be resumed on tube feedings per dietitian consult. Patient was reevaluated today on 04/23/2023, continues to have significant amount of tracheal secretions noted via tracheostomy. Patient continues to have some intermittent episodes of shortness of breath and congestion. Patient is on 5 L trach collar O2 sats is 99%. Sputum cultures are preliminary positive for gram-negative bacilli, final culture is pending, patient is presently on Levaquin because she has multiple ALLERGIES. Labs today were reviewed including basic metabolic profile and CBC. Patient was reevaluated today on 04/24/2023, patient developed some significant mucous plugging today requiring aggressive suctioning on the medical floor, hence patient was transferred to the ICU mostly because of frequent need for suctioning of the tracheostomy. I saw the patient in ICU, seems to be resting, very comfortable, she is on trach collar at 28%, her sputum has been showing gram-negative bacilli, hence I discontinued the vancomycin and kept her on Levaquin. Patient is also receiving Jevity via PEG tube at 50 MLS per hour and that seems to be well tolerated. Labs today showed leukocytosis with WBC of 16.0, otherwise the labs were unremarkable. Her sputum cultures now showing Pseudomonas, resistant to Levaquin, resistant to ciprofloxacin, patient has ALLERGIES to penicillin, ALLERGIC to cephalexin, hence will transition the patient to imipenem or at least consult infectious disease on the case. Objective - Vital Signs Vital signs: Vital Signs Temp 97.8 F 04/24/23 08:09 Pulse 112 H 04/24/23 12:00 Resp 25 H 04/24/23 12:00 BP 154/82 04/24/23 12:00 Pulse Ox 95 04/24/23 12:00 FiO2 28 04/23/23 20:13 Intake & Output 04/23/23 04/24/23 04/24/23 18:59 06:59 18:59 Intake Total 40 Output Total 450 0 Balance -450 40 Intake: IV 40 0.9NS 40 Output: Gastric Drainage 450 Urine 0 Other: Voiding Method External Catheter # Voids 3 - Exam GENERAL EXAM: Alert, 83-year-old female, on trach collar, 28% FiO2 HEAD: Normocephalic. EYES: Normal reaction of pupils, equal size. NOSE: Clear with pink turbinates. THROAT: Tracheostomy is intact. NECK: No masses, no JVD. CHEST: No chest wall deformity. LUNGS: Diminished breath sounds at the bases no rhonchi and no wheezes today. CVS: S1 and S2 normal with no audible murmur, regular rhythm. ABDOMEN: J-tube secured in place. No hepatosplenomegaly, normal bowel sounds, no guarding or rigidity. SKIN: No rashes CENTRAL NERVOUS SYSTEM: No focal deficits, tone is normal in all 4 extremities. EXTREMITIES: There is no peripheral edema. No clubbing, no cyanosis. Peripheral pulses are intact. - Labs CBC & Chem 7: 04/24/23 07:51 04/24/23 07:51 Labs: Abnormal Lab Results - Last 24 Hours (Table) 04/23/23 04/23/23 04/24/23 Range/Units 16:24 21:08 06:27 WBC (3.8-10.6) k/uL Carbon Dioxide (22-30) mmol/L BUN (7-17) mg/dL Glucose (74-99) mg/dL POC Glucose (mg/dL) 236 H 164 H 195 H (70-110) mg/dL Calcium (8.4-10.2) mg/dL 04/24/23 04/24/23 04/24/23 Range/Units 07:51 07:51 08:09 WBC 16.0 H (3.8-10.6) k/uL Carbon Dioxide 17 L (22-30) mmol/L BUN 42 H (7-17) mg/dL Glucose 162 H (74-99) mg/dL POC Glucose (mg/dL) 134 H (70-110) mg/dL Calcium 10.5 H (8.4-10.2) mg/dL 04/24/23 Range/Units 12:31 WBC (3.8-10.6) k/uL Carbon Dioxide (22-30) mmol/L BUN (7-17) mg/dL Glucose (74-99) mg/dL POC Glucose (mg/dL) 164 H (70-110) mg/dL Calcium (8.4-10.2) mg/dL Microbiology - Last 24 Hours (Table) 04/22/23 11:00 Gram Stain - Final Sputum Sputum Culture - Final Pseudomonas aeruginosa Assessment and Plan Assessment: Impression: Acute on chronic hypoxic respiratory failure, multifactorial Suspect acute diastolic congestive heart failure Suspect healthcare acquired pneumonia/pseudomonal aeruginosa pneumonia History of abnormal elevation of the esophagus requiring dilatation History of tracheostomy and J-tube placement History of paraesophageal hernia Hypothyroidism Dyslipidemia benign essential hypertension Recommendation: Patient will need to be seen by infectious disease Levaquin needs to be changed to possibly Merrem considering the patient's multiple ALLERGIES Continue bronchodilators Continue steroids We will continue to follow. Overall prognosis remains relatively guarded Time with Patient: Less than 30
--- NOTE | 2023-04-24 15:44 | P.PN ---
Subjective Progress Note Date: 04/24/23 Patient is a 83-year-old female with a PMH of recent tracheostomy and PEG tube placement following a prolonged hospitalization with transfer to tertiary care facility for paraesophageal hernia, goiter, and suspected esophageal perforation, hypertension, hyperlipidemia, hypothyroidism, COPD, chronic kidney disease who presents to the emergency room for cough and shortness of breath. The patient had a prolonged hospitalization at [facility] and was subsequently discharged to an LTAC-like facility for roughly 6 weeks or she was reportedly also on a ventilator. The patient was discharged home around a week ago. She gradually developed a persistent cough with thick secretions through her tracheostomy. The patient reports intractable coughing with some shortness of breath. Chest x-ray in the emergency room revealed bilateral opacities concerning for CHF versus pneumonia. Laboratory evaluation was remarkable for leukocytosis of 15.0, sodium 131, potassium 5.4, AST 43, ALT 45, alk phos 144, lactic acid 1.2. 04/23 Patient was seen and examined. No acute events overnight. Patient has thick purulent secretions blood tinged through the trach. Nonverbal. Renal function within normal limits. 04/24 Patient was seen and examined this morning. A-team called this morning for respiratory distress. Patient was verbalizing that she couldnt breath. She was noted to be hypertensive SBP in the 190s and HR in the 140s. RT was above to suction puruplent sputum which improved her symptoms and BP/HR. Transferred to ICU for higher level of care. CXR shows pulmonary vascular congestion, she is started on Lasix 40 mg IV QD. ID consulted to guide Abx therapy. Sputum culture + pseudomonas resistant to Levaquin. CBC shows WBC count 16. BMP shows bicarb 17, BUN 42, glucose 162, Ca 10.5. General: non toxic, moderate distress, appears at stated age, normal weight Derm: no unusual rashes/lesions, warm Head: atraumatic, normocephalic, symmetric Eyes: EOMI, no lid lag, anicteric sclera ENT: Nose and ears atraumatic Neck: Tracheostomy in place with small amounts of bloody thick phlegm discharge noted Mouth: no lip lesion, mucus membranes moist Cardiovascular: S1S2 tachy, no murmur, no edema Lungs: Coarse breath sounds with rhonchi appreciated bilaterally without wheezing, no accessory muscle use Abdominal: PEG tube in place, soft, nontender to palpation, no guarding Ext: muscle strength 4 out of 5 in all 4 extremities grossly, no gross muscle atrophy, no contractures, Neuro: no gross focal neuro deficits Psych: Nonverbal Acute on chronic hypoxic respiratory failure Ventilator associated PNA versus diastolic CHF exacerbation Sepsis due to above Prerenal azotemia Abnormal LFTs Chronic conditions: HTN, HLD, Hypothyroidism Based on my assessment of this patient, this patient meets a high complexity level of care. Patient has an acute diagnosis of acute hypoxic respiratory failure secondary to ventilator associated PNA vs diastolic CHF exacerbation that poses a threat to l clary or bodily function. Acute on chronic hypoxic respiratory failure Ventilator associated PNA versus diastolic CHF exacerbation: Procal slightly elevated at 0.2. Vancomycin IV dosed per pharmacy. DuoNeb Q4H PRN for SOB/wheezing. SoluMedrol 60 mg IV Q8H. Tylenol 650 mg PO Q6H PRN for fever. Sputum Cx + pseudomonas resistant to Levaquin. Levaquin switched to Meropenem 1g IV Q8H. ID consulted. Lasix 40 mg IV QD started. Telemetry monitoring. Sepsis due to above: Obtain blood culture. Prerenal azotemia: Status post NS 75 cc/hr. Resolved. Abnormal LFTs I have reviewed the following commercial sales consultant notes: Pulmonology note. I have reviewed the results of the following tests: Renal function. I have ordered the following tests: BMP. CXR. Blood culture. I have discussed the care of this patient with the following independent historian: I have independently interpreted the following test below: I have discussed the management of this patient with the following physician: Lasix IV - intensive monitoring - renal function. Objective - Vital Signs Vital signs: Vital Signs Temp 98.1 F 04/24/23 14:00 Pulse 105 H 04/24/23 15:00 Resp 20 04/24/23 15:00 BP 151/79 04/24/23 15:00 Pulse Ox 95 04/24/23 15:00 FiO2 28 04/23/23 20:13 Intake & Output 04/23/23 04/24/23 04/24/23 18:59 06:59 18:59 Intake Total 100 Output Total 450 275 Balance -450 -175 Weight 70.307 kg Intake: IV 100 0.9NS 100 Output: Gastric Drainage 450 Urine 275 Other: Voiding Method External Catheter # Voids 3 - Labs CBC & Chem 7: 04/24/23 07:51 04/24/23 07:51 Labs: Abnormal Lab Results - Last 24 Hours (Table) 04/23/23 04/23/23 04/24/23 Range/Units 16:24 21:08 06:27 WBC (3.8-10.6) k/uL Carbon Dioxide (22-30) mmol/L BUN (7-17) mg/dL Glucose (74-99) mg/dL POC Glucose (mg/dL) 236 H 164 H 195 H (70-110) mg/dL Calcium (8.4-10.2) mg/dL 04/24/23 04/24/23 04/24/23 Range/Units 07:51 07:51 08:09 WBC 16.0 H (3.8-10.6) k/uL Carbon Dioxide 17 L (22-30) mmol/L BUN 42 H (7-17) mg/dL Glucose 162 H (74-99) mg/dL POC Glucose (mg/dL) 134 H (70-110) mg/dL Calcium 10.5 H (8.4-10.2) mg/dL 04/24/23 Range/Units 12:31 WBC (3.8-10.6) k/uL Carbon Dioxide (22-30) mmol/L BUN (7-17) mg/dL Glucose (74-99) mg/dL POC Glucose (mg/dL) 164 H (70-110) mg/dL Calcium (8.4-10.2) mg/dL Microbiology - Last 24 Hours (Table) 04/22/23 11:00 Gram Stain - Final Sputum Sputum Culture - Final Pseudomonas aeruginosa
[2023-04-24] MEDS: FUROSEMIDE 10 MG/ML 4 ML VIAL IV SCH (15:55)
[2023-04-24] MEDS ORDERED: MEROPENEM 1 GM in SODIUM CHLORIDE 0.9% 100 ML IVPB SCH (16:00)
--- NOTE | 2023-04-24 16:30 | P.PN ---
Subjective Progress Note Date: 04/24/23 CHIEF COMPLAINT: Shortness of breath HISTORY OF PRESENT ILLNESS: Patient developed significant mucus plugging requiring aggressive suctioning and transferred to the ICU due to frequent suctioning from the tracheostomy. Surgical service is following in regards to patient's GJ tube. Patient denies any abdominal pain. It is functioning appropriately. Abdominal x-ray limited exam. PEG tube balloon projects at the level of the gastric antrum and seems satisfactory. Nonobstructive bowel gas pattern. PHYSICAL EXAM: VITAL SIGNS: Reviewed. GENERAL: no acute distress. ABDOMEN: Soft. Nondistended. Nontender. GJ tube clean dry and intact NEUROLOGIC: Alert and oriented. Cranial nerves II through XII grossly intact. ASSESSMENT: 1. Mucus plugging 2. Gastrojejunostomy tube functioning appropriately PLAN: -Patient currently has bilious drainage dependently from the gastric port and is tolerating tube feeds through the jejunostomy port without difficulties. -Continue tube feeds -May use gastrostomy port for medications if needed Physician Boat Canvas Maker And Installer note has been reviewed by physician. Signing provider agrees with the documented findings, assessment, and plan of care. Objective - Vital Signs Vital signs: Vital Signs Temp 97.8 F 04/24/23 08:09 Pulse 112 H 04/24/23 12:00 Resp 25 H 04/24/23 12:00 BP 154/82 04/24/23 12:00 Pulse Ox 95 04/24/23 12:00 FiO2 28 04/23/23 20:13 Intake & Output 04/23/23 04/24/23 04/24/23 18:59 06:59 18:59 Intake Total 40 Output Total 450 0 Balance -450 40 Intake: IV 40 0.9NS 40 Output: Gastric Drainage 450 Urine 0 Other: Voiding Method External Catheter # Voids 3 - Labs CBC & Chem 7: 04/24/23 07:51 04/24/23 07:51 Labs: Abnormal Lab Results - Last 24 Hours (Table) 04/23/23 04/23/23 04/24/23 Range/Units 16:24 21:08 06:27 WBC (3.8-10.6) k/uL Carbon Dioxide (22-30) mmol/L BUN (7-17) mg/dL Glucose (74-99) mg/dL POC Glucose (mg/dL) 236 H 164 H 195 H (70-110) mg/dL Calcium (8.4-10.2) mg/dL 04/24/23 04/24/23 04/24/23 Range/Units 07:51 07:51 08:09 WBC 16.0 H (3.8-10.6) k/uL Carbon Dioxide 17 L (22-30) mmol/L BUN 42 H (7-17) mg/dL Glucose 162 H (74-99) mg/dL POC Glucose (mg/dL) 134 H (70-110) mg/dL Calcium 10.5 H (8.4-10.2) mg/dL 04/24/23 Range/Units 12:31 WBC (3.8-10.6) k/uL Carbon Dioxide (22-30) mmol/L BUN (7-17) mg/dL Glucose (74-99) mg/dL POC Glucose (mg/dL) 164 H (70-110) mg/dL Calcium (8.4-10.2) mg/dL Microbiology - Last 24 Hours (Table) 04/22/23 11:00 Gram Stain - Final Sputum Sputum Culture - Final Pseudomonas aeruginosa
[2023-04-24 17:14] LABS: Glucose,Whole Blood 173 mg/dL (70-110)
[2023-04-24] MEDS: ATORVASTATIN 10 MG TAB PO SCH (21:09)
[2023-04-24] MEDS: DOXAZOSIN 2 MG TAB PO SCH (21:09)
[2023-04-24 21:19] LABS: Glucose,Whole Blood 168 mg/dL (70-110)
[2023-04-25] MEDS: AZTREONAM 2 GM in SODIUM CHLORIDE 0.9% 100 ML IVPB SCH ×4 (00:11→23:45)
[2023-04-25] MEDS: methylPREDNISolone SOD SUCCI 125 MG/2 ML VIAL IV SCH ×4 (00:11→23:46)
[2023-04-25 06:00] LABS: Glucose,Whole Blood 178 mg/dL (70-110)
[2023-04-25 06:12] LABS: Basophils % (A) 0 %; Eosinophils % (A) 0 %; HCT 35.6 % (34.0-46.0); HGB 11.6 gm/dL (11.4-16.0); Lymphocytes # (A) 0.3 k/uL (1.0-4.8); Lymphocytes % (A) 3 %; MCH 29.2 pg (25.0-35.0); MCHC 32.6 g/dL (31.0-37.0); MCV 89.7 fL (80.0-100.0); Mean Platelet Volume 8.3; Monocytes # (A) 0.3 k/uL (0-1.0); Monocytes % (A) 3 %; Neutrophils # (A) 10.9 k/uL (1.3-7.7); Neutrophils % (A) 93 %; Platelet Count 293 k/uL (150-450); RBC 3.97 m/uL (3.80-5.40); RDW 14.8 % (11.5-15.5); WBC 11.7 k/uL (3.8-10.6)
[2023-04-25] MEDS: INSULIN ASPART (NovoLOG) 100 UNIT/ML VIAL SQ SCH ×4 (06:31→21:04)
[2023-04-25] MEDS: LEVOTHYROXINE 25 MCG TAB PO SCH (06:31)
[2023-04-25 06:32] LABS: African American GFR (CKD) 76 (>60 ml/min/1.73 sqM); Anion Gap 11 mmol/L; Blood Urea Nitrogen 48 mg/dL (7-17); Calcium 10.1 mg/dL (8.4-10.2); Carbon Dioxide 21 mmol/L (22-30); Chloride 105 mmol/L (98-107); Glucose 201 mg/dL (74-99); Non-African American GFR(CKD) 66 (>60 ml/min/1.73 sqM); Potassium 4.2 mmol/L (3.5-5.1); Sodium 137 mmol/L (137-145)
[2023-04-25] MEDS: IPRATROPIUM-ALBUTEROL 3 ML NEB INHALATION SCH ×4 (08:23→20:45)
--- NOTE | 2023-04-25 08:39 | P.CONS ---
History of Present Illness - Reason for Consult Consult date: 04/24/23 - History of Present Illness Patient is a 83-year-old female with a past medical history significant for coronary artery disease hypertension hyperlipidemia patient did have a paraesophageal hernia repair with suspected esophageal perforation prolonged hospital stay did have a tracheostomy and PEG tube placement subsequently transferred to tertiary care patient has been stabilized and has been discharged to LTAC from where the patient has been discharged home about a week ago patient presenting back to [facility] on 04/22/2023 she gradually developed persistent cough with thick secretions through the heart tracheostomy tube also reporting intractable coughing and shortness of breath with this into the patient was brought into the ER on presentation to the hospital patient was afebrile and no fever have recorded subsequently patient was tachycardic no significant hypotension or need for pressor support patient is on a trach collar did not require intubation patient did have a white count of 15,000 which is up to 16,000 this morning with a left shift creatinine 0.67 procalcitonin 0.20 patient did have a chest x-ray pulmonary vascular congestion along with small effusion and adjacent atelectasis or consolidation sputum culture get finalized with Pseudomonas aeruginosa that was resistant to ciprofloxacin and Levaquin patient did have a cephalexin and penicillin allergy she was started on meropenem by medical team infectious he was consulted for further management of antibiotic therapy Past Medical History Past Medical History: Cancer, Myocardial Infarction ([place]), Renal Disease Additional Past Medical History / Comment(s): Basal cell cancer, goiter, hiatal hernia surgery, tracheostomy, blood clot right arm Last Myocardial Infarction Date:: unknown History of Any Multi-Drug Resistant Organisms: Other MDRO Additional Past Surgical History / Comment(s): Hiatal Hernia surgery, traceosotomy, g tube placement Past Psychological History: No Psychological Hx Reported Smoking Status: Never smoker Past Alcohol Use History: None Reported Past Drug Use History: None Reported Medications and Allergies Home Medications Medication Instructions Recorded Confirmed Type Atorvastatin [Lipitor] 10 mg PO HS 04/21/23 04/21/23 History Cholestyramine (with Sugar) 4 gm PO BID 04/21/23 04/21/23 History [Questran] Furosemide [Lasix] 40 mg PO DAILY 04/21/23 04/21/23 History Glycopyrrolate [Robinul] 1 mg PO TID 04/21/23 04/22/23 History LORazepam [Ativan] 1 mg PO BID PRN 04/21/23 04/21/23 History Levofloxacin [Levaquin] 500 mg PO DAILY 6 Days #6 tab 04/21/23 Rx Levothyroxine Sodium [Synthroid] 25 mcg PO DAILY 04/21/23 04/21/23 History Multivitamins, Thera [Multivitamin 1 tab PO DAILY 04/21/23 04/21/23 History (formulary)] Ondansetron [Zofran] 4 mg PO QID PRN 04/21/23 04/21/23 History Pantoprazole [Protonix] 40 mg PO DAILY 04/21/23 04/21/23 History Potassium Chloride [Klor-Con 20 20 meq PO DAILY 04/21/23 04/21/23 History Packets] Terazosin [Hytrin] 2 mg PO HS 04/21/23 04/21/23 History allopurinoL [Zyloprim] 150 mg PO DAILY 04/21/23 04/21/23 History amLODIPine [Norvasc] 5 mg PO BID 04/21/23 04/21/23 History Allergies Allergy/AdvReac Type Severity Reaction Status Date / Time cephalexin [From Keflex] AdvReac Rash/Hives Verified 04/21/23 21:30 iodine AdvReac Unknown Verified 04/21/23 21:30 Penicillins AdvReac Rash/Hives Verified 04/21/23 21:30 Sulfa (Sulfonamide AdvReac Unknown Verified 04/21/23 21:30 Antibiotics) Physical Exam Vitals: Vital Signs Temp Pulse Pulse Resp BP BP Pulse Ox 04/24/23 16:00 97.8 F 97 101 H 17 153/82 96 04/24/23 15:00 105 H 20 151/79 95 04/24/23 14:00 98.1 F 95 17 159/88 96 04/24/23 13:00 104 H 16 163/87 95 04/24/23 12:00 112 H 25 H 154/82 95 04/24/23 11:00 101 H 18 143/79 94 L 04/24/23 10:00 104 H 22 153/81 97 04/24/23 08:09 97.8 F 114 H 17 150/78 04/24/23 04:00 101 H 18 162/90 99 04/23/23 23:59 114 H 04/23/23 23:48 112 H 04/23/23 23:34 18 155/77 99 04/23/23 20:27 112 H 04/23/23 20:13 111 H 04/23/23 20:00 98.1 F 113 H 17 149/71 99 FiO2 04/24/23 16:00 28 04/24/23 15:00 04/24/23 14:00 04/24/23 13:00 04/24/23 12:00 04/24/23 11:00 04/24/23 10:00 04/24/23 08:09 04/24/23 04:00 04/23/23 23:59 04/23/23 23:48 04/23/23 23:34 04/23/23 20:27 04/23/23 20:13 28 04/23/23 20:00 Intake and Output 04/24/23 04/24/23 04/24/23 06:59 14:59 22:59 Intake Total 390 240 Output Total 225 100 Balance 165 140 Intake: IV 80 40 0.9NS 80 40 Intake, IV Titration 100 Amount Meropenem 1 gm In Sodium 100 Chloride 0.9% 100 ml @ 33 .3 mls/hr IVPB Q8HR [facility] Rx#:[id number] Tube Feeding 220 70 Other 90 30 Output: Urine 225 100 Other: Voiding Method External Catheter Weight 70.307 kg Results CBC & Chem 7: 04/25/23 05:35 04/25/23 05:38 Labs: Abnormal Lab Results - Last 24 Hours (Table) 04/23/23 04/24/23 04/24/23 Range/Units 21:08 06:27 07:51 WBC (3.8-10.6) k/uL Carbon Dioxide 17 L (22-30) mmol/L BUN 42 H (7-17) mg/dL Glucose 162 H (74-99) mg/dL POC Glucose (mg/dL) 164 H 195 H (70-110) mg/dL Calcium 10.5 H (8.4-10.2) mg/dL 04/24/23 04/24/23 04/24/23 Range/Units 07:51 08:09 12:31 WBC 16.0 H (3.8-10.6) k/uL Carbon Dioxide (22-30) mmol/L BUN (7-17) mg/dL Glucose (74-99) mg/dL POC Glucose (mg/dL) 134 H 164 H (70-110) mg/dL Calcium (8.4-10.2) mg/dL Microbiology - Last 24 Hours (Table) 04/22/23 11:00 Gram Stain - Final Sputum Sputum Culture - Final Pseudomonas aeruginosa Assessment and Plan Plan: 1patient presented hospital with increasing shortness of breath increasing cough and purulent sputum patient did have a infiltrate seen on the chest x-ray and did have mild elevated procalcitonin with a sputum now growing Pseudomonas aeruginosa likely concerning for purulent tracheobronchitis/early pneumonia 2-patient with multiple antibiotic allergies that would limit the number of antibiotics safe to use 3-discontinue meropenem 4-start the patient on Azactam 2 g every 8 hours We will follow on clinical condition and cultures to further adjust medication if needed Thank you for this consultation we will follow the patient along with you Dictation was produced using [employer] dictation software. please excuse any grammatical, word or spelling errors. Time with Patient: Greater than 30
[2023-04-25] MEDS: PANTOPRAZOLE 40 MG/10 ML VIAL IVP SCH (09:44)
[2023-04-25] MEDS: FUROSEMIDE 10 MG/ML 4 ML VIAL IV SCH (09:45)
[2023-04-25] MEDS: amLODIPine 5 MG TAB PO SCH ×2 (09:45→21:04)
[2023-04-25] MEDS: allopurinoL 100 MG TAB PO SCH (09:45)
[2023-04-25 11:25] LABS: Glucose,Whole Blood 185 mg/dL (70-110)
--- NOTE | 2023-04-25 12:40 | P.PN ---
Subjective Progress Note Date: 04/25/23 Patient is a 83-year-old female with a PMH of recent tracheostomy and PEG tube placement following a prolonged hospitalization with transfer to tertiary care facility for paraesophageal hernia, goiter, and suspected esophageal perforation, hypertension, hyperlipidemia, hypothyroidism, COPD, chronic kidney disease who presents to the emergency room for cough and shortness of breath. The patient had a prolonged hospitalization at [facility] and was subsequently discharged to an LTAC-like facility for roughly 6 weeks or she was reportedly also on a ventilator. The patient was discharged home around a week ago. She gradually developed a persistent cough with thick secretions through her tracheostomy. The patient reports intractable coughing with some shortness of breath. Chest x-ray in the emergency room revealed bilateral opacities concerning for CHF versus pneumonia. Laboratory evaluation was remarkable for leukocytosis of 15.0, sodium 131, potassium 5.4, AST 43, ALT 45, alk phos 144, lactic acid 1.2. 04/23 Patient was seen and examined. No acute events overnight. Patient has thick purulent secretions blood tinged through the trach. Nonverbal. Renal function within normal limits. 04/24 Patient was seen and examined this morning. A-team called this morning for respiratory distress. Patient was verbalizing that she couldnt breath. She was noted to be hypertensive SBP in the 190s and HR in the 140s. RT was above to suction puruplent sputum which improved her symptoms and BP/HR. Transferred to ICU for higher level of care. CXR shows pulmonary vascular congestion, she is started on Lasix 40 mg IV QD. ID consulted to guide Abx therapy. Sputum culture + pseudomonas resistant to Levaquin. CBC shows WBC count 16. BMP shows bicarb 17, BUN 42, glucose 162, Ca 10.5. 04/25 Patient was seen and examined. Voices that breathing has improved considerably since yesterday. Currently on trach collar 5L FiO2 28%. CBC shows WBC count 11.7. BMP shows bicarb 21, BUN 48, glucose 201. Patient was switched to Imipenem by ID for Pseudomonal coverage on 04/24. General: non toxic, no distress, appears at stated age, normal weight Derm: no unusual rashes/lesions, warm Head: atraumatic, normocephalic, symmetric Eyes: EOMI, no lid lag, anicteric sclera ENT: Nose and ears atraumatic Neck: Tracheostomy in place with small amounts of bloody thick phlegm discharge noted Mouth: no lip lesion, mucus membranes moist Cardiovascular: S1S2 reg, no murmur, no edema Lungs: Coarse breath sounds with rhonchi appreciated bilaterally without wheezing, no accessory muscle use Abdominal: PEG tube in place, soft, nontender to palpation, no guarding Ext: muscle strength 4 out of 5 in all 4 extremities grossly, no gross muscle atrophy, no contractures, Neuro: no gross focal neuro deficits Psych: Nonverbal Acute on chronic hypoxic respiratory failure HCAP sputum Cx growing pseudomonas Diastolic CHF exacerbation Sepsis due to above Prerenal azotemia Abnormal LFTs Chronic conditions: HTN, HLD, Hypothyroidism Based on my assessment of this patient, this patient meets a high complexity level of care. Patient has an acute diagnosis of acute hypoxic respiratory failure secondary to ventilator associated PNA vs diastolic CHF exacerbation that poses a threat to life or bodily function. Acute on chronic hypoxic respiratory failure HCAP sputum Cx growing pseudomonas: BCx negative at 24H. Procal slightly elevated at 0.2. Vancomycin and Levaquin discontinued for Aztreonam 2g IV Q8H on 04/24. ID on board. DuoNeb Q4H PRN for SOB/wheezing. SoluMedrol 60 mg IV Q8H. Tylenol 650 mg PO Q6H PRN for fever. Diastolic CHF exacerbation: Echo 12/2022 shows normal LV systolic function, mild- mod MR and , mild LVH. Lasix 40 mg IV QD started 04/24. Telemetry monitoring. Sepsis due to above Prerenal azotemia: Status post NS 75 cc/hr. Abnormal LFTs I have reviewed the following client insights consultant notes: ID note. I have reviewed the results of the following tests: CBC, BMP, BCx I have ordered the following tests: BMP. I have discussed the care of this patient with the following independent historian: I have independently interpreted the following test below: CXR done yesterday show pulmonary vascular congestion. I have discussed the management of this patient with the following physician: Lasix IV - intensive monitoring - renal function. Objective - Vital Signs Vital signs: Vital Signs Temp 97.2 F L 04/25/23 04:00 Pulse 92 04/25/23 08:33 Resp 19 04/25/23 08:33 BP 146/80 04/25/23 07:00 Pulse Ox 97 04/25/23 07:00 FiO2 28 04/25/23 08:29 Intake & Output 04/24/23 04/25/23 04/25/23 18:59 06:59 18:59 Intake Total 685 670 Output Total 475 1300 Balance 210 -630 Weight 70.307 kg 72.4 kg Intake: IV 140 200 0.9NS 140 200 Intake, IV Titration 100 Amount Meropenem 1 gm In Sodium 100 Chloride 0.9% 100 ml @ 33 .3 mls/hr IVPB Q8HR [facility] Rx#:[id number] Tube Feeding 325 350 Other 120 120 Output: Gastric Drainage 700 Urine 475 600 Other: Voiding Method External Catheter External Catheter - Labs CBC & Chem 7: 04/25/23 05:35 04/25/23 05:38 Labs: Abnormal Lab Results - Last 24 Hours (Table) 04/24/23 04/24/23 04/24/23 Range/Units 12:31 17:11 21:17 WBC (3.8-10.6) k/uL Neutrophils # (1.3-7.7) k/uL Lymphocytes # (1.0-4.8) k/uL Carbon Dioxide (22-30) mmol/L BUN (7-17) mg/dL Glucose (74-99) mg/dL POC Glucose (mg/dL) 164 H 173 H 168 H (70-110) mg/dL 04/25/23 04/25/23 04/25/23 Range/Units 05:35 05:38 05:58 WBC 11.7 H (3.8-10.6) k/uL Neutrophils # 10.9 H (1.3-7.7) k/uL Lymphocytes # 0.3 L (1.0-4.8) k/uL Carbon Dioxide 21 L (22-30) mmol/L BUN 48 H (7-17) mg/dL Glucose 201 H (74-99) mg/dL POC Glucose (mg/dL) 178 H (70-110) mg/dL Microbiology - Last 24 Hours (Table) 04/23/23 15:26 Blood Culture - Preliminary Blood 04/22/23 11:00 Gram Stain - Final Sputum Sputum Culture - Final Pseudomonas aeruginosa
--- NOTE | 2023-04-25 12:50 | P.PN ---
Subjective Progress Note Date: 04/25/23 Principal diagnosis: Acute on chronic hypoxic respiratory failure secondary to acute diastolic heart failure and possible acute healthcare acquired pneumonia This is an 83-year-old female patient with a history of chronic kidney disease, normocytic anemia, chronic obstructive pulmonary disease, hypothyroidism, hypertension, hyperlipidemia. She also has a history of large paraesophageal hernia with intrathoracic stomach and was subsequently transferred to [facility] for surgery from here back in December 2022. She had a complicated recovery and required tracheostomy and J tube placements. She was 6 weeks in an extended care facility and had been home for 1 week now. She presented here to the emergency room last evening with shortness of breath and thick secretions from her tracheostomy. Chest x-ray showed mild cardiomegaly with a small right greater than left pleural effusion. Correlate for congestive heart failure. There is also basilar atelectasis. White count 8.7. Hemoglobin 12.1. Sodium 133. Potassium 4.7. Bicarb 18. BUN 31. Creatinine 0.93. Glucose 202. ProBNP 2600. Pro-calcitonin 0.20. AST 43. ALT 35. She is seen today in consultation in the emergency department. Currently sitting up on a stretcher. Maintaining O2 saturations in the mid to upper 90s on 28% FiO2 via trach collar. She's been initiated and DuoNeb inhalations, Solu-Medrol. Antibiotics in the form of vancomycin and Levaquin. Sputum culture pending. She will be resumed on tube feedings per dietitian consult. Patient was reevaluated today on 04/23/2023, continues to have significant amount of tracheal secretions noted via tracheostomy. Patient continues to have some intermittent episodes of shortness of breath and congestion. Patient is on 5 L trach collar O2 sats is 99%. Sputum cultures are preliminary positive for gram-negative bacilli, final culture is pending, patient is presently on Levaquin because she has multiple ALLERGIES. Labs today were reviewed including basic metabolic profile and CBC. Patient was reevaluated today on 04/24/2023, patient developed some significant mucous plugging today requiring aggressive suctioning on the medical floor, hence patient was transferred to the ICU mostly because of frequent need for suctioning of the tracheostomy. I saw the patient in ICU, seems to be resting, very comfortable, she is on trach collar at 28%, her sputum has been showing gram-negative bacilli, hence I discontinued the vancomycin and kept her on Levaquin. Patient is also receiving Jevity via PEG tube at 50 MLS per hour and that seems to be well tolerated. Labs today showed leukocytosis with WBC of 16.0, otherwise the labs were unremarkable. Her sputum cultures now showing Pseudomonas, resistant to Levaquin, resistant to ciprofloxacin, patient has ALLERGIES to penicillin, ALLERGIC to cephalexin, hence will transition the patient to imipenem or at least consult infectious disease on the case. Reevaluated today on , patient remains in the ICU, is comfortable, she is on a 28% trach collar, her sputum came back positive for Pseudomonas resistant to Zosyn and resistant to cefepime as well as Levaquin and ciprofloxacin, patient has multiple ALLERGIES and ID chose to place the patient on Azactam. Patient is better today compared to the last few days less secretions from the tracheostomy she seems to be very comfortable. WBC count is 11.7 hemoglobin 11.6 electrolytes are normal renal profile is normal Objective - Vital Signs Vital signs: Vital Signs Temp 98.3 F 04/25/23 08:00 Pulse 90 04/25/23 11:14 Resp 18 04/25/23 11:14 BP 132/65 04/25/23 11:00 Pulse Ox 97 04/25/23 11:00 FiO2 28 04/25/23 08:29 Intake & Output 04/24/23 04/25/23 04/25/23 18:59 06:59 18:59 Intake Total 685 670 295 Output Total 475 1300 100 Balance 210 -630 195 Weight 70.307 kg 72.4 kg 72.4 kg Intake: IV 140 200 70 0.9NS 140 200 70 Intake, IV Titration 100 Amount Meropenem 1 gm In Sodium 100 Chloride 0.9% 100 ml @ 33 .3 mls/hr IVPB Q8HR [facility] Rx#:[id number] Tube Feeding 325 350 225 Other 120 120 Output: Gastric Drainage 700 Urine 475 600 100 Other: Voiding Method External Catheter External Catheter Incontinent External Catheter # Voids 1 - Exam GENERAL EXAM: Alert, 83-year-old female, on trach collar, 28% FiO2 HEAD: Normocephalic. EYES: Normal reaction of pupils, equal size. NOSE: Clear with pink turbinates. THROAT: Tracheostomy is intact. Less secretions noted today. NECK: No masses, no JVD. CHEST: No chest wall deformity. LUNGS: Diminished breath sounds at the bases no rhonchi and no wheezes today. CVS: S1 and S2 normal with no audible murmur, regular rhythm. ABDOMEN: J-tube secured in place. No hepatosplenomegaly, normal bowel sounds, no guarding or rigidity. SKIN: No rashes CENTRAL NERVOUS SYSTEM: No gross focal neurologic deficit EXTREMITIES: No clubbing edema or cyanosis - Labs CBC & Chem 7: 04/25/23 05:35 04/25/23 05:38 Labs: Abnormal Lab Results - Last 24 Hours (Table) 04/24/23 04/24/23 04/25/23 Range/Units 17:11 21:17 05:35 WBC 11.7 H (3.8-10.6) k/uL Neutrophils # 10.9 H (1.3-7.7) k/uL Lymphocytes # 0.3 L (1.0-4.8) k/uL Carbon Dioxide (22-30) mmol/L BUN (7-17) mg/dL Glucose (74-99) mg/dL POC Glucose (mg/dL) 173 H 168 H (70-110) mg/dL 04/25/23 04/25/23 04/25/23 Range/Units 05:38 05:58 11:24 WBC (3.8-10.6) k/uL Neutrophils # (1.3-7.7) k/uL Lymphocytes # (1.0-4.8) k/uL Carbon Dioxide 21 L (22-30) mmol/L BUN 48 H (7-17) mg/dL Glucose 201 H (74-99) mg/dL POC Glucose (mg/dL) 178 H 185 H (70-110) mg/dL Microbiology - Last 24 Hours (Table) 04/23/23 15:26 Blood Culture - Preliminary Blood 04/22/23 11:00 Gram Stain - Final Sputum Sputum Culture - Final Pseudomonas aeruginosa Assessment and Plan Assessment: Impression: Acute on chronic hypoxic respiratory failure, multifactorial Suspect acute diastolic congestive heart failure Suspect healthcare acquired pneumonia/pseudomonal aeruginosa pneumonia History of abnormal elevation of the esophagus requiring dilatation History of tracheostomy and J-tube placement History of paraesophageal hernia Hypothyroidism Dyslipidemia benign essential hypertension Recommendation: Continue to monitor in the ICU for the next 24 hours Continue Azactam Continue suctioning of tracheostomy frequently Continue bronchodilators Continue steroids We will continue to follow. Time with Patient: Less than 30
--- NOTE | 2023-04-25 13:18 | P.PN ---
Subjective Progress Note Date: 04/25/23 Principal diagnosis: Gastrostomy tube Patient remains in the ICU. She is having decreased sputum production today. Remains on tube feeds. She was complaining some bloating but that is resolved. Gastric tube remains to dependent drainage with moderate output of bilious fluid. Denies abdominal pain. Objective - Vital Signs Vital signs: Vital Signs Temp 98.3 F 04/25/23 08:00 Pulse 90 04/25/23 11:14 Resp 18 04/25/23 11:14 BP 132/65 04/25/23 11:00 Pulse Ox 97 04/25/23 11:00 FiO2 28 04/25/23 08:29 Intake & Output 04/24/23 04/25/23 04/25/23 18:59 06:59 18:59 Intake Total 685 670 295 Output Total 475 1300 100 Balance 210 -630 195 Weight 70.307 kg 72.4 kg 72.4 kg Intake: IV 140 200 70 0.9NS 140 200 70 Intake, IV Titration 100 Amount Meropenem 1 gm In Sodium 100 Chloride 0.9% 100 ml @ 33 .3 mls/hr IVPB Q8HR [facility] Rx#:[id number] Tube Feeding 325 350 225 Other 120 120 Output: Gastric Drainage 700 Urine 475 600 100 Other: Voiding Method External Catheter External Catheter Incontinent External Catheter # Voids 1 - Exam Abdomen: Soft, nondistended, GJ tube in place, nontender - Labs CBC & Chem 7: 04/25/23 05:35 04/25/23 05:38 Labs: Abnormal Lab Results - Last 24 Hours (Table) 04/24/23 04/24/23 04/25/23 Range/Units 17:11 21:17 05:35 WBC 11.7 H (3.8-10.6) k/uL Neutrophils # 10.9 H (1.3-7.7) k/uL Lymphocytes # 0.3 L (1.0-4.8) k/uL Carbon Dioxide (22-30) mmol/L BUN (7-17) mg/dL Glucose (74-99) mg/dL POC Glucose (mg/dL) 173 H 168 H (70-110) mg/dL 04/25/23 04/25/23 04/25/23 Range/Units 05:38 05:58 11:24 WBC (3.8-10.6) k/uL Neutrophils # (1.3-7.7) k/uL Lymphocytes # (1.0-4.8) k/uL Carbon Dioxide 21 L (22-30) mmol/L BUN 48 H (7-17) mg/dL Glucose 201 H (74-99) mg/dL POC Glucose (mg/dL) 178 H 185 H (70-110) mg/dL Microbiology - Last 24 Hours (Table) 04/23/23 15:26 Blood Culture - Preliminary Blood 04/22/23 11:00 Gram Stain - Final Sputum Sputum Culture - Final Pseudomonas aeruginosa Assessment and Plan (1) Gastroparesis Narrative/Plan: 83-year-old female gastroparesis and reflux. Continue tube feeds through gastrojejunostomy tube. No further surgical plans at this time. Recommend outpatient follow-up with her surgical team at [facility] after discharge. We'll sign off. Please call if needed. Current Visit: Yes Status: Acute Code(s): K31.84 - GASTROPARESIS SNOMED Code(s): 204388311
--- NOTE | 2023-04-25 15:33 | P.PN ---
Subjective Progress Note Date: 04/25/23 Principal diagnosis: Pseudomonas pneumonia and multiple antibiotic ALLERGIES Patient is a 83-year-old female with a past medical history significant for coronary artery disease hypertension hyperlipidemia patient did have a paraesophageal hernia repair with suspected esophageal perforation prolonged hospital stay did have a tracheostomy and PEG tube placement, present ed to hospital with increasing shortness of breath cough and some creamy sputum sputum has been finalized and pseudomonas aeruginosa, patient did have both cephalosporins and penicillin ALLERGY. On today's evaluation that is 04/25/2023, the patient remains to be afebrile the patient is breathing comfortably on 28% trach collar, the patient denies chest pain and the patient cough is decreased intensity and less sputum production patient denies nausea/vomiting and no diarrhea,. Patient white count is down to 11.7, creatinine 0.83 Objective - Vital Signs Vital signs: Vital Signs Temp 98.3 F 04/25/23 08:00 Pulse 90 04/25/23 11:14 Resp 18 04/25/23 11:14 BP 132/65 04/25/23 11:00 Pulse Ox 97 04/25/23 11:00 FiO2 28 04/25/23 08:29 Intake & Output 04/24/23 04/25/23 04/25/23 18:59 06:59 18:59 Intake Total 685 670 295 Output Total 475 1300 100 Balance 210 -630 195 Weight 70.307 kg 72.4 kg 72.4 kg Intake: IV 140 200 70 0.9NS 140 200 70 Intake, IV Titration 100 Amount Meropenem 1 gm In Sodium 100 Chloride 0.9% 100 ml @ 33 .3 mls/hr IVPB Q8HR [facility] Rx#:[id number] Tube Feeding 325 350 225 Other 120 120 Output: Gastric Drainage 700 Urine 475 600 100 Other: Voiding Method External Catheter External Catheter Incontinent External Catheter # Voids 1 - Exam GENERAL DESCRIPTION: An elderly female lying in bed in no distress RESPIRATORY SYSTEM: Unlabored breathing , decreased breath sounds at bases HEART: S1 S2 regular rate and rhythm , ABDOMEN: Soft , no tenderness EXTREMITIES: No edema feet - Labs CBC & Chem 7: 04/25/23 05:35 04/25/23 05:38 Labs: Abnormal Lab Results - Last 24 Hours (Table) 04/24/23 04/24/23 04/25/23 Range/Units 17:11 21:17 05:35 WBC 11.7 H (3.8-10.6) k/uL Neutrophils # 10.9 H (1.3-7.7) k/uL Lymphocytes # 0.3 L (1.0-4.8) k/uL Carbon Dioxide (22-30) mmol/L BUN (7-17) mg/dL Glucose (74-99) mg/dL POC Glucose (mg/dL) 173 H 168 H (70-110) mg/dL 04/25/23 04/25/23 04/25/23 Range/Units 05:38 05:58 11:24 WBC (3.8-10.6) k/uL Neutrophils # (1.3-7.7) k/uL Lymphocytes # (1.0-4.8) k/uL Carbon Dioxide 21 L (22-30) mmol/L BUN 48 H (7-17) mg/dL Glucose 201 H (74-99) mg/dL POC Glucose (mg/dL) 178 H 185 H (70-110) mg/dL Microbiology - Last 24 Hours (Table) 04/23/23 15:26 Blood Culture - Preliminary Blood 04/22/23 11:00 Gram Stain - Final Sputum Sputum Culture - Final Pseudomonas aeruginosa Assessment and Plan (1) Allergy to multiple antibiotics Current Visit: Yes Status: Acute Code(s): Z88.1 - ALLERGY STATUS TO OTHER ANTIBIOTIC AGENTS SNOMED Code(s): 715172648 (2) Pneumonia Current Visit: Yes Status: Acute Code(s): J18.9 - PNEUMONIA, UNSPECIFIED ORGANISM SNOMED Code(s): 321499945 Plan: 1patient presented hospital with increasing shortness of breath increasing cough and purulent sputum patient did have a infiltrate seen on the chest x-ray and did have mild elevated procalcitonin with a sputum now growing Pseudomonas aeruginosa likely concerning for purulent tracheobronchitis/early pneumonia 2-patient with multiple antibiotic allergies that would limit the number of antibiotics safe to use 3Patient to continue with Azactam 2 g every 8 hours and monitor clinical course closely Dictation was produced using [employer] dictation software. please excuse any grammatical, word or spelling errors. Time with Patient: Less than 30
[2023-04-25] MEDS ORDERED: BACITRACIN OINT 1 EACH PACKET TOPICAL SCH (16:00)
[2023-04-25 20:19] LABS: Glucose,Whole Blood 156 mg/dL (70-110)
[2023-04-25] MEDS: DOXAZOSIN 2 MG TAB PO SCH (21:04)
[2023-04-25] MEDS: ATORVASTATIN 10 MG TAB PO SCH (21:04)
[2023-04-26 05:20] LABS: HCT 38.4 % (34.0-46.0); HGB 12.3 gm/dL (11.4-16.0); MCH 28.3 pg (25.0-35.0); MCV 88.5 fL (80.0-100.0); Mean Platelet Volume 8.3; Platelet Count 296 k/uL (150-450); RBC 4.34 m/uL (3.80-5.40); WBC 11.8 k/uL (3.8-10.6)
[2023-04-26 05:38] LABS: African American GFR (CKD) 78 (>60 ml/min/1.73 sqM); Anion Gap 13 mmol/L; Blood Urea Nitrogen 59 mg/dL (7-17); Calcium 10.2 mg/dL (8.4-10.2); Carbon Dioxide 22 mmol/L (22-30); Chloride 104 mmol/L (98-107); Glucose 200 mg/dL (74-99); Non-African American GFR(CKD) 68 (>60 ml/min/1.73 sqM); Potassium 4.1 mmol/L (3.5-5.1); Sodium 139 mmol/L (137-145)
[2023-04-26 06:24] LABS: Glucose,Whole Blood 178 mg/dL (70-110)
[2023-04-26] MEDS: LEVOTHYROXINE 25 MCG TAB PO SCH (06:32)
[2023-04-26] MEDS: INSULIN ASPART (NovoLOG) 100 UNIT/ML VIAL SQ SCH ×4 (06:32→22:10)
[2023-04-26] MEDS: methylPREDNISolone SOD SUCCI 125 MG/2 ML VIAL IV SCH ×2 (08:30→15:32)
[2023-04-26] MEDS: AZTREONAM 2 GM in SODIUM CHLORIDE 0.9% 100 ML IVPB SCH ×2 (08:30→15:32)
[2023-04-26] MEDS: IPRATROPIUM-ALBUTEROL 3 ML NEB INHALATION SCH ×4 (08:47→21:29)
[2023-04-26] MEDS: FUROSEMIDE 10 MG/ML 4 ML VIAL IV SCH (09:15)
[2023-04-26] MEDS: allopurinoL 100 MG TAB PO SCH (09:15)
[2023-04-26] MEDS: amLODIPine 5 MG TAB PO SCH ×2 (09:16→22:10)
[2023-04-26] MEDS: PANTOPRAZOLE 40 MG/10 ML VIAL IVP SCH (09:48)
[2023-04-26] MEDS: ALPRAZolam 0.5 MG TAB PO SCH ×3 (09:48→22:10)
[2023-04-26 11:28] LABS: Glucose,Whole Blood 175 mg/dL (70-110)
--- NOTE | 2023-04-26 11:33 | P.PN ---
Subjective Progress Note Date: 04/26/23 Patient is a 83-year-old female with a PMH of recent tracheostomy and PEG tube placement following a prolonged hospitalization with transfer to tertiary care facility for paraesophageal hernia, goiter, and suspected esophageal perforation, hypertension, hyperlipidemia, hypothyroidism, COPD, chronic kidney disease who presents to the emergency room for cough and shortness of breath. The patient had a prolonged hospitalization at [facility] and was subsequently discharged to an LTAC-like facility for roughly 6 weeks or she was reportedly also on a ventilator. The patient was discharged home around a week ago. She gradually developed a persistent cough with thick secretions through her tracheostomy. The patient reports intractable coughing with some shortness of breath. Chest x-ray in the emergency room revealed bilateral opacities concerning for CHF versus pneumonia. Laboratory evaluation was remarkable for leukocytosis of 15.0, sodium 131, potassium 5.4, AST 43, ALT 45, alk phos 144, lactic acid 1.2. 04/23 Patient was seen and examined. No acute events overnight. Patient has thick purulent secretions blood tinged through the trach. Nonverbal. Renal function within normal limits. 04/24 Patient was seen and examined this morning. A-team called this morning for respiratory distress. Patient was verbalizing that she couldnt breath. She was noted to be hypertensive SBP in the 190s and HR in the 140s. RT was above to suction puruplent sputum which improved her symptoms and BP/HR. Transferred to ICU for higher level of care. CXR shows pulmonary vascular congestion, she is started on Lasix 40 mg IV QD. ID consulted to guide Abx therapy. Sputum culture + pseudomonas resistant to Levaquin. CBC shows WBC count 16. BMP shows bicarb 17, BUN 42, glucose 162, Ca 10.5. 04/25 Patient was seen and examined. Voices that breathing has improved considerably since yesterday. Currently on trach collar 5L FiO2 28%. CBC shows WBC count 11.7. BMP shows bicarb 21, BUN 48, glucose 201. Patient was switched to Imipenem by ID for Pseudomonal coverage on 04/24. 04/26 Patient was seen and examined. Continues to have thick secretions. CBC shows WBC 11.8. BMP BUN 59, glucose 200. General: non toxic, no distress, appears at stated age, normal weight Derm: no unusual rashes/lesions, warm Head: atraumatic, normocephalic, symmetric Eyes: EOMI, no lid lag, anicteric sclera ENT: Nose and ears atraumatic Neck: Tracheostomy in place with small amounts of bloody thick phlegm discharge noted Mouth: no lip lesion, mucus membranes moist Cardiovascular: S1S2 reg, no murmur, no edema Lungs: Coarse breath sounds with rhonchi appreciated bilaterally without wheezing, no accessory muscle use Abdominal: PEG tube in place, soft, nontender to palpation, no guarding Ext: muscle strength 4 out of 5 in all 4 extremities grossly, no gross muscle atrophy, no contractures, Neuro: no gross focal neuro deficits Psych: Nonverbal Acute on chronic hypoxic respiratory failure HCAP sputum Cx growing pseudomonas Diastolic CHF exacerbation Sepsis due to above Prerenal azotemia Abnormal LFTs Chronic conditions: HTN, HLD, Hypothyroidism Based on my assessment of this patient, this patient meets a high complexity level of care. Patient has an acute diagnosis of acute hypoxic respiratory failure secondary to ventilator associated PNA vs diastolic CHF exacerbation that poses a threat to life or bodily function. Acute on chronic hypoxic respiratory failure HCAP sputum Cx growing pseudomonas: BCx negative at 48H. Procal slightly elevated at 0.2. Vancomycin and Levaquin discontinued for Aztreonam 2g IV Q8H on 04/24. ID on board. DuoNeb Q4H PRN for SOB/wheezing. SoluMedrol 60 mg IV Q8H. Tylenol 650 mg PO Q6H PRN for fever. Diastolic CHF exacerbation: Echo 12/2022 shows normal LV systolic function, mild- mod MR and , mild LVH. Lasix 40 mg IV QD started 04/24. Telemetry monitoring. Sepsis due to above Prerenal azotemia: Status post NS 75 cc/hr. Abnormal LFTs I have reviewed the following alliances consultant notes: ID, Surgery note. I have reviewed the results of the following tests: CBC, BMP, BCx I have ordered the following tests: I have discussed the care of this patient with the following independent historian: I have independently interpreted the following test below: I have discussed the management of this patient with the following physician: Lasix IV - intensive monitoring - renal function. Objective - Vital Signs Vital signs: Vital Signs Temp 97.7 F 04/26/23 09:00 Pulse 109 H 04/26/23 11:00 Resp 19 04/26/23 11:00 BP 149/80 04/26/23 11:00 Pulse Ox 97 04/26/23 11:00 FiO2 28 04/26/23 08:47 Intake & Output 04/25/23 04/26/23 04/26/23 18:59 06:59 18:59 Intake Total 635 285 119 Output Total 1300 770 230 Balance -665 -485 -111 Weight 72.4 kg 67.8 kg Intake: IV 240 110 119 0.9NS 140 110 20 Aztreonam 2 gm In Sodium 100 99 Chloride 0.9% 100 ml @ 33 .3 mls/hr IVPB Q8HR [facility] Rx#:[id number] Tube Feeding 365 175 Other 30 Output: Drainage 250 Left 250 Urine 1300 520 230 Other: Voiding Method Incontinent Incontinent External Catheter External Catheter # Voids 1 1 - Labs CBC & Chem 7: 04/26/23 05:05 04/26/23 05:05 Labs: Abnormal Lab Results - Last 24 Hours (Table) 04/25/23 04/26/23 04/26/23 Range/Units 20:17 05:05 05:05 WBC 11.8 H (3.8-10.6) k/uL BUN 59 H (7-17) mg/dL Glucose 200 H (74-99) mg/dL POC Glucose (mg/dL) 156 H (70-110) mg/dL 04/26/23 04/26/23 Range/Units 06:22 11:27 WBC (3.8-10.6) k/uL BUN (7-17) mg/dL Glucose (74-99) mg/dL POC Glucose (mg/dL) 178 H 175 H (70-110) mg/dL Microbiology - Last 24 Hours (Table) 04/23/23 15:26 Blood Culture - Preliminary Blood
--- NOTE | 2023-04-26 13:13 | P.PN ---
Subjective Progress Note Date: 04/26/23 Principal diagnosis: Acute on chronic hypoxic respiratory failure secondary to acute diastolic heart failure and possible acute healthcare acquired pneumonia This is an 83-year-old female patient with a history of chronic kidney disease, normocytic anemia, chronic obstructive pulmonary disease, hypothyroidism, hypertension, hyperlipidemia. She also has a history of large paraesophageal hernia with intrathoracic stomach and was subsequently transferred to [facility] for surgery from here back in December 2022. She had a complicated recovery and required tracheostomy and J tube placements. She was 6 weeks in an extended care facility and had been home for 1 week now. She presented here to the emergency room last evening with shortness of breath and thick secretions from her tracheostomy. Chest x-ray showed mild cardiomegaly with a small right greater than left pleural effusion. Correlate for congestive heart failure. There is also basilar atelectasis. White count 8.7. Hemoglobin 12.1. Sodium 133. Potassium 4.7. Bicarb 18. BUN 31. Creatinine 0.93. Glucose 202. ProBNP 2600. Pro-calcitonin 0.20. AST 43. ALT 35. She is seen today in consultation in the emergency department. Currently sitting up on a stretcher. Maintaining O2 saturations in the mid to upper 90s on 28% FiO2 via trach collar. She's been initiated and DuoNeb inhalations, Solu-Medrol. Antibiotics in the form of vancomycin and Levaquin. Sputum culture pending. She will be resumed on tube feedings per dietitian consult. Patient was reevaluated today on 04/23/2023, continues to have significant amount of tracheal secretions noted via tracheostomy. Patient continues to have some intermittent episodes of shortness of breath and congestion. Patient is on 5 L trach collar O2 sats is 99%. Sputum cultures are preliminary positive for gram-negative bacilli, final culture is pending, patient is presently on Levaquin because she has multiple ALLERGIES. Labs today were reviewed including basic metabolic profile and CBC. Patient was reevaluated today on 04/24/2023, patient developed some significant mucous plugging today requiring aggressive suctioning on the medical floor, hence patient was transferred to the ICU mostly because of frequent need for suctioning of the tracheostomy. I saw the patient in ICU, seems to be resting, very comfortable, she is on trach collar at 28%, her sputum has been showing gram-negative bacilli, hence I discontinued the vancomycin and kept her on Levaquin. Patient is also receiving Jevity via PEG tube at 50 MLS per hour and that seems to be well tolerated. Labs today showed leukocytosis with WBC of 16.0, otherwise the labs were unremarkable. Her sputum cultures now showing Pseudomonas, resistant to Levaquin, resistant to ciprofloxacin, patient has ALLERGIES to penicillin, ALLERGIC to cephalexin, hence will transition the patient to imipenem or at least consult infectious disease on the case. Reevaluated today on 023, patient remains in the ICU, is comfortable, she is on a 28% trach collar, her sputum came back positive for Pseudomonas resistant to Zosyn and resistant to cefepime as well as Levaquin and ciprofloxacin, patient has multiple ALLERGIES and ID chose to place the patient on Azactam. Patient is better today compared to the last few days less secretions from the tracheostomy she seems to be very comfortable. WBC count is 11.7 hemoglobin 11.6 electrolytes are normal renal profile is normal Reevaluated today on 04/26/23 remains in the ICU, remains on Azactam for pseudomonal infection and positive sputum patient seems to be in no form of distress, remains on trach collar at 28%, labs today are basically unremarkable including CBC and basic metabolic profile, hence I will transfer the patient back to regular medical floor today. In the meantime continue Azactam. Objective - Vital Signs Vital signs: Vital Signs Temp 97.7 F 04/26/23 09:00 Pulse 109 H 04/26/23 11:00 Resp 19 04/26/23 11:00 BP 149/80 04/26/23 11:00 Pulse Ox 97 04/26/23 11:00 FiO2 28 04/26/23 08:47 Intake & Output 04/25/23 04/26/23 04/26/23 18:59 06:59 18:59 Intake Total 635 285 119 Output Total 1300 770 230 Balance -665 -485 -111 Weight 72.4 kg 67.8 kg Intake: IV 240 110 119 0.9NS 140 110 20 Aztreonam 2 gm In Sodium 100 99 Chloride 0.9% 100 ml @ 33 .3 mls/hr IVPB Q8HR [facility] Rx#:[id number] Tube Feeding 365 175 Other 30 Output: Drainage 250 Left 250 Urine 1300 520 230 Other: Voiding Method Incontinent Incontinent Incontinent External Catheter External Catheter External Catheter # Voids 1 1 - Exam GENERAL EXAM: Alert, 83-year-old female, on trach collar, 28% FiO2 HEAD: Normocephalic. EYES: Normal reaction of pupils, equal size. NOSE: Clear with pink turbinates. THROAT: Tracheostomy is intact. Less secretions noted today. NECK: No masses, no JVD. CHEST: No chest wall deformity. LUNGS: Diminished breath sounds at the bases no rhonchi and no wheezes today. CVS: S1 and S2 normal with no audible murmur, regular rhythm. ABDOMEN: J-tube secured in place. No hepatosplenomegaly, normal bowel sounds, no guarding or rigidity. SKIN: No rashes CENTRAL NERVOUS SYSTEM: No gross focal neurologic deficit EXTREMITIES: No clubbing edema or cyanosis - Labs CBC & Chem 7: 04/26/23 05:05 04/26/23 05:05 Labs: Abnormal Lab Results - Last 24 Hours (Table) 04/25/23 04/26/23 04/26/23 Range/Units 20:17 05:05 05:05 WBC 11.8 H (3.8-10.6) k/uL BUN 59 H (7-17) mg/dL Glucose 200 H (74-99) mg/dL POC Glucose (mg/dL) 156 H (70-110) mg/dL 04/26/23 04/26/23 Range/Units 06:22 11:27 WBC (3.8-10.6) k/uL BUN (7-17) mg/dL Glucose (74-99) mg/dL POC Glucose (mg/dL) 178 H 175 H (70-110) mg/dL Microbiology - Last 24 Hours (Table) 04/23/23 15:26 Blood Culture - Preliminary Blood Assessment and Plan Assessment: Impression: Acute on chronic hypoxic respiratory failure, multifactorial Suspect acute diastolic congestive heart failure Suspect healthcare acquired pneumonia/pseudomonal aeruginosa pneumonia History of abnormal elevation of the esophagus requiring dilatation History of tracheostomy and J-tube placement History of paraesophageal hernia Hypothyroidism Dyslipidemia benign essential hypertension Recommendation: Transfer patient out of the ICU to regular medical floor Continue Azactam Continue suctioning of tracheostomy frequently Continue bronchodilators Continue steroids Patient will eventually require placement We will continue to follow. Time with Patient: Less than 30
[2023-04-26] MEDS: ACETAMINOPHEN TAB 325 MG TAB PO PRN (15:31)
--- NOTE | 2023-04-26 16:44 | P.PN ---
Subjective Progress Note Date: 04/26/23 Principal diagnosis: Pseudomonas pneumonia and multiple antibiotic ALLERGIES Patient is a 83-year-old female with a past medical history significant for coronary artery disease hypertension hyperlipidemia patient did have a paraesophageal hernia repair with suspected esophageal perforation prolonged hospital stay did have a tracheostomy and PEG tube placement, present ed to hospital with increasing shortness of breath cough and some creamy sputum sputum has been finalized and pseudomonas aeruginosa, patient did have both cephalosporins and penicillin ALLERGY. On today's evaluation that is 04/26/2023, the patient continues to be afebrile the patient is breathing comfortably on 28% trach collar, the patient denies chest pain or worsening cough and sputum production, patient denies abdominal pain and no nausea/vomiting and no diarrhea has been reported Patient white count is about the same as yesterday 11.8, creatinine 0.81 Objective - Vital Signs Vital signs: Vital Signs Temp 97.7 F 04/26/23 09:00 Pulse 109 H 04/26/23 11:00 Resp 19 04/26/23 11:00 BP 149/80 04/26/23 11:00 Pulse Ox 97 04/26/23 11:00 FiO2 28 04/26/23 08:47 Intake & Output 04/25/23 04/26/23 04/26/23 18:59 06:59 18:59 Intake Total 635 285 119 Output Total 1300 770 230 Balance -665 -485 -111 Weight 72.4 kg 67.8 kg Intake: IV 240 110 119 0.9NS 140 110 20 Aztreonam 2 gm In Sodium 100 99 Chloride 0.9% 100 ml @ 33 .3 mls/hr IVPB Q8HR [facility] Rx#:[id number] Tube Feeding 365 175 Other 30 Output: Drainage 250 Left 250 Urine 1300 520 230 Other: Voiding Method Incontinent Incontinent Incontinent External Catheter External Catheter External Catheter # Voids 1 1 - Exam GENERAL DESCRIPTION: An elderly female lying in bed in no distress RESPIRATORY SYSTEM: Unlabored breathing , decreased breath sounds at bases HEART: S1 S2 regular rate and rhythm , ABDOMEN: Soft , no tenderness EXTREMITIES: No edema feet - Labs CBC & Chem 7: 04/26/23 05:05 04/26/23 05:05 Labs: Abnormal Lab Results - Last 24 Hours (Table) 04/25/23 04/26/23 04/26/23 Range/Units 20:17 05:05 05:05 WBC 11.8 H (3.8-10.6) k/uL BUN 59 H (7-17) mg/dL Glucose 200 H (74-99) mg/dL POC Glucose (mg/dL) 156 H (70-110) mg/dL 04/26/23 04/26/23 Range/Units 06:22 11:27 WBC (3.8-10.6) k/uL BUN (7-17) mg/dL Glucose (74-99) mg/dL POC Glucose (mg/dL) 178 H 175 H (70-110) mg/dL Microbiology - Last 24 Hours (Table) 04/23/23 15:26 Blood Culture - Preliminary Blood Assessment and Plan (1) Allergy to multiple antibiotics Current Visit: Yes Status: Acute Code(s): Z88.1 - ALLERGY STATUS TO OTHER ANTIBIOTIC AGENTS SNOMED Code(s): 035108666 (2) Pneumonia Current Visit: Yes Status: Acute Code(s): J18.9 - PNEUMONIA, UNSPECIFIED ORGANISM SNOMED Code(s): 122010627 Plan: 1patient presented hospital with increasing shortness of breath increasing cough and purulent sputum patient did have a infiltrate seen on the chest x-ray and did have mild elevated procalcitonin with a sputum now growing Pseudomonas aeruginosa likely concerning for purulent tracheobronchitis/early pneumonia 2-patient with multiple antibiotic allergies that would limit the number of antibiotics safe to use 3Patient seemed to have the clinical improvement and will continue with Azactam 2 g every 8 hours and monitor clinical course closely Dictation was produced using [employer] dictation software. please excuse any grammatical, word or spelling errors. Time with Patient: Less than 30
[2023-04-26 16:52] LABS: Glucose,Whole Blood 190 mg/dL (70-110)
[2023-04-26 20:15] LABS: Glucose,Whole Blood 202 mg/dL (70-110)
[2023-04-26 22:05] LABS: Glucose,Whole Blood 182 mg/dL (70-110)
[2023-04-26] MEDS: ATORVASTATIN 10 MG TAB PO SCH (22:10)
[2023-04-26] MEDS: DOXAZOSIN 2 MG TAB PO SCH (22:10)
[2023-04-27] MEDS: methylPREDNISolone SOD SUCCI 125 MG/2 ML VIAL IV SCH ×4 (00:18→23:49)
[2023-04-27] MEDS: AZTREONAM 2 GM in SODIUM CHLORIDE 0.9% 100 ML IVPB SCH ×4 (00:18→23:48)
[2023-04-27] MEDS: LEVOTHYROXINE 25 MCG TAB PO SCH (05:39)
[2023-04-27 06:44] LABS: Glucose,Whole Blood 181 mg/dL (70-110)
[2023-04-27] MEDS: INSULIN ASPART (NovoLOG) 100 UNIT/ML VIAL SQ SCH ×4 (06:56→21:45)
[2023-04-27] MEDS: ACETAMINOPHEN TAB 325 MG TAB PO PRN ×2 (07:02→14:44)
[2023-04-27] MEDS: PANTOPRAZOLE 40 MG/10 ML VIAL IVP SCH (07:47)
--- NOTE | 2023-04-27 08:20 | XR ---
EXAMINATION TYPE: XR chest 1V portable DATE OF EXAM: 04/27/2023 HISTORY: Shortness of breath. COMPARISON: 04/24/2023 TECHNIQUE: Single view of the chest is submitted. FINDINGS: Demonstrated are scattered senescent parenchymal change. Tracheostomy tube is in place. Small bilateral pleural effusions. Chronic elevation right hemidiaphra gm. Right infrahilar atelectasis or infiltrate. The heart is stable. Hilar and mediastinal structures are within normal limits. Degenerative changes are seen of the dorsal spine. IMPRESSION: 1. Tracheostomy tube is in place. Small bilateral pleural effusions. Chronic elevation right hemidia phragm. Right infrahilar atelectasis or infiltrate.
[2023-04-27] MEDS: allopurinoL 100 MG TAB PO SCH (08:42)
[2023-04-27] MEDS: amLODIPine 5 MG TAB PO SCH ×2 (08:42→21:45)
[2023-04-27] MEDS: FUROSEMIDE 10 MG/ML 4 ML VIAL IV SCH (08:42)
[2023-04-27] MEDS: ALPRAZolam 0.5 MG TAB PO SCH ×3 (08:42→21:45)
[2023-04-27] MEDS: IPRATROPIUM-ALBUTEROL 3 ML NEB INHALATION SCH ×4 (09:24→20:25)
[2023-04-27 09:42] LABS: African American GFR (CKD) 73 (>60 ml/min/1.73 sqM); Anion Gap 13 mmol/L; Blood Urea Nitrogen 70 mg/dL (7-17); Calcium 10.6 mg/dL (8.4-10.2); Carbon Dioxide 23 mmol/L (22-30); Chloride 106 mmol/L (98-107); Glucose 191 mg/dL (74-99); Magnesium 2.3 mg/dL (1.6-2.3); Non-African American GFR(CKD) 63 (>60 ml/min/1.73 sqM); Sodium 142 mmol/L (137-145)
[2023-04-27] MEDS: SODIUM CHLORIDE 0.9% 1,000 ML IV SCH (10:10)
--- NOTE | 2023-04-27 11:59 | P.PN ---
Subjective Progress Note Date: 04/27/23 Patient is a 83-year-old female with a PMH of recent tracheostomy and PEG tube placement following a prolonged hospitalization with transfer to tertiary care facility for paraesophageal hernia, goiter, and suspected esophageal perforation, hypertension, hyperlipidemia, hypothyroidism, COPD, chronic kidney disease who presents to the emergency room for cough and shortness of breath. The patient had a prolonged hospitalization at [facility] and was subsequently discharged to an LTAC-like facility for roughly 6 weeks or she was reportedly also on a ventilator. The patient was discharged home around a week ago. She gradually developed a persistent cough with thick secretions through her tracheostomy. The patient reports intractable coughing with some shortness of breath. Chest x-ray in the emergency room revealed bilateral opacities concerning for CHF versus pneumonia. Laboratory evaluation was remarkable for leukocytosis of 15.0, sodium 131, potassium 5.4, AST 43, ALT 45, alk phos 144, lactic acid 1.2. 04/23 Patient was seen and examined. No acute events overnight. Patient has thick purulent secretions blood tinged through the trach. Nonverbal. Renal function within normal limits. 04/24 Patient was seen and examined this morning. A-team called this morning for respiratory distress. Patient was verbalizing that she couldnt breath. She was noted to be hypertensive SBP in the 190s and HR in the 140s. RT was above to suction puruplent sputum which improved her symptoms and BP/HR. Transferred to ICU for higher level of care. CXR shows pulmonary vascular congestion, she is started on Lasix 40 mg IV QD. ID consulted to guide Abx therapy. Sputum culture + pseudomonas resistant to Levaquin. CBC shows WBC count 16. BMP shows bicarb 17, BUN 42, glucose 162, Ca 10.5. 04/25 Patient was seen and examined. Voices that breathing has improved considerably since yesterday. Currently on trach collar 5L FiO2 28%. CBC shows WBC count 11.7. BMP shows bicarb 21, BUN 48, glucose 201. Patient was switched to Imipenem by ID for Pseudomonal coverage on 04/24. 04/26 Patient was seen and examined. Continues to have thick secretions. CBC shows WBC 11.8. BMP BUN 59, glucose 200. BMP shows BUN 70, glucose 191, Ca 10.6. 04/27 Patient was seen and examined. CXR shows small bilateral pleural effusions, similar to previous CXRs. Negative 1150 cc fluid balance over the past 24H. Weight 70.307 to 66.7kg. General: non toxic, no distress, appears at stated age, normal weight Derm: no unusual rashes/lesions, warm Head: atraumatic, normocephalic, symmetric Eyes: EOMI, no lid lag, anicteric sclera ENT: Nose and ears atraumatic Neck: Tracheostomy in place with small amounts of bloody thick phlegm discharge noted Mouth: no lip lesion, mucus membranes moist Cardiovascular: S1S2 reg, no murmur, no edema Lungs: Coarse breath sounds with rhonchi appreciated bilaterally without whee zing, no accessory muscle use Abdominal: PEG tube in place, soft, nontender to palpation, no guarding Ext: muscle strength 4 out of 5 in all 4 extremities grossly, no gross muscle atrophy, no contractures, Neuro: no gross focal neuro deficits Psych: Nonverbal Acute on chronic hypoxic respiratory failure HCAP sputum Cx growing pseudomonas Diastolic CHF exacerbation Sepsis due to above Prerenal azotemia Abnormal LFTs Chronic conditions: HTN, HLD, Hypothyroidism Based on my assessment of this patient, this patient meets a moderate complexity level of care. Patient has an acute diagnosis of acute hypoxic respiratory failure secondary to ventilator associated PNA vs diastolic CHF exacerbation that poses a threat to life or bodily function. Acute on chronic hypoxic respiratory failure HCAP sputum Cx growing pseudomonas: BCx negative at 48H. Procal slightly elevated at 0.2. Vancomycin and Levaquin discontinued for Aztreonam 2g IV Q8H on 04/24. ID on board. DuoNeb Q4H PRN for SOB/wheezing. SoluMedrol 60 mg IV Q8H. Tylenol 650 mg PO Q6H PRN for fever. Diastolic CHF exacerbation: Echo 12/2022 shows normal LV systolic function, mild- mod MR and , mild LVH. Lasix 40 mg IV QD started 04/24 discontinued 04/27. Telemetry monitoring. Sepsis due to above Prerenal azotemia: Status post NS 75 cc/hr. Abnormal LFTs I have reviewed the following technical sales consultant notes: I have reviewed the results of the following tests: BMP I have ordered the following tests: I have discussed the care of this patient with the following independent historian: I have independently interpreted the following test below: I have discussed the management of this patient with the following physician: Objective - Vital Signs Vital signs: Vital Signs Temp 97.5 F L 04/27/23 08:00 Pulse 108 H 04/27/23 10:00 Resp 18 04/27/23 10:00 BP 143/76 04/27/23 08:00 Pulse Ox 95 04/27/23 10:00 FiO2 28 04/27/23 09:24 Intake & Output 04/26/23 04/27/23 04/27/23 18:59 06:59 18:59 Intake Total 559 425 610 Output Total 1080 600 250 Balance -521 -175 360 Weight 66.7 kg Intake: IV 149 80 200 0.9NS 50 80 200 Aztreonam 2 gm In Sodium 99 Chloride 0.9% 100 ml @ 33 .3 mls/hr IVPB Q8HR [facility] Rx#:[id number] Tube Feeding 350 315 350 Other 60 30 60 Output: Gastric Drainage 250 200 Urine 830 400 250 Other: Voiding Method Incontinent Incontinent Incontinent External Catheter External Catheter External Catheter # Voids 1 - Labs CBC & Chem 7: 04/26/23 05:05 04/27/23 08:40 Labs: Abnormal Lab Results - Last 24 Hours (Table) 04/26/23 04/26/23 04/26/23 Range/Units 16:50 20:14 22:04 BUN (7-17) mg/dL Glucose (74-99) mg/dL POC Glucose (mg/dL) 190 H 202 H 182 H (70-110) mg/dL Calcium (8.4-10.2) mg/dL 04/27/23 04/27/23 Range/Units 06:43 08:40 BUN 70 H (7-17) mg/dL Glucose 191 H (74-99) mg/dL POC Glucose (mg/dL) 181 H (70-110) mg/dL Calcium 10.6 H (8.4-10.2) mg/dL Microbiology - Last 24 Hours (Table) 04/23/23 15:26 Blood Culture - Preliminary Blood
--- NOTE | 2023-04-27 12:34 | P.PN ---
Subjective Progress Note Date: 04/27/23 Principal diagnosis: Acute on chronic hypoxic respiratory failure secondary to acute diastolic heart failure and possible acute healthcare acquired pneumonia This is an 83-year-old female patient with a history of chronic kidney disease, normocytic anemia, chronic obstructive pulmonary disease, hypothyroidism, hypertension, hyperlipidemia. She also has a history of large paraesophageal hernia with intrathoracic stomach and was subsequently transferred to [facility] for surgery from here back in December 2022. She had a complicated recovery and required tracheostomy and J tube placements. She was 6 weeks in an extended care facility and had been home for 1 week now. She presented here to the emergency room last evening with shortness of breath and thick secretions from her tracheostomy. Chest x-ray showed mild cardiomegaly with a small right greater than left pleural effusion. Correlate for congestive heart failure. There is also basilar atelectasis. White count 8.7. Hemoglobin 12.1. Sodium 133. Potassium 4.7. Bicarb 18. BUN 31. Creatinine 0.93. Glucose 202. ProBNP 2600. Pro-calcitonin 0.20. AST 43. ALT 35. She is seen today in consultation in the emergency department. Currently sitting up on a stretcher. Maintaining O2 saturations in the mid to upper 90s on 28% FiO2 via trach collar. She's been initiated and DuoNeb inhalations, Solu-Medrol. Antibiotics in the form of vancomycin and Levaquin. Sputum culture pending. She will be resumed on tube feedings per dietitian consult. Patient was reevaluated today on 04/23/2023, continues to have significant amount of tracheal secretions noted via tracheostomy. Patient continues to have some intermittent episodes of shortness of breath and congestion. Patient is on 5 L trach collar O2 sats is 99%. Sputum cultures are preliminary positive for gram-negative bacilli, final culture is pending, patient is presently on Levaquin because she has multiple ALLERGIES. Labs today were reviewed including basic metabolic profile and CBC. Patient was reevaluated today on 04/24/2023, patient developed some significant mucous plugging today requiring aggressive suctioning on the medical floor, hence patient was transferred to the ICU mostly because of frequent need for suctioning of the tracheostomy. I saw the patient in ICU, seems to be resting, very comfortable, she is on trach collar at 28%, her sputum has been showing gram-negative bacilli, hence I discontinued the vancomycin and kept her on Levaquin. Patient is also receiving Jevity via PEG tube at 50 MLS per hour and that seems to be well tolerated. Labs today showed leukocytosis with WBC of 16.0, otherwise the labs were unremarkable. Her sputum cultures now showing Pseudomonas, resistant to Levaquin, resistant to ciprofloxacin, patient has ALLERGIES to penicillin, ALLERGIC to cephalexin, hence will transition the patient to imipenem or at least consult infectious disease on the case. Reevaluated today on , patient remains in the ICU, is comfortable, she is on a 28% trach collar, her sputum came back positive for Pseudomonas resistant to Zosyn and resistant to cefepime as well as Levaquin and ciprofloxacin, patient has multiple ALLERGIES and ID chose to place the patient on Azactam. Patient is better today compared to the last few days less secretions from the tracheostomy she seems to be very comfortable. WBC count is 11.7 hemoglobin 11.6 electrolytes are normal renal profile is normal Reevaluated today on 04/26/23 remains in the ICU, remains on Azactam for pseudomonal infection and positive sputum patient seems to be in no form of distress, remains on trach collar at 28%, labs today are basically unremarkable including CBC and basic metabolic profile, hence I will transfer the patient back to regular medical floor today. In the meantime continue Azactam. Reevaluated today on 04/27/2023, patient remains in the ICU, however she is an overflow, she has less and less secretions, continues to be on trach collar at 28%, not much of a change in the last 24 hours, remains on Azactam for her pseudomonal infection. Basic metabolic profile is normal renal profile is normal except for BUN of 70 and the patient will liberalize fluids and bit more although the patient does have history of diastolic congestive heart failure. Chest x-ray showed tracheostomy in place, small bilateral pleural effusions and chronic elevation of the right hemidiaphragm with infrahilar atelectasis/right base doubt infiltrate Objective - Vital Signs Vital signs: Vital Signs Temp 97.5 F L 04/27/23 08:00 Pulse 108 H 04/27/23 10:00 Resp 18 04/27/23 10:00 BP 143/76 04/27/23 08:00 Pulse Ox 95 04/27/23 10:00 FiO2 28 10/14/23 09:24 Intake & Output 04/26/23 04/27/23 04/27/23 18:59 06:59 18:59 Intake Total 559 425 610 Output Total 1080 600 250 Balance -521 -175 360 Weight 66.7 kg Intake: IV 149 80 200 0.9NS 50 80 200 Aztreonam 2 gm In Sodium 99 Chloride 0.9% 100 ml @ 33 .3 mls/hr IVPB Q8HR [facility] Rx#:[id number] Tube Feeding 350 315 350 Other 60 30 60 Output: Gastric Drainage 250 200 Urine 830 400 250 Other: Voiding Method Incontinent Incontinent Incontinent External Catheter External Catheter External Catheter # Voids 1 - Exam GENERAL EXAM: Alert, 83-year-old female, on trach collar, 28% FiO2 HEAD: Normocephalic. EYES: Normal reaction of pupils, equal size. NOSE: Clear with pink turbinates. THROAT: Tracheostomy is intact. Patient is having less and less secretions over the last few days NECK: No masses, no JVD. CHEST: No chest wall deformity. LUNGS: Diminished breath sounds at the bases no rhonchi and no wheezes today. CVS: S1 and S2 normal with no audible murmur, regular rhythm. ABDOMEN: J-tube secured in place. No hepatosplenomegaly, normal bowel sounds, no guarding or rigidity. SKIN: No rashes CENTRAL NERVOUS SYSTEM: No gross focal neurologic deficit EXTREMITIES: No clubbing edema or cyanosis - Labs CBC & Chem 7: 04/26/23 05:05 04/27/23 08:40 Labs: Abnormal Lab Results - Last 24 Hours (Table) 04/26/23 04/26/23 04/26/23 Range/Units 16:50 20:14 22:04 BUN (7-17) mg/dL Glucose (74-99) mg/dL POC Glucose (mg/dL) 190 H 202 H 182 H (70-110) mg/dL Calcium (8.4-10.2) mg/dL 04/27/23 04/27/23 Range/Units 06:43 08:40 BUN 70 H (7-17) mg/dL Glucose 191 H (74-99) mg/dL POC Glucose (mg/dL) 181 H (70-110) mg/dL Calcium 10.6 H (8.4-10.2) mg/dL Microbiology - Last 24 Hours (Table) 04/23/23 15:26 Blood Culture - Preliminary Blood Assessment and Plan Assessment: Impression: Acute on chronic hypoxic respiratory failure, multifactorial Suspect acute diastolic congestive heart failure Suspect healthcare acquired pneumonia/pseudomonal aeruginosa pneumonia History of abnormal elevation of the esophagus requiring dilatation History of tracheostomy and J-tube placement History of paraesophageal hernia Hypothyroidism Dyslipidemia benign essential hypertension Recommendation: Continue Azactam Continue suctioning of tracheostomy frequently Continue bronchodilators Continue steroids Start IV fluid at 50 mL per hour Transfer patient to medical surgical floor when a bed is available. Patient will eventually require placement We will continue to follow. Time with Patient: Less than 30
--- NOTE | 2023-04-27 12:53 | P.PN ---
Subjective Progress Note Date: 04/27/23 Principal diagnosis: Pseudomonas pneumonia and multiple antibiotic ALLERGIES Patient is a 83-year-old female with a past medical history significant for coronary artery disease hypertension hyperlipidemia patient did have a paraesophageal hernia repair with suspected esophageal perforation prolonged hospital stay did have a tracheostomy and PEG tube placement, present ed to hospital with increasing shortness of breath cough and some creamy sputum sputum has been finalized and pseudomonas aeruginosa, patient did have both cephalosporins and penicillin ALLERGY. On today's evaluation that is 04/27/2023, the patient is afebrile the patient is breathing comfortably on 28% trach collar, the patient denies chest pain or worsening cough or sputum production, patient denies abdominal pain and no nausea/vomiting and no diarrhea has been reported, no new symptoms Patient white count is 11.8 as of yesterday, creatinine 0.86 Objective - Vital Signs Vital signs: Vital Signs Temp 97.5 F L 04/27/23 08:00 Pulse 108 H 04/27/23 10:00 Resp 18 04/27/23 10:00 BP 143/76 04/27/23 08:00 Pulse Ox 95 04/27/23 10:00 FiO2 28 04/27/23 09:24 Intake & Output 04/26/23 04/27/23 04/27/23 18:59 06:59 18:59 Intake Total 559 425 610 Output Total 1080 600 250 Balance -521 -175 360 Weight 66.7 kg Intake: IV 149 80 200 0.9NS 50 80 200 Aztreonam 2 gm In Sodium 99 Chloride 0.9% 100 ml @ 33 .3 mls/hr IVPB Q8HR [facility] Rx#:[id number] Tube Feeding 350 315 350 Other 60 30 60 Output: Gastric Drainage 250 200 Urine 830 400 250 Other: Voiding Method Incontinent Incontinent Incontinent External Catheter External Catheter External Catheter # Voids 1 - Exam GENERAL DESCRIPTION: An elderly female lying in bed in no distress RESPIRATORY SYSTEM: Unlabored breathing , decreased breath sounds at bases HEART: S1 S2 regular rate and rhythm , ABDOMEN: Soft , no tenderness EXTREMITIES: No edema feet - Labs CBC & Chem 7: 04/26/23 05:05 04/27/23 08:40 Labs: Abnormal Lab Results - Last 24 Hours (Table) 04/26/23 04/26/23 04/26/23 Range/Units 11:27 16:50 20:14 BUN (7-17) mg/dL Glucose (74-99) mg/dL POC Glucose (mg/dL) 175 H 190 H 202 H (70-110) mg/dL Calcium (8.4-10.2) mg/dL 04/26/23 04/27/23 04/27/23 Range/Units 22:04 06:43 08:40 BUN 70 H (7-17) mg/dL Glucose 191 H (74-99) mg/dL POC Glucose (mg/dL) 182 H 181 H (70-110) mg/dL Calcium 10.6 H (8.4-10.2) mg/dL Microbiology - Last 24 Hours (Table) 04/23/23 15:26 Blood Culture - Preliminary Blood Assessment and Plan (1) Allergy to multiple antibiotics Current Visit: Yes Status: Acute Code(s): Z88.1 - ALLERGY STATUS TO OTHER ANTIBIOTIC AGENTS SNOMED Code(s): 804594102 (2) Pneumonia Current Visit: Yes Status: Acute Code(s): J18.9 - PNEUMONIA, UNSPECIFIED ORGANISM SNOMED Code(s): 261020488 Plan: 1patient presented hospital with increasing shortness of breath increasing cough and purulent sputum patient did have a infiltrate seen on the chest x-ray and did have mild elevated procalcitonin with a sputum now growing Pseudomonas aeruginosa likely concerning for purulent tracheobronchitis/early pneumonia 2-patient with multiple antibiotic allergies that would limit the number of antibiotics safe to use 3Patient is slowly clinically improving , we wiill continue with Azactam 2 g every 8 hours to finish a 10 day course of therapy and continue with supportive care Dictation was produced using [employer] dictation software. please excuse any grammatical, word or spelling errors. Time with Patient: Less than 30
[2023-04-27 14:33] LABS: Glucose,Whole Blood 188 mg/dL (70-110)
[2023-04-27 16:39] LABS: Glucose,Whole Blood 141 mg/dL (70-110)
[2023-04-27 19:50] LABS: Glucose,Whole Blood 196 mg/dL (70-110)
[2023-04-27 21:42] LABS: Glucose,Whole Blood 195 mg/dL (70-110)
[2023-04-27] MEDS: DOXAZOSIN 2 MG TAB PO SCH (21:45)
[2023-04-27] MEDS: ATORVASTATIN 10 MG TAB PO SCH (21:45)
[2023-04-28 06:33] LABS: Glucose,Whole Blood 206 mg/dL (70-110)
[2023-04-28] MEDS: INSULIN ASPART (NovoLOG) 100 UNIT/ML VIAL SQ SCH ×3 (06:37→16:55)
[2023-04-28] MEDS: LEVOTHYROXINE 25 MCG TAB PO SCH (06:37)
[2023-04-28] MEDS: ACETAMINOPHEN TAB 325 MG TAB PO PRN ×2 (06:37→14:27)
[2023-04-28 07:02] LABS: Basophils % (A) 0 %; Eosinophils % (A) 0 %; HCT 43.2 % (34.0-46.0); HGB 13.8 gm/dL (11.4-16.0); Lymphocytes # (A) 0.4 k/uL (1.0-4.8); Lymphocytes % (A) 3 %; MCH 28.6 pg (25.0-35.0); MCHC 31.9 g/dL (31.0-37.0); MCV 89.7 fL (80.0-100.0); Mean Platelet Volume 8.9; Monocytes # (A) 0.3 k/uL (0-1.0); Monocytes % (A) 3 %; Neutrophils # (A) 11.1 k/uL (1.3-7.7); Neutrophils % (A) 94 %; Platelet Count 316 k/uL (150-450); RBC 4.81 m/uL (3.80-5.40); WBC 11.8 k/uL (3.8-10.6)
[2023-04-28 07:11] LABS: African American GFR (CKD) 67 (>60 ml/min/1.73 sqM); Anion Gap 13 mmol/L; Blood Urea Nitrogen 88 mg/dL (7-17); Calcium 10.4 mg/dL (8.4-10.2); Carbon Dioxide 22 mmol/L (22-30); Chloride 109 mmol/L (98-107); Glucose 213 mg/dL (74-99); Magnesium 2.5 mg/dL (1.6-2.3); Non-African American GFR(CKD) 58 (>60 ml/min/1.73 sqM); Sodium 144 mmol/L (137-145)
[2023-04-28 07:20] LABS: Glucose,Whole Blood 174 mg/dL (70-110)
[2023-04-28] MEDS: methylPREDNISolone SOD SUCCI 125 MG/2 ML VIAL IV SCH ×2 (08:23→16:03)
[2023-04-28] MEDS: PANTOPRAZOLE 40 MG/10 ML VIAL IVP SCH (08:23)
[2023-04-28] MEDS: AZTREONAM 2 GM in SODIUM CHLORIDE 0.9% 100 ML IVPB SCH ×2 (08:24→16:03)
[2023-04-28] MEDS: SODIUM CHLORIDE 0.9% 1,000 ML IV SCH (08:24)
[2023-04-28] MEDS: allopurinoL 100 MG TAB PO SCH (08:26)
[2023-04-28] MEDS: amLODIPine 5 MG TAB PO SCH ×2 (08:27→20:33)
[2023-04-28] MEDS: ALPRAZolam 0.5 MG TAB PO SCH ×3 (08:35→22:30)
[2023-04-28] MEDS: IPRATROPIUM-ALBUTEROL 3 ML NEB INHALATION SCH ×4 (09:37→21:11)
--- NOTE | 2023-04-28 11:29 | P.PN ---
Subjective Progress Note Date: 04/28/23 Patient is a 83-year-old female with a PMH of recent tracheostomy and PEG tube placement following a prolonged hospitalization with transfer to tertiary care facility for paraesophageal hernia, goiter, and suspected esophageal perforation, hypertension, hyperlipidemia, hypothyroidism, COPD, chronic kidney disease who presents to the emergency room for cough and shortness of breath. The patient had a prolonged hospitalization at [facility] and was subsequently discharged to an LTAC-like facility for roughly 6 weeks or she was reportedly also on a ventilator. The patient was discharged home around a week ago. She gradually developed a persistent cough with thick secretions through her tracheostomy. The patient reports intractable coughing with some shortness of breath. Chest x-ray in the emergency room revealed bilateral opacities concerning for CHF versus pneumonia. Laboratory evaluation was remarkable for leukocytosis of 15.0, sodium 131, potassium 5.4, AST 43, ALT 45, alk phos 144, lactic acid 1.2. 04/23 Patient was seen and examined. No acute events overnight. Patient has thick purulent secretions blood tinged through the trach. Nonverbal. Renal function within normal limits. 04/24 Patient was seen and examined this morning. A-team called this morning for respiratory distress. Patient was verbalizing that she couldnt breath. She was noted to be hypertensive SBP in the 190s and HR in the 140s. RT was above to suction puruplent sputum which improved her symptoms and BP/HR. Transferred to ICU for higher level of care. CXR shows pulmonary vascular congestion, she is started on Lasix 40 mg IV QD. ID consulted to guide Abx therapy. Sputum culture + pseudomonas resistant to Levaquin. CBC shows WBC count 16. BMP shows bicarb 17, BUN 42, glucose 162, Ca 10.5. 04/25 Patient was seen and examined. Voices that breathing has improved considerably since yesterday. Currently on trach collar 5L FiO2 28%. CBC shows WBC count 11.7. BMP shows bicarb 21, BUN 48, glucose 201. Patient was switched to Imipenem by ID for Pseudomonal coverage on 04/24. 04/26 Patient was seen and examined. Continues to have thick secretions. CBC shows WBC 11.8. BMP BUN 59, glucose 200. BMP shows BUN 70, glucose 191, Ca 10.6. 04/27 Patient was seen and examined. CXR shows small bilateral pleural effusions, similar to previous CXRs. Negative 1150 cc fluid balance over the past 24H. Weight 70.307 to 66.7kg. Lasix IV discontinued. 04/28 Patient was seen and examined. Clinically stable. CBC shows WBC 11.8. BMP shows Cl 109, BUN 88, glucose 213, Ca 10.4. Mag 2.5. ID recommends 10 days of Aztreonam. Possible discharge home vs SNF with IV antibiotics. General: non toxic, no distress, appears at stated age, normal weight Derm: no unusual rashes/lesions, warm Head: atraumatic, normocephalic, symmetric Eyes: EOMI, no lid lag, anicteric sclera ENT: Nose and ears atraumatic Neck: Tracheostomy in place with small amounts of bloody thick phlegm discharge noted Mouth: no lip lesion, mucus membranes moist Cardiovascular: S1S2 reg, no murmur, no edema Lungs: Coarse breath sounds with rhonchi appreciated bilaterally without wheezing, no accessory muscle use Abdominal: PEG tube in place, soft, nontender to palpation, no guarding Ext: muscle strength 4 out of 5 in all 4 extremities grossly, no gross muscle atrophy, no contractures, Neuro: no gross focal neuro deficits Psych: Nonverbal Acute on chronic hypoxic respiratory failure HCAP sputum Cx growing pseudomonas Diastolic CHF exacerbation Sepsis due to above Prerenal azotemia Abnormal LFTs Chronic conditions: HTN, HLD, Hypothyroidism Based on my assessment of this patient, this patient meets a moderate complexity level of care. Patient has an acute diagnosis of acute hypoxic respiratory failure secondary to ventilator associated PNA vs diastolic CHF exacerbation that poses a threat to life or bodily function. Acute on chronic hypoxic respiratory failure HCAP sputum Cx growing pseudomonas: BCx negative at 72H. Procal slightly elevated at 0.2. Vancomycin and Levaquin discontinued for Aztreonam 2g IV Q8H on 04/24. ID on board. DuoNeb Q4H PRN for SOB/wheezing. SoluMedrol 60 mg IV Q8H. Tylenol 650 mg PO Q6H PRN for fever. Diastolic CHF exacerbation: Echo 12/2022 shows normal LV systolic function, mild- mod MR and , mild LVH. Lasix 40 mg IV QD started 04/24 discontinued 04/27. Telemetry monitoring. Sepsis due to above Prerenal azotemia: NS 50 cc/hr. Abnormal LFTs I have reviewed the following [employer] consultant notes: I have reviewed the results of the following tests: CBC, BMP, Mg I have ordered the following tests: I have discussed the care of this patient with the following independent historian: I have independently interpreted the following test below: I have discussed the management of this patient with the following physician: Objective - Vital Signs Vital signs: Vital Signs Temp 97.6 F 04/28/23 04:00 Pulse 102 H 04/28/23 08:00 Resp 15 04/28/23 08:00 BP 150/81 04/28/23 08:00 Pulse Ox 97 04/28/23 08:00 FiO2 5 04/28/23 08:00 Intake & Output 04/27/23 04/28/23 04/28/23 18:59 06:59 18:59 Intake Total 1275 705 Output Total 950 1200 Balance 325 -495 Weight 66 kg Intake: IV 200 0.9NS 200 Intake, IV Titration 350 600 Amount Sodium Chloride 0.9% 1, 350 600 000 ml @ 50 mls/hr IV . Q20H [facility] Rx#:[id number] Tube Feeding 665 105 Other 60 Output: Gastric Drainage 450 Urine 950 750 Other: Voiding Method Incontinent Incontinent External Catheter External Catheter - Labs CBC & Chem 7: 04/28/23 06:51 04/28/23 06:51 Labs: Abnormal Lab Results - Last 24 Hours (Table) 04/27/23 04/27/23 04/27/23 Range/Units 08:40 14:28 16:38 WBC (3.8-10.6) k/uL Neutrophils # (1.3-7.7) k/uL Lymphocytes # (1.0-4.8) k/uL Chloride (98-107) mmol/L BUN 70 H (7-17) mg/dL Glucose 191 H (74-99) mg/dL POC Glucose (mg/dL) 188 H 141 H (70-110) mg/dL Calcium 10.6 H (8.4-10.2) mg/dL Magnesium (1.6-2.3) mg/dL 04/27/23 04/27/23 04/28/23 Range/Units 19:49 21:41 06:31 WBC (3.8-10.6) k/uL Neutrophils # (1.3-7.7) k/uL Lymphocytes # (1.0-4.8) k/uL Chloride (98-107) mmol/L BUN (7-17) mg/dL Glucose (74-99) mg/dL POC Glucose (mg/dL) 196 H 195 H 206 H (70-110) mg/dL Calcium (8.4-10.2) mg/dL Magnesium (1.6-2.3) mg/dL 04/28/23 04/28/23 04/28/23 Range/Units 06:51 06:51 07:19 WBC 11.8 H (3.8-10.6) k/uL Neutrophils # 11.1 H (1.3-7.7) k/uL Lymphocytes # 0.4 L (1.0-4.8) k/uL Chloride 109 H (98-107) mmol/L BUN 88 H (7-17) mg/dL Glucose 213 H (74-99) mg/dL POC Glucose (mg/dL) 174 H (70-110) mg/dL Calcium 10.4 H (8.4-10.2) mg/dL Magnesium 2.5 H (1.6-2.3) mg/dL
[2023-04-28 12:02] LABS: Glucose,Whole Blood 174 mg/dL (70-110)
--- NOTE | 2023-04-28 12:56 | P.PN ---
Subjective Progress Note Date: 04/28/23 Principal diagnosis: Acute on chronic hypoxic respiratory failure secondary to acute diastolic heart failure and possible acute healthcare acquired pneumonia This is an 83-year-old female patient with a history of chronic kidney disease, normocytic anemia, chronic obstructive pulmonary disease, hypothyroidism, hypertension, hyperlipidemia. She also has a history of large paraesophageal hernia with intrathoracic stomach and was subsequently transferred to [facility] for surgery from here back in December 2022. She had a complicated recovery and required tracheostomy and J tube placements. She was 6 weeks in an extended care facility and had been home for 1 week now. She presented here to the emergency room last evening with shortness of breath and thick secretions from her tracheostomy. Chest x-ray showed mild cardiomegaly with a small right greater than left pleural effusion. Correlate for congestive heart failure. There is also basilar atelectasis. White count 8.7. Hemoglobin 12.1. Sodium 133. Potassium 4.7. Bicarb 18. BUN 31. Creatinine 0.93. Glucose 202. ProBNP 2600. Pro-calcitonin 0.20. AST 43. ALT 35. She is seen today in consultation in the emergency department. Currently sitting up on a stretcher. Maintaining O2 saturations in the mid to upper 90s on 28% FiO2 via trach collar. She's been initiated and DuoNeb inhalations, Solu-Medrol. Antibiotics in the form of vancomycin and Levaquin. Sputum culture pending. She will be resumed on tube feedings per dietitian consult. Patient was reevaluated today on 04/23/2023, continues to have significant amount of tracheal secretions noted via tracheostomy. Patient continues to have some intermittent episodes of shortness of breath and congestion. Patient is on 5 L trach collar O2 sats is 99%. Sputum cultures are preliminary positive for gram-negative bacilli, final culture is pending, patient is presently on Levaquin because she has multiple ALLERGIES. Labs today were reviewed including basic metabolic profile and CBC. Patient was reevaluated today on 04/24/2023, patient developed some significant mucous plugging today requiring aggressive suctioning on the medical floor, hence patient was transferred to the ICU mostly because of frequent need for suctioning of the tracheostomy. I saw the patient in ICU, seems to be resting, very comfortable, she is on trach collar at 28%, her sputum has been showing gram-negative bacilli, hence I discontinued the vancomycin and kept her on Levaquin. Patient is also receiving Jevity via PEG tube at 50 MLS per hour and that seems to be well tolerated. Labs today showed leukocytosis with WBC of 16.0, otherwise the labs were unremarkable. Her sputum cultures now showing Pseudomonas, resistant to Levaquin, resistant to ciprofloxacin, patient has ALLERGIES to penicillin, ALLERGIC to cephalexin, hence will transition the patient to imipenem or at least consult infectious disease on the case. Reevaluated today on , patient remains in the ICU, is comfortable, she is on a 28% trach collar, her sputum came back positive for Pseudomonas resistant to Zosyn and resistant to cefepime as well as Levaquin and ciprofloxacin, patient has multiple ALLERGIES and ID chose to place the patient on Azactam. Patient is better today compared to the last few days less secretions from the tracheostomy she seems to be very comfortable. WBC count is 11.7 hemoglobin 11.6 electrolytes are normal renal profile is normal Reevaluated today on 04/26/23 remains in the ICU, remains on Azactam for pseudomonal infection and positive sputum patient seems to be in no form of distress, remains on trach collar at 28%, labs today are basically unremarkable including CBC and basic metabolic profile, hence I will transfer the patient back to regular medical floor today. In the meantime continue Azactam. Reevaluated today on 04/27/2023, patient remains in the ICU, however she is an overflow, she has less and less secretions, continues to be on trach collar at 28%, not much of a change in the last 24 hours, remains on Azactam for her pseudomonal infection. Basic metabolic profile is normal renal profile is normal except for BUN of 70 and the patient will liberalize fluids and bit more although the patient does have history of diastolic congestive heart failure. Chest x-ray showed tracheostomy in place, small bilateral pleural effusions and chronic elevation of the right hemidiaphragm with infrahilar atelectasis/right base doubt infiltrate Reevaluated today on 04/28/2023, patient remains in the ICU as an overflow remains on 28% trach collar remains on Azactam for her pseudomonal infection and positive sputum cultures patient is feeling better, less and less secretions noted from the tracheostomy. Patient seems to be quite comfortable. And the plan is to transfer the patient to a regular medical floor once a bed is available. WBC count today is 11.8 hemoglobin 13.8 basic metabolic profile is normal renal profile is normal. Sputum cultures are positive for Pseudomonas, resistant to Levaquin ciprofloxacin and Zosyn patient is now on Azactam Objective - Vital Signs Vital signs: Vital Signs Temp 97.6 F 04/28/23 04:00 Pulse 104 H 04/28/23 12:06 Resp 21 04/28/23 12:00 BP 150/81 04/28/23 08:00 Pulse Ox 97 04/28/23 12:00 FiO2 28 04/28/23 12:06 Intake & Output 04/27/23 04/28/23 04/28/23 18:59 06:59 18:59 Intake Total 1275 705 Output Total 950 1200 Balance 325 -495 Weight 66 kg Intake: IV 200 0.9NS 200 Intake, IV Titration 350 600 Amount Sodium Chloride 0.9% 1, 350 600 000 ml @ 50 mls/hr IV . Q20H [facility] Rx#:[id number] Tube Feeding 665 105 Other 60 Output: Gastric Drainage 450 Urine 950 750 Other: Voiding Method Incontinent Incontinent External Catheter External Catheter - Exam GENERAL EXAM: Alert, 83-year-old female, on trach collar, 28% FiO2 HEAD: Normocephalic. EYES: Normal reaction of pupils, equal size. NOSE: Clear with pink turbinates. THROAT: Tracheostomy is intact. Patient is having less and less secretions over the last few days NECK: No masses, no JVD. CHEST: No chest wall deformity. LUNGS: Diminished breath sounds at the bases no rhonchi and no wheezes today. CVS: S1 and S2 normal with no audible murmur, regular rhythm. ABDOMEN: J-tube secured in place. No hepatosplenomegaly, normal bowel sounds, no guarding or rigidity. SKIN: No rashes CENTRAL NERVOUS SYSTEM: No gross focal neurologic deficit EXTREMITIES: No clubbing edema or cyanosis - Labs CBC & Chem 7: 04/28/23 06:51 04/28/23 06:51 Labs: Abnormal Lab Results - Last 24 Hours (Table) 04/27/23 04/27/23 04/27/23 Range/Units 14:28 16:38 19:49 WBC (3.8-10.6) k/uL Neutrophils # (1.3-7.7) k/uL Lymphocytes # (1.0-4.8) k/uL Chloride (98-107) mmol/L BUN (7-17) mg/dL Glucose (74-99) mg/dL POC Glucose (mg/dL) 188 H 141 H 196 H (70-110) mg/dL Calcium (8.4-10.2) mg/dL Magnesium (1.6-2.3) mg/dL 04/27/23 04/28/23 04/28/23 Range/Units 21:41 06:31 06:51 WBC 11.8 H (3.8-10.6) k/uL Neutrophils # 11.1 H (1.3-7.7) k/uL Lymphocytes # 0.4 L (1.0-4.8) k/uL Chloride (98-107) mmol/L BUN (7-17) mg/dL Glucose (74-99) mg/dL POC Glucose (mg/dL) 195 H 206 H (70-110) mg/dL Calcium (8.4-10.2) mg/dL Magnesium (1.6-2.3) mg/dL 04/28/23 04/28/23 04/28/23 Range/Units 06:51 07:19 12:00 WBC (3.8-10.6) k/uL Neutrophils # (1.3-7.7) k/uL Lymphocytes # (1.0-4.8) k/uL Chloride 109 H (98-107) mmol/L BUN 88 H (7-17) mg/dL Glucose 213 H (74-99) mg/dL POC Glucose (mg/dL) 174 H 174 H (70-110) mg/dL Calcium 10.4 H (8.4-10.2) mg/dL Magnesium 2.5 H (1.6-2.3) mg/dL Assessment and Plan Assessment: Impression: Acute on chronic hypoxic respiratory failure, multifactorial Suspect acute diastolic congestive heart failure Suspect healthcare acquired pneumonia/pseudomonal aeruginosa pneumonia History of abnormal elevation of the esophagus requiring dilatation History of tracheostomy and J-tube placement History of paraesophageal hernia Hypothyroidism Dyslipidemia benign essential hypertension Recommendation: Transfer out of ICU once a bed is available Continue Azactam Continue suctioning of tracheostomy frequently Continue bronchodilators Continue steroids Continue fluids at 50 mL per hour, watch closely as the patient is known to have history of diastolic congestive heart failure Patient to be considered for placement in ECF early next week. We will continue to follow. Time with Patient: Less than 30
[2023-04-28 16:20] LABS: Glucose,Whole Blood 167 mg/dL (70-110)
--- NOTE | 2023-04-28 18:26 | P.PN ---
Subjective Progress Note Date: 04/28/23 Principal diagnosis: Pseudomonas pneumonia and multiple antibiotic ALLERGIES Patient is a 83-year-old female with a past medical history significant for coronary artery disease hypertension hyperlipidemia patient did have a paraesophageal hernia repair with suspected esophageal perforation prolonged hospital stay did have a tracheostomy and PEG tube placement, present ed to hospital with increasing shortness of breath cough and some creamy sputum sputum has been finalized and pseudomonas aeruginosa, patient did have both cephalosporins and penicillin ALLERGY. On today's evaluation that is 04/28/2023, the patient continues to be afebrile the patient is breathing comfortably on 28% trach collar, the patient denies chest pain or worsening cough and sputum production, patient denies abdominal pain and no nausea/vomiting and no diarrhea has been reported, Patient white count is 11.8 , creatinine 0.92 Objective - Vital Signs Vital signs: Vital Signs Temp 98.0 F 04/28/23 16:00 Pulse 107 H 04/28/23 16:00 Resp 21 04/28/23 16:00 BP 132/82 04/28/23 16:00 Pulse Ox 100 04/28/23 16:00 FiO2 28 04/28/23 16:00 Intake & Output 04/27/23 04/28/23 04/28/23 18:59 06:59 18:59 Intake Total 1275 705 705 Output Total 950 1200 100 Balance 325 -495 605 Weight 66 kg Intake: IV 200 0.9NS 200 Intake, IV Titration 350 600 400 Amount Sodium Chloride 0.9% 1, 350 600 400 000 ml @ 50 mls/hr IV . Q20H [facility] Rx#:[id number] Tube Feeding 665 105 245 Other 60 60 Output: Gastric Drainage 450 Urine 950 750 100 Other: Voiding Method Incontinent Incontinent Incontinent External Catheter External Catheter External Catheter # Voids 1 - Exam GENERAL DESCRIPTION: An elderly female lying in bed in no distress RESPIRATORY SYSTEM: Unlabored breathing , decreased breath sounds at bases HEART: S1 S2 regular rate and rhythm , ABDOMEN: Soft , no tenderness EXTREMITIES: No edema feet - Labs CBC & Chem 7: 04/28/23 06:51 04/28/23 06:51 Labs: Abnormal Lab Results - Last 24 Hours (Table) 04/27/23 04/27/23 04/28/23 Range/Units 19:49 21:41 06:31 WBC (3.8-10.6) k/uL Neutrophils # (1.3-7.7) k/uL Lymphocytes # (1.0-4.8) k/uL Chloride (98-107) mmol/L BUN (7-17) mg/dL Glucose (74-99) mg/dL POC Glucose (mg/dL) 196 H 195 H 206 H (70-110) mg/dL Calcium (8.4-10.2) mg/dL Magnesium (1.6-2.3) mg/dL 04/28/23 04/28/23 04/28/23 Range/Units 06:51 06:51 07:19 WBC 11.8 H (3.8-10.6) k/uL Neutrophils # 11.1 H (1.3-7.7) k/uL Lymphocytes # 0.4 L (1.0-4.8) k/uL Chloride 109 H (98-107) mmol/L BUN 88 H (7-17) mg/dL Glucose 213 H (74-99) mg/dL POC Glucose (mg/dL) 174 H (70-110) mg/dL Calcium 10.4 H (8.4-10.2) mg/dL Magnesium 2.5 H (1.6-2.3) mg/dL 04/28/23 04/28/23 Range/Units 12:00 16:18 WBC (3.8-10.6) k/uL Neutrophils # (1.3-7.7) k/uL Lymphocytes # (1.0-4.8) k/uL Chloride (98-107) mmol/L BUN (7-17) mg/dL Glucose (74-99) mg/dL POC Glucose (mg/dL) 174 H 167 H (70-110) mg/dL Calcium (8.4-10.2) mg/dL Magnesium (1.6-2.3) mg/dL Assessment and Plan (1) Allergy to multiple antibiotics Current Visit: Yes Status: Acute Code(s): Z88.1 - ALLERGY STATUS TO OTHER ANTIBIOTIC AGENTS SNOMED Code(s): 078129820 (2) Pneumonia Current Visit: Yes Status: Acute Code(s): J18.9 - PNEUMONIA, UNSPECIFIED ORGANISM SNOMED Code(s): 763394897 Plan: 1patient presented hospital with increasing shortness of breath increasing cough and purulent sputum patient did have a infiltrate seen on the chest x-ray and did have mild elevated procalcitonin with a sputum now growing Pseudomonas aeruginosa likely concerning for purulent tracheobronchitis/early pneumonia 2-patient with multiple antibiotic allergies that would limit the number of antibiotics safe to use 3Patient has shown some clinical improvement to continue with Azactam 2 g every 8 hours to finish a 10 day course of therapy and monitor clinical course closely Dictation was produced using [employer] dictation software. please excuse any grammatical, word or spelling errors. Time with Patient: Less than 30
[2023-04-28] MEDS: ATORVASTATIN 10 MG TAB PO SCH (20:33)
[2023-04-28] MEDS: DOXAZOSIN 2 MG TAB PO SCH (20:33)
[2023-04-29] MEDS: INSULIN ASPART (NovoLOG) 100 UNIT/ML VIAL SQ SCH ×5 (00:29→20:09)
[2023-04-29] MEDS: AZTREONAM 2 GM in SODIUM CHLORIDE 0.9% 100 ML IVPB SCH ×4 (00:34→23:02)
[2023-04-29] MEDS: methylPREDNISolone SOD SUCCI 125 MG/2 ML VIAL IV SCH ×2 (00:35→08:11)
[2023-04-29 04:47] LABS: Basophils % (A) 0 %; Eosinophils % (A) 0 %; HCT 42.8 % (34.0-46.0); HGB 13.4 gm/dL (11.4-16.0); Lymphocytes # (A) 0.3 k/uL (1.0-4.8); Lymphocytes % (A) 3 %; MCH 28.1 pg (25.0-35.0); MCHC 31.4 g/dL (31.0-37.0); MCV 89.3 fL (80.0-100.0); Mean Platelet Volume 8.6; Monocytes # (A) 0.6 k/uL (0-1.0); Monocytes % (A) 4 %; Neutrophils # (A) 11.9 k/uL (1.3-7.7); Neutrophils % (A) 92 %; Platelet Count 298 k/uL (150-450); RBC 4.79 m/uL (3.80-5.40); WBC 12.9 k/uL (3.8-10.6)
[2023-04-29 05:20] LABS: African American GFR (CKD) 58 (>60 ml/min/1.73 sqM); Anion Gap 15 mmol/L; Blood Urea Nitrogen 92 mg/dL (7-17); Calcium 10.5 mg/dL (8.4-10.2); Carbon Dioxide 21 mmol/L (22-30); Chloride 111 mmol/L (98-107); Glucose 213 mg/dL (74-99); Non-African American GFR(CKD) 50 (>60 ml/min/1.73 sqM); Potassium 4.3 mmol/L (3.5-5.1); Sodium 147 mmol/L (137-145)
[2023-04-29 05:24] LABS: C Reactive Protein <0.5 mg/dL (<1.0)
[2023-04-29 06:58] LABS: Glucose,Whole Blood 185 mg/dL (70-110)
[2023-04-29] MEDS: LEVOTHYROXINE 25 MCG TAB PO SCH (07:01)
[2023-04-29] MEDS: allopurinoL 100 MG TAB PO SCH (08:09)
[2023-04-29] MEDS: ALPRAZolam 0.5 MG TAB PO SCH ×3 (08:09→21:02)
[2023-04-29] MEDS: amLODIPine 5 MG TAB PO SCH ×2 (08:09→20:07)
[2023-04-29] MEDS: PANTOPRAZOLE 40 MG/10 ML VIAL IVP SCH (08:11)
[2023-04-29] MEDS: SODIUM CHLORIDE 0.9% 1,000 ML IV SCH ×2 (08:11→17:12)
[2023-04-29] MEDS: IPRATROPIUM-ALBUTEROL 3 ML NEB INHALATION SCH ×4 (08:52→21:42)
[2023-04-29] MEDS: SODIUM CHLORIDE 0.45% 1,000 ML IV SCH ×2 (09:03→20:09)
[2023-04-29] MEDS: predniSONE 20 MG TAB PO SCH (09:03)
[2023-04-29 12:04] LABS: Glucose,Whole Blood 195 mg/dL (70-110)
--- NOTE | 2023-04-29 12:28 | P.PN ---
Subjective Progress Note Date: 04/29/23 Patient is a 83-year-old female with a PMH of recent tracheostomy and PEG tube placement following a prolonged hospitalization with transfer to tertiary care facility for paraesophageal hernia, goiter, and suspected esophageal perforation, hypertension, hyperlipidemia, hypothyroidism, COPD, chronic kidney disease who presents to the emergency room for cough and shortness of breath. The patient had a prolonged hospitalization at [facility] and was subsequently discharged to an LTAC-like facility for roughly 6 weeks or she was reportedly also on a ventilator. The patient was discharged home around a week ago. She gradually developed a persistent cough with thick secretions through her tracheostomy. The patient reports intractable coughing with some shortness of breath. Chest x-ray in the emergency room revealed bilateral opacities concerning for CHF versus pneumonia. Laboratory evaluation was remarkable for leukocytosis of 15.0, sodium 131, potassium 5.4, AST 43, ALT 45, alk phos 144, lactic acid 1.2. She was started on bronchilators, SoluMedrol, lasix, Vancomycn and Levaquin. Pulmonology was consulted for further management. A-team called 04/24 for respiratory distress. RT was above to suction puruplent secretions which improved her symptoms, she was transferred to ICU for higher level of care. ID consulted to guide Abx therapy. Sputum culture + multidrug resistant pseudomonas resistant to Levaquin, antibiotics switched to Aztreonam on 04/24. Clinically improved now with regard to her respiratory status. 04/29 Patient was seen and examined. Clinically stable. CBC shows WBC 12.9. BMP shows Na 147, Cl 111, BUN 92, glucose 213, Ca 10.5. CRP < 0.05. Procal 0.09. Case discussed with daughter Jayna Hu yesterday. Recommended to avoid glycopyrrolate on discharge. Patient will need PICC line to complete a total of 10 days Aztreonam. Daughter believes she will be able to do this at home. Patient will be switched from NS to 1/2NS for hypernatremia and prerenal azotem ia (1.5L free water deficit). Plans for discharge home in 1-2 days. PICC line ordered. General: non toxic, no distress, appears at stated age, normal weight Derm: no unusual rashes/lesions, warm Head: atraumatic, normocephalic, symmetric Eyes: EOMI, no lid lag, anicteric sclera ENT: Nose and ears atraumatic Neck: Tracheostomy in place with small amounts of bloody thick phlegm discharge noted Mouth: no lip lesion, mucus membranes moist Cardiovascular: S1S2 reg, no murmur, no edema Lungs: Coarse breath sounds with rhonchi appreciated bilaterally without wheezing, no accessory muscle use Abdominal: PEG tube in place, soft, nontender to palpation, no guarding, + BS Ext: muscle strength 4 out of 5 in all 4 extremities grossly, no gross muscle atrophy, no contractures, Neuro: no gross focal neuro deficits Psych: Nonverbal Acute on chronic hypoxic respiratory failure Tracheobronchitis sputum Cx growing pseudomonas Diastolic CHF exacerbation Sepsis due to above Prerenal azotemia and hyperNa Abnormal LFTs Chronic conditions: HTN, HLD, Hypothyroidism Based on my assessment of this patient, this patient meets a moderate complexity level of care. Patient has an acute diagnosis of acute hypoxic respiratory failure secondary to ventilator associated PNA vs diastolic CHF exacerbation that poses a threat to life or bodily function. Acute on chronic hypoxic respiratory failure Tracheobronchitis sputum Cx growing pseudomonas: BCx negative. Procal slightly elevated at 0.2. CRP negative 04/29. Vancomycin and Levaquin discontinued for Aztreonam 2g IV Q8H on 04/24. ID on board, recommends 10 total days of Aztreonam. DuoNeb Q4H PRN for SOB/wheezing. SoluMedrol switched to Prednisone . Tylenol 650 mg PO Q6H PRN for fever. Diastolic CHF exacerbation: Echo 12/2022 shows normal LV systolic function, mild- mod MR and , mild LVH. Lasix 40 mg IV QD started 04/24 discontinued 04/27. Telemetry monitoring. Sepsis due to above Prerenal azotemia with hyperNa: 1.5L free water deficit. Switch NS to 1/2 NS at 75 cc/hr. Abnormal LFTs I have reviewed the following [facility] consultant notes: I have reviewed the results of the following tests: CBC, BMP, CRP, procal I have ordered the following tests: BMP I have discussed the care of this patient with the following independent historian: Discussed with RN and SW. I have independently interpreted the following test below: I have discussed the management of this patient with the following physician: Objective - Vital Signs Vital signs: Vital Signs Temp 97.4 F L 10/15/23 20:00 Pulse 106 H 04/29/23 07:00 Resp 20 04/29/23 07:57 BP 159/86 04/29/23 07:00 Pulse Ox 95 04/29/23 07:00 FiO2 28 04/28/23 16:00 Intake & Output 04/28/23 04/29/23 04/29/23 18:59 06:59 18:59 Intake Total 705 1280 10 Output Total 100 750 Balance 605 530 10 Intake: IV 10 Invasive Line 4 10 Intake, IV Titration 400 500 Amount Sodium Chloride 0.9% 1, 400 500 000 ml @ 50 mls/hr IV . Q20H [facility] Rx#:[id number] Tube Feeding 245 630 Other 60 150 Output: Urine 100 750 Other: Voiding Method Incontinent Incontinent Incontinent External Catheter External Catheter External Catheter # Voids 1 - Labs CBC & Chem 7: 04/29/23 04:19 04/29/23 04:19 Labs: Abnormal Lab Results - Last 24 Hours (Table) 04/28/23 04/28/23 04/29/23 Range/Units 12:00 16:18 04:19 WBC (3.8-10.6) k/uL Neutrophils # (1.3-7.7) k/uL Lymphocytes # (1.0-4.8) k/uL Sodium 147 H (137-145) mmol/L Chloride 111 H (98-107) mmol/L Carbon Dioxide 21 L (22-30) mmol/L BUN 92 H (7-17) mg/dL Glucose 213 H (74-99) mg/dL POC Glucose (mg/dL) 174 H 167 H (70-110) mg/dL Calcium 10.5 H (8.4-10.2) mg/dL 04/29/23 04/29/23 Range/Units 04:19 06:57 WBC 12.9 H (3.8-10.6) k/uL Neutrophils # 11.9 H (1.3-7.7) k/uL Lymphocytes # 0.3 L (1.0-4.8) k/uL Sodium (137-145) mmol/L Chloride (98-107) mmol/L Carbon Dioxide (22-30) mmol/L BUN (7-17) mg/dL Glucose (74-99) mg/dL POC Glucose (mg/dL) 185 H (70-110) mg/dL Calcium (8.4-10.2) mg/dL Microbiology - Last 24 Hours (Table) 04/23/23 15:26 Blood Culture - Final Blood
--- NOTE | 2023-04-29 13:55 | P.PN ---
Subjective Progress Note Date: 04/29/23 This is an 83-year-old female patient with a history of chronic kidney disease, normocytic anemia, chronic obstructive pulmonary disease, hypothyroidism, hypertension, hyperlipidemia. She also has a history of large paraesophageal hernia with intrathoracic stomach and was subsequently transferred to [facility] for surgery from here back in December 2022. She had a complicated recovery and required tracheostomy and J tube placements. She was 6 weeks in an extended care facility and had been home for 1 week now. She presented here to the emergency room last evening with shortness of breath and thick secretions from her tracheostomy. Chest x-ray showed mild cardiomegaly with a small right greater than left pleural effusion. Correlate for congestive heart failure. There is also basilar atelectasis. White count 8.7. Hemoglobin 12.1. Sodium 133. Potassium 4.7. Bicarb 18. BUN 31. Creatinine 0.93. Glucose 202. ProBNP 2600. Pro-calcitonin 0.20. AST 43. ALT 35. She is seen today in consultation in the emergency department. Currently sitting up on a stretcher. Maintaining O2 saturations in the mid to upper 90s on 28% FiO2 via trach collar. She's been initiated and DuoNeb inhalations, Solu-Medrol. Antibiotics in the form of vancomycin and Levaquin. Sputum culture pending. She will be resumed on tube feedings per dietitian consult. Patient was reevaluated today on 04/23/2023, continues to have significant amount of tracheal secretions noted via tracheostomy. Patient continues to have some intermittent episodes of shortness of breath and congestion. Patient is on 5 L trach collar O2 sats is 99%. Sputum cultures are preliminary positive for gram-negative bacilli, final culture is pending, patient is presently on Levaquin because she has multiple ALLERGIES. Labs today were reviewed including basic metabolic profile and CBC. Patient was reevaluated today on 04/24/2023, patient developed some significant mucous plugging today requiring aggressive suctioning on the medical floor, hence patient was transferred to the ICU mostly because of frequent need for suctioning of the tracheostomy. I saw the patient in ICU, seems to be resting, very comfortable, she is on trach collar at 28%, her sputum has been showing gram-negative bacilli, hence I discontinued the vancomycin and kept her on Levaquin. Patient is also receiving Jevity via PEG tube at 50 MLS per hour and that seems to be well tolerated. Labs today showed leukocytosis with WBC of 16.0, otherwise the labs were unremarkable. Her sputum cultures now showing Pseudomonas, resistant to Levaquin, resistant to ciprofloxacin, patient has ALLERGIES to penicillin, ALLERGIC to cephalexin, hence will transition the patient to imipenem or at least consult infectious disease on the case. Reevaluated today on , patient remains in the ICU, is comfortable, she is on a 28% trach collar, her sputum came back positive for Pseudomonas resistant to Zosyn and resistant to cefepime as well as Levaquin and ciprofloxacin, patient has multiple ALLERGIES and ID chose to place the patient on Azactam. Patient is better today compared to the last few days less secretions from the tracheostomy she seems to be very comfortable. WBC count is 11.7 hemoglobin 11.6 electrolytes are normal renal profile is normal Reevaluated today on 04/26/23 remains in the ICU, remains on Azactam for pseudomonal infection and positive sputum patient seems to be in no form of distress, remains on trach collar at 28%, labs today are basically unremarkable including CBC and basic metabolic profile, hence I will transfer the patient back to regular medical floor today. In the meantime continue Azactam. Reevaluated today on 04/27/2023, patient remains in the ICU, however she is an overflow, she has less and less secretions, continues to be on trach collar at 28%, not much of a change in the last 24 hours, remains on Azactam for her pseudomonal infection. Basic metabolic profile is normal renal profile is normal except for BUN of 70 and the patient will liberalize fluids and bit more although the patient does have history of diastolic congestive heart failure. Chest x-ray showed tracheostomy in place, small bilateral pleural effusions and chronic elevation of the right hemidiaphragm with infrahilar atelectasis/right base doubt infiltrate Reevaluated today on 04/28/2023, patient remains in the ICU as an overflow remains on 28% trach collar remains on Azactam for her pseudomonal infection and positive sputum cultures patient is feeling better, less and less secretions noted from the tracheostomy. Patient seems to be quite comfortable. And the plan is to transfer the patient to a regular medical floor once a bed is available. WBC count today is 11.8 hemoglobin 13.8 basic metabolic profile is normal renal profile is normal. Sputum cultures are positive for Pseudomonas, resistant to Levaquin ciprofloxacin and Zosyn patient is now on Azactam The patient is seen today 04/29/2023 in follow-up in the intensive care unit. She is currently sitting upright in bed. Remains on 28% trach collar. She continues with significant secretions. She does have a fairly strong cough. Sputum culture is positive for pseudomonas aeruginosa. Blood cultures revealed no growth. White count 12.9. Hemoglobin 13.4. Sodium 147. Potassium 4.3. Bicarb 21. BUN 92. Creatinine 1.04. Glucose 213. Pro-calcitonin negative at 0.09. C-reactive protein less than 0.5. She remains on aztreonam. Continued on bronchodilators. Continued on prednisone taper. 0.45% saline at 75 ML's per hour. Objective - Vital Signs Vital signs: Vital Signs Temp 97.7 F 04/29/23 08:00 Pulse 124 H 04/29/23 12:10 Resp 26 H 04/29/23 08:00 BP 137/78 04/29/23 08:00 Pulse Ox 97 04/29/23 08:55 FiO2 35 04/29/23 08:55 Intake & Output 04/28/23 04/29/23 04/29/23 18:59 06:59 18:59 Intake Total 705 1280 55 Output Total 100 750 Balance 605 530 55 Intake: IV 20 Invasive Line 4 10 Invasive Line 5 10 Intake, IV Titration 400 500 Amount Sodium Chloride 0.9% 1, 400 500 000 ml @ 50 mls/hr IV . Q20H [facility] Rx#:[id number] Tube Feeding 245 630 35 Other 60 150 Output: Urine 100 750 Other: Voiding Method Incontinent Incontinent Incontinent External Catheter External Catheter External Catheter # Voids 1 - Exam GENERAL EXAM: Alert, weak, debilitated 83-year-old female, on trach collar, 28% FiO2 HEAD: Normocephalic. EYES: Normal reaction of pupils, equal size. NOSE: Clear with pink turbinates. THROAT: Tracheostomy is intact. Currently with significant secretions. NECK: No masses, no JVD. CHEST: No chest wall deformity. LUNGS: Diminished breath sounds at the bases no rhonchi and no wheezes today. CVS: S1 and S2 normal with no audible murmur, regular rhythm. ABDOMEN: J-tube secured in place. No hepatosplenomegaly, normal bowel sounds, no guarding or rigidity. SKIN: No rashes CENTRAL NERVOUS SYSTEM: No gross focal neurologic deficit EXTREMITIES: No clubbing edema or cyanosis - Labs CBC & Chem 7: 04/29/23 04:19 04/29/23 04:19 Labs: Abnormal Lab Results - Last 24 Hours (Table) 04/28/23 04/29/23 04/29/23 Range/Units 16:18 04:19 04:19 WBC 12.9 H (3.8-10.6) k/uL Neutrophils # 11.9 H (1.3-7.7) k/uL Lymphocytes # 0.3 L (1.0-4.8) k/uL Sodium 147 H (137-145) mmol/L Chloride 111 H (98-107) mmol/L Carbon Dioxide 21 L (22-30) mmol/L BUN 92 H (7-17) mg/dL Glucose 213 H (74-99) mg/dL POC Glucose (mg/dL) 167 H (70-110) mg/dL Calcium 10.5 H (8.4-10.2) mg/dL 04/29/23 04/29/23 Range/Units 06:57 12:03 WBC (3.8-10.6) k/uL Neutrophils # (1.3-7.7) k/uL Lymphocytes # (1.0-4.8) k/uL Sodium (137-145) mmol/L Chloride (98-107) mmol/L Carbon Dioxide (22-30) mmol/L BUN (7-17) mg/dL Glucose (74-99) mg/dL POC Glucose (mg/dL) 185 H 195 H (70-110) mg/dL Calcium (8.4-10.2) mg/dL Microbiology - Last 24 Hours (Table) 04/23/23 15:26 Blood Culture - Final Blood Assessment and Plan Assessment: Acute on chronic hypoxemic respiratory to an acute exacerbation of her suspected diastolic congestive heart failure and possibly healthcare acquired pneumonia. Sputum cultures positive for pseudomonas aeruginosa. Currently on Azactam. Pro calcitonin trending down. C-reactive protein less than 0.5. Recent history of abnormal dilatation and distention of the esophagus with retained debris in the distal aspect. She was transferred from here to [facility] in December 2022 for surgery. This was complicated by a long recovery requiring tracheostomy tube placement and J-tube placement. She resided in subacute rehabilitation for approximately 6 weeks and has been home for 1 week now Previous history of paraesophageal hernia repair in November 2022 Hypothyroidism Hypertension Hyperlipidemia Plan: The patient was seen and evaluated Labs and medications reviewed Antibiotics per ID service is Continue bronchodilators, steroids Prefer to keep as an ICU patient due to his excessive secretions We will continue to follow I have personally seen and examined the patient, performed the documentation and the assessment and plan as written. Number of minutes spent on the visit: 10.
[2023-04-29 16:35] LABS: Glucose,Whole Blood 208 mg/dL (70-110)
[2023-04-29] MEDS ORDERED: FLUCONAZOLE 150 MG TAB PO STA (17:15)
[2023-04-29] MEDS: ATORVASTATIN 10 MG TAB PO SCH (20:07)
[2023-04-29] MEDS: DOXAZOSIN 2 MG TAB PO SCH (20:08)
[2023-04-29 20:10] LABS: Glucose,Whole Blood 177 mg/dL (70-110)
[2023-04-30 04:45] LABS: HCT 36.5 % (34.0-46.0); HGB 11.8 gm/dL (11.4-16.0); MCH 28.8 pg (25.0-35.0); MCHC 32.3 g/dL (31.0-37.0); MCV 89.4 fL (80.0-100.0); Mean Platelet Volume 8.9; Platelet Count 244 k/uL (150-450); RBC 4.08 m/uL (3.80-5.40); WBC 16.1 k/uL (3.8-10.6)
[2023-04-30 04:57] LABS: African American GFR (CKD) 61 (>60 ml/min/1.73 sqM); Anion Gap 12 mmol/L; Blood Urea Nitrogen 95 mg/dL (7-17); Calcium 9.8 mg/dL (8.4-10.2); Carbon Dioxide 20 mmol/L (22-30); Chloride 112 mmol/L (98-107); Glucose 165 mg/dL (74-99); Non-African American GFR(CKD) 53 (>60 ml/min/1.73 sqM); Potassium 4.4 mmol/L (3.5-5.1); Sodium 144 mmol/L (137-145)
[2023-04-30] MEDS: LEVOTHYROXINE 25 MCG TAB PO SCH (05:52)
[2023-04-30 06:31] LABS: Glucose,Whole Blood 146 mg/dL (70-110)
[2023-04-30] MEDS: INSULIN ASPART (NovoLOG) 100 UNIT/ML VIAL SQ SCH ×4 (06:31→20:41)
[2023-04-30] MEDS: IPRATROPIUM-ALBUTEROL 3 ML NEB INHALATION SCH ×4 (09:03→21:26)
[2023-04-30] MEDS ORDERED: ALPRAZolam 0.5 MG TAB PO PRN (09:52)
[2023-04-30] MEDS: predniSONE 20 MG TAB PO SCH (10:04)
[2023-04-30] MEDS: allopurinoL 100 MG TAB PO SCH (10:04)
[2023-04-30] MEDS: AZTREONAM 2 GM in SODIUM CHLORIDE 0.9% 100 ML IVPB SCH ×2 (10:04→16:01)
[2023-04-30] MEDS: amLODIPine 5 MG TAB PO SCH ×2 (10:04→20:41)
[2023-04-30] MEDS: PANTOPRAZOLE 40 MG/10 ML VIAL IVP SCH (10:05)
[2023-04-30] MEDS: SENNOSIDES-DOCUSATE SODIUM 1 EACH TAB PO SCH ×2 (10:13→20:41)
[2023-04-30] MEDS: LACTULOSE 20 GM/30 ML CUP PO PRN (10:13)
[2023-04-30] MEDS: bisacodyL 10 MG SUPP RECTAL PRN (10:13)
[2023-04-30] MEDS: SODIUM CHLORIDE 0.45% 1,000 ML IV SCH ×2 (10:14→22:33)
[2023-04-30] MEDS: polyethylene glycoL 3350 17 GM POWD.PACK PO SCH (10:30)
[2023-04-30 11:52] LABS: Glucose,Whole Blood 125 mg/dL (70-110)
--- NOTE | 2023-04-30 12:23 | P.PN ---
Subjective Progress Note Date: 04/30/23 This is an 83-year-old female patient with a history of chronic kidney disease, normocytic anemia, chronic obstructive pulmonary disease, hypothyroidism, hypertension, hyperlipidemia. She also has a history of large paraesophageal hernia with intrathoracic stomach and was subsequently transferred to [facility] for surgery from here back in December 2022. She had a complicated recovery and required tracheostomy and J tube placements. She was 6 weeks in an extended care facility and had been home for 1 week now. She presented here to the emergency room last evening with shortness of breath and thick secretions from her tracheostomy. Chest x-ray showed mild cardiomegaly with a small right greater than left pleural effusion. Correlate for congestive heart failure. There is also basilar atelectasis. White count 8.7. Hemoglobin 12.1. Sodium 133. Potassium 4.7. Bicarb 18. BUN 31. Creatinine 0.93. Glucose 202. ProBNP 2600. Pro-calcitonin 0.20. AST 43. ALT 35. She is seen today in consultation in the emergency department. Currently sitting up on a stretcher. Maintaining O2 saturations in the mid to upper 90s on 28% FiO2 via trach collar. She's been initiated and DuoNeb inhalations, Solu-Medrol. Antibiotics in the form of vancomycin and Levaquin. Sputum culture pending. She will be resumed on tube feedings per dietitian consult. Patient was reevaluated today on 04/23/2023, continues to have significant amount of tracheal secretions noted via tracheostomy. Patient continues to have some intermittent episodes of shortness of breath and congestion. Patient is on 5 L trach collar O2 sats is 99%. Sputum cultures are preliminary positive for gram-negative bacilli, final culture is pending, patient is presently on Levaquin because she has multiple ALLERGIES. Labs today were reviewed including basic metabolic profile and CBC. Patient was reevaluated today on 04/24/2023, patient developed some significant mucous plugging today requiring aggressive suctioning on the medical floor, hence patient was transferred to the ICU mostly because of frequent need for suctioning of the tracheostomy. I saw the patient in ICU, seems to be resting, very comfortable, she is on trach collar at 28%, her sputum has been showing gram-negative bacilli, hence I discontinued the vancomycin and kept her on Levaquin. Patient is also receiving Jevity via PEG tube at 50 MLS per hour and that seems to be well tolerated. Labs today showed leukocytosis with WBC of 16.0, otherwise the labs were unremarkable. Her sputum cultures now showing Pseudomonas, resistant to Levaquin, resistant to ciprofloxacin, patient has ALLERGIES to penicillin, ALLERGIC to cephalexin, hence will transition the patient to imipenem or at least consult infectious disease on the case. Reevaluated today on , patient remains in the ICU, is comfortable, she is on a 28% trach collar, her sputum came back positive for Pseudomonas resistant to Zosyn and resistant to cefepime as well as Levaquin and ciprofloxacin, patient has multiple ALLERGIES and ID chose to place the patient on Azactam. Patient is better today compared to the last few days less secretions from the tracheostomy she seems to be very comfortable. WBC count is 11.7 hemoglobin 11.6 electrolytes are normal renal profile is normal Reevaluated today on 04/26/23 remains in the ICU, remains on Azactam for pseudomonal infection and positive sputum patient seems to be in no form of distress, remains on trach collar at 28%, labs today are basically unremarkable including CBC and basic metabolic profile, hence I will transfer the patient back to regular medical floor today. In the meantime continue Azactam. Reevaluated today on 04/27/2023, patient remains in the ICU, however she is an overflow, she has less and less secretions, continues to be on trach collar at 28%, not much of a change in the last 24 hours, remains on Azactam for her pseudomonal infection. Basic metabolic profile is normal renal profile is normal except for BUN of 70 and the patient will liberalize fluids and bit more although the patient does have history of diastolic congestive heart failure. Chest x-ray showed tracheostomy in place, small bilateral pleural effusions and chronic elevation of the right hemidiaphragm with infrahilar atelectasis/right base doubt infiltrate Reevaluated today on 04/28/2023, patient remains in the ICU as an overflow remains on 28% trach collar remains on Azactam for her pseudomonal infection and positive sputum cultures patient is feeling better, less and less secretions noted from the tracheostomy. Patient seems to be quite comfortable. And the plan is to transfer the patient to a regular medical floor once a bed is available. WBC count today is 11.8 hemoglobin 13.8 basic metabolic profile is normal renal profile is normal. Sputum cultures are positive for Pseudomonas, resistant to Levaquin ciprofloxacin and Zosyn patient is now on Azactam The patient is seen today 04/29/2023 in follow-up in the intensive care unit. She is currently sitting upright in bed. Remains on 28% trach collar. She continues with significant secretions. She does have a fairly strong cough. Sputum culture is positive for pseudomonas aeruginosa. Blood cultures revealed no growth. White count 12.9. Hemoglobin 13.4. Sodium 147. Potassium 4.3. Bicarb 21. BUN 92. Creatinine 1.04. Glucose 213. Pro-calcitonin negative at 0.09. C-reactive protein less than 0.5. She remains on aztreonam. Continued on bronchodilators. Continued on prednisone taper. 0.45% saline at 75 ML's per hour. The patient is seen today 04/30/2023 in follow-up in the intensive care unit. She is currently resting comfortably in bed. Awake and alert in no acute distress. She is maintaining O2 saturations in the 90s on 28% via T piece. She has been requiring less suctioning the past 24 hours. She is being nourished with TwoCal HN at 35 ML's which is her goal via her PEG tube. She has 0.45% saline at 75 ML's per hour. She did receive a midline yesterday. Her sputum culture was positive for pseudomonas aeruginosa. Blood cultures revealed no growth. White count 16.1. Hemoglobin 11.8. Platelets 244. Sodium 144. Potassium 4.4. Bicarb 20. BUN 95. Creatinine 0.99. Glucose 165. She remains on DuoNeb inhalations. Antibiotics in the form of aztreonam. Objective - Vital Signs Vital signs: Vital Signs Temp 98 F 04/30/23 04:00 Pulse 112 H 04/30/23 12:15 Resp 20 04/30/23 07:00 BP 152/78 04/30/23 07:00 Pulse Ox 97 04/30/23 09:05 FiO2 28 04/30/23 09:05 Intake & Output 04/29/23 04/30/23 04/30/23 18:59 06:59 18:59 Intake Total 1075 1785 Output Total 1450 1025 Balance -375 760 Weight 67.2 kg Intake: IV 935 1135 Aztreonam 2 gm In Sodium 200 100 Chloride 0.9% 100 ml @ 33 .3 mls/hr IVPB Q8HR [facility] Rx#:[id number] Invasive Line 4 30 30 Invasive Line 5 30 30 Sodium Chloride 0.45% 1, 675 975 000 ml @ 75 mls/hr IV . [id number] [facility] Rx#:[id number] Tube Feeding 140 560 Other 90 Output: Gastric Drainage 170 Urine 1450 855 Other: Voiding Method Indwelling Catheter Indwelling Catheter # Bowel Movements 0 - Exam GENERAL EXAM: Alert, weak, debilitated 83-year-old female, resting comfortably in bed, on T piece, 28% FiO2 HEAD: Normocephalic. EYES: Normal reaction of pupils, equal size. NOSE: Clear with pink turbinates. THROAT: Tracheostomy is intact. Currently with significant secretions. NECK: No masses, no JVD. CHEST: No chest wall deformity. LUNGS: Diminished breath sounds at the bases no rhonchi and no wheezes today. CVS: S1 and S2 normal with no audible murmur, regular rhythm. ABDOMEN: J-tube secured in place. No hepatosplenomegaly, normal bowel sounds, no guarding or rigidity. SKIN: No rashes CENTRAL NERVOUS SYSTEM: No gross focal neurologic deficit EXTREMITIES: No clubbing edema or cyanosis - Labs CBC & Chem 7: 04/30/23 04:11 04/30/23 04:11 Labs: Abnormal Lab Results - Last 24 Hours (Table) 04/29/23 04/29/23 04/30/23 Range/Units 16:34 20:08 04:11 WBC 16.1 H (3.8-10.6) k/uL Chloride (98-107) mmol/L Carbon Dioxide (22-30) mmol/L BUN (7-17) mg/dL Glucose (74-99) mg/dL POC Glucose (mg/dL) 208 H 177 H (70-110) mg/dL 04/30/23 04/30/23 04/30/23 Range/Units 04:11 06:28 11:51 WBC (3.8-10.6) k/uL Chloride 112 H (98-107) mmol/L Carbon Dioxide 20 L (22-30) mmol/L BUN 95 H (7-17) mg/dL Glucose 165 H (74-99) mg/dL POC Glucose (mg/dL) 146 H 125 H (70-110) mg/dL Assessment and Plan Assessment: Acute on chronic hypoxemic respiratory to an acute exacerbation of her suspected diastolic congestive heart failure and possibly healthcare acquired pneumonia. Sputum cultures positive for pseudomonas aeruginosa. Currently on Azactam. Pro calcitonin trending down. C-reactive protein less than 0.5. Recent history of abnormal dilatation and distention of the esophagus with retained debris in the distal aspect. She was transferred from here to [facility] in December 2022 for surgery. This was complicated by a long recovery requiring tracheostomy tube placement and J-tube placement. She resided in subacute rehabilitation for approximately 6 weeks and has been home for 1 week Previous history of paraesophageal hernia repair in November 2022 Hypothyroidism Hypertension Hyperlipidemia Plan: The patient was seen and evaluated Labs and medications reviewed Antibiotics per ID service Midline has been placed Currently on Azactam Continue bronchodilators, steroids Plan is to return home with homecare I have personally seen and examined the patient, performed the documentation and the assessment and plan as written. Number of minutes spent on the visit: 10.
--- NOTE | 2023-04-30 12:31 | P.PN ---
Subjective Progress Note Date: 04/30/23 Pt has been having constipation the last 7 days. Gen: awake, alert HEENT: normocephalic, atraumatic, good hearing acuity, moist mucous membranes Resp: Tracheostomy present, coarse breath sounds CVS: good distal perfusion x 4, GI: soft, NTTP, ND : no SPT, no CVAT, meléndez catheter is present MSK: no pitting edema, no clubbing Neuro: non-focal, moving all extremities Hospital Course: Patient is a 83-year-old female with a PMH of recent tracheostomy and PEG tube placement following a prolonged hospitalization with transfer to tertiary care facility for paraesophageal hernia, goiter, and suspected esophageal perforation, hypertension, hyperlipidemia, hypothyroidism, COPD, chronic kidney disease who presents to the emergency room for cough and shortness of breath. The patient had a prolonged hospitalization at [facility] and was subsequently discharged to an LTAC-like facility for roughly 6 weeks or she was reportedly also on a ventilator. The patient was discharged home around a week ago. She gradually developed a persistent cough with thick secretions through her tracheostomy. The patient reports intractable coughing with some shortness of breath. Chest x-ray in the emergency room revealed bilateral opacities concerning for CHF versus pneumonia. Laboratory evaluation was remarkable for leukocytosis of 15.0, sodium 131, potassium 5.4, AST 43, ALT 45, alk phos 144, lactic acid 1.2. She was started on bronchilators, SoluMedrol, lasix, Vancomycn and Levaquin. Pulmonology was consulted for further management. A-team called 04/24 for respiratory distress. RT was above to suction puruplent secretions which improved her symptoms, she was transferred to ICU for higher level of care. ID consulted to guide Abx therapy. Sputum culture + multidrug resistant pseudomonas resistant to Levaquin, antibiotics switched to Aztreonam on 04/24. Clinically improved with regard to her respiratory status. On 04/29, patient was seen and examined. Clinically stable. CBC shows WBC 12.9. BMP shows Na 147, Cl 111, BUN 92, glucose 213, Ca 10.5. CRP < 0.05. Procal 0.09. Case discussed wi th daughter Jayna Hu. Recommended to avoid glycopyrrolate on discharge. Patient will need PICC line to complete a total of 10 days Aztreonam. Daughter believes she will be able to do this at home. Patient will be switched from NS to 1/2NS for hypernatremia and prerenal azotemia (1.5L free water deficit). Plans for discharge home in 1-2 days. PICC line ordered. On 04/30, patient was seen and examined. Discussed with nursing regarding patient's constipation last 7 days as well as sedation status while on standing xanax. Pt discussed with CM who has set up IV abx outpatient. Assessment/Plan: Sepsis with Acute on chronic hypoxic respiratory failure Tracheobronchitis sputum Cx growing pseudomonas, blood Cx negative - Continue aztreonam, s/p mid line, plan for outpatient IV abx - continue prednisone, duonebs - continue TFs, at goal rate - continue trach collar - ID/Pulm consultation is appreciated - xanax has been tapered back to PRN instead of [facility] Diastolic CHF exacerbation Prerenal azotemia and hyperNa - holding lasix and giving D5/0.45NS - monitoring I/Os Constipation - add senokot-S BID, miralax daily, bisacodyl PRN - add lactulose QID PRN - stable for d/c upon bowel movement Chronic conditions: HTN, HLD, Hypothyroidism - home medications reviewed, reconciled Pt is Full Code DVT PPx: heparin TID added 04/30 Objective - Vital Signs Vital signs: Vital Signs Temp 98 F 04/30/23 04:00 Pulse 112 H 04/30/23 12:15 Resp 20 04/30/23 07:00 BP 152/78 04/30/23 07:00 Pulse Ox 97 04/30/23 09:05 FiO2 28 04/30/23 09:05 Intake & Output 04/29/23 04/30/23 04/30/23 18:59 06:59 18:59 Intake Total 1075 1785 Output Total 1450 1025 Balance -375 760 Weight 67.2 kg Intake: IV 935 1135 Aztreonam 2 gm In Sodium 200 100 Chloride 0.9% 100 ml @ 33 .3 mls/hr IVPB Q8HR [facility] Rx#:[id number] Invasive Line 4 30 30 Invasive Line 5 30 30 Sodium Chloride 0.45% 1, 675 975 000 ml @ 75 mls/hr IV . [id number] [facility] Rx#:[id number] Tube Feeding 140 560 Other 90 Output: Gastric Drainage 170 Urine 1450 855 Other: Voiding Method Indwelling Catheter Indwelling Catheter # Bowel Movements 0 - Labs CBC & Chem 7: 04/30/23 04:11 04/30/23 04:11 Labs: Abnormal Lab Results - Last 24 Hours (Table) 04/29/23 04/29/23 04/30/23 Range/Units 16:34 20:08 04:11 WBC 16.1 H (3.8-10.6) k/uL Chloride (98-107) mmol/L Carbon Dioxide (22-30) mmol/L BUN (7-17) mg/dL Glucose (74-99) mg/dL POC Glucose (mg/dL) 208 H 177 H (70-110) mg/dL 04/30/23 04/30/23 04/30/23 Range/Units 04:11 06:28 11:51 WBC (3.8-10.6) k/uL Chloride 112 H (98-107) mmol/L Carbon Dioxide 20 L (22-30) mmol/L BUN 95 H (7-17) mg/dL Glucose 165 H (74-99) mg/dL POC Glucose (mg/dL) 146 H 125 H (70-110) mg/dL
[2023-04-30 13:34] VITALS: BMI 24.6
[2023-04-30] MEDS: ALPRAZolam 0.5 MG TAB PO SCH (14:10)
--- NOTE | 2023-04-30 14:21 | P.PN ---
Subjective Progress Note Date: 04/29/23 Principal diagnosis: Pseudomonas pneumonia and multiple antibiotic ALLERGIES Patient is a 83-year-old female with a past medical history significant for coronary artery disease hypertension hyperlipidemia patient did have a paraesophageal hernia repair with suspected esophageal perforation prolonged hospital stay did have a tracheostomy and PEG tube placement, present ed to hospital with increasing shortness of breath cough and some creamy sputum sputum has been finalized and pseudomonas aeruginosa, patient did have both cephalosporins and penicillin ALLERGY. On today's evaluation that is 04/29/2023, the patient remains to be afebrile the patient is breathing comfortably on 28% trach collar, the patient denies chest pain or worsening cough and sputum production, patient denies abdominal pain and no nausea/vomiting and no diarrhea has been reported, no new symptoms Patient white count is slightly up to 12.9 , creatinine is 1.04 Objective - Vital Signs Vital signs: Vital Signs Temp 97.7 F 04/29/23 20:00 Pulse 112 H 04/29/23 21:45 Resp 22 04/29/23 21:00 BP 150/78 04/29/23 21:00 Pulse Ox 97 04/29/23 21:00 FiO2 35 04/29/23 21:45 Intake & Output 04/29/23 04/29/23 04/30/23 06:59 18:59 06:59 Intake Total 1280 1075 415 Output Total 750 1450 240 Balance 530 -375 175 Intake: IV 935 245 Aztreonam 2 gm In Sodium 200 Chloride 0.9% 100 ml @ 33 .3 mls/hr IVPB Q8HR [facility] Rx#:[id number] Invasive Line 4 30 10 Invasive Line 5 30 10 Sodium Chloride 0.45% 1, 675 225 000 ml @ 75 mls/hr IV . [id number] [facility] Rx#:[id number] Intake, IV Titration 500 Amount Sodium Chloride 0.9% 1, 500 000 ml @ 50 mls/hr IV . Q20H [facility] Rx#:[id number] Tube Feeding 630 140 140 Other 150 30 Output: Urine 750 1450 240 Other: Voiding Method Incontinent Indwelling Catheter Indwelling Catheter External Catheter # Bowel Movements 0 - Exam GENERAL DESCRIPTION: An elderly female lying in bed in no distress RESPIRATORY SYSTEM: Unlabored breathing , decreased breath sounds at bases HEART: S1 S2 regular rate and rhythm , ABDOMEN: Soft , no tenderness EXTREMITIES: No edema feet - Labs CBC & Chem 7: 04/30/23 04:11 04/30/23 04:11 Labs: Abnormal Lab Results - Last 24 Hours (Table) 04/29/23 04/29/23 04/29/23 Range/Units 04:19 04:19 06:57 WBC 12.9 H (3.8-10.6) k/uL Neutrophils # 11.9 H (1.3-7.7) k/uL Lymphocytes # 0.3 L (1.0-4.8) k/uL Sodium 147 H (137-145) mmol/L Chloride 111 H (98-107) mmol/L Carbon Dioxide 21 L (22-30) mmol/L BUN 92 H (7-17) mg/dL Glucose 213 H (74-99) mg/dL POC Glucose (mg/dL) 185 H (70-110) mg/dL Calcium 10.5 H (8.4-10.2) mg/dL 04/29/23 04/29/23 04/29/23 Range/Units 12:03 16:34 20:08 WBC (3.8-10.6) k/uL Neutrophils # (1.3-7.7) k/uL Lymphocytes # (1.0-4.8) k/uL Sodium (137-145) mmol/L Chloride (98-107) mmol/L Carbon Dioxide (22-30) mmol/L BUN (7-17) mg/dL Glucose (74-99) mg/dL POC Glucose (mg/dL) 195 H 208 H 177 H (70-110) mg/dL Calcium (8.4-10.2) mg/dL Microbiology - Last 24 Hours (Table) 04/23/23 15:26 Blood Culture - Final Blood Assessment and Plan (1) Allergy to multiple antibiotics Current Visit: Yes Status: Acute Code(s): Z88.1 - ALLERGY STATUS TO OTHER ANTIBIOTIC AGENTS SNOMED Code(s): 813216632 (2) Pneumonia Current Visit: Yes Status: Acute Code(s): J18.9 - PNEUMONIA, UNSPECIFIED ORGANISM SNOMED Code(s): 790972979 Plan: 1patient presented hospital with increasing shortness of breath increasing coug h and purulent sputum patient did have a infiltrate seen on the chest x-ray and did have mild elevated procalcitonin with a sputum now growing Pseudomonas aeruginosa likely concerning for purulent tracheobronchitis/early pneumonia 2-patient with multiple antibiotic allergies that would limit the number of antibiotics safe to use 3Patient has shown some clinical improvement to continue with Azactam 2 g every 8 hours , slight worsening of the white count possibly steroid related and will monitor closely Dictation was produced using [employer] dictation software. please excuse any grammatical, word or spelling errors. Time with Patient: Less than 30
--- NOTE | 2023-04-30 14:23 | P.PN ---
Subjective Progress Note Date: 04/30/23 Principal diagnosis: Pseudomonas pneumonia and multiple antibiotic ALLERGIES Patient is a 83-year-old female with a past medical history significant for coronary artery disease hypertension hyperlipidemia patient did have a paraesophageal hernia repair with suspected esophageal perforation prolonged hospital stay did have a tracheostomy and PEG tube placement, present ed to hospital with increasing shortness of breath cough and some creamy sputum sputum has been finalized and pseudomonas aeruginosa, patient did have both cephalosporins and penicillin ALLERGY. On today's evaluation that is 04/30/2023, the patient continues to be afebrile the patient is breathing comfortably on 28% trach collar, the patient slightly sleepy lethargic today and did not provide any history no vomiting or diarrhea has been reported by the nursing staff Patient white count is slightly up to 16.1, creatinine is 0.99, CRP is less than 0.5, pro calcitonin 0.09 Objective - Vital Signs Vital signs: Vital Signs Temp 98 F 04/30/23 04:00 Pulse 112 H 04/30/23 12:15 Resp 20 04/30/23 07:00 BP 152/78 04/30/23 07:00 Pulse Ox 97 04/30/23 09:05 FiO2 28 04/30/23 09:05 Intake & Output 04/29/23 04/30/23 04/30/23 18:59 06:59 18:59 Intake Total 1075 1785 Output Total 1450 1025 Balance -375 760 Weight 67.2 kg Intake: IV 935 1135 Aztreonam 2 gm In Sodium 200 100 Chloride 0.9% 100 ml @ 33 .3 mls/hr IVPB Q8HR [facility] Rx#:[id number] Invasive Line 4 30 30 Invasive Line 5 30 30 Sodium Chloride 0.45% 1, 675 975 000 ml @ 75 mls/hr IV . [id number] [facility] Rx#:[id number] Tube Feeding 140 560 Other 90 Output: Gastric Drainage 170 Urine 1450 855 Other: Voiding Method Indwelling Catheter Indwelling Catheter # Bowel Movements 0 - Exam GENERAL DESCRIPTION: An elderly female lying in bed in no distress RESPIRATORY SYSTEM: Unlabored breathing , decreased breath sounds at bases HEART: S1 S2 regular rate and rhythm , ABDOMEN: Soft , no tenderness EXTREMITIES: No edema feet - Labs CBC & Chem 7: 04/30/23 04:11 10/17/23 04:11 Labs: Abnormal Lab Results - Last 24 Hours (Table) 04/29/23 04/29/23 04/30/23 Range/Units 16:34 20:08 04:11 WBC 16.1 H (3.8-10.6) k/uL Chloride (98-107) mmol/L Carbon Dioxide (22-30) mmol/L BUN (7-17) mg/dL Glucose (74-99) mg/dL POC Glucose (mg/dL) 208 H 177 H (70-110) mg/dL 04/30/23 04/30/23 04/30/23 Range/Units 04:11 06:28 11:51 WBC (3.8-10.6) k/uL Chloride 112 H (98-107) mmol/L Carbon Dioxide 20 L (22-30) mmol/L BUN 95 H (7-17) mg/dL Glucose 165 H (74-99) mg/dL POC Glucose (mg/dL) 146 H 125 H (70-110) mg/dL Assessment and Plan (1) Allergy to multiple antibiotics Current Visit: Yes Status: Acute Code(s): Z88.1 - ALLERGY STATUS TO OTHER ANTIBIOTIC AGENTS SNOMED Code(s): 271489311 (2) Pneumonia Current Visit: Yes Status: Acute Code(s): J18.9 - PNEUMONIA, UNSPECIFIED ORGANISM SNOMED Code(s): 310454344 Plan: 1patient presented hospital with increasing shortness of breath increasing cough and purulent sputum patient did have a infiltrate seen on the chest x-ray and did have mild elevated procalcitonin with a sputum now growing Pseudomonas aeruginosa likely concerning for purulent tracheobronchitis/early pneumonia 2-patient with multiple antibiotic allergies that would limit the number of antibiotics safe to use 3Patient has shown some clinical improvement to continue with Azactam 2 g every 8 hours to finish treatment for pseudomonal tracheobronchitis/early pneumonia 4- leukocytosis possibly steroid related as the patient did have normal inflammatory markers with CRP is less than 0.5, pro calcitonin 0.09 Dictation was produced using [employer] dictation software. please excuse any grammatical, word or spelling errors. Time with Patient: Less than 30
[2023-04-30] MEDS: HEPARIN SODIUM,PORCINE 5,000 UNIT/ML 1 ML VIAL SQ SCH (16:01)
[2023-04-30 17:02] LABS: Glucose,Whole Blood 159 mg/dL (70-110)
[2023-04-30 20:37] LABS: Glucose,Whole Blood 172 mg/dL (70-110)
[2023-04-30] MEDS: ATORVASTATIN 10 MG TAB PO SCH (20:41)
[2023-04-30] MEDS: DOXAZOSIN 2 MG TAB PO SCH (20:41)
[2023-05-01] MEDS: AZTREONAM 2 GM in SODIUM CHLORIDE 0.9% 100 ML IVPB SCH ×4 (00:26→23:06)
[2023-05-01] MEDS: HEPARIN SODIUM,PORCINE 5,000 UNIT/ML 1 ML VIAL SQ SCH ×4 (00:27→23:06)
[2023-05-01 06:40] LABS: Glucose,Whole Blood 144 mg/dL (70-110)
[2023-05-01 06:47] LABS: Basophils % (A) 0 %; Eosinophils % (A) 0 %; HCT 36.5 % (34.0-46.0); HGB 11.8 gm/dL (11.4-16.0); Lymphocytes % (A) 7 %; MCH 28.9 pg (25.0-35.0); MCHC 32.2 g/dL (31.0-37.0); MCV 89.7 fL (80.0-100.0); Mean Platelet Volume 8.8; Monocytes # (A) 0.8 k/uL (0-1.0); Monocytes % (A) 6 %; Neutrophils # (A) 12.1 k/uL (1.3-7.7); Neutrophils % (A) 86 %; Platelet Count 227 k/uL (150-450); RBC 4.07 m/uL (3.80-5.40); WBC 14.1 k/uL (3.8-10.6)
[2023-05-01] MEDS: LEVOTHYROXINE 25 MCG TAB PO SCH (06:56)
[2023-05-01] MEDS: INSULIN ASPART (NovoLOG) 100 UNIT/ML VIAL SQ SCH ×4 (06:57→21:37)
[2023-05-01 07:09] LABS: African American GFR (CKD) 64 (>60 ml/min/1.73 sqM); Anion Gap 7 mmol/L; Blood Urea Nitrogen 78 mg/dL (7-17); Calcium 9.2 mg/dL (8.4-10.2); Carbon Dioxide 20 mmol/L (22-30); Chloride 113 mmol/L (98-107); Glucose 161 mg/dL (74-99); Non-African American GFR(CKD) 56 (>60 ml/min/1.73 sqM); Potassium 4.8 mmol/L (3.5-5.1); Sodium 140 mmol/L (137-145)
[2023-05-01] MEDS: amLODIPine 5 MG TAB PO SCH ×2 (08:46→21:38)
[2023-05-01] MEDS: PANTOPRAZOLE 40 MG/10 ML VIAL IVP SCH (08:46)
[2023-05-01] MEDS: bisacodyL 10 MG SUPP RECTAL PRN (08:46)
[2023-05-01] MEDS: polyethylene glycoL 3350 17 GM POWD.PACK PO SCH (08:47)
[2023-05-01] MEDS: allopurinoL 100 MG TAB PO SCH (08:47)
[2023-05-01] MEDS: SENNOSIDES-DOCUSATE SODIUM 1 EACH TAB PO SCH ×2 (08:47→21:38)
[2023-05-01] MEDS: LACTULOSE 20 GM/30 ML CUP PO PRN (08:47)
[2023-05-01] MEDS: predniSONE 20 MG TAB PO SCH (08:49)
[2023-05-01] MEDS: SODIUM CHLORIDE 0.45% 1,000 ML IV SCH (08:51)
[2023-05-01] MEDS: IPRATROPIUM-ALBUTEROL 3 ML NEB INHALATION SCH ×4 (08:53→20:15)
[2023-05-01 10:45] LABS: Glucose,Whole Blood 145 mg/dL (70-110)
--- NOTE | 2023-05-01 12:16 | P.PN ---
Subjective Progress Note Date: 05/01/23 This is an 83-year-old female patient with a history of chronic kidney disease, normocytic anemia, chronic obstructive pulmonary disease, hypothyroidism, hypertension, hyperlipidemia. She also has a history of large paraesophageal hernia with intrathoracic stomach and was subsequently transferred to [facility] for surgery from here back in December 2022. She had a complicated recovery and required tracheostomy and J tube placements. She was 6 weeks in an extended care facility and had been home for 1 week now. She presented here to the emergency room last evening with shortness of breath and thick secretions from her tracheostomy. Chest x-ray showed mild cardiomegaly with a small right greater than left pleural effusion. Correlate for congestive heart failure. There is also basilar atelectasis. White count 8.7. Hemoglobin 12.1. Sodium 133. Potassium 4.7. Bicarb 18. BUN 31. Creatinine 0.93. Glucose 202. ProBNP 2600. Pro-calcitonin 0.20. AST 43. ALT 35. She is seen today in consultation in the emergency department. Currently sitting up on a stretcher. Maintaining O2 saturations in the mid to upper 90s on 28% FiO2 via trach collar. She's been initiated and DuoNeb inhalations, Solu-Medrol. Antibiotics in the form of vancomycin and Levaquin. Sputum culture pending. She will be resumed on tube feedings per dietitian consult. Patient was reevaluated today on 04/23/2023, continues to have significant amount of tracheal secretions noted via tracheostomy. Patient continues to have some intermittent episodes of shortness of breath and congestion. Patient is on 5 L trach collar O2 sats is 99%. Sputum cultures are preliminary positive for gram-negative bacilli, final culture is pending, patient is presently on Levaquin because she has multiple ALLERGIES. Labs today were reviewed including basic metabolic profile and CBC. Patient was reevaluated today on 04/24/2023, patient developed some significant mucous plugging today requiring aggressive suctioning on the medical floor, hence patient was transferred to the ICU mostly because of frequent need for suctioning of the tracheostomy. I saw the patient in ICU, seems to be resting, very comfortable, she is on trach collar at 28%, her sputum has been showing gram-negative bacilli, hence I discontinued the vancomycin and kept her on Levaquin. Patient is also receiving Jevity via PEG tube at 50 MLS per hour and that seems to be well tolerated. Labs today showed leukocytosis with WBC of 16.0, otherwise the labs were unremarkable. Her sputum cultures now showing Pseudomonas, resistant to Levaquin, resistant to ciprofloxacin, patient has ALLERGIES to penicillin, ALLERGIC to cephalexin, hence will transition the patient to imipenem or at least consult infectious disease on the case. Reevaluated today on , patient remains in the ICU, is comfortable, she is on a 28% trach collar, her sputum came back positive for Pseudomonas resistant to Zosyn and resistant to cefepime as well as Levaquin and ciprofloxacin, patient has multiple ALLERGIES and ID chose to place the patient on Azactam. Patient is better today compared to the last few days less secretions from the tracheostomy she seems to be very comfortable. WBC count is 11.7 hemoglobin 11.6 electrolytes are normal renal profile is normal Reevaluated today on 04/26/23 remains in the ICU, remains on Azactam for pseudomonal infection and positive sputum patient seems to be in no form of distress, remains on trach collar at 28%, labs today are basically unremarkable including CBC and basic metabolic profile, hence I will transfer the patient back to regular medical floor today. In the meantime continue Azactam. Reevaluated today on 04/27/2023, patient remains in the ICU, however she is an overflow, she has less and less secretions, continues to be on trach collar at 28%, not much of a change in the last 24 hours, remains on Azactam for her pseudomonal infection. Basic metabolic profile is normal renal profile is normal except for BUN of 70 and the patient will liberalize fluids and bit more although the patient does have history of diastolic congestive heart failure. Chest x-ray showed tracheostomy in place, small bilateral pleural effusions and chronic elevation of the right hemidiaphragm with infrahilar atelectasis/right base doubt infiltrate Reevaluated today on 04/28/2023, patient remains in the ICU as an overflow remains on 28% trach collar remains on Azactam for her pseudomonal infection and positive sputum cultures patient is feeling better, less and less secretions noted from the tracheostomy. Patient seems to be quite comfortable. And the plan is to transfer the patient to a regular medical floor once a bed is available. WBC count today is 11.8 hemoglobin 13.8 basic metabolic profile is normal renal profile is normal. Sputum cultures are positive for Pseudomonas, resistant to Levaquin ciprofloxacin and Zosyn patient is now on Azactam The patient is seen today 04/29/2023 in follow-up in the intensive care unit. She is currently sitting upright in bed. Remains on 28% trach collar. She continues with significant secretions. She does have a fairly strong cough. Sputum culture is positive for pseudomonas aeruginosa. Blood cultures revealed no growth. White count 12.9. Hemoglobin 13.4. Sodium 147. Potassium 4.3. Bicarb 21. BUN 92. Creatinine 1.04. Glucose 213. Pro-calcitonin negative at 0.09. C-reactive protein less than 0.5. She remains on aztreonam. Continued on bronchodilators. Continued on prednisone taper. 0.45% saline at 75 ML's per hour. The patient is seen today 04/30/2023 in follow-up in the intensive care unit. She is currently resting comfortably in bed. Awake and alert in no acute distress. She is maintaining O2 saturations in the 90s on 28% via T piece. She has been requiring less suctioning the past 24 hours. She is being nourished with TwoCal HN at 35 ML's which is her goal via her PEG tube. She has 0.45% saline at 75 ML's per hour. She did receive a midline yesterday. Her sputum culture was positive for pseudomonas aeruginosa. Blood cultures revealed no growth. White count 16.1. Hemoglobin 11.8. Platelets 244. Sodium 144. Potassium 4.4. Bicarb 20. BUN 95. Creatinine 0.99. Glucose 165. She remains on DuoNeb inhalations. Antibiotics in the form of aztreonam. The patient is seen today 05/01/2023 in follow-up in the intensive care unit. She is on 28% T Piece. She is receiving 0.45 normal saline at 75 ML's per hour. She is being nourished with TwoCal HN at 35 ML's per hour via her PEG tube. She remains on aztreonam for a total of 10 days. She did have bowel movements yesterday. She is becoming more weak and less responsive. White count 14.1. Hemoglobin 11.8. Platelets 227. Sodium 140. Potassium 4.8. Bicarb 20. BUN 78. Creatinine 0.95. Glucose 161. Remains on bronchodilators. Heparin for DVT prophylaxis. Objective - Vital Signs Vital signs: Vital Signs Temp 98.6 F 05/01/23 08:00 Pulse 100 05/01/23 11:35 Resp 18 05/01/23 08:00 BP 150/78 05/01/23 08:00 Pulse Ox 98 05/01/23 08:00 FiO2 28 05/01/23 03:55 Intake & Output 04/30/23 05/01/23 05/01/23 18:59 06:59 18:59 Intake Total 1710 1250 635 Output Total 945 1320 Balance 765 -70 635 Weight 67.2 kg 67.4 kg Intake: IV 1025 1075 250 Aztreonam 2 gm In Sodium 200 100 100 Chloride 0.9% 100 ml @ 33 .3 mls/hr IVPB Q8HR [facility] Rx#:[id number] Sodium Chloride 0.45% 1, 825 975 150 000 ml @ 75 mls/hr IV . [id number] [facility] Rx#:[id number] Tube Feeding 595 175 245 Other 90 140 Output: Gastric Drainage 450 Urine 945 870 Other: Voiding Method Indwelling Catheter Indwelling Catheter Indwelling Catheter # Bowel Movements 1 - Exam GENERAL EXAM: Arousable, debilitated 83-year-old female, resting in bed, on T piece, 28% FiO2 HEAD: Normocephalic. EYES: Normal reaction of pupils, equal size. NOSE: Clear with pink turbinates. THROAT: Tracheostomy is intact. NECK: No masses, no JVD. CHEST: No chest wall deformity. LUNGS: Diminished breath sounds at the bases no rhonchi and no wheezes today. CVS: S1 and S2 normal with no audible murmur, regular rhythm. ABDOMEN: J-tube secured in place. No hepatosplenomegaly, normal bowel sounds, no guarding or rigidity. SKIN: No rashes CENTRAL NERVOUS SYSTEM: No gross focal neurologic deficit EXTREMITIES: No clubbing edema or cyanosis - Labs CBC & Chem 7: 05/01/23 06:08 05/01/23 06:08 Labs: Abnormal Lab Results - Last 24 Hours (Table) 04/30/23 04/30/23 05/01/23 Range/Units 17:00 20:35 06:08 WBC 14.1 H (3.8-10.6) k/uL Neutrophils # 12.1 H (1.3-7.7) k/uL Chloride (98-107) mmol/L Carbon Dioxide (22-30) mmol/L BUN (7-17) mg/dL Glucose (74-99) mg/dL POC Glucose (mg/dL) 159 H 172 H (70-110) mg/dL 05/01/23 05/01/23 05/01/23 Range/Units 06:08 06:38 10:44 WBC (3.8-10.6) k/uL Neutrophils # (1.3-7.7) k/uL Chloride 113 H (98-107) mmol/L Carbon Dioxide 20 L (22-30) mmol/L BUN 78 H (7-17) mg/dL Glucose 161 H (74-99) mg/dL POC Glucose (mg/dL) 144 H 145 H (70-110) mg/dL Assessment and Plan Assessment: Acute on chronic hypoxemic respiratory to an acute exacerbation of her suspected diastolic congestive heart failure and possibly healthcare acquired pneumonia. Sputum cultures positive for pseudomonas aeruginosa. Currently on Azactam. Pro calcitonin trending down. C-reactive protein less than 0.5. Recent history of abnormal dilatation and distention of the esophagus with retained debris in the distal aspect. She was transferred from here to [facility] in December 2022 for surgery. This was complicated by a long recovery requiring tracheostomy tube placement and J-tube placement. She resided in subacute rehabilitation for approximately 6 weeks and had been home for 1 week prior to being admitted here Previous history of paraesophageal hernia repair in November 2022 Hypothyroidism Hypertension Hyperlipidemia Poor functional performance based on the above-mentioned comorbidities Plan: The patient was seen and evaluated Labs and medications reviewed Currently on Azactam Continue bronchodilators, steroids Overall prognosis remains quite guarded May be considered for palliative care/hospice I have personally seen and examined the patient, performed the documentation and the assessment and plan as written. Number of minutes spent on the visit: 10.
[2023-05-01] MEDS ORDERED: LORazepam 0.5 MG TAB PO PRN (13:25)
[2023-05-01] MEDS ORDERED: ZINC OXIDE PASTE (Z-GUARD) 1 APPLIC APPLIC TOPICAL PRN (14:19)
--- NOTE | 2023-05-01 14:24 | P.PN ---
Subjective Progress Note Date: 05/01/23 Pt has been having constipation, but had a BM finally yesterday. Not interactive on exam today, but did open eyes to voice and track. Gen: awake, alert HEENT: normocephalic, atraumatic, good hearing acuity, moist mucous membranes Resp: Tracheostomy present, coarse breath sounds CVS: good distal perfusion x 4, GI: soft, NTTP, ND : no SPT, no CVAT, meléndez catheter is present MSK: no pitting edema, no clubbing Neuro: non-focal, moving all extremities Hospital Course: Patient is a 83-year-old female with a PMH of recent tracheostomy and PEG tube placement following a prolonged hospitalization with transfer to tertiary care facility for paraesophageal hernia, goiter, and suspected esophageal per foration, hypertension, hyperlipidemia, hypothyroidism, COPD, chronic kidney disease who presents to the emergency room for cough and shortness of breath. The patient had a prolonged hospitalization at [facility] and was subsequently discharged to an LTAC-like facility for roughly 6 weeks or she was reportedly also on a ventilator. The patient was discharged home around a week ago. She gradually developed a persistent cough with thick secretions through her tracheostomy. The patient reports intractable coughing with some shortness of breath. Chest x-ray in the emergency room revealed bilateral opacities concerning for CHF versus pneumonia. Laboratory evaluation was remarkable for leukocytosis of 15.0, sodium 131, potassium 5.4, AST 43, ALT 45, alk phos 144, lactic acid 1.2. She was started on bronchilators, SoluMedrol, lasix, Vancomycn and Levaquin. Pulmonology was consulted for further management. A-team called 04/24 for respiratory distress. RT was above to suction puruplent secretions which improved her symptoms, she was transferred to ICU for higher level of care. ID consulted to guide Abx therapy. Sputum culture + multidrug resistant pseudomonas resistant to Levaquin, antibiotics switched to Aztreonam on 04/24. Clinically improved with regard to her respiratory status. On 04/29, patient was seen and examined. Clinically stable. CBC shows WBC 12.9. BMP shows Na 147, Cl 111, BUN 92, glucose 213, Ca 10.5. CRP < 0.05. Procal 0.09. Case discussed with daughter Jayna Hu. Recommended to avoid glycopyrrolate on discharge. Patient will need PICC line to complete a total of 10 days Aztreonam. Daughter believes she will be able to do this at home. Patient will be switched from NS to 1/2NS for hypernatremia and prerenal azotemia (1.5L free water deficit). Plan s for discharge home in 1-2 days. PICC line ordered. On 04/30, patient was seen and examined. Discussed with nursing regarding patient's constipation last 7 days as well as sedation status while on standing xanax. Pt discussed with TOMA who has set up IV abx outpatient. On 05/01, discussed with nursing, CM, and patient's daughter regarding likelihood of success at discharge home and scheduled a GoC conversation for tomorrow. Assessment/Plan: Sepsis with Acute on chronic hypoxic respiratory failure Tracheobronchitis sputum Cx growing pseudomonas, blood Cx negative - Continue aztreonam, s/p mid line, plan for outpatient IV abx - continue prednisone, duonebs - continue TFs, at goal rate - continue trach collar - ID/Pulm consultation is appreciated - xanax discontinued, ativan PRN placed - avoid IV benzo or long acting benzo Diastolic CHF exacerbation Prerenal azotemia and hyperNa - holding lasix, stopped D5/0.45NS - monitoring I/Os Constipation - add senokot-S BID, miralax daily, bisacodyl PRN - add lactulose QID PRN Chronic conditions: HTN, HLD, Hypothyroidism - home medications reviewed, reconciled Pt is Full Code DVT PPx: heparin TID added 04/30 Objective - Vital Signs Vital signs: Vital Signs Temp 98.6 F 05/01/23 08:00 Pulse 100 05/01/23 11:35 Resp 18 05/01/23 08:00 BP 150/78 05/01/23 08:00 Pulse Ox 98 05/01/23 08:00 FiO2 28 05/01/23 03:55 Intake & Output 04/30/23 05/01/23 05/01/23 18:59 06:59 18:59 Intake Total 1710 1250 740 Output Total 945 1320 500 Balance 765 -70 240 Weight 67.2 kg 67.4 kg Intake: IV 1025 1075 250 Aztreonam 2 gm In Sodium 200 100 100 Chloride 0.9% 100 ml @ 33 .3 mls/hr IVPB Q8HR [facility] Rx#:[id number] Sodium Chloride 0.45% 1, 825 975 150 000 ml @ 75 mls/hr IV . [id number] [facility] Rx#:[id number] Tube Feeding 595 175 315 Other 90 175 Output: Gastric Drainage 450 Urine 945 870 500 Other: Voiding Method Indwelling Catheter Indwelling Catheter Indwelling Catheter # Bowel Movements 1 - Labs CBC & Chem 7: 05/01/23 06:08 05/01/23 06:08 Labs: Abnormal Lab Results - Last 24 Hours (Table) 04/30/23 04/30/23 05/01/23 Range/Units 17:00 20:35 06:08 WBC 14.1 H (3.8-10.6) k/uL Neutrophils # 12.1 H (1.3-7.7) k/uL Chloride (98-107) mmol/L Carbon Dioxide (22-30) mmol/L BUN (7-17) mg/dL Glucose (74-99) mg/dL POC Glucose (mg/dL) 159 H 172 H (70-110) mg/dL 05/01/23 05/01/23 05/01/23 Range/Units 06:08 06:38 10:44 WBC (3.8-10.6) k/uL Neutrophils # (1.3-7.7) k/uL Chloride 113 H (98-107) mmol/L Carbon Dioxide 20 L (22-30) mmol/L BUN 78 H (7-17) mg/dL Glucose 161 H (74-99) mg/dL POC Glucose (mg/dL) 144 H 145 H (70-110) mg/dL
[2023-05-01 16:54] LABS: Glucose,Whole Blood 192 mg/dL (70-110)
[2023-05-01 20:09] LABS: Glucose,Whole Blood 156 mg/dL (70-110)
[2023-05-01] MEDS: ATORVASTATIN 10 MG TAB PO SCH (21:38)
[2023-05-01] MEDS: DOXAZOSIN 2 MG TAB PO SCH (21:38)
[2023-05-02 06:17] VITALS: RESP 18
[2023-05-02 06:52] LABS: Glucose,Whole Blood 139 mg/dL (70-110)
[2023-05-02] MEDS: LEVOTHYROXINE 25 MCG TAB PO SCH (07:04)
[2023-05-02] MEDS: INSULIN ASPART (NovoLOG) 100 UNIT/ML VIAL SQ SCH ×2 (07:05→14:54)
[2023-05-02] MEDS: IPRATROPIUM-ALBUTEROL 3 ML NEB INHALATION SCH ×3 (07:47→14:59)
[2023-05-02] MEDS: polyethylene glycoL 3350 17 GM POWD.PACK PO SCH (08:47)
[2023-05-02] MEDS: SENNOSIDES-DOCUSATE SODIUM 1 EACH TAB PO SCH (08:47)
[2023-05-02] MEDS: allopurinoL 100 MG TAB PO SCH (08:56)
[2023-05-02] MEDS: PANTOPRAZOLE 40 MG/10 ML VIAL IVP SCH (08:56)
[2023-05-02] MEDS: amLODIPine 5 MG TAB PO SCH (08:56)
[2023-05-02] MEDS: predniSONE 20 MG TAB PO SCH (08:56)
[2023-05-02] MEDS: AZTREONAM 2 GM in SODIUM CHLORIDE 0.9% 100 ML IVPB SCH ×2 (08:56→16:50)
[2023-05-02] MEDS: HEPARIN SODIUM,PORCINE 5,000 UNIT/ML 1 ML VIAL SQ SCH ×2 (08:56→16:54)
[2023-05-02 09:15] VITALS: BP 151/79; TEMP 36.9
[2023-05-02 11:40] LABS: Glucose,Whole Blood 143 mg/dL (70-110)
--- NOTE | 2023-05-02 12:06 | P.PN ---
Subjective Progress Note Date: 05/02/23 This is an 83-year-old female patient with a history of chronic kidney disease, normocytic anemia, chronic obstructive pulmonary disease, hypothyroidism, hypertension, hyperlipidemia. She also has a history of large paraesophageal hernia with intrathoracic stomach and was subsequently transferred to [facility] for surgery from here back in December 2022. She had a complicated recovery and required tracheostomy and J tube placements. She was 6 weeks in an extended care facility and had been home for 1 week now. She presented here to the emergency room last evening with shortness of breath and thick secretions from her tracheostomy. Chest x-ray showed mild cardiomegaly with a small right greater than left pleural effusion. Correlate for congestive heart failure. There is also basilar atelectasis. White count 8.7. Hemoglobin 12.1. Sodium 133. Potassium 4.7. Bicarb 18. BUN 31. Creatinine 0.93. Glucose 202. ProBNP 2600. Pro-calcitonin 0.20. AST 43. ALT 35. She is seen today in consultation in the emergency department. Currently sitting up on a stretcher. Maintaining O2 saturations in the mid to upper 90s on 28% FiO2 via trach collar. She's been initiated and DuoNeb inhalations, Solu-Medrol. Antibiotics in the form of vancomycin and Levaquin. Sputum culture pending. She will be resumed on tube feedings per dietitian consult. Patient was reevaluated today on 04/23/2023, continues to have significant amount of tracheal secretions noted via tracheostomy. Patient continues to have some intermittent episodes of shortness of breath and congestion. Patient is on 5 L trach collar O2 sats is 99%. Sputum cultures are preliminary positive for gram-negative bacilli, final culture is pending, patient is presently on Levaquin because she has multiple ALLERGIES. Labs today were reviewed including basic metabolic profile and CBC. Patient was reevaluated today on 04/24/2023, patient developed some significant mucous plugging today requiring aggressive suctioning on the medical floor, hence patient was transferred to the ICU mostly because of frequent need for suctioning of the tracheostomy. I saw the patient in ICU, seems to be resting, very comfortable, she is on trach collar at 28%, her sputum has been showing gram-negative bacilli, hence I discontinued the vancomycin and kept her on Levaquin. Patient is also receiving Jevity via PEG tube at 50 MLS per hour and that seems to be well tolerated. Labs today showed leukocytosis with WBC of 16.0, otherwise the labs were unremarkable. Her sputum cultures now showing Pseudomonas, resistant to Levaquin, resistant to ciprofloxacin, patient has ALLERGIES to penicillin, ALLERGIC to cephalexin, hence will transition the patient to imipenem or at least consult infectious disease on the case. Reevaluated today on , patient remains in the ICU, is comfortable, she is on a 28% trach collar, her sputum came back positive for Pseudomonas resistant to Zosyn and resistant to cefepime as well as Levaquin and ciprofloxacin, patient has multiple ALLERGIES and ID chose to place the patient on Azactam. Patient is better today compared to the last few days less secretions from the tracheostomy she seems to be very comfortable. WBC count is 11.7 hemoglobin 11.6 electrolytes are normal renal profile is normal Reevaluated today on 04/26/23 remains in the ICU, remains on Azactam for pseudomonal infection and positive sputum patient seems to be in no form of distress, remains on trach collar at 28%, labs today are basically unremarkable including CBC and basic metabolic profile, hence I will transfer the patient back to regular medical floor today. In the meantime continue Azactam. Reevaluated today on 04/27/2023, patient remains in the ICU, however she is an overflow, she has less and less secretions, continues to be on trach collar at 28%, not much of a change in the last 24 hours, remains on Azactam for her pseudomonal infection. Basic metabolic profile is normal renal profile is normal except for BUN of 70 and the patient will liberalize fluids and bit more although the patient does have history of diastolic congestive heart failure. Chest x-ray showed tracheostomy in place, small bilateral pleural effusions and chronic elevation of the right hemidiaphragm with infrahilar atelectasis/right base doubt infiltrate Reevaluated today on 04/28/2023, patient remains in the ICU as an overflow remains on 28% trach collar remains on Azactam for her pseudomonal infection and positive sputum cultures patient is feeling better, less and less secretions noted from the tracheostomy. Patient seems to be quite comfortable. And the plan is to transfer the patient to a regular medical floor once a bed is available. WBC count today is 11.8 hemoglobin 13.8 basic metabolic profile is normal renal profile is normal. Sputum cultures are positive for Pseudomonas, resistant to Levaquin ciprofloxacin and Zosyn patient is now on Azactam The patient is seen today 04/29/2023 in follow-up in the intensive care unit. She is currently sitting upright in bed. Remains on 28% trach collar. She continues with significant secretions. She does have a fairly strong cough. Sputum culture is positive for pseudomonas aeruginosa. Blood cultures revealed no growth. White count 12.9. Hemoglobin 13.4. Sodium 147. Potassium 4.3. Bicarb 21. BUN 92. Creatinine 1.04. Glucose 213. Pro-calcitonin negative at 0.09. C-reactive protein less than 0.5. She remains on aztreonam. Continued on bronchodilators. Continued on prednisone taper. 0.45% saline at 75 ML's per hour. The patient is seen today 04/30/2023 in follow-up in the intensive care unit. She is currently resting comfortably in bed. Awake and alert in no acute distress. She is maintaining O2 saturations in the 90s on 28% via T piece. She has been requiring less suctioning the past 24 hours. She is being nourished with TwoCal HN at 35 ML's which is her goal via her PEG tube. She has 0.45% saline at 75 ML's per hour. She did receive a midline yesterday. Her sputum culture was positive for pseudomonas aeruginosa. Blood cultures revealed no growth. White count 16.1. Hemoglobin 11.8. Platelets 244. Sodium 144. Potassium 4.4. Bicarb 20. BUN 95. Creatinine 0.99. Glucose 165. She remains on DuoNeb inhalations. Antibiotics in the form of aztreonam. The patient is seen today 05/01/2023 in follow-up in the intensive care unit. She is on 28% T Piece. She is receiving 0.45 normal saline at 75 ML's per hour. She is being nourished with TwoCal HN at 35 ML's per hour via her PEG tube. She remains on aztreonam for a total of 10 days. She did have bowel movements yesterday. She is becoming more weak and less responsive. White count 14.1. Hemoglobin 11.8. Platelets 227. Sodium 140. Potassium 4.8. Bicarb 20. BUN 78. Creatinine 0.95. Glucose 161. Remains on bronchodilators. Heparin for DVT prophylaxis. The patient is seen today 05/02/2023 in follow-up in the intensive care unit. She remains quite obtunded. Difficult to arouse. She is maintaining good O2 saturations in the 90s on 28% FiO2 via T piece. Her original sputum was positive for pseudomonas aeruginosa. Blood cultures revealed no growth. Blood sugar 139. Name. Continued on bronchodilators. Heparin for DVT prophylaxis. Remains on prednisone taper. Continues to be nourished with TwoCal HN at 26 ML's per hour via J tube. Objective - Vital Signs Vital signs: Vital Signs Temp 36.9 F L 05/02/23 08:00 Pulse 95 05/02/23 10:41 Resp 18 05/02/23 08:00 BP 151/79 05/02/23 08:00 Pulse Ox 97 05/02/23 08:00 FiO2 28 05/02/23 08:00 Intake & Output 05/01/23 05/02/23 05/02/23 18:59 06:59 18:59 Intake Total 1330 1030 70 Output Total 1850 1380 Balance -520 -350 70 Weight 67.6 kg Intake: IV 350 220 0.9NS 120 Aztreonam 2 gm In Sodium 200 100 Chloride 0.9% 100 ml @ 33 .3 mls/hr IVPB Q8HR [facility] Rx#:[id number] Sodium Chloride 0.45% 1, 150 000 ml @ 75 mls/hr IV . [id number] [facility] Rx#:[id number] Tube Feeding 595 460 70 Other 385 350 Output: Urine 850 1380 Stool 1000 Other: Voiding Method Indwelling Catheter Indwelling Catheter Indwelling Catheter # Bowel Movements 2 - Exam GENERAL EXAM: Arousable, debilitated 83-year-old female, on T piece, 28% FiO2 HEAD: Normocephalic. EYES: Normal reaction of pupils, equal size. NOSE: Clear with pink turbinates. THROAT: Tracheostomy is intact. NECK: No masses, no JVD. CHEST: No chest wall deformity. LUNGS: Diminished breath sounds at the bases no rhonchi and no wheezes today. CVS: S1 and S2 normal with no audible murmur, regular rhythm. ABDOMEN: J-tube secured in place. No hepatosplenomegaly, normal bowel sounds, no guarding or rigidity. SKIN: No rashes CENTRAL NERVOUS SYSTEM: No gross focal neurologic deficit EXTREMITIES: No clubbing edema or cyanosis - Labs CBC & Chem 7: 05/01/23 06:08 05/01/23 06:08 Labs: Abnormal Lab Results - Last 24 Hours (Table) 05/01/23 05/01/23 05/02/23 Range/Units 16:53 20:08 06:50 POC Glucose (mg/dL) 192 H 156 H 139 H (70-110) mg/dL 05/02/23 Range/Units 11:39 POC Glucose (mg/dL) 143 H (70-110) mg/dL Assessment and Plan Assessment: Acute on chronic hypoxemic respiratory to an acute exacerbation of her suspected diastolic congestive heart failure and possibly healthcare acquired pneumonia. Sputum cultures positive for pseudomonas aeruginosa. Currently on Azactam. Pro calcitonin trending down. C-reactive protein less than 0.5. Recent history of abnormal dilatation and distention of the esophagus with retained debris in the distal aspect. She was transferred from here to [facility] in December 2022 for surgery. This was complicated by a long recovery requiring tracheostomy tube placement and J-tube placement. She resided in subacute rehabilitation for approximately 6 weeks and had been home for 1 week prior to being admitted here Previous history of paraesophageal hernia repair in November 2022 Hypothyroidism Hypertension Hyperlipidemia Poor functional performance based on the above-mentioned comorbidities Plan: The patient was seen and evaluated Medications reviewed Currently on Azactam Continue bronchodilators, steroids Overall prognosis remains quite guarded I have personally seen and examined the patient, performed the documentation and the assessment and plan as written. Number of minutes spent on the visit: 10.
[2023-05-02 15:13] VITALS: PULSE 96
--- NOTE | 2023-05-02 15:48 | P.PN ---
Subjective Progress Note Date: 05/01/23 Principal diagnosis: Pseudomonas pneumonia and multiple antibiotic ALLERGIES Patient is a 83-year-old female with a past medical history significant for coronary artery disease hypertension hyperlipidemia patient did have a paraesophageal hernia repair with suspected esophageal perforation prolonged hospital stay did have a tracheostomy and PEG tube placement, present ed to hospital with increasing shortness of breath cough and some creamy sputum sputum has been finalized and pseudomonas aeruginosa, patient did have both cephalosporins and penicillin ALLERGY. On today's evaluation that is 05/01/2023, the patient remains to be afebrile the patient is breathing comfortably on 28% trach collar, the patient denies any chest pain no worsening cough or sputum production no vomiting or diarrhea has been reported by the nursing staff Patient white count idown to 14.1 , creatinine is 0.95, CRP is less than 0.5, pro calcitonin 0.09 Objective - Vital Signs Vital signs: Vital Signs Temp 98.6 F 05/01/23 08:00 Pulse 100 05/01/23 11:35 Resp 18 05/01/23 08:00 BP 150/78 05/01/23 08:00 Pulse Ox 98 05/01/23 08:00 FiO2 28 05/01/23 03:55 Intake & Output 04/30/23 05/01/23 05/01/23 18:59 06:59 18:59 Intake Total 1710 1250 740 Output Total 945 1320 500 Balance 765 -70 240 Weight 67.2 kg 67.4 kg Intake: IV 1025 1075 250 Aztreonam 2 gm In Sodium 200 100 100 Chloride 0.9% 100 ml @ 33 .3 mls/hr IVPB Q8HR [facility] Rx#:[id number] Sodium Chloride 0.45% 1, 825 975 150 000 ml @ 75 mls/hr IV . [id number] [facility] Rx#:[id number] Tube Feeding 595 175 315 Other 90 175 Output: Gastric Drainage 450 Urine 945 870 500 Other: Voiding Method Indwelling Catheter Indwelling Catheter Indwelling Catheter # Bowel Movements 1 - Exam GENERAL DESCRIPTION: An elderly female lying in bed in no distress RESPIRATORY SYSTEM: Unlabored breathing , decreased breath sounds at bases HEART: S1 S2 regular rate and rhythm , ABDOMEN: Soft , no tenderness EXTREMITIES: No edema feet - Labs CBC & Chem 7: 05/01/23 06:08 05/01/23 06:08 Labs: Abnormal Lab Results - Last 24 Hours (Table) 04/30/23 04/30/23 05/01/23 Range/Units 17:00 20:35 06:08 WBC 14.1 H (3.8-10.6) k/uL Neutrophils # 12.1 H (1.3-7.7) k/uL Chloride (98-107) mmol/L Carbon Dioxide (22-30) mmol/L BUN (7-17) mg/dL Glucose (74-99) mg/dL POC Glucose (mg/dL) 159 H 172 H (70-110) mg/dL 05/01/23 05/01/23 05/01/23 Range/Units 06:08 06:38 10:44 WBC (3.8-10.6) k/uL Neutrophils # (1.3-7.7) k/uL Chloride 113 H (98-107) mmol/L Carbon Dioxide 20 L (22-30) mmol/L BUN 78 H (7-17) mg/dL Glucose 161 H (74-99) mg/dL POC Glucose (mg/dL) 144 H 145 H (70-110) mg/dL Assessment and Plan (1) Allergy to multiple antibiotics Current Visit: Yes Status: Acute Code(s): Z88.1 - ALLERGY STATUS TO OTHER ANTIBIOTIC AGENTS SNOMED Code(s): 962227397 (2) Pneumonia Current Visit: Yes Status: Acute Code(s): J18.9 - PNEUMONIA, UNSPECIFIED ORGANISM SNOMED Code(s): 649822258 Plan: 1patient presented hospital with increasing shortness of breath increasing cough and purulent sputum patient did have a infiltrate seen on the chest x-ray and did have mild elevated procalcitonin with a sputum now growing Pseudomonas aeruginosa likely concerning for purulent tracheobronchitis/early pneumonia 2-patient with multiple antibiotic allergies that would limit the number of antibiotics safe to use 3Patient has shown some clinical improvement to continue with Azactam 2 g every 8 hours, plan is to finish 10 day course of treatment for pseudomonal trac heobronchitis/early pneumonia 4- leukocytosis possibly steroid related and white count is trending down Dictation was produced using [employer] dictation software. please excuse any grammatical, word or spelling errors. Time with Patient: Less than 30
--- NOTE | 2023-05-02 15:50 | P.PN ---
Subjective Progress Note Date: 05/02/23 Principal diagnosis: Pseudomonas pneumonia and multiple antibiotic ALLERGIES Patient is a 83-year-old female with a past medical history significant for coronary artery disease hypertension hyperlipidemia patient did have a paraesophageal hernia repair with suspected esophageal perforation prolonged hospital stay did have a tracheostomy and PEG tube placement, present ed to hospital with increasing shortness of breath cough and some creamy sputum sputum has been finalized and pseudomonas aeruginosa, patient did have both cephalosporins and penicillin ALLERGY. On today's evaluation that is 05/02/2023, the patient continues to be afebrile the patient is breathing comfortably on 28% trach collar, the patient denies any chest pain , the patient denies any worsening cough or sputum production no vomiting or diarrhea has been reported by the nursing staff Patient white count idown to 14.1 , creatinine is 0.95 as of 05/01/2023, CRP is less than 0.5, pro calcitonin 0.09 Objective - Vital Signs Vital signs: Vital Signs Temp 36.9 F L 05/02/23 08:00 Pulse 95 05/02/23 10:41 Resp 18 05/02/23 08:00 BP 151/79 05/02/23 08:00 Pulse Ox 97 05/02/23 08:00 FiO2 28 05/02/23 08:00 Intake & Output 05/01/23 05/02/23 05/02/23 18:59 06:59 18:59 Intake Total 1330 1030 70 Output Total 1850 1380 Balance -520 -350 70 Weight 67.6 kg Intake: IV 350 220 0.9NS 120 Aztreonam 2 gm In Sodium 200 100 Chloride 0.9% 100 ml @ 33 .3 mls/hr IVPB Q8HR [facility] Rx#:[id number] Sodium Chloride 0.45% 1, 150 000 ml @ 75 mls/hr IV . [id number] [facility] Rx#:[id number] Tube Feeding 595 460 70 Other 385 350 Output: Urine 850 1380 Stool 1000 Other: Voiding Method Indwelling Catheter Indwelling Catheter Indwelling Catheter # Bowel Movements 2 - Exam GENERAL DESCRIPTION: An elderly female lying in bed in no distress RESPIRATORY SYSTEM: Unlabored breathing , decreased breath sounds at bases HEART: S1 S2 regular rate and rhythm , ABDOMEN: Soft , no tenderness EXTREMITIES: No edema feet - Labs CBC & Chem 7: 05/01/23 06:08 05/01/23 06:08 Labs: Abnormal Lab Results - Last 24 Hours (Table) 05/01/23 05/01/23 05/02/23 Range/Units 16:53 20:08 06:50 POC Glucose (mg/dL) 192 H 156 H 139 H (70-110) mg/dL 05/02/23 Range/Units 11:39 POC Glucose (mg/dL) 143 H (70-110) mg/dL Assessment and Plan (1) Allergy to multiple antibiotics Current Visit: Yes Status: Acute Code(s): Z88.1 - ALLERGY STATUS TO OTHER ANTIBIOTIC AGENTS SNOMED Code(s): 733273038 (2) Pneumonia Current Visit: Yes Status: Acute Code(s): J18.9 - PNEUMONIA, UNSPECIFIED ORGANISM SNOMED Code(s): 314890849 Plan: 1patient presented hospital with increasing shortness of breath increasing coug h and purulent sputum patient did have a infiltrate seen on the chest x-ray and did have mild elevated procalcitonin with a sputum now growing Pseudomonas aeruginosa likely concerning for purulent tracheobronchitis/early pneumonia 2-patient with multiple antibiotic allergies that would limit the number of antibiotics safe to use 3Patient has shown some clinical improvement to continue with Azactam 2 g every 8 hours, plan is to finish 10 day course of treatment for pseudomonal tracheobronchitis/early pneumonia 4- leukocytosis possibly steroid related and white count is trending down as of yesterday no CBC was done today 5-patient daughter did bring up the patient getting diagnosed with [facility]pl[facility] at [facility] and has received about a month of itraconazole, daughter will try to get more records and sent to the office we will go ahead and check histoplasma antibodies antigen and cultures, daughter have multiple questions and concerns were answered in Layman terms Dictation was produced using [employer] dictation software. please excuse any grammatical, word or spelling errors. Time with Patient: Less than 30
--- NOTE | 2023-05-02 16:34 | P.DS ---
Providers Date of admission: 04/21/23 23:57 Expected date of discharge: 05/02/23 Attending physician: Daria Archuleta MD Consults: 04/21/23 23:57 Consult Physician Routine Consulting Provider: Nimesh Rivers Consult Reason/Comments: tracheobronchitis Do you want consulting provider notified?: Yes 04/24/23 12:38 Consult Physician Routine Consulting Provider: Derick Rojo Consult Reason/Comments: pseudomonas pneumonia,multiple allergies Do you want consulting provider notified?: Yes Primary care physician: Grover Escalante Hospital Course: Sepsis with Acute on chronic hypoxic respiratory failure Tracheobronchitis sputum Cx growing pseudomonas, blood Cx negative Diastolic CHF exacerbation Prerenal azotemia and hyperNa Constipation Chronic conditions: HTN, HLD, Hypothyroidism Hospital Course: Patient is a 83-year-old female with a PMH of recent tracheostomy and PEG tube placement following a prolonged hospitalization with transfer to tertiary care facility for paraesophageal hernia, goiter, and suspected esophageal perforation, hypertension, hyperlipidemia, hypothyroidism, COPD, chronic kidney disease who presents to the emergency room for cough and shortness of breath. The patient had a prolonged hospitalization at [facility] and was subsequently discharged to an LTAC-like facility for roughly 6 weeks or she was reportedly also on a ventilator. The patient was discharged home around a week ago. She gradually developed a persistent cough with thick secretions through her tracheostomy. The patient reports intractable coughing with some shortness of breath. Chest x-ray in the emergency room revealed bilateral opacities concerning for CHF versus pneumonia. Laboratory evaluation was remarkable for leukocytosis of 15.0, sodium 131, potassium 5.4, AST 43, ALT 45, alk phos 144, lactic acid 1.2. She was started on bronchilators, SoluMedrol, lasix, Vancomycn and Levaquin. Pulmonology was consulted for further management. A-team called 04/24 for respiratory distress. RT was above to suction puruplent secretions which improved her symptoms, she was transferred to ICU for higher level of care. ID consulted to guide Abx therapy. Sputum culture + multidrug resistant pseudomonas resistant to Levaquin, antibiotics switched to Aztreonam on 04/24. Clinically improved with regard to her respiratory status. On 04/29, patient was seen and examined. Clinically stable. CBC shows WBC 12.9. BMP shows Na 147, Cl 111, BUN 92, glucose 213, Ca 10.5. CRP < 0.05. Procal 0.09. Case discussed with daughter Jayna Hu. Recommended to avoid glycopyrrolate on discharge. Patient will need PICC line to complete a total of 10 days Aztreonam. Daughter believes she will be able to do this at home. Patient will be switched from NS to 1/2NS for hypernatremia and prerenal azotemia (1.5L free water deficit). Plans for discharge home in 1-2 days. PICC line ordered. On 04/30, patient was seen and examined. Discussed with nursing regarding patient's constipation last 7 days as well as sedation status while on standing xanax. Pt discussed with CM who has set up IV abx outpatient. On 05/01, discussed with nursing, CM, and patient's daughter regarding lik elihood of success at discharge home and scheduled a GoC conversation for tomorrow. On 05/02, discussed with family at bedside, and they are adamant about taking patient home. Discussed with ID regarding completion of abx course, and patient has completed course. Pt discharged home with family at bedside counseled on following nursing needs: suctioning q2h, turning q2h, tube feeds, meléndez catheter care, J tube care. Midline was removed prior to discharge. I spent 60 minutes coordinating this discharge on 05/02 Gen: awake, alert HEENT: normocephalic, atraumatic, good hearing acuity, moist mucous membranes Resp: Tracheostomy present, coarse breath sounds CVS: good distal perfusion x 4, GI: soft, NTTP, ND : no SPT, no CVAT, meléndez catheter is present MSK: no pitting edema, no clubbing Neuro: non-focal, moving all extremities Patient Condition at Discharge: Good Plan - Discharge Summary Discharge Rx Participant: No New Discharge Prescriptions: New polyethylene glycoL 3350 [Miralax] 17 gm PO DAILY packet Sennosides-Docusate Sodium [Senokot-S] 1 each PO BID tab predniSONE [Deltasone] 40 mg PO DAILY #15 tab bisacodyL [Dulcolax] 10 mg RECTAL DAILY PRN suppositor PRN Reason: Constipation Ipratropium-Albuterol Nebulize [Duoneb 0.5 mg-3 mg/3 ml Soln] 3 ml INHALATION RT-QID PRN each PRN Reason: Shortness Of Breath Or Wheezing Acetaminophen Tab [Tylenol] 650 mg PO Q6HR PRN tab PRN Reason: Fever And/ Or Pain Continue Terazosin [Hytrin] 2 mg PO HS Potassium Chloride [Klor-Con 20 Packets] 20 meq PO DAILY Pantoprazole [Protonix] 40 mg PO DAILY Multivitamins, Thera [Multivitamin (formulary)] 1 tab PO DAILY LORazepam [Ativan] 1 mg PO BID PRN PRN Reason: Anxiety allopurinoL [Zyloprim] 150 mg PO DAILY Ondansetron [Zofran] 4 mg PO QID PRN PRN Reason: Nausea Levothyroxine Sodium [Synthroid] 25 mcg PO DAILY Furosemide [Lasix] 40 mg PO DAILY amLODIPine [Norvasc] 5 mg PO BID Cholestyramine (with Sugar) [Questran Packet] 4 gm PO BID Atorvastatin [Lipitor] 10 mg PO HS Discontinued Glycopyrrolate [Robinul] 1 mg PO TID Discharge Medication List Atorvastatin [Lipitor] 10 mg PO HS 04/21/23 [History] Cholestyramine (with Sugar) [Questran Packet] 4 gm PO BID 04/21/23 [History] Furosemide [Lasix] 40 mg PO DAILY 04/21/23 [History] LORazepam [Ativan] 1 mg PO BID PRN 04/21/23 [History] Levothyroxine Sodium [Synthroid] 25 mcg PO DAILY 04/21/23 [History] Multivitamins, Thera [Multivitamin (formulary)] 1 tab PO DAILY 04/21/23 [History] Ondansetron [Zofran] 4 mg PO QID PRN 04/21/23 [History] Pantoprazole [Protonix] 40 mg PO DAILY 04/21/23 [History] Potassium Chloride [Klor-Con 20 Packets] 20 meq PO DAILY 04/21/23 [History] Terazosin [Hytrin] 2 mg PO HS 04/21/23 [History] allopurinoL [Zyloprim] 150 mg PO DAILY 04/21/23 [History] amLODIPine [Norvasc] 5 mg PO BID 04/21/23 [History] Acetaminophen Tab [Tylenol] 650 mg PO Q6HR PRN tab 05/02/23 [Rx] Ipratropium-Albuterol Nebulize [Duoneb 0.5 mg-3 mg/3 ml Soln] 3 ml INHALATION R T-QID PRN each 05/02/23 [Rx] Sennosides-Docusate Sodium [Senokot-S] 1 each PO BID tab 05/02/23 [Rx] bisacodyL [Dulcolax] 10 mg RECTAL DAILY PRN suppositor 05/02/23 [Rx] polyethylene glycoL 3350 [Miralax] 17 gm PO DAILY packet 05/02/23 [Rx] predniSONE [Deltasone] 40 mg PO DAILY #15 tab 05/02/23 [Rx] Follow up Appointment(s)/Referral(s): Grover Escalante MD [Primary Care Provider] - 1-2 days Home Health,[facility] [NON-STAFF] - 1 Week ([facility] homecare will call you to arrange a visit. ) [facility] [REFERRING] - 1 Week ([facility] will service your iv abx need) Activity/Diet/Wound Care/Special Instructions: Will need ambulance ride home, form in chart. [phone] Discharge Disposition: HOME WITH HOME HEALTH SERVICES
[2023-05-06 18:55] LABS: Histoplasma Abs by ID Not Detected (Not Detected); Histoplasma Abs by Mycelia, CF <1:8 (<1:8)
== END 2023-05-02 18:24 | disposition home health service (06) | DRG 871 ==
LOC: EC 20:16 → 3SCARD 23:57 → 2SICU 04-24 08:09
PROVIDERS: ADMIT Internal Medicine; ATTEND Internal Medicine
DX: A41.9 Sepsis, unspecified organism (principal); I50.33 Acute on chronic diastolic (congestive) heart failure; J15.1 Pneumonia due to Pseudomonas; J96.21 Acute and chronic respiratory failure with hypoxia; E87.0 Hyperosmolality and hypernatremia; I13.0 Hypertensive heart and chronic kidney disease with heart failure and stage 1 through stage 4 chronic kidney disease, or unspecified chronic kidney disease; D63.1 Anemia in chronic kidney disease; E03.9 Hypothyroidism, unspecified; E78.5 Hyperlipidemia, unspecified; I25.10 Atherosclerotic heart disease of native coronary artery without angina pectoris; K21.9 Gastro-esophageal reflux disease without esophagitis; K31.84 Gastroparesis; K44.9 Diaphragmatic hernia without obstruction or gangrene; K59.00 Constipation, unspecified; N18.9 Chronic kidney disease, unspecified; I25.2 Old myocardial infarction; Z79.890 Hormone replacement therapy; Z79.899 Other long term (current) drug therapy; Z85.828 Personal history of other malignant neoplasm of skin; Z88.0 Allergy status to penicillin; Z88.1 Allergy status to other antibiotic agents; Z93.4 Other artificial openings of gastrointestinal tract status; Z88.2 Allergy status to sulfonamides; Z88.8 Allergy status to other drugs, medicaments and biological substances; Z93.0 Tracheostomy status
CPT/HCPCS: 36410; 36415; 71045; 74018; 76937; 80048; 80053; 82565; 83036; 83605; 83735; 83880; 84100; 84145; 85025; 85027; 85610; 85730; 86140; 86698; 87040; 87070; 87077; 87102; 87186; 87205; 94640; 96361; 96365; 96366; 96367; 96375; 96376; 99285

== ENCOUNTER 2023-08-22 13:39 | Emergency (ER) | payer MEDICARE ==
--- NOTE | 2023-08-22 13:48 | ED ---
SOB HPI - General Chief Complaint: Shortness of Breath Stated Complaint: DIFFICULTY BREATING Time Seen by Provider: 08/22/23 13:42 Source: EMS, RN notes reviewed, old records reviewed Mode of arrival: EMS Limitations: no limitations - History of Present Illness Initial Comments: This is a 83-year-old female to the ER for evaluation today. Patient presents today for evaluation regards to severe shortness of breath is brought in by EMS for shortness of breath dyspnea severe anxiety and EKG changes. Patient is significant tachycardic tachycardic with low pulse ox per caregiver at home. Patient has no real improvement during transport and presents in significant distress. Patient admits to severe anxiety MD Complaint: shortness of breath, cough, chest pain -: days(s) Severity: severe Severity scale (1-10): 9 Quality: aching Consistency: constant Improves With: nothing Worsens With: nothing Known History Of: COPD, recurrent pneumonia Context: recent URI, recent illness Associated Symptoms: denies other symptoms - Related Data Home Medications Medication Instructions Recorded Confirmed Atorvastatin [Lipitor] 10 mg PEG/G-TUBE HS 04/21/23 08/22/23 LORazepam [Ativan] 0.5 mg PEG/G-TUBE BID PRN 04/21/23 08/22/23 Levothyroxine Sodium [Synthroid] 25 mcg PEG/G-TUBE DAILY 04/21/23 08/22/23 Pantoprazole [Protonix] 40 mg PEG/G-TUBE DAILY 04/21/23 08/22/23 Terazosin [Hytrin] 2 mg PEG/G-TUBE HS 04/21/23 08/22/23 allopurinoL [Zyloprim] 150 mg PEG/G-TUBE DAILY 04/21/23 08/22/23 amLODIPine [Norvasc] 5 mg PEG/G-TUBE BID 04/21/23 08/22/23 Ipratropium-Albuterol Nebulize 3 ml INHALATION RT-QID 08/22/23 08/22/23 [Duoneb 0.5 mg-3 mg/3 ml Soln] Previous Rx's Medication Instructions Recorded Amoxic-Pot Clav 400-57Mg/5Ml 11 ml PO Q12H #240 ml 08/22/23 [Augmentin 400-57 mg/5 ml Susp] Amoxic-Pot Clav 875-125Mg 1 tab PO BID 10 Days #20 tab 08/22/23 [Augmentin 875-125] Azithromycin 500 mg PO DIRECTED #150 ml 08/22/23 Azithromycin [Zithromax] 500 mg PO DAILY 5 Days #5 tab 08/22/23 Allergies Allergy/AdvReac Type Severity Reaction Status Date / Time cephalexin [From Keflex] AdvReac Rash/Hives Verified 08/22/23 15:31 iodine AdvReac Unknown Verified 08/22/23 15:31 Penicillins AdvReac Rash/Hives Verified 08/22/23 15:31 Sulfa (Sulfonamide AdvReac Unknown Verified 08/22/23 15:31 Antibiotics) Review of Systems ROS Statement: Those systems with pertinent positive or pertinent negative responses have been documented in the HPI. ROS Other: All systems not noted in ROS Statement are negative. Past Medical History Past Medical History: Cancer, Myocardial Infarction (MS), Renal Disease Additional Past Medical History / Comment(s): Basal cell cancer, goiter, hiatal hernia surgery, tracheostomy, blood clot right arm Last Myocardial Infarction Date:: unknown History of Any Multi-Drug Resistant Organisms: Other MDRO Additional Past Surgical History / Comment(s): Hiatal Hernia surgery, traceosotomy, g tube placement Past Psychological History: No Psychological Hx Reported Smoking Status: Never smoker Past Alcohol Use History: None Reported Past Drug Use History: None Reported General Exam Limitations: altered mental status, physical limitation General appearance: alert, anxious, in distress Head exam: Present: atraumatic, normocephalic, normal inspection Eye exam: Present: normal appearance, PERRL, EOMI. Absent: scleral icterus, conjunctival injection, periorbital swelling ENT exam: Present: normal exam, mucous membranes moist Neck exam: Present: normal inspection. Absent: tenderness, meningismus, lymphadenopathy Respiratory exam: Present: respiratory distress, wheezes, accessory muscle use, decreased breath sounds, prolonged expiratory. Absent: rales, rhonchi, stridor Cardiovascular Exam: Present: tachycardia, irregular rhythm, normal heart sounds. Absent: systolic murmur, diastolic murmur, rubs, gallop, clicks GI/Abdominal exam: Present: soft, normal bowel sounds. Absent: distended, tenderness, guarding, rebound, rigid Extremities exam: Present: normal inspection, full ROM, normal capillary refill. Absent: tenderness, pedal edema, joint swelling, calf tenderness Back exam: Present: normal inspection Neurological exam: Present: alert, oriented X3, CN II-XII intact Psychiatric exam: Present: normal affect, normal mood Skin exam: Present: warm, dry, intact, normal color. Absent: rash Course Vital Signs 08/22/23 08/22/23 08/22/23 13:42 13:52 14:04 Temperature 98.6 F Pulse Rate 142 H 130 H 129 H Respiratory 30 H 24 Rate Blood Pressure 181/115 146/74 O2 Sat by Pulse 93 L 94 L Oximetry 08/22/23 08/22/23 08/22/23 14:05 14:16 15:02 Temperature Pulse Rate 129 H 124 H 113 H Respiratory 22 24 Rate Blood Pressure 124/65 126/74 O2 Sat by Pulse 95 95 Oximetry 08/22/23 08/22/23 16:34 18:56 Temperature Pulse Rate 109 H 115 H Respiratory 20 22 Rate Blood Pressure 105/56 122/66 O2 Sat by Pulse 91 L 95 Oximetry - Reevaluation(s) Reevaluation #1: 08/22/23 20:35 Medical records reviewed 08/22/23 20:35 Patient will be a BiPAP candidate Reevaluation #2: 08/22/23 20:35 Patient has improvement throughout ER stay Reevaluation #3: 08/22/23 20:35 Patient is informed of results and questions were answered 08/22/23 20:35 Speaking with patient further regarding admission and need for treatment of pneumonia, CHF hypoxia, hypertensive emergency patient refuses Reevaluation #4: Was pt. sent in by a medical professional or institution (, PA, PAPER TWISTER TENDER, urgent care, hospital, or assisted...) When possible be specific @ -no Did you speak to anyone other than the patient for history (EMS, parent, family, police, friend...)? What history was obtained from this source @ -no Did you review nursing and triage notes (agree or disagree)? Why? @ -agree Are old charts reviewed (outside hosp., previous admission, EMS record, old EKG, old radiological studies, urgent care reports/EKG's, assisted records)? Report findings @ -yes Differential Diagnosis (chest pain, altered mental status, abdominal pain women, abdominal pain men, vaginal bleeding, weakness, fever, dyspnea, syncope, headache, dizziness, GI bleed, back pain, seizure, CVA, palpatations, mental h ealth, musculoskeletal)? @ -prior EKG interpreted by me (3pts min.). @ -yes X-rays interpreted by me (1pt min.). @ -yes n positive for CHF CT interpreted by me (1pt min.). @ -no U/S interpreted by me (1pt. min.). @ -no What testing was considered but not performed or refused? (CT, X-rays, U/S, labs)? Why? @ -none What meds were considered but not given or refused? Why? @ -none Did you discuss the management of the patient with other professionals (professionals i.e. DrLety, PA, PAPER TWISTER TENDER, lab, RT, psych nurse, social insurance specialist, wind field service manager, teacher, assurance officer, manager of case)? Give summary @ -no Was smoking cessation discussed for >3mins.? @ -no Was critical care preformed (if so, how long)? @ -yes31 Were there social determinants of health that impacted care today? How? (Homelessness, low income, unemployed, alcoholism, drug addiction, transportation, low edu. Level, literacy, decrease access to med. care, long term, rehab)? @ -none Was there de-escalation of care discussed even if they declined (Discuss DNR or withdrawal of care, Hospice)? DNR status @ -no What co-morbidities impacted this encounter? (DM, HTN, Smoking, COPD, CAD, Cancer, CVA, ARF, Chemo, Hep., AIDS, mental health diagnosis, sleep apnea, morbid obesity)? @ -none Was patient admitted / discharged? Hospital course, mention meds given and route, prescriptions, significant lab abnormalities, going to OR and other pertinent info. @ - 83 female presenting in significant distress. Patient initially did not want to present to our hospital secondary to posttraumatic issues here but patient is brought secondary to abnormal EKG changes. Patient is EKG has normalized with improved heart rate but she still is short of breath here in the ER, patient does not want hospital admission here at this hospital and will prefer discharge home for pneumonia treatment to return to the hospital if necessary Discharge Undiagnosed new problem with uncertain prognosis? @ -no Drug Therapy requiring intensive monitoring for toxicity (Heparin, Nitro, Insulin, Cardizem)? @ -no Were any procedures done? @ -no Diagnosis/symptom? @ -CHF pulmonary edema dyspnea and hypoxia Acute, or Chronic, or Acute on Chronic? @ -Acute Uncomplicated (without systemic symptoms) or Complicated (systemic symptoms)? @ -Complicated Side effects of treatment? @ -no Exacerbation, Progression, or Severe Exacerbation? @ -exacerbation Poses a threat to life or bodily function? How? (Chest pain, USA, MS, pneumonia, PE, COPD, DKA, ARF, appy, cholecystitis, CVA, Diverticulitis, Homicidal, Suicidal, threat to staff... and all critical care pts) @ -yes with significant respiratory distress Reevaluation #5: 08/22/23 20:35 Differential Dyspnea: Coronary syndrome, arrhythmia, tamponade, asthma, COPD, pulmonary embolism, pneumonia, pneumothorax, pulmonary effusion, anaphylaxis, diabetic ketoacidosis, flailed chest, pulmonary contusion, diaphragmatic rupture, anemia, neuromuscular, this is not meant to be an all-inclusive list. Medical Decision Making - Medical Decision Making 83 female presenting in significant distress. Patient initially did not want to present to our hospital secondary to posttraumatic issues here but patient is brought secondary to abnormal EKG changes. Patient is EKG has normalized with improved heart rate but she still is short of breath here in the ER, patient does not want hospital admission here at this hospital and will prefer discharge home for pneumonia treatment to return to the hospital if necessary - Lab Data Result diagrams: 08/22/23 13:49 08/22/23 13:49 Lab Results 08/22/23 08/22/23 08/22/23 Range/Units 13:49 13:49 13:49 WBC 29.6 H (3.8-10.6) k/uL RBC 4.40 (3.80-5.40) m/uL Hgb 13.8 (11.4-16.0) gm/dL Hct 41.8 (34.0-46.0) % MCV 94.9 (80.0-100.0) fL MCH 31.4 (25.0-35.0) pg MCHC 33.1 (31.0-37.0) g/dL RDW 14.7 (11.5-15.5) % Plt Count 335 (150-450) k/uL MPV 8.1 Neutrophils % (Manual) 84 % Band Neuts % (Manual) 1 % Lymphocytes % (Manual) 9 % Monocytes % (Manual) 6 % Eosinophils % (Manual) 2 % Neutrophils # (Manual) 25.10 H (1.3-7.7) k/uL Lymphocytes # (Manual) 2.66 (1.0-4.8) k/uL Monocytes # (Manual) 1.78 H (0-1.0) k/uL Eosinophils # (Manual) 0.59 (0-0.7) k/uL Nucleated RBCs 0 (0-0) /100 WBC Manual Slide Review Performed Stomatocytes Present PT 9.6 L (10.0-12.5) sec INR 0.8 (<1.2) APTT 25.0 (22.0-30.0) sec Sodium 134 L (137-145) mmol/L Potassium 4.1 (3.5-5.1) mmol/L Chloride 102 (98-107) mmol/L Carbon Dioxide 23 (22-30) mmol/L Anion Gap 9 mmol/L BUN 24 H (7-17) mg/dL Creatinine 0.74 (0.52-1.04) mg/dL Est GFR (CKD-EPI)AfAm 87 (>60 ml/min/1.73 sqM) Est GFR (CKD-EPI)NonAf 76 (>60 ml/min/1.73 sqM) Glucose 202 H (74-99) mg/dL Calcium 9.6 (8.4-10.2) mg/dL Phosphorus 4.5 (2.5-4.5) mg/dL Magnesium 1.9 (1.6-2.3) mg/dL Total Bilirubin 0.8 (0.2-1.3) mg/dL AST 29 (14-36) U/L ALT 22 (4-34) U/L Alkaline Phosphatase 111 (38-126) U/L Troponin I (0.000-0.034) ng/mL NT-Pro-B Natriuret Pep 1260 pg/mL Total Protein 7.0 (6.3-8.2) g/dL Albumin 4.0 (3.5-5.0) g/dL Influenza Type A (PCR) (Not Detectd) Influenza Type B (PCR) (Not Detectd) RSV (PCR) (Not Detectd) SARS-CoV-2 (PCR) (Not Detectd) 08/22/23 08/22/23 Range/Units 13:49 15:05 WBC (3.8-10.6) k/uL RBC (3.80-5.40) m/uL Hgb (11.4-16.0) gm/dL Hct (34.0-46.0) % MCV (80.0-100.0) fL MCH (25.0-35.0) pg MCHC (31.0-37.0) g/dL RDW (11.5-15.5) % Plt Count (150-450) k/uL MPV Neutrophils % (Manual) % Band Neuts % (Manual) % Lymphocytes % (Manual) % Monocytes % (Manual) % Eosinophils % (Manual) % Neutrophils # (Manual) (1.3-7.7) k/uL Lymphocytes # (Manual) (1.0-4.8) k/uL Monocytes # (Manual) (0-1.0) k/uL Eosinophils # (Manual) (0-0.7) k/uL Nucleated RBCs (0-0) /100 WBC Manual Slide Review Stomatocytes PT (10.0-12.5) sec INR (<1.2) APTT (22.0-30.0) sec Sodium (137-145) mmol/L Potassium (3.5-5.1) mmol/L Chloride (98-107) mmol/L Carbon Dioxide (22-30) mmol/L Anion Gap mmol/L BUN (7-17) mg/dL Creatinine (0.52-1.04) mg/dL Est GFR (CKD-EPI)AfAm (>60 ml/min/1.73 sqM) Est GFR (CKD-EPI)NonAf (>60 ml/min/1.73 sqM) Glucose (74-99) mg/dL Calcium (8.4-10.2) mg/dL Phosphorus (2.5-4.5) mg/dL Magnesium (1.6-2.3) mg/dL Total Bilirubin (0.2-1.3) mg/dL AST (14-36) U/L ALT (4-34) U/L Alkaline Phosphatase (38-126) U/L Troponin I 0.013 (0.000-0.034) ng/mL NT-Pro-B Natriuret Pep pg/mL Total Protein (6.3-8.2) g/dL Albumin (3.5-5.0) g/dL Influenza Type A (PCR) Not Detected (Not Detectd) Influenza Type B (PCR) Not Detected (Not Detectd) RSV (PCR) Not Detected (Not Detectd) SARS-CoV-2 (PCR) Not Detected (Not Detectd) - EKG Data -: EKG Interpreted by Me (EKG is a flutter 142 QRS 104 QTc 376) Rate: tachycardia (EKG is sinus tachycardia 114 DE 150 QRS 102 QTc 411) - Radiology Data Radiology results: report reviewed (Chest x-ray is positive for CHF and pneumonia), image reviewed Critical Care Time Critical Care Time: Yes Total Critical Care Time: 31 Disposition Clinical Impression: Dyspnea, Tachycardia, Anxiety, Hypoxia, Congestive heart failure, Acute pulmonary edema Disposition: HOME SELF-CARE Condition: Serious Instructions (If sedation given, give patient instructions): Heart Failure (ER), Dyspnea (ED), Shortness of Breath (ED) Prescriptions: Amoxic-Pot Clav 400-57Mg/5Ml [Augmentin 400-57 mg/5 ml Susp] 11 ml PO Q12H #240 ml Amoxic-Pot Clav 875-125Mg [Augmentin 875-125] 1 tab PO BID 10 Days #20 tab Azithromycin 500 mg PO DIRECTED #150 ml Azithromycin [Zithromax] 500 mg PO DAILY 5 Days #5 tab Is patient prescribed a controlled substance at d/c from ED?: No Referrals: None,Stated [REFERRING] - 1-2 days Time of Disposition: 16:00
[2023-08-22] MEDS: IPRATROPIUM-ALBUTEROL 3 ML NEB INHALATION STA (13:51)
[2023-08-22 13:56] LABS: HCT 41.8 % (34.0-46.0); HGB 13.8 gm/dL (11.4-16.0); MCH 31.4 pg (25.0-35.0); MCHC 33.1 g/dL (31.0-37.0); MCV 94.9 fL (80.0-100.0); Mean Platelet Volume 8.1; Platelet Count 335 k/uL (150-450); RDW 14.7 % (11.5-15.5); WBC 29.6 k/uL (3.8-10.6)
[2023-08-22 14:05] VITALS: TEMP 98.6
[2023-08-22 14:06] LABS: ALT 22 U/L (4-34); AST 29 U/L (14-36); African American GFR (CKD) 87 (>60 ml/min/1.73 sqM); Alkaline Phosphatase 111 U/L (38-126); Anion Gap 9 mmol/L; Blood Urea Nitrogen 24 mg/dL (7-17); Calcium 9.6 mg/dL (8.4-10.2); Carbon Dioxide 23 mmol/L (22-30); Chloride 102 mmol/L (98-107); Glucose 202 mg/dL (74-99); Magnesium 1.9 mg/dL (1.6-2.3); Non-African American GFR(CKD) 76 (>60 ml/min/1.73 sqM); Phosphorus 4.5 mg/dL (2.5-4.5); Potassium 4.1 mmol/L (3.5-5.1); Sodium 134 mmol/L (137-145); Total Bilirubin 0.8 mg/dL (0.2-1.3)
[2023-08-22 14:07] LABS: INR 0.8 (<1.2); Prothrombin Time 9.6 sec (10.0-12.5)
[2023-08-22] MEDS: LORazepam 2 MG/ML INJ IV PRN (14:07)
[2023-08-22] MEDS: ENALAPRILAT 1.25 MG/ML 1 ML VIAL IVP STA (14:08)
[2023-08-22] MEDS: DILTIAZEM 5 MG/ML 5 ML VIAL IVP STA (14:09)
[2023-08-22] MEDS: MORPHINE SULFATE 2 MG/ML SYRINGE IVP STA (14:09)
[2023-08-22] MEDS: SODIUM CHLORIDE 0.9% 1,000 ML IV STA (14:13)
[2023-08-22 14:14] LABS: NT-Pro-B-Type Natriuretic Pept 1260 pg/mL
--- NOTE | 2023-08-22 14:22 | XR ---
EXAMINATION TYPE: XR chest 1V portable DATE OF EXAM: 08/22/2023 1:57 PM CLINICAL INDICATION:Female, 83 years old with history of chf; COMPARISON: Chest radiographs from 04/27/2023. TECHNIQUE: XR chest 1V portable Frontal view of the chest. FINDINGS: Rotated exam. Lungs/Pleura: There is no evidence of pleural effusion, focal consolidation, or pneumothorax. Pulmonary vascularity: Pulmonary vascular congestion. Heart/mediastinum: Cardiomediastinal silhouette is enlarged and stable. Musculoskeletal: No acute osseous pathology. Other findings: None IMPRESSION: Rotated exam, cardiomegaly with mild pulmonary vascular congestion chronic serum BNP.
[2023-08-22 15:11] LABS: Band Neutrophils % 1 %; Eosinophils # (M) 0.59 k/uL (0-0.7); Lymphocytes # (M) 2.66 k/uL (1.0-4.8); Monocytes # (M) 1.78 k/uL (0-1.0); Neutrophils % (M) 84 %; Nucleated Red Blood Cells 0 /100 WBC (0-0); Total Cells Counted 200
[2023-08-22 15:22] LABS: Stomatocytes Present
[2023-08-22] MEDS ORDERED: AZITHROMYCIN 500 MG TAB PO STA (15:51)
[2023-08-22] MEDS: AMOXIC-POT CLAV 200-28.5MG/5ML 100 ML BOTTLE PO ONE (18:46)
[2023-08-22] MEDS: AMOXIC-POT CLAV 875-125MG 1 EACH TAB PO STA (18:47)
[2023-08-22] MEDS: AZITHROMYCIN 1,200 MG/30 ML BOTTLE PO ONE (18:50)
[2023-08-22] MEDS: AZITHROMYCIN 1,200 MG/30 ML BOTTLE PO STA (18:53)
[2023-08-22 19:21] VITALS: BP 122/66; PULSE 115; RESP 22
== END 2023-08-22 18:56 | disposition home or self-care (01) ==
LOC: EC 13:39
DX: I50.1 Left ventricular failure, unspecified (principal); F41.9 Anxiety disorder, unspecified; R09.02 Hypoxemia; I25.2 Old myocardial infarction; I48.92 Unspecified atrial flutter; Z88.1 Allergy status to other antibiotic agents; Z88.2 Allergy status to sulfonamides; Z88.0 Allergy status to penicillin; Z91.041 Radiographic dye allergy status; Z20.822 Contact with and (suspected) exposure to COVID-19
CPT/HCPCS: 36415; 94640; 93005; 83880; 80053; 83735; 84100; 84484; 85025; 85610; 85730; 87636; 71045; 99291; 96374; 96361 ×5; J2060

== ENCOUNTER 2023-10-14 08:36 | Inpatient (IN) | payer MEDICARE ==
--- NOTE | 2023-10-14 09:15 | ED ---
General Adult HPI - General Chief complaint: Abdominal Pain Stated complaint: Peg tube complications Time Seen by Provider: 10/14/23 08:55 Source: patient, EMS, RN notes reviewed, old records reviewed Mode of arrival: EMS Limitations: no limitations - History of Present Illness Initial comments: This is an 83-year-old female who [facility] Patient has a GJ tube in place. According to [facility] the tube would not flush and they thought there might be some blood in the tube. Patient is extremely poor historian but she does state that there is a little soreness around the J-tube. Patient has had no vomiting or diarrhea that we know of. Patient has had no fevers. Patient denies any chest pain difficulty breathing shortness of breath. Patient has any back pain. - Related Data Home Medications Medication Instructions Recorded Confirmed Atorvastatin [Lipitor] 10 mg PEJ/J-TUBE HS 04/21/23 10/14/23 Levothyroxine Sodium [Synthroid] 25 mcg PEJ/J-TUBE DAILY@0600 04/21/23 10/14/23 amLODIPine [Norvasc] 5 mg PEJ/J-TUBE DAILY 04/21/23 10/14/23 Ipratropium-Albuterol Nebulize 3 ml INHALATION RT-Q6H PRN 08/22/23 10/14/23 [Duoneb 0.5 mg-3 mg/3 ml Soln] Acetaminophen Tab [Tylenol] 650 mg PEJ/J-TUBE Q6H PRN 10/14/23 10/14/23 Apixaban [Eliquis] 5 mg PEJ/J-TUBE BID 10/14/23 10/14/23 Ascorbic Acid [Vitamin C] 500 mg PEJ/J-TUBE DAILY 10/14/23 10/14/23 Hydrophilic Cream [Triad (Kerodex 1 applic TOPICAL DAILY PRN 10/14/23 10/14/23 geq)] Hydrophilic Cream [Triad (Kerodex 1 applic TOPICAL HS 10/14/23 10/14/23 geq)] Insulin Glargine [Lantus Vial] 18 unit SQ HS 10/14/23 10/14/23 Insulin Lispro See Protocol SQ Q6H 10/14/23 10/14/23 Jevity 1.5 Chay Liquid 50 ml PEJ/J-TUBE DIRECTED 10/14/23 10/14/23 Lidocaine 5% Patch [Lidoderm] 1 patch TRANSDERM DAILY@0600 10/14/23 10/14/23 Losartan Potassium 100 mg PEJ/J-TUBE DAILY 10/14/23 10/14/23 Multivitamins, Thera [Multivitamin 1 tab PEJ/J-TUBE DAILY 10/14/23 10/14/23 (formulary)] Ondansetron [Zofran] 4 mg PEJ/J-TUBE Q8H PRN 10/14/23 10/14/23 Senna Oral Syrup 8.8mg/5ml 17.6 mg PEJ/J-TUBE BID PRN 10/14/23 10/14/23 Thiamine [Vitamin B-1] 100 mg PEJ/J-TUBE DAILY 10/14/23 10/14/23 allopurinoL [Zyloprim] 150 mg PEJ/J-TUBE DAILY 10/14/23 10/14/23 carvediloL [Coreg] 12.5 mg PEJ/J-TUBE BID 10/14/23 10/14/23 guaiFENesin [guaiFENesin Oral 200 mg PEJ/J-TUBE Q6H PRN 10/14/23 10/14/23 Solution] polyethylene glycoL 3350 [Miralax] 17 gm PEJ/J-TUBE DAILY 10/14/23 10/14/23 Allergies Allergy/AdvReac Type Severity Reaction Status Date / Time cephalexin [From Keflex] AdvReac Rash/Hives Verified 10/14/23 11:02 iodine AdvReac Unknown Verified 10/14/23 11:02 Penicillins AdvReac Rash/Hives Verified 10/14/23 11:02 Sulfa (Sulfonamide AdvReac Unknown Verified 10/14/23 11:02 Antibiotics) Review of Systems ROS Statement: Those systems with pertinent positive or pertinent negative responses have been documented in the HPI. ROS Other: All systems not noted in ROS Statement are negative. Past Medical History Past Medical History: Cancer, Myocardial Infarction ([place]), Renal Disease Additional Past Medical History / Comment(s): Basal cell cancer, goiter, hiatal hernia surgery, tracheostomy, blood clot right arm Last Myocardial Infarction Date:: unknown History of Any Multi-Drug Resistant Organisms: Other MDRO Additional Past Surgical History / Comment(s): Hiatal Hernia surgery, traceosotomy, g tube placement Past Psychological History: No Psychological Hx Reported Smoking Status: Never smoker Past Alcohol Use History: None Reported Past Drug Use History: None Reported General Exam - General Exam Comments Initial Comments: GENERAL: Patient is well-developed and well-nourished. Patient is nontoxic and well- hydrated and is in no acute distress. ENT: Neck is soft and supple. No significant lymphadenopathy is noted. Oropharynx is clear. Moist mucous membranes. Neck has full range of motion without eliciting any pain. EYES: The sclera were anicteric and conjunctiva were pink and moist. Extraocular movements were intact and pupils were equal round and reactive to light. Eyelids were unremarkable. PULMONARY: Unlabored respirations. Good breath sounds bilaterally. No audible rales rhonchi or wheezing was noted. CARDIOVASCULAR: There is a regular rate and rhythm without any murmurs gallops or rubs. ABDOMEN: Mild tenderness around the GJ tube orifice SKIN: Skin is clear with no lesions or rashes and otherwise unremarkable. NEUROLOGIC: Patient is alert and oriented x3. Cranial nerves II through XII are grossly intact. Motor and sensory are also intact. Normal speech, volume and content. Symmetrical smile. MUSCULOSKELETAL: Normal extremities with adequate strength and full range of motion. LYMPHATICS: No significant lymphadenopathy is noted PSYCHIATRIC: Normal psychiatric evaluation. Limitations: no limitations Course Vital Signs 10/14/23 10/14/23 08:41 11:47 Temperature 97.8 F Pulse Rate 104 H 54 L Respiratory 18 18 Rate Blood Pressure 170/94 160/92 O2 Sat by Pulse 99 100 Oximetry Medical Decision Making - Medical Decision Making Was pt. sent in by a medical professional or institution (JEANIE Linares, SUPPORT SERVICES MANAGER, urgent care, hospital, or [facility]...) When possible be specific @ -Patient was sent in by the [facility]. Did you speak to anyone other than the patient for history (EMS, parent, family, police, friend...)? What history was obtained from this source @ -Family gave most of the past medical history on this patient Did you review nursing and triage notes (agree or disagree)? Why? @ -I reviewed and agree with nursing and triage notes Were old charts reviewed (outside hosp., previous admission, EMS record, old EKG, old radiological studies, urgent care reports/EKG's, [facility] records)? Report findings @ -I reviewed prior charts and lab work on this patient Differential Diagnosis (chest pain, altered mental status, abdominal pain women, abdominal pain men, vaginal bleeding, weakness, fever, dyspnea, syncope, headache, dizziness, GI bleed, back pain, seizure, CVA, palpatations, mental health, musculoskeletal)? @ -Differential Abdominal Pain Women: Appendicitis, Cholecystitis, diverticulosis, ischemic bowel, pancreatitis, hepatitis, UTI, gastroenteritis, AAA, incarcerated hernia, bowel obstruction, constipation, inflammatory bowel, hepatitis, peptic ulcer disease, splenic infarction, perforated viscus, vulvitis, ovarian torsion, PID, kidney stone, placenta abruption, this is not meant to be an all-inclusive list Clogged PEG tube upper GI bleed EKG interpreted by me (3pts min.). @ -As above X-rays interpreted by me (1pt min.). @ -Abdominal x-ray showed no acute abnormality CT interpreted by me (1pt min.). @ -None done U/S interpreted by me (1pt. min.). @ -None done What testing was considered but not performed or refused? (CT, X-rays, U/S, labs)? Why? @ -None What meds were considered but not given or refused? Why? @ -None Did you discuss the management of the patient with other professionals (professionals i.e. , PA, SUPPORT SERVICES MANAGER, lab, RT, psych nurse, social insurance analyst, bomb technician, teacher, job placement officer, protective services case worker)? Give summary @ -I spoke with Dr. Maher and he agreed to admit the patient Was smoking cessation discussed for >3mins.? @ -No Was critical care preformed (if so, how long)? @ -No Were there social determinants of health that impacted care today? How? (Homelessness, low income, unemployed, alcoholism, drug addiction, transportation, low edu. Level, literacy, decrease access to med. care, [facility], rehab)? @ -No Was there de-escalation of care discussed even if they declined (Discuss DNR or withdrawal of care, Hospice)? DNR status @ -No What co-morbidities impacted this encounter? (DM, HTN, Smoking, COPD, CAD, Can cer, CVA, ARF, Chemo, Hep., AIDS, mental health diagnosis, sleep apnea, morbid obesity)? @ -None Was patient admitted / discharged? Hospital course, mention meds given and route, prescriptions, significant lab abnormalities, going to OR and other pertinent info. @ -Patient's Gastroccult was positive patient also was on Eliquis for a pulmonary embolism. Patient's GJ tube was unclogged however the gastric contents were tested and it was positive for blood I spoke with Dr. Maher he agreed to admit the patient admit the patient I consulted Dr. Osborn Undiagnosed new problem with uncertain prognosis? @ -No Drug Therapy requiring intensive monitoring for toxicity (Heparin, Nitro, Insulin, Cardizem)? @ -No Were any procedures done? @ -No Diagnosis/symptom? @ -Upper GI bleed Acute, or Chronic, or Acute on Chronic? @ -Acute Uncomplicated (without systemic symptoms) or Complicated (systemic symptoms)? @ -Complicated Side effects of treatment? @ -No Exacerbation, Progression, or Severe Exacerbation? @ -No Poses a threat to life or bodily function? How? (Chest pain, [place], [place], pneumonia, PE, COPD, DKA, ARF, appy, cholecystitis, CVA, Diverticulitis, Homicidal, Suicidal, threat to staff... and all critical care pts) @ -Yes this could lead to anemia and hypoxia and endorgan dysfunction Diagnosis/symptom? @ -Malfunction feeding tube Acute, or Chronic, or Acute on Chronic? @ -Acute Uncomplicated (without systemic symptoms) or Complicated (systemic symptoms)? @ -Uncomplicated Side effects of treatment? @ -None Exacerbation, Progression, or Severe Exacerbation] @ -No Poses a threat to life or bodily function? @ -No - Lab Data Result diagrams: 10/14/23 09:46 10/14/23 09:46 Lab Results 10/14/23 10/14/23 10/14/23 Range/Units 09:46 09:46 10:37 WBC 11.4 H (3.8-10.6) k/uL RBC 4.18 (3.80-5.40) m/uL Hgb 12.9 (11.4-16.0) gm/dL Hct 39.5 (34.0-46.0) % MCV 94.4 (80.0-100.0) fL MCH 30.8 (25.0-35.0) pg MCHC 32.7 (31.0-37.0) g/dL RDW 15.4 (11.5-15.5) % Plt Count 376 (150-450) k/uL MPV 8.8 Neutrophils % 85 % Lymphocytes % 8 % Monocytes % 4 % Eosinophils % 1 % Basophils % 0 % Neutrophils # 9.7 H (1.3-7.7) k/uL Lymphocytes # 0.9 L (1.0-4.8) k/uL Monocytes # 0.4 (0-1.0) k/uL Eosinophils # 0.2 (0-0.7) k/uL Basophils # 0.1 (0-0.2) k/uL Sodium 143 (137-145) mmol/L Potassium 4.2 (3.5-5.1) mmol/L Chloride 105 (98-107) mmol/L Carbon Dioxide 31 H (22-30) mmol/L Anion Gap 7 mmol/L BUN 48 H (7-17) mg/dL Creatinine 0.64 (0.52-1.04) mg/dL Est GFR (CKD-EPI)AfAm >90 (>60 ml/min/1.73 sqM) Est GFR (CKD-EPI)NonAf 83 (>60 ml/min/1.73 sqM) Glucose 116 H (74-99) mg/dL Calcium 10.4 H (8.4-10.2) mg/dL Total Bilirubin 0.8 (0.2-1.3) mg/dL AST 39 H (14-36) U/L ALT 41 H (4-34) U/L Alkaline Phosphatase 123 (38-126) U/L Total Protein 6.9 (6.3-8.2) g/dL Albumin 3.5 (3.5-5.0) g/dL Amylase 103 (30-110) U/L Lipase 46 (23-300) U/L Gastric Occult Blood Positive (Negative) Disposition Clinical Impression: Upper GI bleed, Feeding tube blocked Disposition: ADMITTED IP TO THIS HOSP Referrals: Cristopher Santillan MD [STAFF PHYSICIAN] - 1-2 days Time of Disposition: 13:30
[2023-10-14 09:56] LABS: Basophils # (A) 0.1 k/uL (0-0.2); Basophils % (A) 0 %; Eosinophils # (A) 0.2 k/uL (0-0.7); Eosinophils % (A) 1 %; HCT 39.5 % (34.0-46.0); HGB 12.9 gm/dL (11.4-16.0); Lymphocytes # (A) 0.9 k/uL (1.0-4.8); Lymphocytes % (A) 8 %; MCH 30.8 pg (25.0-35.0); MCHC 32.7 g/dL (31.0-37.0); MCV 94.4 fL (80.0-100.0); Mean Platelet Volume 8.8; Monocytes # (A) 0.4 k/uL (0-1.0); Monocytes % (A) 4 %; Neutrophils # (A) 9.7 k/uL (1.3-7.7); Neutrophils % (A) 85 %; Platelet Count 376 k/uL (150-450); RBC 4.18 m/uL (3.80-5.40); RDW 15.4 % (11.5-15.5); WBC 11.4 k/uL (3.8-10.6)
--- NOTE | 2023-10-14 10:06 | XR ---
EXAMINATION TYPE: XR abdomen 2V DATE OF EXAM: 10/14/2023 HISTORY: Pain. Technique: 2 views of the abdomen are submitted. Comparison: 04/24/2023 Findings: There is no convincing evidence of pneumoperitoneum. PEG tube is redemonstrated. The Bowel gas pattern is nonspecific and nonobstructive. No sizable air-fluid levels are seen. No mass effects are noted. No renal calcifications are identified. IMPRESSION: 1. Nonspecific nonobstructive bowel gas pattern
[2023-10-14 10:24] LABS: ALT 41 U/L (4-34); AST 39 U/L (14-36); African American GFR (CKD) >90 (>60 ml/min/1.73 sqM); Albumin 3.5 g/dL (3.5-5.0); Alkaline Phosphatase 123 U/L (38-126); Amylase 103 U/L (30-110); Anion Gap 7 mmol/L; Blood Urea Nitrogen 48 mg/dL (7-17); Calcium 10.4 mg/dL (8.4-10.2); Carbon Dioxide 31 mmol/L (22-30); Chloride 105 mmol/L (98-107); Glucose 116 mg/dL (74-99); Lipase 46 U/L (23-300); Non-African American GFR(CKD) 83 (>60 ml/min/1.73 sqM); Potassium 4.2 mmol/L (3.5-5.1); Sodium 143 mmol/L (137-145); Total Bilirubin 0.8 mg/dL (0.2-1.3); Total Protein 6.9 g/dL (6.3-8.2)
[2023-10-14] MEDS: SODIUM CHLORIDE 0.9% 1,000 ML IV ONE (15:14)
[2023-10-14] MEDS ORDERED: IPRATROPIUM-ALBUTEROL 3 ML NEB INHALATION PRN (16:41)
--- NOTE | 2023-10-14 16:46 | P.HPIM ---
History of Present Illness H&P Date: 10/14/23 Patient is a 83-year-old female, [facility] resident with history of PE/DVT on 09/07 on anticoagulation, diastolic CHF, COPD, hypertension, dyslipidemia, insulin-dependent diabetes presented with clogged J-tube as well as dark J-tube output. Patient has a history of hiatal hernia repair last year which was complicated by esophageal perforation, and subsequent VATS, trach, PEG. Patient was subsequently discharged to nursing facility. She is a very poor historian. Based on records, she was recently hospitalized at [facility] on 09/27/2023 for lethargy and abdominal pain. Currently she is presenting from nursing facility with increased abdominal pain, clogged J-tube as well as increased black output from her J-tube. Currently she denies any abdominal pain, nausea, vomiting, angel[address] pain, shortness of breath, urinary or bowel complaints. She claims that she is mostly bedbound. Denies any smoking, alcohol use or illicit drug use. In the ED, temperature was 97.8, pulse 104, respiratory rate 18, blood pressure 170/94, saturating at 99% 3 L. WBC 11.4, hemoglobin 12.9, creatinine 0.64, calcium 10.4, total bili 0.8, AST 39, ALT 41, ALP 123, gastric occult blood positive, lipase 46. Abdominal x-ray independently interpreted, no evidence of free air under the diaphragm. Patient being admitted for GI bleed, GI consulted. Pertinent positives and negatives as discussed in HPI, a complete review of systems was performed and all other systems are negative. Patient seen and examined at bedside. Vital signs reviewed General: nontoxic, no distress, appears at stated age, frail Derm: warm, dry, J-tube site clean, dry, intact Head: atraumatic, normocephalic, symmetric Eyes: EOMI, no lid lag, anicteric sclera, pupils equal round reactive to light ENT: Nose and ears atraumatic Neck: No thyromegaly, supple Mouth: no lip lesion, mucus membranes moist Cardiovascular: S1S2 reg, no murmur, no edema Lungs: clear to auscultation bilateral, no rhonchi, no rales, no wheeze, no accessory muscle use Abdominal: soft, nontender to palpation, no guarding, no appreciable organo megaly Ext: no gross muscle atrophy, muscle strength muscle strength 5 out of 5 in all 4 extremities, no contractures Neuro: CN II-XII grossly intact Psych: Alert, oriented x 2, appropriate affect Assessment/Plan: Active: Acute GI bleed Clogged J-tube, resolved Leukocytosis, Hypercalcemia Elevated transaminases Uncontrolled hypertension - Hold Eliquis, keep n.p.o., hold tube feeds - Repeat CBC tomorrow, hemoglobin currently stable - IV Protonix 40 twice daily - GI consulted, pending recommendations - Continue normal saline at 100 cc an hour - CMP tomorrow - Continue home antihypertensives including amlodipine 5, carvedilol 12.5 twice daily, losartan 100 daily Chronic: Hypothyroidism Gout Dyslipidemia COPD The patient is admitted with an anticipated greater than 2 midnight stay as o bservation status for evaluation of GI bleed. Surrogate decision-maker: Daughter CODE STATUS: Full code DVT prophylaxis: SCDs Anticipated discharge date: Pending clinical course Anticipated discharge place: Pending clinical course A total of 55 minutes was spent on the care of this complex patient more than 50% of the time was spent in counseling and care coordination. Past Medical History Past Medical History: Cancer, Myocardial Infarction ([place]), Renal Disease Additional Past Medical History / Comment(s): Basal cell cancer, goiter, hiatal hernia surgery, tracheostomy, blood clot right arm Last Myocardial Infarction Date:: unknown History of Any Multi-Drug Resistant Organisms: Other MDRO Additional Past Surgical History / Comment(s): Hiatal Hernia surgery, traceosotomy, g tube placement Past Psychological History: No Psychological Hx Reported Smoking Status: Never smoker Past Alcohol Use History: None Reported Past Drug Use History: None Reported Medications and Allergies Home Medications Medication Instructions Recorded Confirmed Type Atorvastatin [Lipitor] 10 mg PEJ/J-TUBE HS 04/21/23 10/14/23 History Levothyroxine Sodium [Synthroid] 25 mcg PEJ/J-TUBE DAILY@0600 04/21/23 10/14/23 History amLODIPine [Norvasc] 5 mg PEJ/J-TUBE DAILY 04/21/23 10/14/23 History Ipratropium-Albuterol Nebulize 3 ml INHALATION RT-Q6H PRN 08/22/23 10/14/23 History [Duoneb 0.5 mg-3 mg/3 ml Soln] Acetaminophen Tab [Tylenol] 650 mg PEJ/J-TUBE Q6H PRN 10/14/23 10/14/23 History Apixaban [Eliquis] 5 mg PEJ/J-TUBE BID 10/14/23 10/14/23 History Ascorbic Acid [Vitamin C] 500 mg PEJ/J-TUBE DAILY 10/14/23 10/14/23 History Hydrophilic Cream [Triad (Kerodex 1 applic TOPICAL DAILY PRN 10/14/23 10/14/23 History geq)] Hydrophilic Cream [Triad (Kerodex 1 applic TOPICAL HS 10/14/23 10/14/23 History geq)] Insulin Glargine [Lantus Vial] 18 unit SQ HS 10/14/23 10/14/23 History Insulin Lispro See Protocol SQ Q6H 10/14/23 10/14/23 History Jevity 1.5 Chay Liquid 50 ml PEJ/J-TUBE DIRECTED 10/14/23 10/14/23 History Lidocaine 5% Patch [Lidoderm] 1 patch TRANSDERM DAILY@0600 10/14/23 10/14/23 History Losartan Potassium 100 mg PEJ/J-TUBE DAILY 10/14/23 10/14/23 History Multivitamins, Thera [Multivitamin 1 tab PEJ/J-TUBE DAILY 10/14/23 10/14/23 History (formulary)] Ondansetron [Zofran] 4 mg PEJ/J-TUBE Q8H PRN 10/14/23 10/14/23 History Senna Oral Syrup 8.8mg/5ml 17.6 mg PEJ/J-TUBE BID PRN 10/14/23 10/14/23 History Thiamine [Vitamin B-1] 100 mg PEJ/J-TUBE DAILY 10/14/23 10/14/23 History allopurinoL [Zyloprim] 150 mg PEJ/J-TUBE DAILY 10/14/23 10/14/23 History carvediloL [Coreg] 12.5 mg PEJ/J-TUBE BID 10/14/23 10/14/23 History guaiFENesin [guaiFENesin Oral 200 mg PEJ/J-TUBE Q6H PRN 10/14/23 10/14/23 History Solution] polyethylene glycoL 3350 [Miralax] 17 gm PEJ/J-TUBE DAILY 10/14/23 10/14/23 History Allergies Allergy/AdvReac Type Severity Reaction Status Date / Time cephalexin [From Keflex] AdvReac Rash/Hives Verified 10/14/23 11:02 iodine AdvReac Unknown Verified 10/14/23 11:02 Penicillins AdvReac Rash/Hives Verified 10/14/23 11:02 Sulfa (Sulfonamide AdvReac Unknown Verified 10/14/23 11:02 Antibiotics) Physical Exam Vitals: Vital Signs Temp Pulse Resp BP Pulse Ox 10/14/23 16:34 65 12 161/94 99 10/14/23 11:47 54 L 18 160/92 100 10/14/23 08:41 97.8 F 104 H 18 170/94 99 Intake and Output 10/14/23 10/14/23 10/14/23 06:59 14:59 22:59 Other: Weight 70.307 kg Results CBC & Chem 7: 10/14/23 09:46 10/14/23 09:46 Labs: Abnormal Lab Results - Last 24 Hours (Table) 10/14/23 10/14/23 Range/Units 09:46 09:46 WBC 11.4 H (3.8-10.6) k/uL Neutrophils # 9.7 H (1.3-7.7) k/uL Lymphocytes # 0.9 L (1.0-4.8) k/uL Carbon Dioxide 31 H (22-30) mmol/L BUN 48 H (7-17) mg/dL Glucose 116 H (74-99) mg/dL Calcium 10.4 H (8.4-10.2) mg/dL AST 39 H (14-36) U/L ALT 41 H (4-34) U/L
[2023-10-14] MEDS ORDERED: DEXTROSE 50% SYRINGE 50 ML IVP PRN ×2 (17:04)
[2023-10-14 17:32] LABS: Glucose,Whole Blood 94 mg/dL (70-110)
[2023-10-14] MEDS: INSULIN ASPART (NovoLOG) 100 UNIT/ML VIAL SQ SCH (17:34)
[2023-10-14 18:35] LABS: Basophils # (A) 0.1 k/uL (0-0.2); Basophils % (A) 0 %; Eosinophils # (A) 0.1 k/uL (0-0.7); Eosinophils % (A) 0 %; HGB 12.6 gm/dL (11.4-16.0); Lymphocytes # (A) 0.8 k/uL (1.0-4.8); Lymphocytes % (A) 6 %; MCH 30.3 pg (25.0-35.0); MCHC 31.5 g/dL (31.0-37.0); MCV 96.1 fL (80.0-100.0); Mean Platelet Volume 8.3; Monocytes # (A) 0.6 k/uL (0-1.0); Monocytes % (A) 4 %; Neutrophils # (A) 11.4 k/uL (1.3-7.7); Neutrophils % (A) 87 %; Platelet Count 390 k/uL (150-450); RBC 4.16 m/uL (3.80-5.40); RDW 15.3 % (11.5-15.5); WBC 13.2 k/uL (3.8-10.6)
[2023-10-14] MEDS: ATORVASTATIN 10 MG TAB PEJ/J-Tube SCH (20:46)
[2023-10-14] MEDS: ACETAMINOPHEN TAB 325 MG TAB PEJ/J-Tube PRN (20:47)
[2023-10-14] MEDS: PANTOPRAZOLE 40 MG/10 ML VIAL IVP SCH (20:47)
[2023-10-14] MEDS: carvediloL 12.5 MG TAB PEJ/J-Tube SCH (20:47)
[2023-10-15 00:28] LABS: Glucose,Whole Blood 98 mg/dL (70-110)
[2023-10-15] MEDS: LIDOCAINE 4% PATCH TOPICAL SCH (05:11)
[2023-10-15] MEDS: MORPHINE SULFATE 4 MG/ML SYRINGE IVP PRN (05:12)
[2023-10-15] MEDS: LEVOTHYROXINE 25 MCG TAB PEJ/J-Tube SCH (05:13)
[2023-10-15] MEDS: ONDANSETRON 4 MG/2 ML VIAL IVP PRN (05:13)
[2023-10-15 05:35] LABS: Glucose,Whole Blood 94 mg/dL (70-110)
[2023-10-15] MEDS: amLODIPine 5 MG TAB PEJ/J-Tube SCH (09:36)
[2023-10-15] MEDS: LOSARTAN 50 MG TAB PEJ/J-Tube SCH (09:36)
[2023-10-15] MEDS: ASCORBIC ACID 500 MG TAB PEJ/J-Tube SCH (09:36)
[2023-10-15] MEDS: MULTIVITAMINS, THERA 1 EACH TAB PEJ/J-Tube SCH (09:36)
[2023-10-15] MEDS: allopurinoL 300 MG TAB PO SCH (09:37)
[2023-10-15] MEDS: THIAMINE 100 MG TAB PEJ/J-Tube SCH (09:37)
[2023-10-15] MEDS: polyethylene glycoL 3350 17 GM POWD.PACK PEJ/J-Tube SCH (09:38)
[2023-10-15 11:04] LABS: Basophils # (A) 0.06 X 10*3/uL (0.00-0.10); Basophils % (A) 0.5 %; Eosinophils # (A) 0.06 X 10*3/uL (0.04-0.35); Eosinophils % (A) 0.5 %; HGB 12.4 g/dL (12.0-15.0); Lymphocytes # (A) 0.96 X 10*3/uL (0.90-5.00); Lymphocytes % (A) 8.7 %; MCH 29.6 pg (27.0-32.0); MCV 95.5 FL (80.0-97.0); Mean Platelet Volume 11.4 FL (9.5-12.2); Monocytes # (A) 0.71 X 10*3/uL (0.20-1.00); Monocytes % (A) 6.4 %; NRBC Per 100 WBC 0 X 10*3/uL (0.00-0.01); Neutrophils # (A) 9.24 X 10*3/uL (1.80-7.70); Neutrophils % (A) 83.5 %; Platelet Count 396 X 10*3/uL (140-440); RBC 4.19 X 10*6/uL (4.10-5.20); RDW 14.9 % (11.5-14.5); WBC 11.07 X 10*3/uL (4.50-10.00)
[2023-10-15 11:16] LABS: ALT 30 U/L (8-44); AST 24 U/L (13-35); Albumin 3.6 g/dL (3.8-4.9); Albumin/Globulin Ratio 1.24 Ratio (1.60-3.17); Alkaline Phosphatase 102 U/L (41-126); BUN/Creat Ratio 45.14 Ratio (12.00-20.00); Blood Urea Nitrogen 31.6 mg/dL (9.0-27.0); Calcium 10.4 mg/dL (8.7-10.3); Carbon Dioxide 29.2 mmol/L (21.6-31.8); Chloride 106 mmol/L (96-109); Globulin 2.9 g/dL (1.6-3.3); Glucose 88 mg/dL (70-110); Potassium 3.7 mmol/L (3.5-5.5); Sodium 147 mmol/L (135-145); Total Bilirubin 0.6 mg/dL (0.3-1.2); Total Protein 6.5 g/dL (6.2-8.2)
[2023-10-15 11:54] LABS: Glucose,Whole Blood 83 mg/dL (70-110)
--- NOTE | 2023-10-15 13:46 | P.GSCN ---
History of Present Illness Consult date: 10/15/23 History of present illness: CHIEF COMPLAINT: Clogged GJ tube HISTORY OF PRESENT ILLNESS: This is a 83-year-old female who presented with a clogged GJ tube. Per report there also was noted to have some dark output from the GJ tube. No abdominal pain. Patient has a history of hiatal hernia repair last year with complication of esophageal perforation and requiring VATS, trach and PEG. Nursing staff was able to flush the GJ tube. They used it to give meds this morning without any difficulty. Currently the tubing is to drainage with some liquidy brown clear drainage noted. PEG tube site itself is clean dry and intact. Poor historian. PAST MEDICAL HISTORY: DVT, cancer, Myocardial Infarction ([place]), Renal Disease PAST SURGICAL HISTORY: Hiatal Hernia surgery, traceosotomy, gj tube placement MEDICATIONS: See below ALLERGIES: See below SOCIAL HISTORY: No illicit drug use. REVIEW OF SYSTEMS: CONSTITUTIONAL: Denies fever or chills. HEENT: Denies blurred vision, vision changes, or eye pain. Denies hemoptysis CARDIOVASCULAR: Denies chest pain or pressure. RESPIRATORY: No shortness of breath. GASTROINTESTINAL: See HPI for pertinent findings HEMATOLOGIC: Denies bleeding disorders. GENITOURINARY: Denies any blood in urine or increased urinary frequency. SKIN: Denies pruitis. Denies rash. PHYSICAL EXAM: VITAL SIGNS: Reviewed GENERAL: no acute distress. HEENT: No sclera icterus. Extraocular movements grossly intact. Moist buccal mucosa. Head is atraumatic, normocephalic. No nasal drainage. ABDOMEN: Soft. Nondistended. Nontender. GJ tube site clean dry and intact. Drainage in bag liquidy brown clear drainage NEUROLOGIC: Awake LABORATORY DATA: WBC 13 down to 11 Hgb 12.4 platelets 396 Sodium 147 potassium 3.7 creatinine 0.7 IMAGING: Abdominal x-ray nonspecific nonobstructive bowel gas pattern ASSESSMENT: 1. Malfunctioning GJ tube PLAN: -GJ tube is now functioning. Consult dietitian to start tube feedings and to start slowly and titrate as tolerated -Continue to observe -Agree with holding Eliquis for now Physician Radiotelegraph Operator Servicer note has been reviewed by physician. Signing provider agrees with the documented findings, assessment, and plan of care. Past Medical History Past Medical History: Cancer, Heart Failure, COPD, Deep Vein Thrombosis (DVT), Myocardial Infarction ([place]), Pulmonary Embolus ([place]), Renal Disease Additional Past Medical History / Comment(s): Basal cell cancer, goiter, hiatal hernia surgery, tracheostomy, Last Myocardial Infarction Date:: unknown History of Any Multi-Drug Resistant Organisms: Other MDRO Past Surgical History: Hernia Repair Additional Past Surgical History / Comment(s): traceosotomy, g tube placement, thyroid biopsy Past Anesthesia/Blood Transfusion Reactions: No Reported Reaction Past Psychological History: No Psychological Hx Reported Smoking Status: Never smoker Past Alcohol Use History: None Reported Past Drug Use History: None Reported - Past Family History Mother Family Medical History: Diabetes Mellitus Father Family Medical History: Hypertension, Renal Disease Medications and Allergies Home Medications Medication Instructions Recorded Confirmed Type Atorvastatin [Lipitor] 10 mg PEJ/J-TUBE HS 04/21/23 10/14/23 History Levothyroxine Sodium [Synthroid] 25 mcg PEJ/J-TUBE DAILY@0600 04/21/23 10/14/23 History amLODIPine [Norvasc] 5 mg PEJ/J-TUBE DAILY 04/21/23 10/14/23 History Ipratropium-Albuterol Nebulize 3 ml INHALATION RT-Q6H PRN 08/22/23 10/14/23 History [Duoneb 0.5 mg-3 mg/3 ml Soln] Acetaminophen Tab [Tylenol] 650 mg PEJ/J-TUBE Q6H PRN 10/14/23 10/14/23 History Apixaban [Eliquis] 5 mg PEJ/J-TUBE BID 10/14/23 10/14/23 History Ascorbic Acid [Vitamin C] 500 mg PEJ/J-TUBE DAILY 10/14/23 10/14/23 History Hydrophilic Cream [Triad (Kerodex 1 applic TOPICAL DAILY PRN 10/14/23 10/14/23 History geq)] Hydrophilic Cream [Triad (Kerodex 1 applic TOPICAL HS 10/14/23 10/14/23 History geq)] Insulin Glargine [Lantus Vial] 18 unit SQ HS 10/14/23 10/14/23 History Insulin Lispro See Protocol SQ Q6H 10/14/23 10/14/23 History Jevity 1.5 Chay Liquid 50 ml PEJ/J-TUBE DIRECTED 10/14/23 10/14/23 History Lidocaine 5% Patch [Lidoderm] 1 patch TRANSDERM DAILY@0600 10/14/23 10/14/23 History Losartan Potassium 100 mg PEJ/J-TUBE DAILY 10/14/23 10/14/23 History Multivitamins, Thera [Multivitamin 1 tab PEJ/J-TUBE DAILY 10/14/23 10/14/23 History (formulary)] Ondansetron [Zofran] 4 mg PEJ/J-TUBE Q8H PRN 10/14/23 10/14/23 History Senna Oral Syrup 8.8mg/5ml 17.6 mg PEJ/J-TUBE BID PRN 10/14/23 10/14/23 History Thiamine [Vitamin B-1] 100 mg PEJ/J-TUBE DAILY 10/14/23 10/14/23 History allopurinoL [Zyloprim] 150 mg PEJ/J-TUBE DAILY 10/14/23 10/14/23 History carvediloL [Coreg] 12.5 mg PEJ/J-TUBE BID 10/14/23 10/14/23 History guaiFENesin [guaiFENesin Oral 200 mg PEJ/J-TUBE Q6H PRN 10/14/23 10/14/23 History Solution] polyethylene glycoL 3350 [Miralax] 17 gm PEJ/J-TUBE DAILY 10/14/23 10/14/23 History Allergies Allergy/AdvReac Type Severity Reaction Status Date / Time cephalexin [From Keflex] AdvReac Rash/Hives Verified 10/14/23 11:02 iodine AdvReac Unknown Verified 10/14/23 11:02 Penicillins AdvReac Rash/Hives Verified 10/14/23 11:02 Sulfa (Sulfonamide AdvReac Unknown Verified 10/14/23 11:02 Antibiotics) Surgical - Exam Vital Signs Temp Pulse Resp BP Pulse Ox 97.8 F 104 H 18 170/94 99 10/14/23 08:41 10/14/23 08:41 10/14/23 08:41 10/14/23 08:41 10/14/23 08:41 Results - Labs 10/15/23 07:56 10/15/23 07:56 Abnormal Lab Results - Last 24 Hours (Table) 10/14/23 10/15/23 10/15/23 Range/Units 18:23 07:56 07:56 WBC 13.2 H 11.07 H (3.8-10.6) k/uL MCHC 31.0 L (32.0-37.0) g/dL RDW 14.9 H (11.5-14.5) % Neutrophils # 11.4 H 9.24 H (1.3-7.7) k/uL Lymphocytes # 0.8 L (1.0-4.8) k/uL Sodium 147 H (135-145) mmol/L BUN 31.6 H (9.0-27.0) mg/dL BUN/Creatinine Ratio 45.14 H (12.00-20.00) Ratio Calcium 10.4 H (8.7-10.3) mg/dL Albumin 3.6 L (3.8-4.9) g/dL Albumin/Globulin Ratio 1.24 L (1.60-3.17) Ratio Diabetes panel 10/15/23 10/15/23 Range/Units 07:56 07:56 Sodium 147 H (135-145) mmol/L Potassium 3.7 (3.5-5.5) mmol/L Chloride 106 (96-109) mmol/L Carbon Dioxide 29.2 (21.6-31.8) mmol/L BUN 31.6 H (9.0-27.0) mg/dL Creatinine 0.7 (0.6-1.5) mg/dL Glucose 88 (70-110) mg/dL Hemoglobin A1c 5.5 (<=6.0) % Calcium 10.4 H (8.7-10.3) mg/dL AST 24 (13-35) U/L ALT 30 (8-44) U/L Alkaline Phosphatase 102 (41-126) U/L Total Protein 6.5 (6.2-8.2) g/dL Albumin 3.6 L (3.8-4.9) g/dL Calcium panel 10/15/23 Range/Units 07:56 Calcium 10.4 H (8.7-10.3) mg/dL Albumin 3.6 L (3.8-4.9) g/dL Pituitary panel 10/15/23 Range/Units 07:56 Sodium 147 H (135-145) mmol/L Potassium 3.7 (3.5-5.5) mmol/L Chloride 106 (96-109) mmol/L Carbon Dioxide 29.2 (21.6-31.8) mmol/L BUN 31.6 H (9.0-27.0) mg/dL Creatinine 0.7 (0.6-1.5) mg/dL Glucose 88 (70-110) mg/dL Calcium 10.4 H (8.7-10.3) mg/dL Adrenal panel 10/15/23 Range/Units 07:56 Sodium 147 H (135-145) mmol/L Potassium 3.7 (3.5-5.5) mmol/L Chloride 106 (96-109) mmol/L Carbon Dioxide 29.2 (21.6-31.8) mmol/L BUN 31.6 H (9.0-27.0) mg/dL Creatinine 0.7 (0.6-1.5) mg/dL Glucose 88 (70-110) mg/dL Calcium 10.4 H (8.7-10.3) mg/dL Total Bilirubin 0.6 (0.3-1.2) mg/dL AST 24 (13-35) U/L ALT 30 (8-44) U/L Alkaline Phosphatase 102 (41-126) U/L Total Protein 6.5 (6.2-8.2) g/dL Albumin 3.6 L (3.8-4.9) g/dL
--- NOTE | 2023-10-15 14:20 | P.PN ---
Subjective Progress Note Date: 10/15/23 Hospital course: Patient is a very pleasant 83-year-old female with a recently diagnosed PE on 09/07/2023 on anticoagulation with Eliquis, CAD, chronic diastolic heart failure, hypertension, hyperlipidemia, COPD, insulin-dependent diabetes mellitus, and history of hiatal hernia surgery with tracheostomy and G-tube placement. She presented to the emergency department on 10/14/2023 secondary to concerns of clogged J-tube and dark-colored output from J-tube. She underwent evaluation in the emergency department. Vital signs upon arrival show blood pressure 170/94, heart rate 104, respiratory rate 18, temp 97.8 F, and SpO2 of 99% on 3 L O2. Labs completed and reviewed. CBC showing leukocytosis with WBC count of 11.4. BMP showing hypercarbia with bicarb of 31 and prerenal azotemia with BUN of 48. Blood glucose was 116. Calcium also elevated at 10.4. Liver profile showing elevated AST of 39 and ALT of 41 otherwise normal findings. Amylase and lipase normal findings. Gastric occult from gastric J-tube was positive for blood. Patient admitted under our services with consultation to general surgery. Physical exam: Patient seen and fully evaluated at the bedside this morning. She denies having any abdominal pain or discomfort at this time. She reports just feeling tired. Denies nausea or vomiting. Vital signs reviewed and stable. General: Nontoxic, no distress and appears stated age. Derm: Skin warm and dry, normal coloration for ethnicity. Head: Atraumatic, normocephalic and symmetric. Eyes: EOMs intact, no lid lag, and anicteric sclera Mouth: no lip lesions, mucus membranes moist Cardiovascular: regular rate and rhythm with normal S1S2, no murmur, positive posterior tibial pulses bilaterally, and cap refill < 2 seconds. Lungs: Respirations even, regular, and unlabored on room air. Lungs CTA bilaterally, no rhonchi, no rales, no wheezing, and no accessory muscle usage. Abdominal: soft, nontender to palpation, no guarding, no appreciable organomegaly. Gastric G-tube present, no erythema surrounding insertion site. Patient with dark brown coffee colored drainage. Ext: ROM intact. No gross muscle atrophy, no edema, no contractures Neuro: Speech clear, face symmetrical and CN II-XII grossly intact with no noted focal neuro deficits Psych: Alert and oriented to person, place, time, and situation. Appropriate and pleasant affect. Assessment and Plan of Care: Acute GI bleed Clogged gastric J-tube, resolved Leukocytosis, likely reactive Hypercalcemia Hypernatremia Elevated transaminases Uncontrolled hypertension - Hold Eliquis, keep n.p.o., and hold tube feeds pending recommendations from general surgery. - Repeat CBC tomorrow, hemoglobin currently stable at 12.4 from initial 12.9 upon arrival -Continue IV Protonix 40 mg twice daily -General surgery consulted, discussed plan of care with general surgery PA. - Continue normal saline at 75 cc an hour and repeat CMP to monitor for improvement in hypercalcemia and hypernatremia. - Continue home antihypertensives including amlodipine 5mg daily, carvedilol 12.5 mg twice daily, and losartan 100 mg daily Hypothyroidism -Continue daily medication regimen with levothyroxine 25 mcg daily. Gout -Continue daily medication regimen with allopurinol 150 mg daily Hyperlipidemia Continue daily medication regimen with atorvastatin 10 mg nightly. Data reviewed: Morning labs reviewed. CBC showing leukocytosis with WBC count of 11.07 otherwise normal findings. BMP showing hyper natremia with sodium of 147 otherwise normal findings. Liver profile unremarkable. Calcium remains elevated at 10.4. Vital signs reviewed. Blood pressure 176/96, heart rate 97, respiratory rate 18, temp 97.5 F, and SpO2 of 100% on 3 L O2. Surrogate decision-maker: Daughter CODE STATUS: Full code DVT prophylaxis: SCDs Anticipated discharge date: Pending clinical course Anticipated discharge place: Pending clinical course Patient was seen independently by Nurse Pracitioner. This document was prepared using [employer] dictation software. Please allow for errors in airborne missions systems, while rare they do occur. Objective - Vital Signs Vital signs: Vital Signs Temp 97.5 F L 10/15/23 07:22 Pulse 97 10/15/23 07:22 Resp 18 10/15/23 07:22 BP 176/96 10/15/23 07:22 Pulse Ox 100 10/15/23 07:22 FiO2 Intake & Output 10/14/23 10/15/23 10/15/23 18:59 06:59 18:59 Output Total 600 Balance -600 Weight 70.307 kg Output: Urine 600 Other: Voiding Method External Catheter - Labs CBC & Chem 7: 10/15/23 07:56 10/15/23 07:56 Labs: Abnormal Lab Results - Last 24 Hours (Table) 10/14/23 10/14/23 10/14/23 Range/Units 09:46 09:46 18:23 WBC 11.4 H 13.2 H (3.8-10.6) k/uL Neutrophils # 9.7 H 11.4 H (1.3-7.7) k/uL Lymphocytes # 0.9 L 0.8 L (1.0-4.8) k/uL Carbon Dioxide 31 H (22-30) mmol/L BUN 48 H (7-17) mg/dL Glucose 116 H (74-99) mg/dL Calcium 10.4 H (8.4-10.2) mg/dL AST 39 H (14-36) U/L ALT 41 H (4-34) U/L
[2023-10-15] MEDS: SODIUM CHLORIDE 0.9% 1,000 ML IV SCH (15:00)
[2023-10-15 17:28] LABS: Glucose,Whole Blood 82 mg/dL (70-110)
[2023-10-15] MEDS: ACETAMINOPHEN IV (For NPO) 1,000 MG in EMPTY BAG 1 BAG IVPB SCH (18:15)
[2023-10-16 00:37] LABS: Glucose,Whole Blood 80 mg/dL (70-110)
[2023-10-16 01:13] LABS: Amorphous Sediment,Urine Occasional /hpf; Appearance,Urine Cloudy (Clear); Bacteria,Urine Moderate /hpf; Bilirubin,Urine Negative (Negative); Blood,Urine Trace (Negative); Color,Urine Colorless; Glucose,Urine (UA) Negative (Negative); Hyaline Casts,Urine 7 /lpf (0-2); Ketones,Urine Negative (Negative); Leukocyte Esterase,Urine Large (Negative); Nitrite,Urine Negative (Negative); PH, Urine 6.5 (5.0-8.0); Protein,Urine 2+ (Negative); RBC,Urine 1 /hpf (0-5); Specific Gravity,Urine 1.017 (1.001-1.035); Squamous Epithelial Cell,Urine 1 /hpf (0-4); Urobilinogen,Urine <2.0 mg/dL (<2.0); WBC,Urine >182 /hpf (0-5)
[2023-10-16 05:42] LABS: Glucose,Whole Blood 92 mg/dL (70-110)
[2023-10-16] MEDS: NITROFURANTOIN MONOHYD/M-CRYST 100 MG CAP PEJ/J-Tube SCH (08:34)
[2023-10-16 11:13] LABS: HCT 37.9 % (37.2-46.3); HGB 11.7 g/dL (12.0-15.0); MCH 29.5 pg (27.0-32.0); MCHC 30.9 g/dL (32.0-37.0); MCV 95.5 FL (80.0-97.0); Mean Platelet Volume 11.3 FL (9.5-12.2); NRBC Per 100 WBC 0 X 10*3/uL (0.00-0.01); Platelet Count 380 X 10*3/uL (140-440); RBC 3.97 X 10*6/uL (4.10-5.20); RDW 14.6 % (11.5-14.5); WBC 9.19 X 10*3/uL (4.50-10.00)
[2023-10-16 11:28] LABS: ALT 23 U/L (8-44); AST 23 U/L (13-35); Albumin 3.2 g/dL (3.8-4.9); Albumin/Globulin Ratio 1.19 Ratio (1.60-3.17); Alkaline Phosphatase 93 U/L (41-126); BUN/Creat Ratio 45.83 Ratio (12.00-20.00); Blood Urea Nitrogen 27.5 mg/dL (9.0-27.0); Calcium 9.6 mg/dL (8.7-10.3); Carbon Dioxide 25.6 mmol/L (21.6-31.8); Chloride 107 mmol/L (96-109); Globulin 2.7 g/dL (1.6-3.3); Glucose 96 mg/dL (70-110); Potassium 3.1 mmol/L (3.5-5.5); Sodium 145 mmol/L (135-145); Total Bilirubin 0.6 mg/dL (0.3-1.2); Total Protein 5.9 g/dL (6.2-8.2)
--- NOTE | 2023-10-16 11:52 | P.PN ---
Subjective Progress Note Date: 10/16/23 Hospital course: Patient is a very pleasant 83-year-old female with a recently diagnosed PE on 09/07/2023 on anticoagulation with Eliquis, CAD, chronic diastolic heart failure, hypertension, hyperlipidemia, COPD, insulin-dependent diabetes mellitus, and history of hiatal hernia surgery with tracheostomy and G-tube placement. She presented to the emergency department on 10/14/2023 secondary to concerns of clogged J-tube and dark-colored output from J-tube. She underwent evaluation in the emergency department. Vital signs upon arrival show blood pressure 170/94, heart rate 104, respiratory rate 18, temp 97.8 F, and SpO2 of 99% on 3 L O2. Labs completed and reviewed. CBC showing leukocytosis with WBC count of 11.4. BMP showing hypercarbia with bicarb of 31 and prerenal azotemia with BUN of 48. Blood glucose was 116. Calcium also elevated at 10.4. Liver profile showing elevated AST of 39 and ALT of 41 otherwise normal findings. Amylase and lipase normal findings. Gastric occult from gastric J-tube was positive for blood. Patient admitted under our services with consultation to general surgery. Hemoglobin levels trended throughout hospitalization and have remained stable at 12.9, 12.6, 12.4, and 11.7. Patient had no further episodes of reported coffee- ground drainage from J-tube. GJ tube is now functioning and general surgery consulted dietitian to resume tube feedings and titrate as patient tolerates. Patient tolerating overnight. A urinalysis was obtained positive for leukocytes and greater than 182 WBCs. Patient started on Macrobid 100 mg twice daily. Pending clearance from general surgery team, plan is for likely discharge within the next 24 hours. Physical exam: Patient seen and fully evaluated at the bedside this morning. She again reports just feeling tired and denies having any abdominal pain or discomfort at this time. She has tolerated resumption of tube feedings. No report of further coffee ground colored drainage from GJ tube reported. Patient denies nausea or vomiting and denies any other complaints at this time. Vital signs reviewed and stable. General: Nontoxic, no distress and appears stated age. Derm: Skin warm and dry, normal coloration for ethnicity. Head: Atraumatic, normocephalic and symmetric. Eyes: EOMs intact, no lid lag, and anicteric sclera Mouth: no lip lesions, mucus membranes moist Cardiovascular: regular rate and rhythm with normal S1S2, no murmur, positive posterior tibial pulses bilaterally, and cap refill < 2 seconds. Lungs: Respirations even, regular, and unlabored on room air. Lungs CTA bilaterally, no rhonchi, no rales, no wheezing, and no accessory muscle usage. Abdominal: soft, nontender to palpation, no guarding, no appreciable organomegaly. Gastric G-tube present, no erythema surrounding insertion site. Ext: ROM intact. No gross muscle atrophy, no edema, no contractures Neuro: Speech clear, face symmetrical and CN II-XII grossly intact with no noted focal neuro deficits Psych: Alert and oriented to person, place, time, and situation. Appropriate and pleasant affect. Assessment and Plan of Care: Concerns for acute upper GI bleed Clogged gastric J-tube. Resolved Leukocytosis, likely reactive. Resolved Hypercalcemia. Resolved Hypernatremia. Resolved Elevated transaminases. Resolved Uncontrolled hypertension -Continue to hold Eliquis, pending clearance from general surgery to resume. -Hemoglobin remained stable at 11.7. -Continue IV Protonix 40 mg twice daily -General surgery following, discussed plan of care with general surgery PA awaiting clearance from general surgeon. -Hypercalcemia and hypernatremia resolved, patient tolerating tube feeds. IV fluids discontinued. -Continue home antihypertensives including amlodipine 5mg daily, carvedilol 12.5 mg twice daily, and losartan 100 mg daily UTI -Patient started on Macrobid 100 mg twice daily Hypokalemia Order placed for K-Lyte 40 mEq per G-tube x 1 dose. Hypothyroidism -Continue daily medication regimen with levothyroxine 25 mcg daily. Gout -Continue daily medication regimen with allopurinol 150 mg daily Hyperlipidemia Continue daily medication regimen with atorvastatin 10 mg nightly. Data reviewed: Morning labs reviewed. CBC showing mild normocytic anemia with hemoglobin stable at 11.7. BMP revealing mild hypokalemia with potassium of 3.1, elevated anion gap of 12.4, and mild prerenal azotemia with BUN of 27.5 but improving from initial presentation with BUN of 48. Magnesium normal findings at 2.0. Liver profile unremarkable with the exception of albumin remains low at 3.2. Vital signs reviewed. Blood pressure 180/82 prior to morning antihypertensive medication administration, heart rate 92, respiratory rate 18, temp 97.6 F, and SpO2 of 95% on room air. Surrogate decision-maker: Daughter CODE STATUS: Full code DVT prophylaxis: SCDs Anticipated discharge date: Likely within the next 24 to [address]: Pending clinical course Patient was seen independently by Nurse Pracitioner. This document was prepared using [employer] dictation software. Please allow for errors in automotive painter, while rare they do occur. Objective - Vital Signs Vital signs: Vital Signs Temp 97.4 F L 10/16/23 01:40 Pulse 91 10/16/23 01:40 Resp 16 10/16/23 01:40 BP 121/72 10/16/23 01:40 Pulse Ox 95 10/16/23 01:40 FiO2 Intake & Output 10/15/23 10/16/23 10/16/23 18:59 06:59 18:59 Output Total 800 100 Balance -800 -100 Weight 70.307 kg Output: Urine 800 100 Other: Voiding Method External Catheter External Catheter - Labs CBC & Chem 7: 10/16/23 07:00 10/16/23 07:00 Labs: Abnormal Lab Results - Last 24 Hours (Table) 10/15/23 10/15/23 10/16/23 Range/Units 07:56 07:56 00:40 WBC 11.07 H (4.50-10.00) X 10*3/uL MCHC 31.0 L (32.0-37.0) g/dL RDW 14.9 H (11.5-14.5) % Neutrophils # 9.24 H (1.80-7.70) X 10*3/uL Sodium 147 H (135-145) mmol/L BUN 31.6 H (9.0-27.0) mg/dL BUN/Creatinine Ratio 45.14 H (12.00-20.00) Ratio Calcium 10.4 H (8.7-10.3) mg/dL Albumin 3.6 L (3.8-4.9) g/dL Albumin/Globulin Ratio 1.24 L (1.60-3.17) Ratio Urine Appearance Cloudy H (Clear) Urine Protein 2+ H (Negative) Urine Blood Trace H (Negative) Ur Leukocyte Esterase Large H (Negative) Urine WBC >182 H (0-5) /hpf Amorphous Sediment Occasional H (None) /hpf Urine Bacteria Moderate H (None) /hpf Hyaline Casts 7 H (0-2) /lpf
[2023-10-16] MEDS: POTASSIUM BICARBONATE/CIT AC 20 MEQ TABLET.EFF PEJ/J-Tube ONE (12:36)
[2023-10-16 12:47] LABS: Glucose,Whole Blood 108 mg/dL (70-110)
--- NOTE | 2023-10-16 14:51 | P.PN ---
Subjective Progress Note Date: 10/16/23 CHIEF COMPLAINT: Clogged GJ tube HISTORY OF PRESENT ILLNESS: Patient's feeding tube is functioning. She is tolerating tube feeds. Hemoglobin is stable. No further dark discharge noted. Vital stable PHYSICAL EXAM: VITAL SIGNS: Reviewed. GENERAL: Well-developed in no acute distress. ABDOMEN: Soft. Nondistended. Nontender. GJ tube clean dry and intact NEUROLOGIC: Awake. Pleasantly confused ASSESSMENT: 1. Malfunctioning GJ tube PLAN: -GJ tube functioning. Patient tolerating tube feeds. Patient can be discharged from surgical standpoint Physician Ear Nose Throat Physician note has been reviewed by physician. Signing provider agrees with the documented findings, assessment, and plan of care. Objective - Vital Signs Vital signs: Vital Signs Temp 97.6 F 10/16/23 07:57 Pulse 92 10/16/23 07:57 Resp 18 10/16/23 07:57 BP 180/82 10/16/23 07:57 Pulse Ox 100 10/16/23 07:57 FiO2 Intake & Output 10/15/23 10/16/23 10/16/23 18:59 06:59 18:59 Output Total 800 100 Balance -800 -100 Weight 70.307 kg Output: Urine 800 100 Other: Voiding Method External Catheter External Catheter External Catheter - Labs CBC & Chem 7: 10/16/23 07:00 10/16/23 07:00 Labs: Abnormal Lab Results - Last 24 Hours (Table) 10/16/23 10/16/23 10/16/23 Range/Units 00:40 07:00 07:00 RBC 3.97 L (4.10-5.20) X 10*6/uL Hgb 11.7 L (12.0-15.0) g/dL MCHC 30.9 L (32.0-37.0) g/dL RDW 14.6 H (11.5-14.5) % Potassium 3.1 L (3.5-5.5) mmol/L Anion Gap 12.40 H (4.00-12.00) mmol/L BUN 27.5 H (9.0-27.0) mg/dL BUN/Creatinine Ratio 45.83 H (12.00-20.00) Ratio Total Protein 5.9 L (6.2-8.2) g/dL Albumin 3.2 L (3.8-4.9) g/dL Albumin/Globulin Ratio 1.19 L (1.60-3.17) Ratio Urine Appearance Cloudy H (Clear) Urine Protein 2+ H (Negative) Urine Blood Trace H (Negative) Ur Leukocyte Esterase Large H (Negative) Urine WBC >182 H (0-5) /hpf Amorphous Sediment Occasional H (None) /hpf Urine Bacteria Moderate H (None) /hpf Hyaline Casts 7 H (0-2) /lpf
--- NOTE | 2023-10-16 15:44 | P.CONS ---
History of Present Illness - Reason for Consult Consult date: 10/16/23 Evaluate for possible upper GI bleed Requesting physician: Pepe Mercado - Chief Complaint malfunctioning J-tube - History of Present Illness This is a pleasantly confused 83-year-old female who was sent in from her nursing facility with concerns of J-tube malfunction and questionable blood in J-tube. 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 Patient has a history of a hiatal here hernia repair in November 2022 which was complicated by esophageal perforation and requiring VATS, trach and J-tube placement. Apparently while patient was at the custodial they were having difficulty flushing the J-tube. Patient is poor historian and seems quite confused. Review of Systems ROS unobtainable: due to mental status Past Medical History Past Medical History: Cancer, Heart Failure, COPD, Deep Vein Thrombosis (DVT), Myocardial Infarction (VT), Pulmonary Embolus (PE), Renal Disease Additional Past Medical History / Comment(s): Basal cell cancer, goiter, hiatal hernia surgery, tracheostomy, Last Myocardial Infarction Date:: unknown History of Any Multi-Drug Resistant Organisms: Other MDRO Past Surgical History: Hernia Repair Additional Past Surgical History / Comment(s): traceosotomy, g tube placement, thyroid biopsy Past Anesthesia/Blood Transfusion Reactions: No Reported Reaction Past Psychological History: No Psychological Hx Reported Smoking Status: Never smoker Past Alcohol Use History: None Reported Past Drug Use History: None Reported - Past Family History Mother Family Medical History: Diabetes Mellitus Father Family Medical History: Hypertension, Renal Disease Medications and Allergies Home Medications Medication Instructions Recorded Confirmed Type Atorvastatin [Lipitor] 10 mg PEJ/J-TUBE HS 04/21/23 10/14/23 History Levothyroxine Sodium [Synthroid] 25 mcg PEJ/J-TUBE DAILY@0600 04/21/23 10/14/23 History amLODIPine [Norvasc] 5 mg PEJ/J-TUBE DAILY 04/21/23 10/14/23 History Ipratropium-Albuterol Nebulize 3 ml INHALATION RT-Q6H PRN 08/22/23 10/14/23 History [Duoneb 0.5 mg-3 mg/3 ml Soln] Acetaminophen Tab [Tylenol] 650 mg PEJ/J-TUBE Q6H PRN 10/14/23 10/14/23 History Apixaban [Eliquis] 5 mg PEJ/J-TUBE BID 10/14/23 10/14/23 History Ascorbic Acid [Vitamin C] 500 mg PEJ/J-TUBE DAILY 10/14/23 10/14/23 History Hydrophilic Cream [Triad (Kerodex 1 applic TOPICAL DAILY PRN 10/14/23 10/14/23 History geq)] Hydrophilic Cream [Triad (Kerodex 1 applic TOPICAL HS 10/14/23 10/14/23 History geq)] Insulin Glargine [Lantus Vial] 18 unit SQ HS 10/14/23 10/14/23 History Insulin Lispro See Protocol SQ Q6H 10/14/23 10/14/23 History Jevity 1.5 Chay Liquid 50 ml PEJ/J-TUBE DIRECTED 10/14/23 10/14/23 History Lidocaine 5% Patch [Lidoderm] 1 patch TRANSDERM DAILY@0600 10/14/23 10/14/23 History Losartan Potassium 100 mg PEJ/J-TUBE DAILY 10/14/23 10/14/23 History Multivitamins, Thera [Multivitamin 1 tab PEJ/J-TUBE DAILY 10/14/23 10/14/23 History (formulary)] Ondansetron [Zofran] 4 mg PEJ/J-TUBE Q8H PRN 10/14/23 10/14/23 History Senna Oral Syrup 8.8mg/5ml 17.6 mg PEJ/J-TUBE BID PRN 10/14/23 10/14/23 History Thiamine [Vitamin B-1] 100 mg PEJ/J-TUBE DAILY 10/14/23 10/14/23 History allopurinoL [Zyloprim] 150 mg PEJ/J-TUBE DAILY 10/14/23 10/14/23 History carvediloL [Coreg] 12.5 mg PEJ/J-TUBE BID 10/14/23 10/14/23 History guaiFENesin [guaiFENesin Oral 200 mg PEJ/J-TUBE Q6H PRN 10/14/23 10/14/23 History Solution] polyethylene glycoL 3350 [Miralax] 17 gm PEJ/J-TUBE DAILY 10/14/23 10/14/23 History Allergies Allergy/AdvReac Type Severity Reaction Status Date / Time cephalexin [From Keflex] AdvReac Rash/Hives Verified 10/14/23 11:02 iodine AdvReac Unknown Verified 10/14/23 11:02 Penicillins AdvReac Rash/Hives Verified 10/14/23 11:02 Sulfa (Sulfonamide AdvReac Unknown Verified 10/14/23 11:02 Antibiotics) Physical Exam Vitals: Vital Signs Temp Pulse Resp BP Pulse Ox 10/16/23 07:57 97.6 F 92 18 180/82 100 10/16/23 01:40 97.4 F L 91 16 121/72 95 10/15/23 20:00 16 10/15/23 19:02 97.4 F L 102 H 16 152/78 96 10/15/23 15:02 98 Intake and Output 10/15/23 10/16/23 10/16/23 22:59 06:59 14:59 Output Total 800 100 Balance -800 -100 Output: Urine 800 100 Other: Voiding Method External Catheter External Catheter General appearance: The patient is alert, pleasantly confused, appears in no acute distress. HET: Head is normocephalic and atraumatic. Conjunctiva pink. Sclera anicteric. Neck: Supple without lymphadenopathy. Trachea midline. Heart: Regular. Lungs: Equal expansion, normal respiratory effort. Abdomen: Soft, nontender, nondistended with bowel sounds. J-tube present with no surrounding redness or drainage. No guarding or rigidity. Skin: No rashes. No jaundice. Extremities: Normal skin color and turgor. No pedal edema. Neurological: No focal deficits. Alert and oriented x1 Results CBC & Chem 7: 10/16/23 07:00 10/16/23 07:00 Labs: Abnormal Lab Results - Last 24 Hours (Table) 10/16/23 10/16/23 10/16/23 Range/Units 00:40 07:00 07:00 RBC 3.97 L (4.10-5.20) X 10*6/uL Hgb 11.7 L (12.0-15.0) g/dL MCHC 30.9 L (32.0-37.0) g/dL RDW 14.6 H (11.5-14.5) % Potassium 3.1 L (3.5-5.5) mmol/L Anion Gap 12.40 H (4.00-12.00) mmol/L BUN 27.5 H (9.0-27.0) mg/dL BUN/Creatinine Ratio 45.83 H (12.00-20.00) Ratio Total Protein 5.9 L (6.2-8.2) g/dL Albumin 3.2 L (3.8-4.9) g/dL Albumin/Globulin Ratio 1.19 L (1.60-3.17) Ratio Urine Appearance Cloudy H (Clear) Urine Protein 2+ H (Negative) Urine Blood Trace H (Negative) Ur Leukocyte Esterase Large H (Negative) Urine WBC >182 H (0-5) /hpf Amorphous Sediment Occasional H (None) /hpf Urine Bacteria Moderate H (None) /hpf Hyaline Casts 7 H (0-2) /lpf Assessment and Plan (1) PEG tube malfunction Narrative/Plan: This is a patient that was transferred from nursing facility with J-tube malfunction stating that they could not flush the J-tube and they felt that there was possibly some blood. General surgery has seen patient and J-tube is functioning without any complications. Patient is currently getting 30 mL an hour of tube feeding and tolerating well. There is been no signs of GI bleed. Nursing reports stools are normal soft and light brown. No bleeding from around the G-tube site or in the tubing. There is been no nausea or vomiting. Abdomen is soft. Gastroenterology consulted for questionable upper GI bleed again there is no evidence for any upper GI bleed. Hemoglobin has been stable since admission. No plans on any endoscopic evaluation. This was discussed with the patient's daughter Jayna Hu over the phone. Current Visit: Yes Status: Acute Code(s): K94.23 - GASTROSTOMY MALFUNCTION SNOMED Code(s): 274307679 Plan: 1. Continue symptomatic and supportive care 2. Continue tube feedings per recommendation from dietitian 3. No plans on endoscopic evaluation 4. Continue with recommendations from general surgery 5. Patient is cleared from gastroenterology for discharge Thank you for this consultation, we will sign off at this time. Dr. Barbara Abad I agree with the dictator's note, documented as a scribe by Idalmis Corcoran.
[2023-10-16 18:08] LABS: Glucose,Whole Blood 118 mg/dL (70-110)
[2023-10-16] MEDS: ACETAMINOPHEN TAB 325 MG TAB PEJ/J-Tube PRN (18:46)
[2023-10-17 00:25] LABS: Glucose,Whole Blood 109 mg/dL (70-110)
[2023-10-17 06:10] LABS: Glucose,Whole Blood 140 mg/dL (70-110)
[2023-10-17 12:09] LABS: Glucose,Whole Blood 158 mg/dL (70-110)
--- NOTE | 2023-10-17 12:44 | P.PN ---
Subjective Progress Note Date: 10/17/23 Hospital course: Patient is a very pleasant 83-year-old female with a recently diagnosed PE on 09/07/2023 on anticoagulation with Eliquis, CAD, chronic diastolic heart failure, hypertension, hyperlipidemia, COPD, insulin-dependent diabetes mellitus, and history of hiatal hernia surgery with tracheostomy and G-tube placement. She presented to the emergency department on 10/14/2023 secondary to concerns of clogged J-tube and dark-colored output from J-tube. She underwent evaluation in the emergency department. Vital signs upon arrival show blood pressure 170/94, heart rate 104, respiratory rate 18, temp 97.8 F, and SpO2 of 99% on 3 L O2. Labs completed and reviewed. CBC showing leukocytosis with WBC count of 11.4. BMP showing hypercarbia with bicarb of 31 and prerenal azotemia with BUN of 48. Blood glucose was 116. Calcium also elevated at 10.4. Liver profile showing elevated AST of 39 and ALT of 41 otherwise normal findings. Amylase and lipase normal findings. Gastric occult from gastric J-tube was positive for blood. Patient admitted under our services with consultation to general surgery. Hemoglobin levels trended throughout hospitalization and have remained stable at 12.9, 12.6, 12.4, and 11.7. Patient had no further episodes of reported coffee- ground drainage from J-tube. GJ tube is now functioning and general surgery consulted dietitian to resume tube feedings and titrate as patient tolerates. Patient tolerating overnight. A urinalysis was obtained positive for leukocytes and greater than 182 WBCs. Patient started on Macrobid 100 mg twice daily. Patient tolerating tube feeds and cleared from general surgery perspective for discharge. 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 Hemoglobin stable throughout hospitalization. Medically, patient stable for discharge at this time. Plan for discharge once insurance authorization is received with tentative plan to return to [facility] on the [place]. Physical exam: Patient seen and fully evaluated at the bedside this morning. Patient was sleeping and easily awoken via verbal stimuli. Patient reports mild upset stomach but denies any nausea or vomiting and was nontender upon palpation. Patient remains alert and oriented to person and place but is slightly a poor historian when elaborating on symptoms. Vital signs reviewed and stable. General: Nontoxic, no distress and appears stated age. Derm: Skin warm and dry, normal coloration for ethnicity. Head: Atraumatic, normocephalic and symmetric. Eyes: EOMs intact, no lid lag, and anicteric sclera Mouth: no lip lesions, mucus membranes moist Cardiovascular: regular rate and rhythm with normal S1S2, no murmur, positive posterior tibial pulses bilaterally, and cap refill < 2 seconds. Lungs: Respirations even, regular, and unlabored on room air. Lungs CTA bilaterally, no rhonchi, no rales, no wheezing, and no accessory muscle usage. Abdominal: soft, nontender to palpation, no guarding, no appreciable organomegal y. Gastric G-tube/J-tube present, no erythema surrounding insertion site. Ext: ROM intact. No gross muscle atrophy, no edema, no contractures Neuro: Speech clear, face symmetrical and CN II-XII grossly intact with no noted focal neuro deficits Psych: Alert and oriented. Appropriate and pleasant affect. Assessment and Plan of Care: Concerns for acute upper GI bleed Clogged gastric J-tube. Resolved Leukocytosis, likely reactive. Resolved Hypercalcemia. Resolved Hypernatremia. Resolved Elevated transaminases. Resolved Uncontrolled hypertension -Continue to hold Eliquis, pending clearance from general surgery to resume. -Hemoglobin remained stable at 11.7. -Continue IV Protonix 40 mg twice daily -General surgery following, clearing patient from their perspective for discharge. 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 -Hypercalcemia and hypernatremia resolved, patient tolerating tube feeds. IV fluids discontinued. -Continue home antihypertensives including amlodipine 5mg daily, carvedilol 12.5 mg twice daily, and losartan 100 mg daily UTI -Patient started on Macrobid 100 mg twice daily Hypokalemia Order placed for K-Lyte 40 mEq per G-tube x 1 dose. Hypothyroidism -Continue daily medication regimen with levothyroxine 25 mcg daily. Gout -Continue daily medication regimen with allopurinol 150 mg daily Hyperlipidemia Continue daily medication regimen with atorvastatin 10 mg nightly. Data reviewed: Vital signs reviewed. Blood pressure 171/79, heart rate 94, respiratory rate 18, temp 97.7 F, and SpO2 99% on room air. Surrogate decision-maker: Daughter CODE STATUS: Full code DVT prophylaxis: SCDs Anticipated discharge date: Pending insurance authorization, patient cleared from general surgery, gastroenterology and medically stable for discharge. Anticipated discharge place: return to [facility] on the [place] Patient was seen independently by Nurse Pracitioner. This document was prepared using [employer] dictation software. Please allow for errors in patrol agent, while rare they do occur. Pepe Mercado NP rendered care for this patient independently, reviewed the findings and plan as documented in the note above. I did not physically speak with or examine the patient on this date. Objective - Vital Signs Vital signs: Vital Signs Temp 97.7 F 10/17/23 07:42 Pulse 94 10/17/23 07:42 Resp 18 10/17/23 07:42 BP 171/79 10/17/23 07:42 Pulse Ox 100 10/17/23 07:42 FiO2 Intake & Output 10/16/23 10/17/23 10/17/23 18:59 06:59 18:59 Intake Total 985 55 Output Total 400 Balance 585 55 Weight 38 kg Intake: Intake, IV Titration 550 Amount ACETAMINOPHEN IV (For NPO 100 ) 1,000 mg In Empty Bag 1 bag @ 400 mls/hr IVPB Q6HR [facility] Rx#:[id number] Sodium Chloride 0.9% 1, 450 000 ml @ 75 mls/hr IV . [id number] [facility] Rx#:[id number] Tube Feeding 300 Other 135 55 Output: Urine 400 Other: Voiding Method External Catheter External Catheter # Voids 2 # Bowel Movements 2 - Labs CBC & Chem 7: 10/18/23 11:06 10/18/23 11:06 Labs: Abnormal Lab Results - Last 24 Hours (Table) 10/16/23 10/16/23 10/16/23 Range/Units 07:00 07:00 18:04 RBC 3.97 L (4.10-5.20) X 10*6/uL Hgb 11.7 L (12.0-15.0) g/dL MCHC 30.9 L (32.0-37.0) g/dL RDW 14.6 H (11.5-14.5) % Potassium 3.1 L (3.5-5.5) mmol/L Anion Gap 12.40 H (4.00-12.00) mmol/L BUN 27.5 H (9.0-27.0) mg/dL BUN/Creatinine Ratio 45.83 H (12.00-20.00) Ratio POC Glucose (mg/dL) 118 H (70-110) mg/dL Total Protein 5.9 L (6.2-8.2) g/dL Albumin 3.2 L (3.8-4.9) g/dL Albumin/Globulin Ratio 1.19 L (1.60-3.17) Ratio 10/17/23 Range/Units 06:09 RBC (4.10-5.20) X 10*6/uL Hgb (12.0-15.0) g/dL MCHC (32.0-37.0) g/dL RDW (11.5-14.5) % Potassium (3.5-5.5) mmol/L Anion Gap (4.00-12.00) mmol/L BUN (9.0-27.0) mg/dL BUN/Creatinine Ratio (12.00-20.00) Ratio POC Glucose (mg/dL) 140 H (70-110) mg/dL Total Protein (6.2-8.2) g/dL Albumin (3.8-4.9) g/dL Albumin/Globulin Ratio (1.60-3.17) Ratio
[2023-10-17 15:02] VITALS: BMI 13.1
--- NOTE | 2023-10-17 15:30 | P.PN ---
Subjective Progress Note Date: 10/17/23 CHIEF COMPLAINT: Clogged GJ tube HISTORY OF PRESENT ILLNESS: Patient is tolerating tube feeds. No abdominal pain. No nausea or vomiting. Afebrile. PHYSICAL EXAM: VITAL SIGNS: Reviewed. GENERAL: no acute distress. ABDOMEN: Soft. Nondistended. Nontender. GJ tube clean dry and intact ASSESSMENT: 1. Malfunctioning GJ tube resolved PLAN: -GJ tube functioning. Patient tolerating tube feeds. Patient can be discharged from surgical standpoint Physician Network Director note has been reviewed by physician. Signing provider agrees with the documented findings, assessment, and plan of care. I have personally seen and examined the patient, reviewed the [employer] CONSULTANT /PAs history, exam and MDM and agree with the assessment and plan as written. Based on total visit time, I have performed more than 50% of the visit. As above: Patient tolerating tube feeds at 40 cc/h. Continue advancing to goal. Abdomen without tenderness. Apparently the gastrostomy portion of the catheter was to dependent drainage and had almost no output. May leave clamped for now unless patient has complaints of nausea or vomiting. Objective - Vital Signs Vital signs: Vital Signs Temp 97.9 F 10/17/23 12:53 Pulse 102 H 10/17/23 12:53 Resp 17 10/17/23 12:53 BP 146/78 10/17/23 12:53 Pulse Ox 99 10/17/23 12:53 FiO2 Intake & Output 10/16/23 10/17/23 10/17/23 18:59 06:59 18:59 Intake Total 985 55 Output Total 400 Balance 585 55 Weight 38 kg 38 kg Intake: Intake, IV Titration 550 Amount ACETAMINOPHEN IV (For NPO 100 ) 1,000 mg In Empty Bag 1 bag @ 400 mls/hr IVPB Q6HR [facility] Rx#:[id number] Sodium Chloride 0.9% 1, 450 000 ml @ 75 mls/hr IV . [id number] [facility] Rx#:[id number] Tube Feeding 300 Other 135 55 Output: Urine 400 Other: Voiding Method External Catheter External Catheter # Voids 2 # Bowel Movements 2 - Labs CBC & Chem 7: 10/16/23 07:00 10/16/23 07:00 Labs: Abnormal Lab Results - Last 24 Hours (Table) 10/16/23 10/17/23 10/17/23 Range/Units 18:04 06:09 12:04 POC Glucose (mg/dL) 118 H 140 H 158 H (70-110) mg/dL Microbiology - Last 24 Hours (Table) 10/16/23 00:40 Urine Culture - Preliminary Urine,Voided Gram Neg Bacilli
[2023-10-17 17:14] LABS: Glucose,Whole Blood 131 mg/dL (70-110)
[2023-10-17] MEDS: APIXABAN 5 MG TAB PEJ/J-Tube SCH (21:24)
[2023-10-18 05:51] LABS: Glucose,Whole Blood 131 mg/dL (70-110)
--- NOTE | 2023-10-18 09:59 | P.PN ---
Subjective Progress Note Date: 10/18/23 Hospital course: Patient is a very pleasant 83-year-old female with a recently diagnosed PE on 09/07/2023 on anticoagulation with Eliquis, CAD, chronic diastolic heart failure, hypertension, hyperlipidemia, COPD, insulin-dependent diabetes mellitus, and history of hiatal hernia surgery with tracheostomy and G-tube placement. She presented to the emergency department on 10/14/2023 secondary to concerns of clogged J-tube and dark-colored output from J-tube. She underwent evaluation in the emergency department. Vital signs upon arrival show blood pressure 170/94, heart rate 104, respiratory rate 18, temp 97.8 F, and SpO2 of 99% on 3 L O2. Labs completed and reviewed. CBC showing leukocytosis with WBC count of 11.4. BMP showing hypercarbia with bicarb of 31 and prerenal azotemia with BUN of 48. Blood glucose was 116. Calcium also elevated at 10.4. Liver profile showing elevated AST of 39 and ALT of 41 otherwise normal findings. Amylase and lipase normal findings. Gastric occult from gastric J-tube was positive for blood. Patient admitted under our services with consultation to general surgery. Hemoglobin levels trended throughout hospitalization and have remained stable at 12.9, 12.6, 12.4, and 11.7. Patient had no further episodes of reported coffee- ground drainage from J-tube. GJ tube is now functioning and general surgery consulted dietitian to resume tube feedings and titrate as patient tolerates. Patient tolerating overnight. A urinalysis was obtained positive for leukocytes and greater than 182 WBCs. Patient started on Macrobid 100 mg twice daily. Patient tolerating tube feeds and cleared from general surgery perspective for discharge. 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 Hemoglobin stable throughout hospitalization. Plan is for discharge once insurance authorization is received with tentative plan to return to [facility] on the [place]. Urine culture positive for multidrug resistant Pseudomonas aeruginosa. Patient started on gentamicin per culture and sensitivity report. Infectious disease consulted for management of outpatient IV antibiotics. Physical exam: Patient seen and fully evaluated at the bedside this morning. Patient was awake and alert this morning. She was resting in bed and appeared comfortable, pa homa reports fullness/nausea but otherwise denies any complaints. Abdomen remains nontender to palpation. Vital signs reviewed and stable. General: Nontoxic, no distress and appears stated age. Derm: Skin warm and dry, normal coloration for ethnicity. Head: Atraumatic, normocephalic and symmetric. Eyes: EOMs intact, no lid lag, and anicteric sclera Mouth: no lip lesions, mucus membranes moist Cardiovascular: regular rate and rhythm with normal S1S2, no murmur, positive posterior tibial pulses bilaterally, and cap refill < 2 seconds. Lungs: Respirations even, regular, and unlabored on room air. Lungs CTA bilaterally, no rhonchi, no rales, no wheezing, and no accessory muscle usage. Abdominal: soft, nontender to palpation, no guarding, no appreciable organomegaly. Gastric G-tube/J-tube present, no erythema surrounding insertion site. Ext: ROM intact. No gross muscle atrophy, no edema, no contractures Neuro: Speech clear, face symmetrical and CN II-XII grossly intact with no noted focal neuro deficits Psych: Alert and oriented. Appropriate and pleasant affect. Assessment and Plan of Care: Multidrug resistant Pseudomonas Aeruginosa UTI -Macrobid discontinued. Patient patient started on meropenem 1 g every 8 hours IVPB per culture and sensitivity report and recommendations by infectious disease physician. Concerns for acute upper GI bleed Clogged gastric J-tube. Resolved Leukocytosis, likely reactive. Resolved Hypercalcemia. Resolved Hypernatremia. Resolved Elevated transaminases. Resolved Uncontrolled hypertension -Continue to hold Eliquis, pending clearance from general surgery to resume. -Hemoglobin remained stable at 11.7. -Continue IV Protonix 40 mg twice daily -General surgery following, clearing patient from their perspective for discharge. 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 -Hypercalcemia and hypernatremia resolved, patient tolerating tube feeds. IV fluids discontinued. -Continue home antihypertensives including amlodipine 5mg daily, carvedilol 12.5 mg twice daily, and losartan 100 mg daily Hypokalemia Order placed for K-Lyte 40 mEq per G-tube x 1 dose. Hypothyroidism -Continue daily medication regimen with levothyroxine 25 mcg daily. Gout -Continue daily medication regimen with allopurinol 150 mg daily Hyperlipidemia Continue daily medication regimen with atorvastatin 10 mg nightly. Data reviewed: Vital signs reviewed. Blood pressure 167/80, heart rate 97, respiratory rate 24, temp 97.7 F, and SpO2 of 95% on room air. Repeat urinalysis remains positive for infection. Urine culture positive for multidrug-resistant Pseudomonas aeruginosa. Morning labs reviewed. CBC unremarkable. BMP revealing hypokalemia with potassium of 3.2, hyperchloremia with chloride of 110, hypercarbia with bicarb of 31, and prerenal azotemia with BUN of 34. Peer to peer review was completed with patient's insurance company, per Dr. Buckley patient has received authorization to be [facility] to [facility] secondary to need for IV antibiotics. Called and spoke with patient's daughter and updated her on plan. Patient to have midline placed and be discharged to [facility] facility, [facility] on [facility] later today. Surrogate decision-maker: Daughter CODE STATUS: Full code DVT prophylaxis: SCDs Anticipated discharge date: Pending insurance authorization, patient cleared from general surgery, gastroenterology and medically stable for discharge. Anticipated discharge place: return to [facility] on [facility] Patient was seen independently by Nurse Pracitioner. This document was prepared using [employer] dictation software. Please allow for errors in community support specialist, while rare they do occur. Pepe Mercado NP rendered care for this patient independently, reviewed the findings and plan as documented in the note above. I did not physically speak with or examine the patient on this date. Objective - Vital Signs Vital signs: Vital Signs Temp 97.7 F 10/18/23 07:33 Pulse 97 10/18/23 07:33 Resp 24 10/18/23 07:33 BP 167/80 10/18/23 07:33 Pulse Ox 100 10/18/23 07:33 FiO2 Intake & Output 10/17/23 10/18/23 10/18/23 18:59 06:59 18:59 Intake Total 70 Balance 70 Weight 48 kg 27.5 kg Intake: Tube Feeding 70 Other: Voiding Method Incontinent External Catheter # Voids 1 2 1 # Bowel Movements 1 1 - Labs CBC & Chem 7: 10/18/23 11:06 10/18/23 11:06 Labs: Abnormal Lab Results - Last 24 Hours (Table) 10/17/23 10/17/23 10/18/23 Range/Units 12:04 17:01 05:48 POC Glucose (mg/dL) 158 H 131 H 131 H (70-110) mg/dL Microbiology - Last 24 Hours (Table) 10/16/23 00:40 Urine Culture - Final Urine,Voided Pseudomonas aeruginosa
[2023-10-18 11:24] LABS: HCT 36.5 % (34.0-46.0); HGB 11.7 gm/dL (11.4-16.0); Hypochromasia Slight; MCH 30.8 pg (25.0-35.0); MCHC 32.1 g/dL (31.0-37.0); Mean Platelet Volume 8.6; Platelet Count 299 k/uL (150-450); WBC 9.1 k/uL (3.8-10.6)
[2023-10-18 11:27] LABS: African American GFR (CKD) >90 (>60 ml/min/1.73 sqM); Anion Gap 4 mmol/L; Blood Urea Nitrogen 34 mg/dL (7-17); Calcium 9.3 mg/dL (8.4-10.2); Carbon Dioxide 31 mmol/L (22-30); Chloride 110 mmol/L (98-107); Glucose 128 mg/dL (74-99); Non-African American GFR(CKD) 83 (>60 ml/min/1.73 sqM); Potassium 3.2 mmol/L (3.5-5.1); Sodium 145 mmol/L (137-145)
[2023-10-18] MEDS ORDERED: GENTAMICIN PER PHARMACY MISCELLANE PRN (11:42)
[2023-10-18 11:47] LABS: Glucose,Whole Blood 122 mg/dL (70-110)
[2023-10-18] MEDS ORDERED: GENTAMICIN 0 MG in SODIUM CHLORIDE 0.9% 100 ML IVPB SCH (12:00)
[2023-10-18] MEDS: MEROPENEM 1 GM in SODIUM CHLORIDE 0.9% 100 ML IVPB SCH (12:14)
[2023-10-18] MEDS ORDERED: GENTAMICIN 90 MG in SODIUM CHLORIDE 0.9% 100 ML IVPB ONE (13:00)
--- NOTE | 2023-10-18 14:07 | P.PN ---
Subjective Progress Note Date: 10/18/23 CHIEF COMPLAINT: Clogged GJ tube HISTORY OF PRESENT ILLNESS: Patient has been tolerating tube feeds. Tube feeds at goal at 40 mL/h. There were concerns this morning the nursing staff could not flush the GJ tube. Nursing staff did stop the tube feeds. Patient has no abdominal pain. Denies any nausea or vomiting. Afebrile. WBC 9.1 Hgb 11.7 platelets 299 sodium is 145 potassium 3.2. Patient on antibiotics for possible UTI PHYSICAL EXAM: VITAL SIGNS: Reviewed. GENERAL: no acute distress. ABDOMEN: Soft. Nondistended. Nontender. GJ tube clean dry and intact ASSESSMENT: 1. Malfunctioning GJ tube resolved PLAN: -Resume tube feeds -Continue to monitor -Further recommendations forthcoming per surgeon -Medicine service to correct potassium Physician Replenishment Buyer note has been reviewed by physician. Signing provider agrees with the documented findings, assessment, and plan of care. I have personally seen and examined the patient, reviewed the TOOL ROOM SUPERVISOR /PAs history, exam and MDM and agree with the assessment and plan as written. Based on total visit time, I have performed more than 50% of the visit. As above: Patient had difficulties again earlier today with the jejunostomy portion of the feeding tube being occluded. Apparently prior to that they were able to use the pump for tube feeds but manual flushing was not working. With some gentle pressure with a 30 cc syringe I was able to unclog the jejunostomy portion without significant difficulty. Flow was excellent at this time. No further plans. Will sign off. Please reconsult if needed. Objective - Vital Signs Vital signs: Vital Signs Temp 97.5 F L 10/18/23 13:23 Pulse 86 10/18/23 13:23 Resp 16 10/18/23 13:23 BP 139/74 10/18/23 13:23 Pulse Ox 100 10/18/23 13:23 FiO2 Intake & Output 10/17/23 10/18/23 10/18/23 18:59 06:59 18:59 Intake Total 70 Balance 70 Weight 48 kg 27.5 kg Intake: Tube Feeding 70 Other: Voiding Method Incontinent External Catheter # Voids 1 2 1 # Bowel Movements 1 1 - Labs CBC & Chem 7: 10/18/23 11:06 10/18/23 11:06 Labs: Abnormal Lab Results - Last 24 Hours (Table) 04/11/0510/18/23 10/18/23 Range/Units 17:01 05:48 11:06 Potassium 3.2 L (3.5-5.1) mmol/L Chloride 110 H (98-107) mmol/L Carbon Dioxide 31 H (22-30) mmol/L BUN 34 H (7-17) mg/dL Glucose 128 H (74-99) mg/dL POC Glucose (mg/dL) 131 H 131 H (70-110) mg/dL 10/18/23 Range/Units 11:46 Potassium (3.5-5.1) mmol/L Chloride (98-107) mmol/L Carbon Dioxide (22-30) mmol/L BUN (7-17) mg/dL Glucose (74-99) mg/dL POC Glucose (mg/dL) 122 H (70-110) mg/dL Microbiology - Last 24 Hours (Table) 10/16/23 00:40 Urine Culture - Final Urine,Voided Pseudomonas aeruginosa
[2023-10-18 14:10] LABS: Appearance,Urine Turbid (Clear); Bacteria,Urine Occasional /hpf; Bilirubin,Urine Negative (Negative); Blood,Urine Small (Negative); Color,Urine Yellow; Glucose,Urine (UA) Negative (Negative); Ketones,Urine Negative (Negative); Leukocyte Esterase,Urine Large (Negative); Mucus,Urine Few /hpf; Nitrite,Urine Negative (Negative); Protein,Urine 2+ (Negative); RBC,Urine 60 /hpf (0-5); Specific Gravity,Urine 1.018 (1.001-1.035); Squamous Epithelial Cell,Urine 3 /hpf (0-4); Urobilinogen,Urine <2.0 mg/dL (<2.0); WBC,Urine >182 /hpf (0-5)
--- NOTE | 2023-10-18 14:44 | P.DS ---
Providers Date of admission: 10/18/23 10:07 Expected date of discharge: 10/18/23 Attending physician: Hammad Maher MD Consults: 10/15/23 08:54 Consult Physician Routine Consulting Provider: Carlo Murphy Consult Reason/Comments: clogged J tube and upper GI bleed Do you want consulting provider notified?: Yes 10/18/23 09:48 Consult Physician Routine Consulting Provider: Derick Rojo Consult Reason/Comments: psrudomonas aeruginosa UTI, will need outpt IV Abx Do you want consulting provider notified?: Yes Primary care physician: [facility] Course: Discharge Diagnosis: Multidrug resistant Pseudomonas Aeruginosa UTI. Patient started on meropenem 1 g every 8 hours IVPB per culture and sensitivity report and recommendations by infectious disease physician. Per infectious disease physician, patient to continue IV antibiotics x 5 days. Concerns for acute upper GI bleed, no further episodes. Cleared by gastroenterology and general sx. Discharged home on carafate Clogged gastric J-tube. Resolved Leukocytosis, likely reactive. Resolved Hypercalcemia. Resolved Hypernatremia. Resolved Elevated transaminases. Resolved Uncontrolled hypertension. Continue home antihypertensives including amlodipine 5mg daily, carvedilol 12.5 mg twice daily, and losartan 100 mg daily Hypokalemia. Replaced. Hypothyroidism. Continue daily medication regimen with levothyroxine 25 mcg daily. Gout. Continue daily medication regimen with allopurinol 150 mg daily Hyperlipidemia. Continue daily medication regimen with atorvastatin 10 mg nightly. Hospital Course: Patient is a very pleasant 83-year-old female with a recently diagnosed PE on 09/07/2023 on anticoagulation with Eliquis, CAD, chronic diastolic heart failure, hypertension, hyperlipidemia, COPD, insulin-dependent diabetes mellitus, and history of hiatal hernia surgery with tracheostomy and G-tube placement. She presented to the emergency department on 10/14/2023 secondary to concerns of clogged J-tube and dark-colored output from J-tube. She underwent evaluation in the emergency department. Vital signs upon arrival show blood pressure 170/94, heart rate 104, respiratory rate 18, temp 97.8 F, and SpO2 of 99% on 3 L O2. Labs completed and reviewed. CBC showing leukocytosis with WBC count of 11.4. BMP showing hypercarbia with bicarb of 31 and prerenal azotemia with BUN of 48. Blood glucose was 116. Calcium also elevated at 10.4. Liver profile showing elevated AST of 39 and ALT of 41 otherwise normal findings. Amylase and lipase normal findings. Gastric occult from gastric J-tube was positive for blood. Patient admitted under our services with consultation to general surgery. Hemoglobin levels trended throughout hospitalization and have remained stable at 12.9, 12.6, 12.4, and 11.7. Patient had no further episodes of reported coffee- ground drainage from J-tube. GJ tube is now functioning and general surgery consulted dietitian to resume tube feedings and titrate as patient tolerates. Patient tolerating overnight. A urinalysis was obtained positive for leukocytes and greater than 182 WBCs. Patient started on Macrobid 100 mg twice daily. Patient tolerating tube feeds and cleared from general surgery perspective for discharge. Patient was also evaluated by GI with no plans for endoscopic evaluation, clearing patient from scheduling manager perspective for discharge. Hemoglobin stable throughout hospitalization. Plan is for discharge once insurance authorization is received with tentative plan to return to [facility]. Urine culture positive for multidrug resistant Pseudomonas aeruginosa. Patient started on meropenem per culture and sensitivity report. Infectious disease consulted for management of outpatient IV antibiotics.. Per infectious disease physician, patient to continue IV antibiotics x 5 days. Insurance authorization has been received. Patient to be transferred to [facility]. Physical exam: Vital signs reviewed and stable. General: Nontoxic, to [facility]. no distress and appears stated age. Derm: Skin warm and dry, normal coloration for ethnicity. Head: Atraumatic, normocephalic and symmetric. Eyes: EOMs intact, no lid lag, and anicteric sclera Mouth: no lip lesions, mucus membranes moist Cardiovascular: regular rate and rhythm with normal S1S2, no murmur, positive posterior tibial pulses bilaterally, and cap refill < 2 seconds. Lungs: Respirations even, regular, and unlabored on room air. Lungs CTA bilaterally, no rhonchi, no rales, no wheezing, and no accessory muscle usage. Abdominal: soft, nontender to palpation, no guarding, no appreciable organomegaly. Gastric G-tube/J-tube present, no erythema surrounding insertion site. Ext: ROM intact. No gross muscle atrophy, no edema, no contractures Neuro: Speech clear, face symmetrical and CN II-XII grossly intact with no noted focal neuro deficits Psych: Alert and oriented. Appropriate and pleasant affect. A total of 40 minutes of time were spent preparing this complex discharge summary. Pt was discharged on 10/18/2023 at 1:54 PM. Patient was seen independently by Nurse Practitioner. This document was prepared using [employer] dictation software. Please allow for errors in appraiser irrigation tax while rare they do occur. Pepe Mercado NP rendered care for this patient independently, reviewed the findings and plan as documented in the note above. I did not physically speak with or examine the patient on this date. Patient Condition at Discharge: Stable Plan - Discharge Summary Discharge Rx Participant: No New Discharge Prescriptions: New Meropenem [Merrem] 1 gm IVPB Q8H 5 Days each Sucralfate [Carafate] 1 gm PEJ/J-TUBE BID 30 Days #60 ml Continue Ipratropium-Albuterol Nebulize [Duoneb 0.5 mg-3 mg/3 ml Soln] 3 ml INHALATION RT-Q6H PRN PRN Reason: Shortness Of Breath Or Wheezing Ondansetron [Zofran] 4 mg PEJ/J-TUBE Q8H PRN PRN Reason: Nausea And Vomiting Senna Oral Syrup 8.8mg/5ml 17.6 mg PEJ/J-TUBE BID PRN PRN Reason: Constipation Acetaminophen Tab [Tylenol] 650 mg PEJ/J-TUBE Q6H PRN PRN Reason: Fever And/ Or Pain carvediloL [Coreg] 12.5 mg PEJ/J-TUBE BID polyethylene glycoL 3350 [Miralax] 17 gm PEJ/J-TUBE DAILY Multivitamins, Thera [Multivitamin (formulary)] 1 tab PEJ/J-TUBE DAILY Lidocaine 5% Patch [Lidoderm 5% Patch] 1 patch TRANSDERM DAILY@0600 allopurinoL [Zyloprim] 150 mg PEJ/J-TUBE DAILY Hydrophilic Cream [Triad (Kerodex geq)] 1 applic TOPICAL HS Hydrophilic Cream [Triad (Kerodex geq)] 1 applic TOPICAL DAILY PRN PRN Reason: Coccyx after cleanse Levothyroxine Sodium [Synthroid] 25 mcg PEJ/J-TUBE DAILY@0600 amLODIPine [Norvasc] 5 mg PEJ/J-TUBE DAILY Atorvastatin [Lipitor] 10 mg PEJ/J-TUBE HS guaiFENesin [guaiFENesin Oral Solution] 200 mg PEJ/J-TUBE Q6H PRN PRN Reason: Cough Insulin Lispro See Protocol SQ Q6H Jevity 1.5 Chay Liquid 50 ml PEJ/J-TUBE DIRECTED Apixaban [Eliquis] 5 mg PEJ/J-TUBE BID Thiamine [Vitamin B-1] 100 mg PEJ/J-TUBE DAILY Losartan Potassium 100 mg PEJ/J-TUBE DAILY Insulin Glargine [Lantus Vial] 18 unit SQ HS Ascorbic Acid [Vitamin C] 500 mg PEJ/J-TUBE DAILY Discharge Medication List Atorvastatin [Lipitor] 10 mg PEJ/J-TUBE HS 04/21/23 [History] Levothyroxine Sodium [Synthroid] 25 mcg PEJ/J-TUBE DAILY@0600 04/21/23 [History] amLODIPine [Norvasc] 5 mg PEJ/J-TUBE DAILY 04/21/23 [History] Ipratropium-Albuterol Nebulize [Duoneb 0.5 mg-3 mg/3 ml Soln] 3 ml INHALATION RT-Q6H PRN 08/22/23 [History] Acetaminophen Tab [Tylenol] 650 mg PEJ/J-TUBE Q6H PRN 10/14/23 [History] Apixaban [Eliquis] 5 mg PEJ/J-TUBE BID 10/14/23 [History] Ascorbic Acid [Vitamin C] 500 mg PEJ/J-TUBE DAILY 10/14/23 [History] Hydrophilic Cream [Triad (Kerodex geq)] 1 applic TOPICAL DAILY PRN 10/14/23 [History] Hydrophilic Cream [Triad (Kerodex geq)] 1 applic TOPICAL HS 10/14/23 [History] Insulin Glargine [Lantus Vial] 18 unit SQ HS 10/14/23 [History] Insulin Lispro See Protocol SQ Q6H 10/14/23 [History] Jevity 1.5 Chay Liquid 50 ml PEJ/J-TUBE DIRECTED 10/14/23 [History] Lidocaine 5% Patch [Lidoderm 5% Patch] 1 patch TRANSDERM DAILY@0600 10/14/23 [History] Losartan Potassium 100 mg PEJ/J-TUBE DAILY 10/14/23 [History] Multivitamins, Thera [Multivitamin (formulary)] 1 tab PEJ/J-TUBE DAILY 10/14/23 [History] Ondansetron [Zofran] 4 mg PEJ/J-TUBE Q8H PRN 10/14/23 [History] Senna Oral Syrup 8.8mg/5ml 17.6 mg PEJ/J-TUBE BID PRN 10/14/23 [History] Thiamine [Vitamin B-1] 100 mg PEJ/J-TUBE DAILY 10/14/23 [History] allopurinoL [Zyloprim] 150 mg PEJ/J-TUBE DAILY 10/14/23 [History] carvediloL [Coreg] 12.5 mg PEJ/J-TUBE BID 10/14/23 [History] guaiFENesin [guaiFENesin Oral Solution] 200 mg PEJ/J-TUBE Q6H PRN 10/14/23 [History] polyethylene glycoL 3350 [Miralax] 17 gm PEJ/J-TUBE DAILY 10/14/23 [History] Meropenem [Merrem] 1 gm IVPB Q8H 5 Days each 10/18/23 [Rx] Sucralfate [Carafate] 1 gm PEJ/J-TUBE BID 30 Days #60 ml 10/18/23 [Rx] Follow up Appointment(s)/Referral(s): Cristopher Santillan MD [STAFF PHYSICIAN] - 1-2 days Derick Rojo MD [STAFF PHYSICIAN] - 1 Week Activity/Diet/Wound Care/Special Instructions: Activity: Patient requires total assistance Diet: Continue tube feeds, keep head of bed elevated greater than 30 degrees Special Instructions: [facility] being [facility] on [facility]em, continue IV antibiotics as prescribed for 5 days per recommendations of infectious disease physician. Thank you for allowing us to participate in your care, it was truly a pleasure having you for our patient!!! Discharge Disposition: TRANSFER TO SNF/ECF
[2023-10-18] MEDS: POTASSIUM BICARBONATE/CIT AC 20 MEQ TABLET.EFF PEJ/J-Tube ONE (15:52)
[2023-10-18 16:50] VITALS: BP 170/81; PULSE 88; RESP 23; TEMP 97.3
[2023-10-18 17:16] LABS: Glucose,Whole Blood 131 mg/dL (70-110)
[2023-10-22 09:37] LABS: Glucose,Whole Blood 128 mg/dL (70-110)
== END 2023-10-18 19:15 | DRG 394 ==
LOC: EC 08:36 → 5NMEDONC 13:30 → OBSVTOIN 10-18 10:07
PROVIDERS: ADMIT Student in an Organized Health Care Education/Training Program; ATTEND Student in an Organized Health Care Education/Training Program
DX: K94.23 Gastrostomy malfunction (principal); E87.0 Hyperosmolality and hypernatremia; I50.32 Chronic diastolic (congestive) heart failure; N39.0 Urinary tract infection, site not specified; Z16.24 Resistance to multiple antibiotics; I11.0 Hypertensive heart disease with heart failure; F03.90 Unspecified dementia, unspecified severity, without behavioral disturbance, psychotic disturbance, mood disturbance, and anxiety; J44.9 Chronic obstructive pulmonary disease, unspecified; Z79.4 Long term (current) use of insulin; E03.9 Hypothyroidism, unspecified; E87.6 Hypokalemia; I25.10 Atherosclerotic heart disease of native coronary artery without angina pectoris; R06.89 Other abnormalities of breathing; E78.5 Hyperlipidemia, unspecified; E83.52 Hypercalcemia; R74.01 Elevation of levels of liver transaminase levels; M10.9 Gout, unspecified; B96.5 Pseudomonas (aeruginosa) (mallei) (pseudomallei) as the cause of diseases classified elsewhere; Z79.890 Hormone replacement therapy; Z79.01 Long term (current) use of anticoagulants; Z79.899 Other long term (current) drug therapy; Z88.1 Allergy status to other antibiotic agents; Z91.041 Radiographic dye allergy status; Z88.0 Allergy status to penicillin; Z88.2 Allergy status to sulfonamides; I25.2 Old myocardial infarction; Z86.711 Personal history of pulmonary embolism; Z86.718 Personal history of other venous thrombosis and embolism; Z85.828 Personal history of other malignant neoplasm of skin
CPT/HCPCS: 36410; 36415; 74019; 76937; 80048; 80053; 81001; 82150; 82271; 83036; 83690; 83735; 85025; 85027; 87077; 87086; 87186; 94760; 96360; 99285

== ENCOUNTER 2023-10-27 20:32 | Emergency (ER) | payer MEDICARE ==
[2023-10-27 21:10] VITALS: RESP 18; TEMP 97.7
--- NOTE | 2023-10-27 21:36 | ED ---
General Adult HPI - General Chief complaint: Abdominal Pain Stated complaint: Peg tube displacement Time Seen by Provider: 10/27/23 21:11 Source: EMS Mode of arrival: EMS - History of Present Illness Initial comments: Dictation was produced using [employer] dictation software. please excuse any grammatical, word or spelling errors. Chief Complaint: 83-year-old female presents with GJ tube rupture History of Present Illness: Patient is 83-year-old female brought in for GJ tube rupture. Daughter noticed that the GJ tube was not functioning. She applied pressure to try and flush the tube with the external part ruptured leading to leakage of fluid. No other complaints. Apparently patient has a GJ tube placed secondary to esophageal tear. The ROS documented in this emergency department record has been reviewed and confirmed by me. Those systems with pertinent positive or negative responses have been documented in the HPI. All other systems are other negative and/or noncontributory. - Related Data Home Medications Medication Instructions Recorded Confirmed Atorvastatin [Lipitor] 10 mg PEJ/J-TUBE HS 04/21/23 10/14/23 Levothyroxine Sodium [Synthroid] 25 mcg PEJ/J-TUBE DAILY@0600 04/21/23 10/14/23 amLODIPine [Norvasc] 5 mg PEJ/J-TUBE DAILY 04/21/23 10/14/23 Ipratropium-Albuterol Nebulize 3 ml INHALATION RT-Q6H PRN 08/22/23 10/14/23 [Duoneb 0.5 mg-3 mg/3 ml Soln] Acetaminophen Tab [Tylenol] 650 mg PEJ/J-TUBE Q6H PRN 10/14/23 10/14/23 Apixaban [Eliquis] 5 mg PEJ/J-TUBE BID 10/14/23 10/14/23 Ascorbic Acid [Vitamin C] 500 mg PEJ/J-TUBE DAILY 10/14/23 10/14/23 Hydrophilic Cream [Triad (Kerodex 1 applic TOPICAL DAILY PRN 10/14/23 10/14/23 geq)] Hydrophilic Cream [Triad (Kerodex 1 applic TOPICAL HS 10/14/23 10/14/23 geq)] Insulin Glargine [Lantus Vial] 18 unit SQ HS 10/14/23 10/14/23 Insulin Lispro See Protocol SQ Q6H 10/14/23 10/14/23 Jevity 1.5 Chay Liquid 50 ml PEJ/J-TUBE DIRECTED 10/14/23 10/14/23 Lidocaine 5% Patch [Lidoderm 5% 1 patch TRANSDERM DAILY@0600 10/14/23 10/14/23 Patch] Losartan Potassium 100 mg PEJ/J-TUBE DAILY 10/14/23 10/14/23 Multivitamins, Thera [Multivitamin 1 tab PEJ/J-TUBE DAILY 10/14/23 10/14/23 (formulary)] Ondansetron [Zofran] 4 mg PEJ/J-TUBE Q8H PRN 10/14/23 10/14/23 Senna Oral Syrup 8.8mg/5ml 17.6 mg PEJ/J-TUBE BID PRN 10/14/23 10/14/23 Thiamine [Vitamin B-1] 100 mg PEJ/J-TUBE DAILY 10/14/23 10/14/23 allopurinoL [Zyloprim] 150 mg PEJ/J-TUBE DAILY 10/14/23 10/14/23 carvediloL [Coreg] 12.5 mg PEJ/J-TUBE BID 10/14/23 10/14/23 guaiFENesin [guaiFENesin Oral 200 mg PEJ/J-TUBE Q6H PRN 10/14/23 10/14/23 Solution] polyethylene glycoL 3350 [Miralax] 17 gm PEJ/J-TUBE DAILY 10/14/23 10/14/23 Previous Rx's Medication Instructions Recorded Meropenem [Merrem] 1 gm IVPB Q8H 5 Days each 10/18/23 Sucralfate [Carafate] 1 gm PEJ/J-TUBE BID 30 Days #60 ml 10/18/23 Allergies Allergy/AdvReac Type Severity Reaction Status Date / Time cephalexin [From Keflex] AdvReac Rash/Hives Verified 10/27/23 21:07 iodine AdvReac Unknown Verified 10/27/23 21:07 Penicillins AdvReac Rash/Hives Verified 10/27/23 21:07 Sulfa (Sulfonamide AdvReac Unknown Verified 10/27/23 21:07 Antibiotics) Review of Systems ROS Statement: Those systems with pertinent positive or pertinent negative responses have been documented in the HPI. ROS Other: All systems not noted in ROS Statement are negative. Past Medical History Past Medical History: Cancer, Heart Failure, COPD, Deep Vein Thrombosis (DVT), Myocardial Infarction (RI), Pulmonary Embolus (PE), Renal Disease Additional Past Medical History / Comment(s): Basal cell cancer, goiter, hiatal hernia surgery, tracheostomy, Last Myocardial Infarction Date:: unknown History of Any Multi-Drug Resistant Organisms: Other MDRO Past Surgical History: Hernia Repair Additional Past Surgical History / Comment(s): traceosotomy, g tube placement, thyroid biopsy Past Anesthesia/Blood Transfusion Reactions: No Reported Reaction Past Psychological History: No Psychological Hx Reported Smoking Status: Never smoker Past Alcohol Use History: None Reported Past Drug Use History: None Reported - Past Family History Mother Family Medical History: Diabetes Mellitus Father Family Medical History: Hypertension, Renal Disease General Exam - General Exam Comments Initial Comments: PHYSICAL EXAM: General Impression: Alert and oriented x3, not in acute distress HEENT: Normocephalic atraumatic, extra-ocular movements intact, pupils equal and reactive to light bilaterally, mucous membranes moist. Cardiovascular: Heart regular rate and rhythm Chest: Able to complete full sentences, no retractions, no tachypnea Abdomen: abdomen soft, non-tender, non-distended, no organomegaly, GJ tube in place with ruptured segment approximately 2 inches from the skin surface Musculoskeletal: Pulses present and equal in all extremities, no peripheral edema Motor: no focal deficits noted Neurological: CN II-XII grossly intact, no focal motor or sensory deficits noted Skin: Intact with no visualized rashes Psych: Normal affect and mood Course Vital Signs 10/27/23 10/27/23 20:46 21:10 Temperature 97.7 F Pulse Rate 78 81 Respiratory 18 18 Rate Blood Pressure 160/81 152/94 O2 Sat by Pulse 99 100 Oximetry - Reevaluation(s) Reevaluation #1: 10/27/23 22:[address] Jones who states that she is not sure if we do t GJ tube placement is here. We also spoke with ancillary staff that was available for conversation at 10:00 PM on Saturday night states that they are not sure if we do that procedure either. According to nursing staff we are unable to contact IR during these hours. Patient will be transferred for GJ tube replacement. Medical Decision Making - Medical Decision Making Was pt. sent in by a medical professional or institution ([facility], [employer], urgent care, hospital, or retirement...) When possible be specific @ -No Did you speak to anyone other than the patient for history (EMS, parent, family, police, friend...)? What history was obtained from this source @ -No Did you review nursing and triage notes (agree or disagree)? Why? @ -I reviewed and agree with nursing and triage notes Were old charts reviewed (outside hosp., previous admission, EMS record, old EKG, old radiological studies, urgent care reports/EKG's, retirement records)? Report findings @ -No old charts were reviewed Differential Diagnosis (chest pain, altered mental status, abdominal pain women, abdominal pain men, vaginal bleeding, musculoskeletal, weakness, fever, dyspnea, syncope, headache, dizziness, GI bleed, back pain, seizure, CVA, palpatations, mental health)? @ -Not applicable EKG interpreted by me (3pts min.). @ -None done X-rays interpreted by me (1pt min.). @ -None done CT interpreted by me (1pt min.). @ -None done U/S interpreted by me (1pt. min.). @ -None done What testing was considered but not performed or refused? (CT, X-rays, U/S, labs)? Why? @ -None What meds were considered but not given or refused? Why? @ -None Did you discuss the management of the patient with other professionals (professionals i.e. [facility], [employer], lab, RT, psych nurse, certified social workers in health care, underwriter, teacher, licensed mortgage loan officer, hospice case manager)? Give summary @ -Case discussed with Dr. Blackwell at [facility] who is swelling to accept patient's care for ER to ER transfer. Was smoking cessation discussed for >3mins.? @ -No Was critical care preformed (if so, how long)? @ -No Were there social determinants of health that impacted care today? How? (Homelessness, low income, unemployed, alcoholism, drug addiction, transportation, low edu. Level, literacy, decrease access to med. care, detention, rehab)? @ -No Was there de-escalation of care discussed even if they declined (Discuss DNR or withdrawal of care, Hospice)? DNR status @ -No What co-morbidities impacted this encounter? (DM, HTN, Smoking, COPD, CAD, Cancer, CVA, ARF, Chemo, Hep., AIDS, mental health diagnosis, sleep apnea, morbid obesity)? @ -None Was patient admitted / discharged? Hospital course, mention meds given and route, prescriptions, significant lab abnormalities, going to OR and other pertinent info. @ -83-year-old female presents to the emergency department with ruptured GJ tube. Vital signs stable. Currently we are unable to perform the procedure here at our facility. Patient and family requested transfer to [facility]. Spoke with Dr. Almazan who is willing to accept patient care for ER to ER transfer. Undiagnosed new problem with uncertain prognosis? @ -No Drug Therapy requiring intensive monitoring for toxicity (Heparin, Nitro, Insulin, Cardizem)? @ -No Were any procedures done? @ -No Diagnosis/symptom? Acute, or Chronic, or Acute on Chronic? Uncomplicated (without systemic symptoms) or Complicated (systemic symptoms)? @ -Ruptured GJ tube Side effects of treatment? @ -No Exacerbation, Progression, or Severe Exacerbation? @ -No Poses a threat to life or bodily function? How? (Chest pain, USA, RI, pneumonia, PE, COPD, DKA, ARF, appy, cholecystitis, CVA, Diverticulitis, Homicidal, Suicidal, threat to staff... and all critical care pts) @ -yes Disposition Clinical Impression: Encounter for gastrojejunal (GJ) tube placement Disposition: OTHER INSTITUTION NOT DEFINED Condition: Fair Referrals: Grover Escalante MD [Primary Care Provider] - 1-2 days Time of Disposition: 22:44 - Out of Hospital Transfer - Req. Specs Out of Hospital Transfer - Requested Specifics: Other Emergency Center ([facility])
[2023-10-27 23:20] VITALS: BP 153/85; PULSE 84
== END 2023-10-27 23:28 | disposition other institution (70) ==
LOC: EC 20:32
DX: Z46.59 Encounter for fitting and adjustment of other gastrointestinal appliance and device (principal); Z88.1 Allergy status to other antibiotic agents; Z88.0 Allergy status to penicillin; Z88.2 Allergy status to sulfonamides; Z88.8 Allergy status to other drugs, medicaments and biological substances
CPT/HCPCS: 99285

== ENCOUNTER → 2023-10-29 | Outpatient (CLI) | payer MEDICARE ==
--- NOTE | 2023-10-29 12:58 | FL ---
Exam Date: 10/29/2023 12:31 PM. Modified barium swallow for dysphagia. Consistencies administered: Various consistency of barium. Fluoro time: 2 min 39 sec No images were sent to PACS. Please see speech pathology report. DAP: not reported mGym2 Gycm2
== END | disposition home or self-care (01) ==
LOC: RADFLMAIN 11:31
PROVIDERS: ATTEND Family Medicine
DX: R13.19 Other dysphagia (principal)
CPT/HCPCS: 74230